=== PATIENT | female | born 1990 | race Caucasian/White ===

== ENCOUNTER 2018-07-04 12:20 | Emergency (ER) | payer OTHER ==
[2018-07-04] MEDS ORDERED: methylPREDNISolone SOD SUCCI 125 MG/2 ML VIAL IV STA (13:07)
--- NOTE | 2018-07-04 13:13 | ED ---
General Adult HPI - General Chief complaint: Abdominal Pain Stated complaint: Chrons flare up Time Seen by Provider: 07/04/18 12:36 Source: patient, RN notes reviewed Mode of arrival: ambulatory Limitations: no limitations - History of Present Illness Initial comments: 27-year-old female with a past medical history of Crohn's, ulcerative colitis, endometriosis presents to the emergency department for a chief complaints of abdominal pain. Patient states this has been ongoing for a month and worsened in the past week. Patient states she has been very stressed for the past week and thinks this worsened her Crohn's. Patient states that today the pain was the worst it's been and she felt that she could not walk due to the pain. Patient does have a GI physician but does not live in the area and has been unable to see them. Patient is not on any medications for Crohn's or ulcerative colitis. She was seen here about one month ago and sent home with steroids but has not yet followed up. Patient also complains of bright red bleeding per rectum. Patient states this has been worse than normal. She denies any hematemesis or melena. Patient is concerned about hemoglobin. Denies lightheadedness, chest pain, shortness of breath. Patient has no other complaints at this time including shortness of breath, chest pain, nausea or vomiting, headache, or visual changes. - Related Data Home Medications Medication Instructions Recorded Confirmed Ibuprofen [Motrin Ib] 400 mg PO Q6HR PRN 07/04/18 07/04/18 Previous Rx's Medication Instructions Recorded predniSONE 50 mg PO DAILY #5 tablet 07/04/18 Allergies Allergy/AdvReac Type Severity Reaction Status Date / Time codeine Allergy Mild Rash/Hives Verified 07/04/18 13:26 ketorolac [From Toradol] Allergy Rash/Hives Verified 07/04/18 13:26 morphine Allergy Rash/Hives Verified 07/04/18 13:26 Penicillins Allergy Unknown Verified 07/04/18 13:26 haloperidol [From Haldol] AdvReac Rapid Verified 07/04/18 13:26 Heart Rate Review of Systems ROS Statement: Those systems with pertinent positive or pertinent negative responses have been documented in the HPI. ROS Other: All systems not noted in ROS Statement are negative. Past Medical History Additional Past Medical History / Comment(s): chorns, ulcerative cholitis, ednometriosis History of Any Multi-Drug Resistant Organisms: MRSA Date of last positivie culture/infection: 2016 MDRO Source:: right ear Past Surgical History: Adenoidectomy, Cholecystectomy, Tonsillectomy Additional Past Surgical History / Comment(s): right overy Past Psychological History: Depression Smoking Status: Current every day smoker Past Alcohol Use History: None Reported Past Drug Use History: None Reported General Exam Limitations: no limitations General appearance: alert, in no apparent distress Head exam: Present: atraumatic, normocephalic, normal inspection Eye exam: Present: normal appearance, PERRL, EOMI. Absent: scleral icterus, conjunctival injection, periorbital swelling ENT exam: Present: normal exam, mucous membranes moist Neck exam: Present: normal inspection, full ROM. Absent: tenderness, meningismus, lymphadenopathy Respiratory exam: Present: normal lung sounds bilaterally. Absent: respiratory distress, wheezes, rales, rhonchi, stridor Cardiovascular Exam: Present: regular rate, normal rhythm, normal heart sounds. Absent: systolic murmur, diastolic murmur, rubs, gallop, clicks GI/Abdominal exam: Present: soft, distended (minimal distension noted), tenderness (tenderness without guarding noted in the RLQ and LLQ), normal bowel sounds. Absent: guarding, rebound, rigid, hyperactive bowel sounds (no tympanic BS noted), hypoactive bowel sounds Neurological exam: Present: alert, oriented X3, CN II-XII intact Psychiatric exam: Present: normal affect, normal mood Course Vital Signs 07/04/18 12:26 Temperature 97.8 F Pulse Rate 93 Respiratory 18 Rate Blood Pressure 123/83 O2 Sat by Pulse 100 Oximetry Medical Decision Making - Medical Decision Making 29-year-old female with a past medical history of Crohn's, ulcerative colitis presents for abdominal pain times one month. Patient states this is worsening. Patient is in recovery from opioids, not given pain medications, ALLERGIC to Toradol. Given Tylenol. On exam patient does have some lower abdominal tenderness. Patient admits to bright red blood per rectum, hemoglobin 14.9. CMP unremarkable. Urine does not show any evidence of infection, hCG negative. Computed tomography scan was ordered to rule out fistula/abscess or any other complicating factors which showed a short segment circumferential wall thickening and mucosal hyperemia mid to distal rectum, likely inflammatory colitis. Mildly enlarged right lower quadrant lymph nodes, history of appendectomy. Patient was seen here for similar symptoms about 2 months ago and given referral to GI. She states she has not followed up with them yet. Patient given steroids here and discussed the importance of following up with GI in the next 1-2 days if she is not on any lactic medications for this. Patient agrees to do this. She will return here if she has any worsening symptoms. - Lab Data Result diagrams: 07/04/18 13:28 07/04/18 13:28 Lab Results 07/04/18 07/04/18 07/04/18 Range/Units 13:28 13:28 13:28 WBC 8.6 (3.8-10.6) k/uL RBC 4.71 (3.80-5.40) m/uL Hgb 14.9 (11.4-16.0) gm/dL Hct 43.6 (34.0-46.0) % MCV 92.6 (80.0-100.0) fL MCH 31.6 (25.0-35.0) pg MCHC 34.1 (31.0-37.0) g/dL RDW 13.2 (11.5-15.5) % Plt Count 373 (150-450) k/uL Neutrophils % 64 % Lymphocytes % 23 % Monocytes % 4 % Eosinophils % 6 % Basophils % 1 % Neutrophils # 5.5 (1.3-7.7) k/uL Lymphocytes # 2.0 (1.0-4.8) k/uL Monocytes # 0.4 (0-1.0) k/uL Eosinophils # 0.5 (0-0.7) k/uL Basophils # 0.1 (0-0.2) k/uL Sodium 141 (137-145) mmol/L Potassium 4.3 (3.5-5.1) mmol/L Chloride 109 H (98-107) mmol/L Carbon Dioxide 24 (22-30) mmol/L Anion Gap 8 mmol/L BUN 13 (7-17) mg/dL Creatinine 0.81 (0.52-1.04) mg/dL Est GFR (CKD-EPI)AfAm >90 (>60 ml/min/1.73 sqM) Est GFR (CKD-EPI)NonAf >90 (>60 ml/min/1.73 sqM) Glucose 121 H (74-99) mg/dL Calcium 9.9 (8.4-10.2) mg/dL Total Bilirubin 0.5 (0.2-1.3) mg/dL AST 20 (14-36) U/L ALT 23 (9-52) U/L Alkaline Phosphatase 63 (38-126) U/L Total Protein 7.1 (6.3-8.2) g/dL Albumin 4.4 (3.5-5.0) g/dL Amylase 47 (30-110) U/L Lipase 136 (23-300) U/L Urine Color Yellow Urine Appearance Clear (Clear) Urine pH 5.5 (5.0-8.0) Ur Specific Hallie 1.018 (1.001-1.035) Urine Protein Negative (Negative) Urine Glucose (UA) Negative (Negative) Urine Ketones Negative (Negative) Urine Blood Negative (Negative) Urine Nitrite Negative (Negative) Urine Bilirubin Negative (Negative) Urine Urobilinogen <2.0 (<2.0) mg/dL Ur Leukocyte Esterase Negative (Negative) Urine HCG, Qual (Not Detectd) 07/04/18 Range/Units 13:28 WBC (3.8-10.6) k/uL RBC (3.80-5.40) m/uL Hgb (11.4-16.0) gm/dL Hct (34.0-46.0) % MCV (80.0-100.0) fL MCH (25.0-35.0) pg MCHC (31.0-37.0) g/dL RDW (11.5-15.5) % Plt Count (150-450) k/uL Neutrophils % % Lymphocytes % % Monocytes % % Eosinophils % % Basophils % % Neutrophils # (1.3-7.7) k/uL Lymphocytes # (1.0-4.8) k/uL Monocytes # (0-1.0) k/uL Eosinophils # (0-0.7) k/uL Basophils # (0-0.2) k/uL Sodium (137-145) mmol/L Potassium (3.5-5.1) mmol/L Chloride (98-107) mmol/L Carbon Dioxide (22-30) mmol/L Anion Gap mmol/L BUN (7-17) mg/dL Creatinine (0.52-1.04) mg/dL Est GFR (CKD-EPI)AfAm (>60 ml/min/1.73 sqM) Est GFR (CKD-EPI)NonAf (>60 ml/min/1.73 sqM) Glucose (74-99) mg/dL Calcium (8.4-10.2) mg/dL Total Bilirubin (0.2-1.3) mg/dL AST (14-36) U/L ALT (9-52) U/L Alkaline Phosphatase (38-126) U/L Total Protein (6.3-8.2) g/dL Albumin (3.5-5.0) g/dL Amylase (30-110) U/L Lipase (23-300) U/L Urine Color Urine Appearance (Clear) Urine pH (5.0-8.0) Ur Specific Hallie (1.001-1.035) Urine Protein (Negative) Urine Glucose (UA) (Negative) Urine Ketones (Negative) Urine Blood (Negative) Urine Nitrite (Negative) Urine Bilirubin (Negative) Urine Urobilinogen (<2.0) mg/dL Ur Leukocyte Esterase (Negative) Urine HCG, Qual Not Detected (Not Detectd) Disposition Clinical Impression: Colitis, Abdominal pain Disposition: HOME SELF-CARE Condition: Good Instructions: Ulcerative Colitis (ED), Abdominal Pain (ED) Additional Instructions: Please take steroids as directed. Please follow-up with Dr. Cathy rubio or GI follow-up. Return to the emergency department if you have any worsening symptoms. Prescriptions: predniSONE 50 mg PO DAILY #5 tablet Is patient prescribed a controlled substance at d/c from ED?: No Referrals: Navi Sofia MD [STAFF PHYSICIAN] - 1-2 days Neli Ayers MD [STAFF PHYSICIAN] - 1-2 days Time of Disposition: 15:24
[2018-07-04 13:44] LABS: Appearance,Urine Clear (Clear); Bilirubin,Urine Negative (Negative); Blood,Urine Negative (Negative); Color,Urine Yellow; Glucose,Urine (UA) Negative (Negative); Ketones,Urine Negative (Negative); Leukocyte Esterase,Urine Negative (Negative); Nitrite,Urine Negative (Negative); PH, Urine 5.5 (5.0-8.0); Protein,Urine Negative (Negative); Specific Gravity,Urine 1.018 (1.001-1.035); Urobilinogen,Urine <2.0 mg/dL (<2.0)
[2018-07-04 13:45] LABS: Basophils # (A) 0.1 k/uL (0-0.2); Basophils % (A) 1 %; Eosinophils # (A) 0.5 k/uL (0-0.7); Eosinophils % (A) 6 %; HCT 43.6 % (34.0-46.0); HGB 14.9 gm/dL (11.4-16.0); Lymphocytes % (A) 23 %; MCH 31.6 pg (25.0-35.0); MCHC 34.1 g/dL (31.0-37.0); MCV 92.6 fL (80.0-100.0); Mean Platelet Volume 7.1; Monocytes # (A) 0.4 k/uL (0-1.0); Monocytes % (A) 4 %; Neutrophils # (A) 5.5 k/uL (1.3-7.7); Neutrophils % (A) 64 %; Platelet Count 373 k/uL (150-450); RBC 4.71 m/uL (3.80-5.40); RDW 13.2 % (11.5-15.5); WBC 8.6 k/uL (3.8-10.6)
[2018-07-04 13:57] LABS: ALT 23 U/L (9-52); AST 20 U/L (14-36); Albumin 4.4 g/dL (3.5-5.0); Alkaline Phosphatase 63 U/L (38-126); Amylase 47 U/L (30-110); Anion Gap 8 mmol/L; Blood Urea Nitrogen 13 mg/dL (7-17); Calcium 9.9 mg/dL (8.4-10.2); Carbon Dioxide 24 mmol/L (22-30); Chloride 109 mmol/L (98-107); Glucose 121 mg/dL (74-99); Lipase 136 U/L (23-300); Potassium 4.3 mmol/L (3.5-5.1); Sodium 141 mmol/L (137-145); Total Bilirubin 0.5 mg/dL (0.2-1.3); Total Protein 7.1 g/dL (6.3-8.2)
[2018-07-04] MEDS ORDERED: ACETAMINOPHEN TAB 325 MG TAB PO STA (14:10)
--- NOTE | 2018-07-04 14:42 | CT ---
EXAMINATION TYPE: CT abdomen pelvis w con DATE OF EXAM: 07/04/2018 COMPARISON: Radiograph Same-day HISTORY: 27-year-old female with abdominal pain TECHNIQUE: Contiguous axial scanning of the abdomen and pelvis following administration of 100 ml Iso brandi 300 IV contrast. Delayed images through the kidneys and coronal/sagittal reconstructions perform ed. CT DLP: 652.6 mGycm Automated exposure control for dose reduction was used. FINDINGS: Heart normal size without pericardial effusion. Lung bases clear without pleural effusion. Small amount of focal fat along the anterior falciform ligament. Otherwise, no focal liver lesion. P ortal venous system is patent. No biliary ductal dilatation. Cholecystectomy clips. Adrenal glands, kidneys, spleen with tiny hilar splenule, and pancreas show no gross abnormality. Normal appendix. No abnormal thickening of the terminal ileum. Scattered mesenteric lymph nodes especially in the righ t lower quadrant measure up to 8 mm. Scattered mild stool burden. There seems to be mild circumferential wall thickening and mucosal hyperemia involving the mid to dis dom rectum, reference axial image 78, coronal image 59, and sagittal image 61. Unclear if this relate s to focal peristalsis. There is a prominent left perirectal lymph node measuring 5 mm here No dilated small bowel, free fluid, or free air. Bladder nondistended. Uterus and left ovaries visualized. Right ovary is not clearly delineated from adjacent clustered bowel loops. The left ovary measures 3.5 x 2.7 x 3.5 cm for a volume of 16.5 mL wh ich is within normal limits. No abnormal fluid collection seen in the pelvis are evident pelvic lymph adenopathy. Bones: There is left L5 hemisacralization. No osseous destructive process. IMPRESSION: 1. SHORT SEGMENT CIRCUMFERENTIAL WALL THICKENING AND APPARENT MUCOSAL HYPEREMIA MID TO DISTAL RECTUM COULD REPRESENT FOCAL PERISTALSIS OR INFLAMMATORY COLITIS. CORRELATE WITH PATIENT'S SYMPTOMS. 2. MILDLY ENLARGED RIGHT LOWER QUADRANT MESENTERIC LYMPH NODES MEASURING UP TO 8 MM. 3. OTHERWISE, NO OTHER SITES OF ACTIVE IBD IDENTIFIED BY CT.
[2018-07-04 15:38] VITALS: BP 109/64; PULSE 69; RESP 16; TEMP 97.9
== END 2018-07-04 15:37 | disposition home or self-care (01) ==
LOC: EC 12:20
DX: K52.9 Noninfective gastroenteritis and colitis, unspecified (principal); K62.89 Other specified diseases of anus and rectum; R59.0 Localized enlarged lymph nodes; F17.200 Nicotine dependence, unspecified, uncomplicated; Z32.02 Encounter for pregnancy test, result negative; Z86.14 Personal history of Methicillin resistant Staphylococcus aureus infection; Z88.0 Allergy status to penicillin; Z88.5 Allergy status to narcotic agent; Z88.6 Allergy status to analgesic agent; Z88.8 Allergy status to other drugs, medicaments and biological substances; Z90.49 Acquired absence of other specified parts of digestive tract
CPT/HCPCS: 36415; 80053; 82150; 83690; 85025; 81003; 81025; 74177; 99284; 96374; J2930; Q9967

== ENCOUNTER 2018-10-03 17:29 | Inpatient (IN) | payer OTHER ==
[2018-10-03] MEDS ORDERED: SODIUM CHLORIDE 0.9% 500 ML 500 ML IV STA (18:04)
[2018-10-03] MEDS ORDERED: SODIUM CHLORIDE 0.9% 1,000 ML IV STA (18:04)
--- NOTE | 2018-10-03 18:21 | ED ---
GI Bleed HPI - General Chief complaint: GI Bleed Stated complaint: And pain, rectal bleed Time Seen by Provider: 10/03/18 18:03 Source: patient, RN notes reviewed Mode of arrival: ambulatory Limitations: no limitations - History of Present Illness Initial comments: 27-year-old female presents emergency Department chief complaint of rectal bleeding. Patient states that she has a history of ulcerative colitis. Patient states she's been having some ongoing bleeding which she's developed some diffuse abdominal discomfort. She states this is typical for her ulcerative colitis flares. Patient states she's not on any current medications. She also states that she is probably [address] Mast. Patient states that she is A0. Patient denies any vaginal bleeding or vaginal discharge no dysuria no hematuria. Patient states her bowel movements are primary bloody minimal stool. - Related Data Home Medications Medication Instructions Recorded Confirmed Fzu-Iymu-Twzus Acid 1 cap PO DAILY 10/03/18 10/03/18 [-U Capsule (formulary)] Allergies Allergy/AdvReac Type Severity Reaction Status Date / Time codeine Allergy Mild Rash/Hives Verified 10/03/18 18:05 ketorolac [From Toradol] Allergy Rash/Hives Verified 10/03/18 18:05 morphine Allergy Rash/Hives Verified 10/03/18 18:05 Penicillins Allergy Unknown Verified 10/03/18 18:05 haloperidol [From Haldol] AdvReac Rapid Verified 10/03/18 18:05 Heart Rate Review of Systems ROS Statement: Those systems with pertinent positive or pertinent negative responses have been documented in the HPI. ROS Other: All systems not noted in ROS Statement are negative. Past Medical History Additional Past Medical History / Comment(s): chorns, ulcerative cholitis, edno metriosis History of Any Multi-Drug Resistant Organisms: MRSA Date of last positivie culture/infection: 2016 MDRO Source:: right ear Past Surgical History: Adenoidectomy, Cholecystectomy, Tonsillectomy Additional Past Surgical History / Comment(s): right overy Past Psychological History: Depression Smoking Status: Current every day smoker Past Alcohol Use History: None Reported Past Drug Use History: None Reported General Exam Limitations: no limitations General appearance: alert, in no apparent distress Head exam: Present: atraumatic, normocephalic, normal inspection Eye exam: Present: normal appearance, PERRL, EOMI. Absent: scleral icterus, conjunctival injection, periorbital swelling ENT exam: Present: normal exam, mucous membranes moist Neck exam: Present: normal inspection, full ROM. Absent: tenderness, meningismus, lymphadenopathy Respiratory exam: Present: normal lung sounds bilaterally. Absent: respiratory distress, wheezes, rales, rhonchi, stridor Cardiovascular Exam: Present: normal rhythm, tachycardia, normal heart sounds. Absent: systolic murmur, diastolic murmur, rubs, gallop, clicks GI/Abdominal exam: Present: soft, tenderness (Mild diffuse), normal bowel sounds. Absent: distended, guarding, rebound, rigid Back exam: Absent: CVA tenderness (R), CVA tenderness (L) Neurological exam: Present: alert Skin exam: Present: warm, dry, intact, normal color. Absent: rash Course Vital Signs 10/03/18 17:42 Temperature 99.0 F Pulse Rate 113 H Respiratory 18 Rate Blood Pressure 110/78 O2 Sat by Pulse 97 Oximetry Medical Decision Making - Medical Decision Making 27-year-old female presented from for abdominal pain, rectal bleeding. Patient has known ulcerative colitis. Patient had persistent worsening symptoms., Getting infected status she is 14 weeks heart tones within normal limits. Patient will be admitted for GI evaluation, IV hydration as she is slightly acidotic with a bicarb of 19. - Lab Data Result diagrams: 10/03/18 18:36 10/03/18 18:36 Lab Results 10/03/18 10/03/18 10/03/18 Range/Units 18:28 18:36 18:36 WBC 11.0 H (3.8-10.6) k/uL RBC 4.54 (3.80-5.40) m/uL Hgb 14.2 (11.4-16.0) gm/dL Hct 41.2 (34.0-46.0) % MCV 90.8 (80.0-100.0) fL MCH 31.2 (25.0-35.0) pg MCHC 34.3 (31.0-37.0) g/dL RDW 13.7 (11.5-15.5) % Plt Count 329 (150-450) k/uL Neutrophils % 69 % Lymphocytes % 24 % Monocytes % 3 % Eosinophils % 2 % Basophils % 1 % Neutrophils # 7.6 (1.3-7.7) k/uL Lymphocytes # 2.6 (1.0-4.8) k/uL Monocytes # 0.4 (0-1.0) k/uL Eosinophils # 0.3 (0-0.7) k/uL Basophils # 0.1 (0-0.2) k/uL Sodium 137 (137-145) mmol/L Potassium 3.8 (3.5-5.1) mmol/L Chloride 109 H (98-107) mmol/L Carbon Dioxide 19 L (22-30) mmol/L Anion Gap 9 mmol/L BUN 6 L (7-17) mg/dL Creatinine 0.43 L (0.52-1.04) mg/dL Est GFR (CKD-EPI)AfAm >90 (>60 ml/min/1.73 sqM) Est GFR (CKD-EPI)NonAf >90 (>60 ml/min/1.73 sqM) Glucose 72 L (74-99) mg/dL Calcium 9.5 (8.4-10.2) mg/dL Magnesium 1.9 (1.6-2.3) mg/dL Total Bilirubin 0.5 (0.2-1.3) mg/dL AST 22 (14-36) U/L ALT 23 (9-52) U/L Alkaline Phosphatase 66 (38-126) U/L Total Protein 7.5 (6.3-8.2) g/dL Albumin 4.4 (3.5-5.0) g/dL Urine Color Yellow Urine Appearance Clear (Clear) Urine pH 6.0 (5.0-8.0) Ur Specific Wellman 1.022 (1.001-1.035) Urine Protein Negative (Negative) Urine Glucose (UA) Negative (Negative) Urine Ketones Negative (Negative) Urine Blood Negative (Negative) Urine Nitrite Negative (Negative) Urine Bilirubin Negative (Negative) Urine Urobilinogen <2.0 (<2.0) mg/dL Ur Leukocyte Esterase Negative (Negative) Disposition Clinical Impression: Exacerbation of ulcerative colitis, Metabolic acidosis, , Dehydration Disposition: ADMITTED IP TO THIS [facility] Condition: Fair Referrals: None,Stated [Primary Care Provider] - 1-2 days
[2018-10-03 18:50] LABS: Basophils # (A) 0.1 k/uL (0-0.2); Basophils % (A) 1 %; Eosinophils # (A) 0.3 k/uL (0-0.7); Eosinophils % (A) 2 %; HCT 41.2 % (34.0-46.0); HGB 14.2 gm/dL (11.4-16.0); Lymphocytes # (A) 2.6 k/uL (1.0-4.8); Lymphocytes % (A) 24 %; MCH 31.2 pg (25.0-35.0); MCHC 34.3 g/dL (31.0-37.0); MCV 90.8 fL (80.0-100.0); Mean Platelet Volume 7.2; Monocytes # (A) 0.4 k/uL (0-1.0); Monocytes % (A) 3 %; Neutrophils # (A) 7.6 k/uL (1.3-7.7); Neutrophils % (A) 69 %; Platelet Count 329 k/uL (150-450); RBC 4.54 m/uL (3.80-5.40); RDW 13.7 % (11.5-15.5)
[2018-10-03 18:58] LABS: Appearance,Urine Clear (Clear); Bilirubin,Urine Negative (Negative); Blood,Urine Negative (Negative); Color,Urine Yellow; Glucose,Urine (UA) Negative (Negative); Ketones,Urine Negative (Negative); Leukocyte Esterase,Urine Negative (Negative); Nitrite,Urine Negative (Negative); Protein,Urine Negative (Negative); Specific Gravity,Urine 1.022 (1.001-1.035); Urobilinogen,Urine <2.0 mg/dL (<2.0)
[2018-10-03 19:04] LABS: ALT 23 U/L (9-52); AST 22 U/L (14-36); Albumin 4.4 g/dL (3.5-5.0); Alkaline Phosphatase 66 U/L (38-126); Anion Gap 9 mmol/L; Blood Urea Nitrogen 6 mg/dL (7-17); Calcium 9.5 mg/dL (8.4-10.2); Carbon Dioxide 19 mmol/L (22-30); Chloride 109 mmol/L (98-107); Glucose 72 mg/dL (74-99); Magnesium 1.9 mg/dL (1.6-2.3); Potassium 3.8 mmol/L (3.5-5.1); Sodium 137 mmol/L (137-145); Total Bilirubin 0.5 mg/dL (0.2-1.3); Total Protein 7.5 g/dL (6.3-8.2)
--- NOTE | 2018-10-03 22:42 | P.HPIM ---
History of Present Illness H&P Date: 10/03/18 The patient is a 27 yo F with a PMH of ulcerative colitis and currently at 1 weeks gestation of a who presented to the ED due to rectal bleeding and abdominal pain. Patent reports that she was previously on Mesalamine and was following with a GI doctor when she moved and subsequently lost follow up 1 year ago. Since then, she hadn't been taking any medications and noted that at first she was asymptomatic though her symptoms gradually worsened where she developed abdominal bloating with pain and rectal bleeding, described as moderate amounts of mucous along w/ bright red blood in the toiler bowel. She notes that her abdominal pain worsened over the past 1 week and she decieded to seek medical attention. She denied nausea, vomiting, diarrhea, fever, chills, chest pain or SOB. At time of the interview, she reports her pain is a 1/10. She denied weight loss, recent travel, or sick contacts. In the ED, the patient underwent a comprehensive evaluation w/ a WBC count of 11, Hgb 14.2, with Cr 0.43, and a UA unremarkable. The patient was admitted under osbervation for evaluation by GI. Review of Systems Pertinent positives and negatives as discussed in HPI, a complete review of systems was performed and all other systems are negative. Past Medical History Additional Past Medical History / Comment(s): crohns, ulcerative cholitis, endometriosis History of Any Multi-Drug Resistant Organisms: MRSA Date of last positivie culture/infection: 2016 MDRO Source:: right ear Past Surgical History: Adenoidectomy, Cholecystectomy, Tonsillectomy Additional Past Surgical History / Comment(s): right ovary removed. surgery to remove scar tissue Past Anesthesia/Blood Transfusion Reactions: No Reported Reaction Past Psychological History: Depression Smoking Status: Former smoker Past Alcohol Use History: None Reported Additional Past Alcohol Use History / Comment(s): Pt states that she is not a current smoker. She states that she was a previous 1/2 pack per day. Past Drug Use History: None Reported Medications and Allergies Home Medications Medication Instructions Recorded Confirmed Type Gnx-Ylxu-Gijbk Acid 1 cap PO DAILY 10/03/18 10/03/18 History [-U Capsule (formulary)] Allergies Allergy/AdvReac Type Severity Reaction Status Date / Time codeine Allergy Mild Rash/Hives Verified 10/03/18 18:05 ketorolac [From Toradol] Allergy Rash/Hives Verified 10/03/18 18:05 morphine Allergy Rash/Hives Verified 10/03/18 18:05 Penicillins Allergy Unknown Verified 10/03/18 18:05 haloperidol [From Haldol] AdvReac Rapid Verified 10/03/18 18:05 Heart Rate Physical Exam Vitals: Vital Signs Temp Pulse Pulse Resp BP BP Pulse Ox 10/03/18 20:45 98.3 F 87 16 110/75 100 10/03/18 20:18 98.3 F 85 15 89/44 98 10/03/18 19:42 98.1 F 85 16 100/36 100 10/03/18 17:42 99.0 F 113 H 18 110/78 97 Intake and Output 10/03/18 10/03/18 10/03/18 06:59 14:59 22:59 Other: # Voids 1 Weight 63.503 kg General: non toxic, no distress, appears at stated age, normal weight Derm: no unusual rashes/lesions no unusual ecchymoses, warm, dry Head: atraumatic, normocephalic, symmetric Eyes: EOMI, no lid lag, anicteric sclera, pupils equal round reactive to light ENT: Nose and ears atraumatic, no thrush, no pharyngeal erythema Neck: No thyromegaly, no cervical lymphadenopathy, trachea midline, supple Mouth: no lip lesion, mucus membranes moist Cardiovascular: S1S2 reg, no murmur, positive posterior tibial pulse bilateral, no edema, capillary refill less than 2 seconds Lungs: CTA bilateral, no rhonchi, no rales , no accessory muscle use Abdominal: soft, nontender to palpation, no guarding, normal bowel sounds Ext: no gross muscle atrophy, muscle strength 5 out of 5 in all 4 extremities grossly, no contractures, Neuro: CN II-XI grossly intact, light touch intact all 4 extremities, finger to nose within normal limits, Psych: Alert, oriented, appropriate affect Results CBC & Chem 7: 10/03/18 18:36 10/03/18 18:36 Labs: Abnormal Lab Results - Last 24 Hours (Table) 10/03/18 10/03/18 Range/Units 18:36 18:36 WBC 11.0 H (3.8-10.6) k/uL Chloride 109 H (98-107) mmol/L Carbon Dioxide 19 L (22-30) mmol/L BUN 6 L (7-17) mg/dL Creatinine 0.43 L (0.52-1.04) mg/dL Glucose 72 L (74-99) mg/dL Thrombosis Risk Factor Assmnt - Choose All That Apply Any of the Below Risk Factors Present?: Yes Each Factor Represents 1 point: Obesity (BMI >25) Other Risk Factors: No Thrombosis Risk Factor Assessment Total Risk Factor Score: 1 Thrombosis Risk Factor Assessment Level: Low Risk Assessment and Plan Plan: Ulcerative colitis w/ rectal bleeding, not on medications, currently -Will c/w clear liquid diet for now -GI consult in am -Patient not suitable for mesalamine due to DVT prophylaxis -IPCDs The patient is admitted with an anticipated less than 2 midnight stay for evaluation of ulcerative colitis. CODE STATUS:Full Code Discussed with: Patient Anticipated discharge date: 10/04/[address]: Home A total of 35 minutes was spent on the care of this complex patient more than 50% of the time was spent in counseling and care coordination.
[2018-10-04] MEDS: SODIUM CHLORIDE 0.9% 1,000 ML IV SCH ×3 (01:08→16:42)
[2018-10-04] MEDS: ACETAMINOPHEN TAB 325 MG TAB PO PRN ×2 (09:57→15:32)
--- NOTE | 2018-10-04 12:12 | P.CONS ---
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 Betancourt which she no longer follows and presently not on maintenance medi cations. Reported intrauterine approximately 14 weeks admitted with rectal bleeding lower abdominal discomfort 10-15 times a day bloody bowel movements 2 months. Pain has worsened over the past week. Denies fever chills hematemesis or melena. No recent endoscopic exams. In the past she was maintained on steroids and mesalamine and was advised Remicade but never followed through. No recent steroids or antibiotics. Not sure the extent of her inflammatory bowel disease if its small bowel/colon or rectal involvement. White count 11. Hemoglobin 14.2. Platelet 329. BUN 6. Creatinine 0.4. Review of Systems Constitutional: Denies fever, chills, sweats, weight gain, or loss. HEENT: Negative for migraines, blurred vision or loss, earaches, drainage, tinnitus, oral mucosal lesions, dysphagia, or odynophagia. CARDIAC: Negative for chest pain, arrhythmias, or palpitation. RESPIRATORY: Negative for shortness of breath, hemoptysis, cough, or sputum production. GI: See HPI for pertinent findings. : Negative for hematuria, urgency, frequency, polyuria, or dysuria. GYNc: Reports approximate 14 weeks gestation. Negative vaginal discharge. MUSCULOSKELETAL: Negative for muscle aches, swelling, arthritis, and arthralgias. NEUROLOGIC: Negative for stroke or TIA. ENDOCRINE: Negative for thyroid problems. SKIN: Negative for rash or itching. PSYCHIATRIC: Negative history for depression and anxiety Past Medical History Additional Past Medical History / Comment(s): crohns, ulcerative cholitis, endometriosis History of Any Multi-Drug Resistant Organisms: MRSA Year Discovered:: 2017 MDRO Source:: right ear Past Surgical History: Adenoidectomy, Cholecystectomy, Tonsillectomy Additional Past Surgical History / Comment(s): right ovary removed. surgery to remove scar tissue Past Anesthesia/Blood Transfusion Reactions: No Reported Reaction Past Psychological History: Depression Smoking Status: Former smoker Past Alcohol Use History: None Reported Additional Past Alcohol Use History / Comment(s): Pt states that she is not a current smoker. She states that she was a previous 1/2 pack per day. Past Drug Use History: None Reported Medications and Allergies Home Medications Medication Instructions Recorded Confirmed Type [id number] Acid 1 cap PO DAILY 10/03/18 10/03/18 History [-U Capsule (formulary)] Allergies Allergy/AdvReac Type Severity Reaction Status Date / Time codeine Allergy Mild Rash/Hives Verified 10/03/18 18:05 ketorolac [From Toradol] Allergy Rash/Hives Verified 10/03/18 18:05 morphine Allergy Rash/Hives Verified 10/03/18 18:05 Penicillins Allergy Unknown Verified 10/03/18 18:05 haloperidol [From Haldol] AdvReac Rapid Verified 10/03/18 18:05 Heart Rate Physical Exam Vitals: Vital Signs Temp Pulse Pulse Resp BP BP Pulse Ox 10/04/18 08:00 98.4 F 78 18 93/57 97 10/04/18 04:00 16 10/04/18 00:00 98.3 F 89 16 88/56 97 10/03/18 22:34 16 10/03/18 20:45 98.3 F 87 16 110/75 100 10/03/18 20:18 98.3 F 85 15 89/44 98 10/03/18 19:42 98.1 F 85 16 100/36 100 10/03/18 17:42 99.0 F 113 H 18 110/78 97 Intake and Output 10/03/18 10/04/18 10/04/18 22:59 06:59 14:59 Other: Voiding Method Toilet Toilet Toilet # Voids 1 2 Weight 63.503 kg General appearance: The patient is alert, oriented, in no acute distress. HET: Head is normocephalic and atraumatic. Pupils are equal and reactive. Oropharynx is clear without lesions. Neck: Supple without lymphadenopathy. Trachea midline. Heart: S1 S2. Regular rate and rhythm. Lungs: No crackles or wheezes are heard. Abdomen: Soft, mildly tender bilateral lower abdomen mildly bloated with bowel sounds. No peritoneal signs. No palpable organomegaly or masses. Extremities: Normal skin color and turgor. No cyanosis, rash, ulceration, clubbing, or edema. Radial and pedal pulses are 2/4 bilaterally. Neurological: No focal deficits. Strength and sensation are grossly intact. 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 Suspect exacerbation of inflammatory bowel disease but an underlying superimposed infectious colitis cannot be excluded. Admission hemoglobin 14.2 no abdominal imaging to review secondary to reported . Current Visit: Yes Status: Acute Code(s): K62.5 - HEMORRHAGE OF ANUS AND RECTUM SNOMED Code(s): 52533984 (2) Current Visit: Yes Status: Acute Code(s): Z34.90 - ENCNTR FOR SUPRVSN OF NORMAL , UNSP, UNSP TRIMESTER SNOMED Code(s): 91286820 Plan: 1. Dr. Sofia recommends stool testing for clostridium difficile. Steroid therapy and or mesalamine is appropriate for 2nd trimeseter . She has reported history of IBD but is unclear on the details when questioned. 2. Will obtain sed rate and CRP. No evidence of fever or anemia. Will reevaluate this afternoon. Further recommendations forthcoming. Would be helpful to obtain GI medical records to support IBD diagnosis from her [place] wind turbine electrical engineer before starting steroids and or mesalamine/balsalazide medications. We'll request records and place on chart for review. Low residue diet as tolerated. Thank you for this kind referral and the opportunity to participate in the care of your patient. This consultation was discussed with Dr. Sofia. The impression and plan of care have been directed as dictated.
--- NOTE | 2018-10-04 15:54 | P.PN ---
Subjective Progress Note Date: 10/04/18 Patient resting comfortably, reports that she had a bloody liquidy stool. Reports some vague abdominal pain, reports gestational age of 14 weeks. Reports history of Cro[facility]'s disease and [facility] 23 [facility] No acute events overnight Objective - Vital Signs Vital signs: Vital Signs Temp 98.4 F 10/04/18 08:00 Pulse 78 10/04/18 08:00 Resp 18 10/04/18 08:00 BP 93/57 10/04/18 08:00 Pulse Ox 97 10/04/18 08:00 Intake & Output 10/03/18 10/04/18 10/04/18 18:59 06:59 18:59 Weight 63.503 kg Other: Voiding Method Toilet Toilet # Voids 2 1 # Bowel Movements 1 - Exam Constitutional: No acute distress, conversant, pleasant Eyes: Anicteric sclerae, moist conjunctiva, no lid-lag, PERRLA ENMT: NC/AT,Oropharynx clear, no erythema, exudates Neck:Supple, FROM, no masses, or JVD, No carotid bruits; No thyromegaly Lungs: Clear to auscultation, Clear to percussion, Normal respiratory effort, no accessory muscle use Cardiovascular: Heart regular in rate and rhythm, No murmurs, gallops, or rubs no peripheral edema Abdominal: Soft Nontender, nom distended, no guarding, no rebound or rigidity, Normoactive bowel sounds No hepatomegaly, No splenomegaly, No palpable mass No abdominal wall hernia noted Skin: Normal temperature, tone, texture, turgor, No induration No subcutaneous nodules, No rash, lesions, No ulcers Extremities:No digital cyanosis No clubbing, Pedal pulses intact and symmetrical Radial pulses intact and symmetrical Normal gait and station, No calf tenderness Psychiatric: Alert and oriented to person, place and time, Appropriate affect Intact judgement Neuro: Muscles Strength 5/5 in all 4 extremities, Sensation to light touch grossly present throughout, Cranial nerves II-XII grossly intact. No focal s ensory deficits - Labs CBC & Chem 7: 10/03/18 18:36 10/03/18 18:36 Labs: Abnormal Lab Results - Last 24 Hours (Table) 10/03/18 10/03/18 Range/Units 18:36 18:36 WBC 11.0 H (3.8-10.6) k/uL Chloride 109 H (98-107) mmol/L Carbon Dioxide 19 L (22-30) mmol/L BUN 6 L (7-17) mg/dL Creatinine 0.43 L (0.52-1.04) mg/dL Glucose 72 L (74-99) mg/dL Assessment and Plan (1) Exacerbation of ulcerative colitis Narrative/Plan: * Possible exacerbation GI consulted * Previously on mesalamine * Inflammatory markers pending Current Visit: Yes Status: Acute Code(s): K51.90 - ULCERATIVE COLITIS, UNSPECIFIED, WITHOUT COMPLICATIONS SNOMED Code(s): 866607540 (2) Dehydration Narrative/Plan: * Continue IV fluids Current Visit: Yes Status: Acute Code(s): E86.0 - DEHYDRATION SNOMED Code(s): 18547161 (3) Rectal bleeding Current Visit: Yes Status: Acute Code(s): K62.5 - HEMORRHAGE OF ANUS AND RECTUM SNOMED Code(s): 02220566 (4) Current Visit: Yes Status: Acute Code(s): Z34.90 - ENCNTR FOR SUPRVSN OF NORMAL , UNSP, UNSP TRIMESTER SNOMED Code(s): 33834561 Plan: * Disposition * Follow-up with GI recommendations
[2018-10-05 12:46] LABS: Basophils # (A) 0.1 k/uL (0-0.2); Basophils % (A) 1 %; Eosinophils # (A) 0.2 k/uL (0-0.7); Eosinophils % (A) 2 %; HCT 42.1 % (34.0-46.0); Lymphocytes % (A) 21 %; MCH 30.8 pg (25.0-35.0); MCHC 33.3 g/dL (31.0-37.0); MCV 92.4 fL (80.0-100.0); Mean Platelet Volume 6.9; Monocytes # (A) 0.3 k/uL (0-1.0); Monocytes % (A) 4 %; Neutrophils # (A) 6.9 k/uL (1.3-7.7); Neutrophils % (A) 72 %; Platelet Count 246 k/uL (150-450); RBC 4.56 m/uL (3.80-5.40); RDW 13.1 % (11.5-15.5); WBC 9.6 k/uL (3.8-10.6)
[2018-10-05 12:54] LABS: ALT 26 U/L (9-52); AST 16 U/L (14-36); Albumin 4.2 g/dL (3.5-5.0); Alkaline Phosphatase 62 U/L (38-126); Anion Gap 10 mmol/L; Blood Urea Nitrogen 6 mg/dL (7-17); Calcium 9.8 mg/dL (8.4-10.2); Carbon Dioxide 20 mmol/L (22-30); Chloride 107 mmol/L (98-107); Glucose 81 mg/dL (74-99); Potassium 4.1 mmol/L (3.5-5.1); Sodium 137 mmol/L (137-145); Total Bilirubin 0.4 mg/dL (0.2-1.3)
--- NOTE | 2018-10-05 16:19 | P.PN ---
Subjective Progress Note Date: 10/05/18 Patient feeling a little bit better today, still having some generalized abdominal pain, rectal bleeding seems to have diminished. No acute events overnight Objective - Vital Signs Vital signs: Vital Signs Temp 98.2 F 10/05/18 15:14 Pulse 88 10/05/18 15:14 Resp 18 10/05/18 15:14 BP 114/75 10/05/18 15:14 Pulse Ox 98 10/05/18 15:14 Intake & Output 10/04/18 10/05/18 10/05/18 18:59 06:59 18:59 Output Total 2 Balance -2 Output: Urine 2 Other: Voiding Method Toilet Toilet # Voids 1 # Bowel Movements 1 - Exam Constitutional: No acute distress, conversant, pleasant Eyes: Anicteric sclerae, moist conjunctiva, no lid-lag, PERRLA ENMT: NC/AT,Oropharynx clear, no erythema, exudates Neck:Supple, FROM, no masses, or JVD, No carotid bruits; No thyromegaly Lungs: Clear to auscultation, Clear to percussion, Normal respiratory effort, no accessory muscle use Cardiovascular: Heart regular in rate and rhythm, No murmurs, gallops, or rubs no peripheral edema Abdominal: Soft Nontender, nom distended, no guarding, no rebound or rigidity, Normoactive bowel sounds No hepatomegaly, No splenomegaly, No palpable mass No abdominal wall hernia noted Skin: Normal temperature, tone, texture, turgor, No induration No subcutaneous nodules, No rash, lesions, No ulcers Extremities:No digital cyanosis No clubbing, Pedal pulses intact and symmetrical Radial pulses intact and symmetrical Normal gait and station, No calf tenderness Psychiatric: Alert and oriented to person, place and time, Appropriate affect Intact judgement Neuro: Muscles Strength 5/5 in all 4 extremities, Sensation to light touch grossly present throughout, Cranial nerves II-XII grossly intact. No focal sensory deficits - Labs CBC & Chem 7: 10/05/18 12:07 10/05/18 12:07 Labs: Abnormal Lab Results - Last 24 Hours (Table) 10/05/18 Range/Units 12:07 Carbon Dioxide 20 L (22-30) mmol/L BUN 6 L (7-17) mg/dL Creatinine 0.43 L (0.52-1.04) mg/dL Assessment and Plan (1) Exacerbation of ulcerative colitis Narrative/Plan: * Possible exacerbation GI consulted * Previously on mesalamine * Inflammatory markers pending Current Visit: Yes Status: Acute Code(s): K51.90 - ULCERATIVE COLITIS, UNSPECIFIED, WITHOUT COMPLICATIONS SNOMED Code(s): 328373006 (2) Dehydration Narrative/Plan: * Continue IV fluids Current Visit: Yes Status: Acute Code(s): E86.0 - DEHYDRATION SNOMED Code(s): 27146671 (3) Rectal bleeding Current Visit: Yes Status: Acute Code(s): K62.5 - HEMORRHAGE OF ANUS AND RECTUM SNOMED Code(s): 51735440 (4) Current Visit: Yes Status: Acute Code(s): Z34.90 - ENCNTR FOR SUPRVSN OF NORMAL , UNSP, UNSP TRIMESTER SNOMED Code(s): 19787159 Plan: * Disposition * Awaiting GI recommendations
[2018-10-05] MEDS: ACETAMINOPHEN TAB 325 MG TAB PO PRN (17:59)
--- NOTE | 2018-10-05 17:59 | P.PN ---
Subjective Progress Note Date: 10/05/18 Patient continues to have multiple movements with mucus and mushy stools without significant bleeding. Objective - Vital Signs Vital signs: Vital Signs Temp 98.2 F 10/05/18 15:14 Pulse 88 10/05/18 15:14 Resp 18 10/05/18 15:14 BP 114/75 10/05/18 15:14 Pulse Ox 98 10/05/18 15:14 Intake & Output 10/04/18 10/05/18 10/05/18 18:59 06:59 18:59 Output Total 2 Balance -2 Output: Urine 2 Other: Voiding Method Toilet Toilet # Voids 1 1 # Bowel Movements 1 1 - Exam Abdomen: Soft, no tenderness or guarding bowel sounds present. C. difficile was negative. - Labs CBC & Chem 7: 10/05/18 12:07 10/05/18 12:07 Labs: Abnormal Lab Results - Last 24 Hours (Table) 10/05/18 Range/Units 12:07 Carbon Dioxide 20 L (22-30) mmol/L BUN 6 L (7-17) mg/dL Creatinine 0.43 L (0.52-1.04) mg/dL Assessment and Plan Assessment: Clinical picture consistent with exacerbation of her colitis. C. difficile negative. Plan: Discussed with patient at length treatment options. She is concerned because of her . She has tolerated mesalamine and steroids in the past but prefers that we start with mesalamine at this point. I will discuss with you and will consider a short IV course of steroids depending on her response.
[2018-10-05] MEDS: predniSONE 20 MG TAB PO SCH (19:51)
[2018-10-05 21:01] LABS: Glucose,Whole Blood 142 mg/dL (75-99)
[2018-10-05] MEDS: INSULIN ASPART (NovoLOG) 100 UNIT/ML VIAL SQ SCH (21:07)
[2018-10-05 21:17] VITALS: RESP 16
[2018-10-05] MEDS ORDERED: METOCLOPRAMIDE 5 MG/ML 2 ML VIAL IVP PRN (22:27)
[2018-10-06] MEDS ORDERED: METOCLOPRAMIDE 5 MG/ML 2 ML VIAL IVP SCH
[2018-10-06 08:28] LABS: Glucose,Whole Blood 107 mg/dL (75-99)
[2018-10-06] MEDS: INSULIN ASPART (NovoLOG) 100 UNIT/ML VIAL SQ SCH (08:47)
[2018-10-06 08:49] VITALS: BP 104/63; PULSE 74; TEMP 97.7
[2018-10-06] MEDS: predniSONE 20 MG TAB PO SCH (09:30)
--- NOTE | 2018-10-06 12:48 | P.DS ---
Providers Date of admission: 10/05/18 08:27 Expected date of discharge: 10/06/18 Attending physician: Dino Silvestre MD Consults: 10/03/18 19:25 Consult Physician Stat Consulting Provider: Kelly Beckwith Consult Reason/Comments: Ulcerative colitis exacerbation Do you want consulting provider notified?: Yes Primary care physician: Stated None - Discharge Diagnosis(es) (1) Exacerbation of ulcerative colitis Status: Acute (2) Dehydration Status: Acute (3) Rectal bleeding Status: Acute (4) Status: Acute Hospital Course: The patient is a 27 y/o female with a reported history of ulcerative colitis that was admitted with concern for UC flare after presenting with rectal bleeding and abdominal pain. The patient was at EGA of approximately 14 weeks hence GI was consulted. C diff was negative and inflammatory marker CRP was negative, there was no evidence of anemia and Hg remained stable despite the patient having loose watery and occasionally bloody stools. She was eventually started on prednisone but then proceeded to leave A prior to being evaluated. This discharge process took approximately 30 minutes. Patient Condition at Discharge: Undetermined Plan - Discharge Summary Discharge Rx Participant: No New Discharge Prescriptions: No Action Loq-Khjj-Rncee Acid [-U Capsule (formulary)] 1 cap PO DAILY Discharge Medication List Bhr-Fdtt-Yioxx Acid [-U Capsule (formulary)] 1 cap PO DAILY 10/03/18 [History] Follow up Appointment(s)/Referral(s): None,Stated [Primary Care Provider] - 1-2 days Discharge Disposition: Left Against Medical Advice
== END 2018-10-06 10:00 | disposition left against medical advice (07) | DRG 832 ==
LOC: EC 17:29 → 1SOBS 19:17 → OBSVTOIN 10-05 08:27 → 6PED 10-05 15:13
PROVIDERS: ADMIT Internal Medicine; ATTEND Internal Medicine
DX: O99.612 Diseases of the digestive system complicating pregnancy, second trimester (principal); K51.911 Ulcerative colitis, unspecified with rectal bleeding; E87.2 Acidosis; O99.282 Endocrine, nutritional and metabolic diseases complicating pregnancy, second trimester; O99.332 Smoking (tobacco) complicating pregnancy, second trimester; E86.0 Dehydration; F17.200 Nicotine dependence, unspecified, uncomplicated; O99.342 Other mental disorders complicating pregnancy, second trimester; F32.9 Major depressive disorder, single episode, unspecified; Z3A.14 14 weeks gestation of pregnancy; Z90.721 Acquired absence of ovaries, unilateral; Z90.49 Acquired absence of other specified parts of digestive tract; Z88.5 Allergy status to narcotic agent; Z88.0 Allergy status to penicillin; Z88.8 Allergy status to other drugs, medicaments and biological substances; Z86.14 Personal history of Methicillin resistant Staphylococcus aureus infection
CPT/HCPCS: 36415; 80053; 81003; 83735; 85025; 85652; 86140; 87324; 96360; 99285

== ENCOUNTER 2019-05-19 20:32 | Emergency (ER) | payer OTHER ==
[2019-05-19 20:54] VITALS: RESP 16
[2019-05-19] MEDS ORDERED: DEXAMETHASONE SOD PHOSPHATE 10 MG/ML 1 ML VIAL IM STA (21:20)
[2019-05-19] MEDS ORDERED: HYDROmorphone 1 MG/ML 1 ML SYRINGE IM STA (21:20)
--- NOTE | 2019-05-19 21:22 | ED ---
ENT HPI - General Chief complaint: ENT Stated complaint: Sore throat, unable to move neck Time Seen by Provider: 05/19/19 20:58 Source: patient, RN notes reviewed, old records reviewed Mode of arrival: ambulatory Limitations: no limitations - History of Present Illness Initial comments: This is a 28 female in to ER for symptoms of sore throat difficulty swallowing and hoarse voice. Patient is alcohol abuse. No fevers. No sick contacts. Patient does have access for 6 weeks vaginal delivery uncomplicated not currently breast-feeding. Patient is able to eat and drink. Says it is painful to swallow painful to move her head painful or neck area. Cervical sore throat. No headache. No altered mental status. No sick contacts or travel history. No fevers again. No modifying factors for pain at home, patient has not attempted Tylenol or Motrin. MD complaint: sore throat, difficulty swallowing (Painful) -: days(s) Location: throat Severity: moderate Severity scale (1-10): 4 Quality: aching, sharp Consistency: constant Improves with: none Worsens with: swallowing Context- Ear: recent illness Associated Symptoms: pain with swallowing, sore throat - Related Data Home Medications Medication Instructions Recorded Confirmed Vmq-Uwvw-Ffzly Acid 1 cap PO DAILY 10/03/18 10/03/18 [-U Capsule (formulary)] Allergies Allergy/AdvReac Type Severity Reaction Status Date / Time codeine Allergy Mild Rash/Hives Verified 05/19/19 20:54 ketorolac [From Toradol] Allergy Rash/Hives Verified 05/19/19 20:54 morphine Allergy Rash/Hives Verified 05/19/19 20:54 Penicillins Allergy Unknown Verified 05/19/19 20:54 haloperidol [From Haldol] AdvReac Rapid Verified 05/19/19 20:54 Heart Rate Review of Systems ROS Statement: Those systems with pertinent positive or pertinent negative responses have been documented in the HPI. ROS Other: All systems not noted in ROS Statement are negative. Past Medical History Additional Past Medical History / Comment(s): crohns, ulcerative cholitis, endometriosis History of Any Multi-Drug Resistant Organisms: MRSA Date of last positivie culture/infection: 2016 MDRO Source:: right ear Past Surgical History: Adenoidectomy, Cholecystectomy, Tonsillectomy Additional Past Surgical History / Comment(s): right ovary removed. surgery to remove scar tissue Past Anesthesia/Blood Transfusion Reactions: No Reported Reaction Past Psychological History: Depression Smoking Status: Former smoker Past Alcohol Use History: None Reported Past Drug Use History: None Reported General Exam Limitations: no limitations General appearance: alert, in no apparent distress Head exam: Present: atraumatic, normocephalic, normal inspection Eye exam: Present: normal appearance, PERRL, EOMI. Absent: scleral icterus, conjunctival injection, periorbital swelling ENT exam: Present: normal exam, mucous membranes dry (Increased appetite), mucous membranes moist. Absent: normal oropharynx (Minimal erythema to bilateral oropharynx no exudate) Neck exam: Present: normal inspection, other (Able to move the neck both actively and passively in extension and flexion). Absent: tenderness, meningismus, lymphadenopathy Respiratory exam: Present: normal lung sounds bilaterally. Absent: respiratory distress, wheezes, rales, rhonchi, stridor Cardiovascular Exam: Present: regular rate, normal rhythm, normal heart sounds. Absent: systolic murmur, diastolic murmur, rubs, gallop, clicks GI/Abdominal exam: Present: soft, normal bowel sounds. Absent: distended, tenderness, guarding, rebound, rigid Extremities exam: Present: normal inspection, full ROM, normal capillary refill. Absent: tenderness, pedal edema, joint swelling, calf tenderness Back exam: Present: normal inspection Neurological exam: Present: alert, oriented X3, CN II-XII intact Psychiatric exam: Present: normal affect, normal mood Skin exam: Present: warm, dry, intact, normal color. Absent: rash Course Vital Signs 05/19/19 20:51 Temperature 97.4 F L Pulse Rate 82 Respiratory 16 Rate Blood Pressure 140/85 O2 Sat by Pulse 97 Oximetry - Reevaluation(s) Reevaluation #1: 05/19/19 22:02 Medical records reviewed Reevaluation #2: 05/19/19 22:02 Patient's symptoms are improved Medical Decision Making - Medical Decision Making 28 female in to ER for symptoms of sore throat difficulty swallowing and hoarse voice. Patient has improvement of sore throat able to move neck no fever again. Patient will be treated for pharyngitis x-rays negative - Radiology Data Radiology results: report reviewed (X-ray of Soft tissue neck negative for acute disease), image reviewed Disposition Clinical Impression: Acute pharyngitis, Sore throat Disposition: HOME SELF-CARE Condition: Good Instructions (If sedation given, give patient instructions): Pharyngitis (ED) Is patient prescribed a controlled substance at d/c from ED?: No Referrals: None,Stated [Primary Care Provider] - 1-2 days
--- NOTE | 2019-05-19 21:57 | XR ---
EXAMINATION TYPE: XR soft tissue neck DATE OF EXAM: 05/19/2019 COMPARISON: NONE HISTORY: Sore throat/neck pain TECHNIQUE: 2 views of the soft tissues of the neck were obtained FINDINGS: No airway narrowing is seen. Nasopharyngeal and oropharyngeal airway are unremarkable. No e piglottic thickening. No prevertebral soft tissue swelling. Vertebral body heights and alignment of t he cervical spine are maintained. Lung apices are well aerated. IMPRESSION: Unremarkable radiographs of the soft tissues of the neck.
[2019-05-19] MEDS ORDERED: AZITHROMYCIN 500 MG TAB PO STA (22:03)
[2019-05-19 22:20] VITALS: BP 112/82; PULSE 69; TEMP 97.8
== END 2019-05-19 22:23 | disposition home or self-care (01) ==
LOC: EC 20:32
DX: J02.9 Acute pharyngitis, unspecified (principal); Z86.14 Personal history of Methicillin resistant Staphylococcus aureus infection; Z90.89 Acquired absence of other organs; Z87.891 Personal history of nicotine dependence; Z88.5 Allergy status to narcotic agent; Z88.6 Allergy status to analgesic agent; Z88.0 Allergy status to penicillin; Z88.8 Allergy status to other drugs, medicaments and biological substances
CPT/HCPCS: 87081; 87430; 70360; 99284; 96372 ×2; J1100; J1170

== ENCOUNTER 2019-05-24 00:10 | Emergency (ER) | payer OTHER ==
--- NOTE | 2019-05-24 00:27 | ED ---
GI Bleed HPI - General Chief complaint: GI Bleed Stated complaint: crohns flare up Time Seen by Provider: 05/24/19 00:26 Source: patient Mode of arrival: ambulatory Limitations: no limitations - History of Present Illness Initial comments: Lilian is a 28-year-old female who presents to the emergency department today for evaluation of crampy abdominal pain and lower GI bleeding consistent with previous Crohn's flares. Patient reports that she is currently 2 months , throughout her entire she was on steroids due to Crohn's and not being able take Remicade. Since then she has weaned off the steroids and was doing well. She's been having worsening crampy abdominal pain this week. She followed with her primary care physician who is worried that her lower abdominal pain was due to her incision for her section and gave her topical creams. Patient reports that today she's had worsening crampy abdominal pain, a near constant urge to have a bowel movement and is passing bright red blood per rectum. Patient reports this is similar to previous Crohn's flares. Patient is scheduled for colonoscopy on the of this month and follow-up with her career development consultant in office on the to discuss resuming biologic treatment for her Crohn's disease. - Related Data Home Medications Medication Instructions Recorded Confirmed Unk-[id number]-Xxzzl Acid 1 cap PO DAILY 10/03/18 10/03/18 [-U Capsule (formulary)] Previous Rx's Medication Instructions Recorded Azithromycin [Zithromax Z-pack] 0 mg PO DIRECTED #1 pack 05/19/19 HYDROcodone/APAP 5-325MG [[place] 1 tab PO Q6HR PRN 3 Days #8 tab 05/24/19 5-325] predniSONE [Deltasone] 40 mg PO DAILY 5 Days #10 tablet 05/24/19 Allergies Allergy/AdvReac Type Severity Reaction Status Date / Time codeine Allergy Mild Rash/Hives Verified 05/24/19 00:24 ketorolac [From Toradol] Allergy Rash/Hives Verified 05/24/19 00:24 morphine Allergy Rash/Hives Verified 05/24/19 00:24 Penicillins Allergy Unknown Verified 05/24/19 00:24 haloperidol [From Haldol] AdvReac Rapid Verified 05/24/19 00:24 Heart Rate Review of Systems ROS Statement: Those systems with pertinent positive or pertinent negative responses have been documented in the HPI. ROS Other: All systems not noted in ROS Statement are negative. Past Medical History Additional Past Medical History / Comment(s): crohns, ulcerative cholitis, endometriosis History of Any Multi-Drug Resistant Organisms: MRSA Date of last positivie culture/infection: 2016 MDRO Source:: right ear Past Surgical History: Adenoidectomy, Section, Cholecystectomy, Tonsillectomy Additional Past Surgical History / Comment(s): right ovary removed. surgery to remove scar tissue Past Anesthesia/Blood Transfusion Reactions: No Reported Reaction Past Psychological History: Depression Smoking Status: Former smoker Past Alcohol Use History: None Reported Past Drug Use History: None Reported General Exam - General Exam Comments Initial Comments: Physical Exam GENERAL: Patient is well-developed and well-nourished. Patient is nontoxic and well- hydrated and is in no distress. HENT: Normocephalic, Atraumatic. EYES: PERRL, EOMI PULMONARY: Unlabored respirations. No audible rales rhonchi or wheezing was noted. CARDIOVASCULAR: There is a regular rate and rhythm without any murmurs gallops or rubs. ABDOMEN: Soft with normal bowel sounds. Mild tenderness diffusely, no peritoneal signs Well-healing surgical incision SKIN: Skin is clear with no lesions or rashes and otherwise unremarkable. : Deferred NEUROLOGIC: Patient is alert and oriented x3. Moving all extremities spontaneously MUSCULOSKELETAL: Normal extremities with adequate strength and full range of motion. No lower extremity swelling or edema. No calf tenderness. PSYCHIATRIC: Normal psychiatric evaluation. Limitations: no limitations Course Vital Signs 05/24/19 05/24/19 05/24/19 00:22 00:49 02:59 Temperature 97.9 F 97.7 F Pulse Rate 90 86 75 Respiratory 20 16 18 Rate Blood Pressure 134/96 119/83 115/80 O2 Sat by Pulse 96 98 98 Oximetry Medical Decision Making - Medical Decision Making The patient was seen and evaluated, history is obtained from patient History and physical exam are relatively unremarkable patient does have a history of Crohn she does have mild diffuse crampy abdominal pain but no peritoneal signs, she's been eating and drinking well she's having bowel movements no history of small bowel obstructions Vision is had multiple CT scans in the past like to minimize exposure to ra diation which I agree with. I have no concern for bowel obstruction or perforation therefore don't feel a KUB x-ray would be beneficial Labs resulted with mild leukocytosis with a white count of 11, otherwise within normal limits. Urinalysis with no signs of urinary tract infection results were discussed with the patient is more comfortable after single dose of pain medication and Bentyl. Patient be discharged home on a short course of steroids and a few pain meds and advised to follow-up with her career development consultant. Patient agreeable as planned. Patient agreeable to plan did not have CT imaging at this time. All questions pertaining to care were answered return parameters were discussed patient discharged home in stable condition - Lab Data Result diagrams: 05/24/19 00:38 05/24/19 00:38 Lab Results 05/24/19 05/24/19 05/24/19 Range/Units 00:26 00:26 00:35 WBC (3.8-10.6) k/uL RBC (3.80-5.40) m/uL Hgb (11.4-16.0) gm/dL Hct (34.0-46.0) % MCV (80.0-100.0) fL MCH (25.0-35.0) pg MCHC (31.0-37.0) g/dL RDW (11.5-15.5) % Plt Count (150-450) k/uL Neutrophils % % Lymphocytes % % Monocytes % % Eosinophils % % Basophils % % Neutrophils # (1.3-7.7) k/uL Lymphocytes # (1.0-4.8) k/uL Monocytes # (0-1.0) k/uL Eosinophils # (0-0.7) k/uL Basophils # (0-0.2) k/uL PT (9.0-12.0) sec INR (<1.2) APTT (22.0-30.0) sec Sodium (137-145) mmol/L Potassium (3.5-5.1) mmol/L Chloride (98-107) mmol/L Carbon Dioxide (22-30) mmol/L Anion Gap mmol/L BUN (7-17) mg/dL Creatinine (0.52-1.04) mg/dL Est GFR (CKD-EPI)AfAm (>60 ml/min/1.73 sqM) Est GFR (CKD-EPI)NonAf (>60 ml/min/1.73 sqM) Glucose (74-99) mg/dL Plasma Lactic Acid Derrick (0.7-2.0) mmol/L Calcium (8.4-10.2) mg/dL Magnesium (1.6-2.3) mg/dL Total Bilirubin (0.2-1.3) mg/dL AST (14-36) U/L ALT (9-52) U/L Alkaline Phosphatase (38-126) U/L Total Protein (6.3-8.2) g/dL Albumin (3.5-5.0) g/dL Urine Color Light Yellow Urine Appearance Clear (Clear) Urine pH 7.0 (5.0-8.0) Ur Specific [place] 1.013 (1.001-1.035) Urine Protein Negative (Negative) Urine Glucose (UA) Negative (Negative) Urine Ketones Negative (Negative) Urine Blood Negative (Negative) Urine Nitrite Negative (Negative) Urine Bilirubin Negative (Negative) Urine Urobilinogen <2.0 (<2.0) mg/dL Ur Leukocyte Esterase Negative (Negative) Urine HCG, Qual Not Detected (Not Detectd) Blood Type Blood Type Confirm A Positive Blood Type Recheck Bld Type Recheck Status Antibody Screen Spec Expiration Date 05/24/19 05/24/19 05/24/19 Range/Units 00:38 00:38 00:38 WBC 11.1 H (3.8-10.6) k/uL RBC 4.83 (3.80-5.40) m/uL Hgb 15.0 (11.4-16.0) gm/dL Hct 43.4 (34.0-46.0) % MCV 89.8 (80.0-100.0) fL MCH 31.1 (25.0-35.0) pg MCHC 34.6 (31.0-37.0) g/dL RDW 15.4 (11.5-15.5) % Plt Count 412 (150-450) k/uL Neutrophils % 56 % Lymphocytes % 32 % Monocytes % 4 % Eosinophils % 7 % Basophils % 0 % Neutrophils # 6.2 (1.3-7.7) k/uL Lymphocytes # 3.6 (1.0-4.8) k/uL Monocytes # 0.5 (0-1.0) k/uL Eosinophils # 0.8 H (0-0.7) k/uL Basophils # 0.1 (0-0.2) k/uL PT (9.0-12.0) sec INR (<1.2) APTT (22.0-30.0) sec Sodium 139 (137-145) mmol/L Potassium 4.0 (3.5-5.1) mmol/L Chloride 105 (98-107) mmol/L Carbon Dioxide 26 (22-30) mmol/L Anion Gap 8 mmol/L BUN 13 (7-17) mg/dL Creatinine 0.68 (0.52-1.04) mg/dL Est GFR (CKD-EPI)AfAm >90 (>60 ml/min/1.73 sqM) Est GFR (CKD-EPI)NonAf >90 (>60 ml/min/1.73 sqM) Glucose 151 H (74-99) mg/dL Plasma Lactic Acid Derrick 1.3 (0.7-2.0) mmol/L Calcium 9.8 (8.4-10.2) mg/dL Magnesium 1.8 (1.6-2.3) mg/dL Total Bilirubin 0.4 (0.2-1.3) mg/dL AST 45 H (14-36) U/L ALT 100 H (9-52) U/L Alkaline Phosphatase 98 (38-126) U/L Total Protein 7.4 (6.3-8.2) g/dL Albumin 4.5 (3.5-5.0) g/dL Urine Color Urine Appearance (Clear) Urine pH (5.0-8.0) Ur Specific [place] (1.001-1.035) Urine Protein (Negative) Urine Glucose (UA) (Negative) Urine Ketones (Negative) Urine Blood (Negative) Urine Nitrite (Negative) Urine Bilirubin (Negative) Urine Urobilinogen (<2.0) mg/dL Ur Leukocyte Esterase (Negative) Urine HCG, Qual (Not Detectd) Blood Type Blood Type Confirm Blood Type Recheck Bld Type Recheck Status Antibody Screen Spec Expiration Date 05/24/19 05/24/19 Range/Units 00:38 00:38 WBC (3.8-10.6) k/uL RBC (3.80-5.40) m/uL Hgb (11.4-16.0) gm/dL Hct (34.0-46.0) % MCV (80.0-100.0) fL MCH (25.0-35.0) pg MCHC (31.0-37.0) g/dL RDW (11.5-15.5) % Plt Count (150-450) k/uL Neutrophils % % Lymphocytes % % Monocytes % % Eosinophils % % Basophils % % Neutrophils # (1.3-7.7) k/uL Lymphocytes # (1.0-4.8) k/uL Monocytes # (0-1.0) k/uL Eosinophils # (0-0.7) k/uL Basophils # (0-0.2) k/uL PT 9.7 (9.0-12.0) sec INR 0.9 (<1.2) APTT 23.7 (22.0-30.0) sec Sodium (137-145) mmol/L Potassium (3.5-5.1) mmol/L Chloride (98-107) mmol/L Carbon Dioxide (22-30) mmol/L Anion Gap mmol/L BUN (7-17) mg/dL Creatinine (0.52-1.04) mg/dL Est GFR (CKD-EPI)AfAm (>60 ml/min/1.73 sqM) Est GFR (CKD-EPI)NonAf (>60 ml/min/1.73 sqM) Glucose (74-99) mg/dL Plasma Lactic Acid Derrick (0.7-2.0) mmol/L Calcium (8.4-10.2) mg/dL Magnesium (1.6-2.3) mg/dL Total Bilirubin (0.2-1.3) mg/dL AST (14-36) U/L ALT (9-52) U/L Alkaline Phosphatase (38-126) U/L Total Protein (6.3-8.2) g/dL Albumin (3.5-5.0) g/dL Urine Color Urine Appearance (Clear) Urine pH (5.0-8.0) Ur Specific [place] (1.001-1.035) Urine Protein (Negative) Urine Glucose (UA) (Negative) Urine Ketones (Negative) Urine Blood (Negative) Urine Nitrite (Negative) Urine Bilirubin (Negative) Urine Urobilinogen (<2.0) mg/dL Ur Leukocyte Esterase (Negative) Urine HCG, Qual (Not Detectd) Blood Type A Positive Blood Type Confirm Blood Type Recheck No Previous Record Bld Type Recheck Status CABO Indicated Antibody Screen NEGATIVE Spec Expiration Date 05/27/20192337 Disposition Clinical Impression: Rectal bleeding Disposition: HOME SELF-CARE Condition: Stable Instructions (If sedation given, give patient instructions): Gastrointestinal Bleeding (ED) Additional Instructions: Contact her primary care provider on Sunday for follow-up Make sure you are drinking plenty of fluids and staying well-hydrated Return ER if the bleeding is worsening, he become lightheaded have chest pain or have any new or concerning symptoms Local primary care physician even if you're feeling better Prescriptions: predniSONE [Deltasone] 40 mg PO DAILY 5 Days #10 tablet HYDROcodone/APAP 5-325MG [[place] 5-325] 1 tab PO Q6HR PRN 3 Days #8 tab PRN Reason: Pain Is patient prescribed a controlled substance at d/c from ED?: No Referrals: Gisela Santamaria MD [Primary Care Provider] - 1-2 days
[2019-05-24] MEDS ORDERED: SODIUM CHLORIDE 0.9% 1,000 ML IV STA (00:28)
[2019-05-24 00:51] LABS: Basophils # (A) 0.1 k/uL (0-0.2); Basophils % (A) 0 %; Eosinophils # (A) 0.8 k/uL (0-0.7); Eosinophils % (A) 7 %; HCT 43.4 % (34.0-46.0); Lymphocytes # (A) 3.6 k/uL (1.0-4.8); Lymphocytes % (A) 32 %; MCH 31.1 pg (25.0-35.0); MCHC 34.6 g/dL (31.0-37.0); MCV 89.8 fL (80.0-100.0); Mean Platelet Volume 7.7; Monocytes # (A) 0.5 k/uL (0-1.0); Monocytes % (A) 4 %; Neutrophils # (A) 6.2 k/uL (1.3-7.7); Neutrophils % (A) 56 %; Platelet Count 412 k/uL (150-450); RBC 4.83 m/uL (3.80-5.40); RDW 15.4 % (11.5-15.5); WBC 11.1 k/uL (3.8-10.6)
[2019-05-24 00:51] LABS: Appearance,Urine Clear (Clear); Bilirubin,Urine Negative (Negative); Blood,Urine Negative (Negative); Color,Urine Light Yellow; Glucose,Urine (UA) Negative (Negative); Ketones,Urine Negative (Negative); Leukocyte Esterase,Urine Negative (Negative); Nitrite,Urine Negative (Negative); Protein,Urine Negative (Negative); Specific Gravity,Urine 1.013 (1.001-1.035); Urobilinogen,Urine <2.0 mg/dL (<2.0)
[2019-05-24 00:59] LABS: ALT 100 U/L (9-52); AST 45 U/L (14-36); African American GFR (CKD) >90 (>60 ml/min/1.73 sqM); Albumin 4.5 g/dL (3.5-5.0); Alkaline Phosphatase 98 U/L (38-126); Anion Gap 8 mmol/L; Blood Urea Nitrogen 13 mg/dL (7-17); Calcium 9.8 mg/dL (8.4-10.2); Carbon Dioxide 26 mmol/L (22-30); Chloride 105 mmol/L (98-107); Glucose 151 mg/dL (74-99); Magnesium 1.8 mg/dL (1.6-2.3); Non-African American GFR(CKD) >90 (>60 ml/min/1.73 sqM); Sodium 139 mmol/L (137-145); Total Bilirubin 0.4 mg/dL (0.2-1.3); Total Protein 7.4 g/dL (6.3-8.2)
[2019-05-24 01:11] LABS: INR 0.9 (<1.2); Partial Thromboplastin Time 23.7 sec (22.0-30.0); Prothrombin Time 9.7 sec (9.0-12.0)
[2019-05-24] MEDS ORDERED: ONDANSETRON 4 MG/2 ML VIAL IVP STA (01:39)
[2019-05-24] MEDS ORDERED: methylPREDNISolone SOD SUCCI 125 MG/2 ML VIAL IV STA (01:45)
[2019-05-24] MEDS ORDERED: HYDROmorphone 1 MG/ML 1 ML SYRINGE IVP STA (01:46)
[2019-05-24] MEDS ORDERED: DICYCLOMINE 10 MG/ML 2 ML AMP IM STA (01:46)
[2019-05-24 03:00] VITALS: BP 115/80; PULSE 75; RESP 18; TEMP 97.7
== END 2019-05-24 03:08 | disposition home or self-care (01) ==
LOC: EC 00:10
DX: K62.5 Hemorrhage of anus and rectum (principal); D72.829 Elevated white blood cell count, unspecified; Z88.0 Allergy status to penicillin; Z88.5 Allergy status to narcotic agent; Z88.6 Allergy status to analgesic agent; Z88.8 Allergy status to other drugs, medicaments and biological substances; Z87.891 Personal history of nicotine dependence; Z90.49 Acquired absence of other specified parts of digestive tract; Z90.721 Acquired absence of ovaries, unilateral
CPT/HCPCS: 36415; 86900; 86901; 80053; 83605; 83735; 85025; 85610; 85730; 86850; 81003; 81025; 99284; 96374; 96375 ×2; 96361; 96372; J0500; J2930; J2405; J1170

== ENCOUNTER 2019-06-05 08:45 | Day surgery (SDC) | payer OTHER ==
[2019-06-04 10:19] VITALS: BMI 26.0
[~2019-06-05 08:45] MED LIST: LACTATED RINGERS 1,000 ML IV SCH; LIDOCAINE 1% 20 ML VIAL (10MG/ML) FOR IV START INTRADERMA PRN
[2019-06-05 09:04] VITALS: RESP 16; TEMP 97.8
[2019-06-05] MEDS ORDERED: PROPOFOL 10 MG/ML 20 ML VIAL IV ONE (09:44)
--- NOTE | 2019-06-05 10:30 | P.PCN ---
Date of Procedure: 06/05/19 Description of Procedure: BRIEF HISTORY: Patient is a 28-year-old female with a medical history significant for ulcerative colitis diagnosed in 2013 for which she has been on treatment with 5ASA agents in the past. The patient has had uncontrolled symptoms with frequent blood per rectum and frequency of bowel movements. No prior biologic therapy. She is unclear of the extent of her disease. PROCEDURE PERFORMED: Colonoscopy with biopsies. PREOPERATIVE DIAGNOSIS: Colitis. ESTIMATED BLOOD LOSS: Minimal. IV sedation per Anesthesia. PROCEDURE: After informed consent was obtained, the patient, was brought into the endoscopy unit. IV sedation was administered by Anesthesia under continuous monitoring. Digital rectal examination was normal. Initially the Olympus CF-190 flexible video colonoscope was then inserted in the rectum, gradually advanced into the cecum without any difficulty. Careful examination was performed as the scope was gradually being withdrawn. Ileocecal valve and the appendiceal orifice were visualized and appeared normal. The terminal ileum was intubated and appeared normal with biopsies taken. Prep was good. mild to moderate colitis of the rectum and sigmoid with erythema, and minimal friability of the tissue noted. Mucosa of the rest of the colon appeared to be normal except for numerous pseudopolyps noted from the splenic flexure to the ascending colon and cecum. Biopsies were taken of the terminal ileum, cecum, ascending colon, transverse colon, pseudopolyps of the splenic flexure, descending colon, sigmoid colon and rectum. Retroflexion was performed in the rectum and no lesions were seen. The patient tolerated the procedure well. IMPRESSION: Mild to moderately active colitis of the rectum and sigmoid. Random biopsies taken of the terminal ileum which appeared normal, cecum, ascending colon, transverse colon, descending colon, sigmoid colon and rectum, as well as pseudopolyps of the splenic flexure. Numerous pseudopolyps from the cecum to the splenic flexure. RECOMMENDATIONS: Findings of this examination were discussed with the patient and her boyfriend. Okay to resume diet. Okay to resume medications. Follow-up in gastroenterology clinic as scheduled for discussion about escalation of therapy.
[2019-06-05 10:47] VITALS: BP 113/73; PULSE 62
== END 2019-06-05 11:23 | disposition home or self-care (01) ==
LOC: ORWHC2ENDO 08:45
PROVIDERS: ATTEND Internal Medicine
DX: K52.9 Noninfective gastroenteritis and colitis, unspecified (principal); K62.89 Other specified diseases of anus and rectum; K51.40 Inflammatory polyps of colon without complications; F32.9 Major depressive disorder, single episode, unspecified; Z88.5 Allergy status to narcotic agent; Z88.6 Allergy status to analgesic agent; Z88.0 Allergy status to penicillin; Z88.8 Allergy status to other drugs, medicaments and biological substances; Z87.891 Personal history of nicotine dependence; Z86.32 Personal history of gestational diabetes; Z90.49 Acquired absence of other specified parts of digestive tract; Z90.89 Acquired absence of other organs
CPT/HCPCS: 81025; 88305; 45380; J2704

== ENCOUNTER 2019-06-05 19:51 | Emergency (ER) | payer OTHER ==
[2019-06-05 20:10] VITALS: TEMP 98.2
[2019-06-05] MEDS ORDERED: HYDROmorphone 1 MG/ML 1 ML SYRINGE IVP STA (20:25)
[2019-06-05] MEDS ORDERED: SODIUM CHLORIDE 0.9% 1,000 ML IV STA (20:26)
--- NOTE | 2019-06-05 20:32 | ED ---
General Adult HPI - General Chief complaint: Abdominal Pain Stated complaint: pain after having colonoscopy today Time Seen by Provider: 06/05/19 20:16 Source: patient Mode of arrival: ambulatory Limitations: no limitations - History of Present Illness Initial comments: Dictation was produced using [employer] dictation software. please excuse any gramm atical, word or spelling errors. Chief Complaint: 28-year-old female with past medical history of inflammatory bowel disease presents with abdominal pain and bleeding after colonoscopy. History of Present Illness: 28-year-old female presents today with bleeding and abdominal pain after colonoscopy today. Patient states she is instructed to come to the emergency department if she has any bleeding or abdominal pain. Patient has history of inflammatory bowel disease. She reports that she had colonoscopy at approximately 10 AM today. She was told that they didn't more biopsies usual. Patient has had inflammatory bowel disease since the age of 14. Patient denies any nausea vomiting. Denies any bright red blood per rectum at this time. She localizes most of the pain to the left upper and lower quadrant. The ROS documented in this emergency department record has been reviewed and confirmed by me. Those systems with pertinent positive or negative responses have been documented in the HPI. All other systems are other negative and/or noncontributory. PHYSICAL EXAM: General Impression: Alert and oriented x3, not in acute distress HEENT: Normocephalic atraumatic, extra-ocular movements intact, pupils equal and reactive to light bilaterally, mucous membranes moist. Cardiovascular: Heart regular rate and rhythm, S1&S2 audible, no murmurs, rubs or gallops Chest: Lungs clear to auscultation bilaterally, no rhonchi, no wheeze, no rales Abdomen: Bowel sounds present, abdomen soft, diffuse abdominal tenderness to palpation Musculoskeletal: Pulses present and equal in all extremities, no peripheral edema Motor: no focal deficits noted Neurological: CN II-XII grossly intact, no focal motor or sensory deficits noted Skin: Intact with no visualized rashes Psych: Normal affect and mood ED course: 28-year-old female presents with abdominal pain. Signs upon arrival are within acceptable limits. Lavatory evaluation obtained shows leukocytosis of 19.0. Likely secondary to stress. Coag panel unremarkable. Metabolic panel is negative. Urinalysis is negative. X-ray is nonacute. Discussed patient case with Dr. Sofia who performed a colonoscopy today. Recommend patient be prescribed a course of steroids. Patient given prescription for analgesics to take at home. She is instructed to follow-up with gastroenterology upon discharge. - Related Data Previous Rx's Medication Instructions Recorded HYDROcodone/APAP 5-325MG [[place] 1 tab PO Q6HR PRN 3 Days #12 tab 06/05/19 5-325] predniSONE [Deltasone] 40 mg PO DAILY 4 Days #8 tablet 06/05/19 Allergies Allergy/AdvReac Type Severity Reaction Status Date / Time codeine Allergy Mild Rash/Hives Verified 06/05/19 20:11 ketorolac [From Toradol] Allergy Rash/Hives Verified 06/05/19 20:11 morphine Allergy Rash/Hives Verified 06/05/19 20:11 Penicillins Allergy Unknown Verified 06/05/19 20:11 Childhood haloperidol [From Haldol] AdvReac Rapid Verified 06/05/19 20:11 Heart Rate Review of Systems ROS Statement: Those systems with pertinent positive or pertinent negative responses have been documented in the HPI. ROS Other: All systems not noted in ROS Statement are negative. Past Medical History Additional Past Medical History / Comment(s): crohns, ulcerative cholitis, e ndometriosis History of Any Multi-Drug Resistant Organisms: MRSA Date of last positivie culture/infection: 2016 MDRO Source:: right ear Past Surgical History: Adenoidectomy, Section, Cholecystectomy, Tonsillectomy Additional Past Surgical History / Comment(s): right ovary removed. surgery to remove scar tissue Past Anesthesia/Blood Transfusion Reactions: No Reported Reaction Past Psychological History: Depression Smoking Status: Former smoker Past Alcohol Use History: None Reported Past Drug Use History: None Reported General Exam Limitations: no limitations Course Vital Signs 06/05/19 20:07 Temperature 98.2 F Pulse Rate 98 Respiratory 20 Rate Blood Pressure 109/76 O2 Sat by Pulse 99 Oximetry Medical Decision Making - Lab Data Result diagrams: 06/05/19 20:46 06/05/19 20:46 Lab Results 06/05/19 06/05/19 06/05/19 Range/Units 20:43 20:43 20:46 WBC 19.0 H (3.8-10.6) k/uL RBC 4.75 (3.80-5.40) m/uL Hgb 14.9 (11.4-16.0) gm/dL Hct 43.3 (34.0-46.0) % MCV 91.0 (80.0-100.0) fL MCH 31.4 (25.0-35.0) pg MCHC 34.5 (31.0-37.0) g/dL RDW 14.7 (11.5-15.5) % Plt Count 419 (150-450) k/uL Neutrophils % 68 % Lymphocytes % 26 % Monocytes % 4 % Eosinophils % 1 % Basophils % 0 % Neutrophils # 12.9 H (1.3-7.7) k/uL Lymphocytes # 4.9 H (1.0-4.8) k/uL Monocytes # 0.7 (0-1.0) k/uL Eosinophils # 0.2 (0-0.7) k/uL Basophils # 0.1 (0-0.2) k/uL PT (9.0-12.0) sec INR (<1.2) APTT (22.0-30.0) sec Sodium (137-145) mmol/L Potassium (3.5-5.1) mmol/L Chloride (98-107) mmol/L Carbon Dioxide (22-30) mmol/L Anion Gap mmol/L BUN (7-17) mg/dL Creatinine (0.52-1.04) mg/dL Est GFR (CKD-EPI)AfAm (>60 ml/min/1.73 sqM) Est GFR (CKD-EPI)NonAf (>60 ml/min/1.73 sqM) Glucose (74-99) mg/dL Calcium (8.4-10.2) mg/dL Total Bilirubin (0.2-1.3) mg/dL AST (14-36) U/L ALT (4-34) U/L Alkaline Phosphatase (38-126) U/L Total Protein (6.3-8.2) g/dL Albumin (3.5-5.0) g/dL Lipase (23-300) U/L Urine Color Yellow Urine Appearance Clear (Clear) Urine pH 5.5 (5.0-8.0) Ur Specific [place] 1.023 (1.001-1.035) Urine Protein Negative (Negative) Urine Glucose (UA) Negative (Negative) Urine Ketones Negative (Negative) Urine Blood Negative (Negative) Urine Nitrite Negative (Negative) Urine Bilirubin Negative (Negative) Urine Urobilinogen <2.0 (<2.0) mg/dL Ur Leukocyte Esterase Negative (Negative) Urine HCG, Qual Not Detected (Not Detectd) 06/05/19 06/05/19 Range/Units 20:46 20:46 WBC (3.8-10.6) k/uL RBC (3.80-5.40) m/uL Hgb (11.4-16.0) gm/dL Hct (34.0-46.0) % MCV (80.0-100.0) fL MCH (25.0-35.0) pg MCHC (31.0-37.0) g/dL RDW (11.5-15.5) % Plt Count (150-450) k/uL Neutrophils % % Lymphocytes % % Monocytes % % Eosinophils % % Basophils % % Neutrophils # (1.3-7.7) k/uL Lymphocytes # (1.0-4.8) k/uL Monocytes # (0-1.0) k/uL Eosinophils # (0-0.7) k/uL Basophils # (0-0.2) k/uL PT 10.2 (9.0-12.0) sec INR 0.9 (<1.2) APTT 22.7 (22.0-30.0) sec Sodium 140 (137-145) mmol/L Potassium 4.2 (3.5-5.1) mmol/L Chloride 105 (98-107) mmol/L Carbon Dioxide 24 (22-30) mmol/L Anion Gap 11 mmol/L BUN 15 (7-17) mg/dL Creatinine 0.73 (0.52-1.04) mg/dL Est GFR (CKD-EPI)AfAm >90 (>60 ml/min/1.73 sqM) Est GFR (CKD-EPI)NonAf >90 (>60 ml/min/1.73 sqM) Glucose 133 H (74-99) mg/dL Calcium 9.3 (8.4-10.2) mg/dL Total Bilirubin 0.9 (0.2-1.3) mg/dL AST 36 (14-36) U/L ALT 23 (4-34) U/L Alkaline Phosphatase 72 (38-126) U/L Total Protein 7.6 (6.3-8.2) g/dL Albumin 4.5 (3.5-5.0) g/dL Lipase 193 (23-300) U/L Urine Color Urine Appearance (Clear) Urine pH (5.0-8.0) Ur Specific [place] (1.001-1.035) Urine Protein (Negative) Urine Glucose (UA) (Negative) Urine Ketones (Negative) Urine Blood (Negative) Urine Nitrite (Negative) Urine Bilirubin (Negative) Urine Urobilinogen (<2.0) mg/dL Ur Leukocyte Esterase (Negative) Urine HCG, Qual (Not Detectd) Disposition Clinical Impression: Abdominal pain Disposition: HOME SELF-CARE Condition: Good Instructions (If sedation given, give patient instructions): Abdominal Pain (ED) Prescriptions: predniSONE [Deltasone] 40 mg PO DAILY 4 Days #8 tablet HYDROcodone/APAP 5-325MG [[place] 5-325] 1 tab PO Q6HR PRN 3 Days #12 tab PRN Reason: Severe Pain Is patient prescribed a controlled substance at d/c from ED?: Yes If prescribed controlled substance>3 days was MAPS reviewed?: Prescribed <3 Days Referrals: Gisela Santamaria MD [Primary Care Provider] - 1-2 days Time of Disposition: 21:50
[2019-06-05 21:17] LABS: Basophils # (A) 0.1 k/uL (0-0.2); Basophils % (A) 0 %; Eosinophils # (A) 0.2 k/uL (0-0.7); Eosinophils % (A) 1 %; HCT 43.3 % (34.0-46.0); HGB 14.9 gm/dL (11.4-16.0); Lymphocytes # (A) 4.9 k/uL (1.0-4.8); Lymphocytes % (A) 26 %; MCH 31.4 pg (25.0-35.0); MCHC 34.5 g/dL (31.0-37.0); Mean Platelet Volume 7.1; Monocytes # (A) 0.7 k/uL (0-1.0); Monocytes % (A) 4 %; Neutrophils # (A) 12.9 k/uL (1.3-7.7); Neutrophils % (A) 68 %; Platelet Count 419 k/uL (150-450); RBC 4.75 m/uL (3.80-5.40); RDW 14.7 % (11.5-15.5)
[2019-06-05 21:20] LABS: Appearance,Urine Clear (Clear); Bilirubin,Urine Negative (Negative); Blood,Urine Negative (Negative); Color,Urine Yellow; Glucose,Urine (UA) Negative (Negative); Ketones,Urine Negative (Negative); Leukocyte Esterase,Urine Negative (Negative); Nitrite,Urine Negative (Negative); PH, Urine 5.5 (5.0-8.0); Protein,Urine Negative (Negative); Specific Gravity,Urine 1.023 (1.001-1.035); Urobilinogen,Urine <2.0 mg/dL (<2.0)
[2019-06-05 21:25] LABS: ALT 23 U/L (4-34); AST 36 U/L (14-36); African American GFR (CKD) >90 (>60 ml/min/1.73 sqM); Albumin 4.5 g/dL (3.5-5.0); Alkaline Phosphatase 72 U/L (38-126); Anion Gap 11 mmol/L; Blood Urea Nitrogen 15 mg/dL (7-17); Calcium 9.3 mg/dL (8.4-10.2); Carbon Dioxide 24 mmol/L (22-30); Chloride 105 mmol/L (98-107); Glucose 133 mg/dL (74-99); Non-African American GFR(CKD) >90 (>60 ml/min/1.73 sqM); Potassium 4.2 mmol/L (3.5-5.1); Sodium 140 mmol/L (137-145); Total Bilirubin 0.9 mg/dL (0.2-1.3); Total Protein 7.6 g/dL (6.3-8.2)
[2019-06-05 21:26] LABS: INR 0.9 (<1.2); Partial Thromboplastin Time 22.7 sec (22.0-30.0); Prothrombin Time 10.2 sec (9.0-12.0)
--- NOTE | 2019-06-05 21:39 | XR ---
EXAMINATION TYPE: XR KUB DATE OF EXAM: 06/05/2019 COMPARISON: NONE HISTORY: Abdominal pain TECHNIQUE: 2 views upright FINDINGS: There is no sign of intestinal obstruction or pneumoperitoneum. Fecal pattern is normal. Th ere is no evidence of a mass. Lung bases are clear. There are no pathologic calcifications over the k idneys. IMPRESSION: Nonacute abdomen. No change.
[2019-06-05] MEDS ORDERED: HYDROmorphone 0.5 MG/0.5 ML SYRINGE IVP STA (21:50)
[2019-06-05 22:10] VITALS: BP 108/84; PULSE 97; RESP 16
== END 2019-06-05 22:24 | disposition home or self-care (01) ==
LOC: EC 19:51
DX: G89.18 Other acute postprocedural pain (principal); R10.12 Left upper quadrant pain; R10.32 Left lower quadrant pain; D72.829 Elevated white blood cell count, unspecified; K91.840 Postprocedural hemorrhage of a digestive system organ or structure following a digestive system procedure; K50.90 Crohn's disease, unspecified, without complications; Z87.891 Personal history of nicotine dependence; Z88.0 Allergy status to penicillin; Z88.5 Allergy status to narcotic agent; Z88.6 Allergy status to analgesic agent; Z88.8 Allergy status to other drugs, medicaments and biological substances; Z86.14 Personal history of Methicillin resistant Staphylococcus aureus infection; Z90.49 Acquired absence of other specified parts of digestive tract
CPT/HCPCS: 36415; 80053; 83690; 85025; 85610; 85730; 81003; 81025; 74018; 99283; 96374; 96376; 96361; J1170 ×2

== ENCOUNTER 2019-06-24 14:30 | Emergency (ER) | payer OTHER ==
[2019-06-24 14:40] VITALS: RESP 16
--- NOTE | 2019-06-24 14:42 | ED ---
Abdominal Pain HPI - General Source: patient, RN notes reviewed Mode of arrival: ambulatory Limitations: no limitations <Keyshawn Brown - Last Filed: 06/24/19 14:38> <Ave Wilkes - Last Filed: 06/24/19 18:54> - General Stated Complaint: Chrons Flare up - History of Present Illness Initial Comments: This is a 28 year old female that presents to the emergency Department with chief complaint of Crohn's flare. Patient's been having increasing abdominal pain, rectal bleeding. Patient states his doctor closely and Dr. Tamez. Patient had colonoscopy at the end of last year. Patient has been on oral steroids on and off for last 7 months. Patient increasing pain and bleeding. unable to get into GI or PCPs today. Patient denies any dysuria hematuria. Patient states that she is on multiple medications for her Crohn's and is not helping at this time. Patient has been transfused in the past for anemia. (Keyshawn Brown) - Related Data Home Medications Medication Instructions Recorded Confirmed Etonogestrel/Ethinyl Estradiol 1 ring VAGINAL DIRECTED 06/24/19 06/24/19 [Nuvaring Vaginal Ring] Mesalamine(Unknown Dose) 2 tab PO BID 06/24/19 06/24/19 predniSONE [Deltasone] 10 - 20 mg PO DAILY 06/24/19 06/24/19 Previous Rx's Medication Instructions Recorded Ciprofloxacin HCl [Cipro] 500 mg PO BID #14 tab 06/24/19 HYDROcodone/APAP 5-325MG [[place] 1 tab PO Q6HR PRN 3 Days #12 tab 06/24/19 5-325] metroNIDAZOLE [Flagyl] 500 mg PO TID #21 tab 06/24/19 Allergies Allergy/AdvReac Type Severity Reaction Status Date / Time codeine Allergy Mild Rash/Hives Verified 06/24/19 14:40 ketorolac [From Toradol] Allergy Rash/Hives Verified 06/24/19 14:40 morphine Allergy Rash/Hives Verified 06/24/19 14:40 Penicillins Allergy Unknown Verified 06/24/19 14:40 Childhood haloperidol [From Haldol] AdvReac Rapid Verified 06/24/19 14:40 Heart Rate Review of Systems ROS Other: All systems not noted in ROS Statement are negative. <Keyshawn Brown - Last Filed: 06/24/19 14:38> ROS Other: All systems not noted in ROS Statement are negative. <Ave Wilkes - Last Filed: 06/24/19 18:54> ROS Statement: Those systems with pertinent positive or pertinent negative responses have been documented in the HPI. Past Medical History Additional Past Medical History / Comment(s): crohns, ulcerative cholitis, endometriosis History of Any Multi-Drug Resistant Organisms: MRSA Date of last positivie culture/infection: 2017 MDRO Source:: right ear Past Surgical History: Adenoidectomy, Section, Cholecystectomy, Tonsillectomy Additional Past Surgical History / Comment(s): right ovary removed. surgery to remove scar tissue Past Anesthesia/Blood Transfusion Reactions: No Reported Reaction Past Psychological History: Depression Smoking Status: Former smoker Past Alcohol Use History: None Reported Past Drug Use History: None Reported <Keyshawn Brown - Last Filed: 06/24/19 14:38> General Exam General appearance: alert, in no apparent distress <Keyshawn Brown - Last Filed: 06/24/19 14:38> Head exam: Present: atraumatic, normocephalic, normal inspection Eye exam: Present: normal appearance, PERRL, EOMI. Absent: scleral icterus, conjunctival injection, periorbital swelling ENT exam: Present: normal exam, mucous membranes moist Neck exam: Present: normal inspection. Absent: tenderness, meningismus, lymphadenopathy Respiratory exam: Present: normal lung sounds bilaterally. Absent: respiratory distress, wheezes, rales, rhonchi, stridor Cardiovascular Exam: Present: regular rate, normal rhythm, normal heart sounds. Absent: systolic murmur, diastolic murmur, rubs, gallop, clicks GI/Abdominal exam: Present: soft, tenderness (Diffuse tenderness), normal bowel sounds. Absent: distended, guarding, rebound, rigid Extremities exam: Present: normal inspection Back exam: Present: normal inspection Neurological exam: Present: alert, oriented X3, CN II-XII intact Psychiatric exam: Present: normal affect, normal mood Skin exam: Present: warm, dry, intact, normal color. Absent: rash <Ave Wilkes - Last Filed: 06/24/19 18:54> - General Exam Comments Initial Comments: 28-year-old female. Alert and oriented 3. No distress. (Ave Wilkes) Course Vital Signs 06/24/19 06/24/19 14:37 18:00 Temperature 98.6 F Pulse Rate 87 75 Respiratory 16 16 Rate Blood Pressure 133/88 125/89 O2 Sat by Pulse 97 99 Oximetry Medical Decision Making - Lab Data Result diagrams: 06/24/19 15:18 06/24/19 15:18 - Radiology Data Radiology results: report reviewed <Ave Wilkes - Last Filed: 06/24/19 18:54> - Medical Decision Making Charan Corbin presents today for lower abdominal pain, history of bloody stools. Concern for Crohn's flare. This time she would not tell for a rectal exam due to pain. Unable to obtain occult. Patient has no palpable hemorrhoids. She otherwise appears in no significant distress. At this time patient's labs are reviewed mild leukocytosis. CT pelvis was completed the signs of fistula or infiltrate bowel disease process at this time. She has been maintained on steroids. Discussed the condition course of antibiotic and she can follow-up with her GI specialist. Discussed return parameters. Discussed case with Dr. Quiroz. (Ave Wilkes) - Lab Data Lab Results 06/24/19 06/24/19 06/24/19 Range/Units 15:18 15:18 15:18 WBC (3.8-10.6) k/uL RBC (3.80-5.40) m/uL Hgb (11.4-16.0) gm/dL Hct (34.0-46.0) % MCV (80.0-100.0) fL MCH (25.0-35.0) pg MCHC (31.0-37.0) g/dL RDW (11.5-15.5) % Plt Count (150-450) k/uL Neutrophils % % Lymphocytes % % Monocytes % % Eosinophils % % Basophils % % Neutrophils # (1.3-7.7) k/uL Lymphocytes # (1.0-4.8) k/uL Monocytes # (0-1.0) k/uL Eosinophils # (0-0.7) k/uL Basophils # (0-0.2) k/uL PT (9.0-12.0) sec INR (<1.2) APTT (22.0-30.0) sec Sodium 138 (137-145) mmol/L Potassium 4.0 (3.5-5.1) mmol/L Chloride 107 (98-107) mmol/L Carbon Dioxide 21 L (22-30) mmol/L Anion Gap 10 mmol/L BUN 12 (7-17) mg/dL Creatinine 0.59 (0.52-1.04) mg/dL Est GFR (CKD-EPI)AfAm >90 (>60 ml/min/1.73 sqM) Est GFR (CKD-EPI)NonAf >90 (>60 ml/min/1.73 sqM) Glucose 111 H (74-99) mg/dL Calcium 9.9 (8.4-10.2) mg/dL Total Bilirubin 0.6 (0.2-1.3) mg/dL AST 18 (14-36) U/L ALT 21 (4-34) U/L Alkaline Phosphatase 77 (38-126) U/L C-Reactive Protein <5.0 (<10.0) mg/L Total Protein 7.6 (6.3-8.2) g/dL Albumin 4.8 (3.5-5.0) g/dL Lipase 91 (23-300) U/L Urine Color Yellow Urine Appearance Clear (Clear) Urine pH 5.0 (5.0-8.0) Ur Specific [place] 1.018 (1.001-1.035) Urine Protein Negative (Negative) Urine Glucose (UA) Negative (Negative) Urine Ketones Negative (Negative) Urine Blood Negative (Negative) Urine Nitrite Negative (Negative) Urine Bilirubin Negative (Negative) Urine Urobilinogen <2.0 (<2.0) mg/dL Ur Leukocyte Esterase Negative (Negative) Urine HCG, Qual Not Detected (Not Detectd) 06/24/19 06/24/19 Range/Units 15:18 15:18 WBC 14.4 H (3.8-10.6) k/uL RBC 4.79 (3.80-5.40) m/uL Hgb 14.9 (11.4-16.0) gm/dL Hct 44.4 (34.0-46.0) % MCV 92.7 (80.0-100.0) fL MCH 31.1 (25.0-35.0) pg MCHC 33.6 (31.0-37.0) g/dL RDW 14.1 (11.5-15.5) % Plt Count 379 (150-450) k/uL Neutrophils % 75 % Lymphocytes % 18 % Monocytes % 4 % Eosinophils % 2 % Basophils % 1 % Neutrophils # 10.8 H (1.3-7.7) k/uL Lymphocytes # 2.5 (1.0-4.8) k/uL Monocytes # 0.6 (0-1.0) k/uL Eosinophils # 0.2 (0-0.7) k/uL Basophils # 0.1 (0-0.2) k/uL PT 9.8 (9.0-12.0) sec INR 0.9 (<1.2) APTT 22.1 (22.0-30.0) sec Sodium (137-145) mmol/L Potassium (3.5-5.1) mmol/L Chloride (98-107) mmol/L Carbon Dioxide (22-30) mmol/L Anion Gap mmol/L BUN (7-17) mg/dL Creatinine (0.52-1.04) mg/dL Est GFR (CKD-EPI)AfAm (>60 ml/min/1.73 sqM) Est GFR (CKD-EPI)NonAf (>60 ml/min/1.73 sqM) Glucose (74-99) mg/dL Calcium (8.4-10.2) mg/dL Total Bilirubin (0.2-1.3) mg/dL AST (14-36) U/L ALT (4-34) U/L Alkaline Phosphatase (38-126) U/L C-Reactive Protein (<10.0) mg/L Total Protein (6.3-8.2) g/dL Albumin (3.5-5.0) g/dL Lipase (23-300) U/L Urine Color Urine Appearance (Clear) Urine pH (5.0-8.0) Ur Specific [place] (1.001-1.035) Urine Protein (Negative) Urine Glucose (UA) (Negative) Urine Ketones (Negative) Urine Blood (Negative) Urine Nitrite (Negative) Urine Bilirubin (Negative) Urine Urobilinogen (<2.0) mg/dL Ur Leukocyte Esterase (Negative) Urine HCG, Qual (Not Detectd) - Radiology Data Normal place. Negative computed tomography scan abdomen and pelvis. No definite inflammatory bowel disease. Reduction of pericecal enlarged lymph node. (Ave Wilkes) Disposition <Keyshawn Brown - Last Filed: 06/24/19 14:38> Is patient prescribed a controlled substance at d/c from ED?: No Time of Disposition: 18:50 <UnaA[address] irwin - Last Filed: 06/24/19 18:54> Clinical Impression: Abdominal pain, Hx of ulcerative colitis Disposition: HOME SELF-CARE Condition: Good Instructions (If sedation given, give patient instructions): Abdominal Pain (ED) Additional Instructions: Please use medication as discussed. Please follow up with family doctor if symptoms have not improved over the next two days. Please return to the emergency room if your symptoms increase or worsen or for any other concerns. Prescriptions: Ciprofloxacin HCl [Cipro] 500 mg PO BID #14 tab metroNIDAZOLE [Flagyl] 500 mg PO TID #21 tab HYDROcodone/APAP 5-325MG [[place] 5-325] 1 tab PO Q6HR PRN 3 Days #12 tab PRN Reason: Pain Referrals: Gisela Santamaria MD [Primary Care Provider] - 1-2 days
[2019-06-24] MEDS ORDERED: SODIUM CHLORIDE 0.9% 1,000 ML IV ONE (15:09)
[2019-06-24] MEDS ORDERED: ONDANSETRON 4 MG/2 ML VIAL IVP STA (15:09)
[2019-06-24] MEDS ORDERED: SODIUM CHLORIDE 0.9% 1,000 ML IV SCH (15:15)
[2019-06-24 15:29] LABS: Basophils # (A) 0.1 k/uL (0-0.2); Basophils % (A) 1 %; Eosinophils # (A) 0.2 k/uL (0-0.7); Eosinophils % (A) 2 %; HCT 44.4 % (34.0-46.0); HGB 14.9 gm/dL (11.4-16.0); Lymphocytes # (A) 2.5 k/uL (1.0-4.8); Lymphocytes % (A) 18 %; MCH 31.1 pg (25.0-35.0); MCHC 33.6 g/dL (31.0-37.0); MCV 92.7 fL (80.0-100.0); Mean Platelet Volume 6.9; Monocytes # (A) 0.6 k/uL (0-1.0); Monocytes % (A) 4 %; Neutrophils # (A) 10.8 k/uL (1.3-7.7); Neutrophils % (A) 75 %; Platelet Count 379 k/uL (150-450); RBC 4.79 m/uL (3.80-5.40); RDW 14.1 % (11.5-15.5); WBC 14.4 k/uL (3.8-10.6)
[2019-06-24 15:33] LABS: Appearance,Urine Clear (Clear); Bilirubin,Urine Negative (Negative); Blood,Urine Negative (Negative); Color,Urine Yellow; Glucose,Urine (UA) Negative (Negative); Ketones,Urine Negative (Negative); Leukocyte Esterase,Urine Negative (Negative); Nitrite,Urine Negative (Negative); Protein,Urine Negative (Negative); Specific Gravity,Urine 1.018 (1.001-1.035); Urobilinogen,Urine <2.0 mg/dL (<2.0)
[2019-06-24 15:39] LABS: INR 0.9 (<1.2); Partial Thromboplastin Time 22.1 sec (22.0-30.0); Prothrombin Time 9.8 sec (9.0-12.0)
[2019-06-24 15:44] LABS: ALT 21 U/L (4-34); AST 18 U/L (14-36); African American GFR (CKD) >90 (>60 ml/min/1.73 sqM); Albumin 4.8 g/dL (3.5-5.0); Alkaline Phosphatase 77 U/L (38-126); Anion Gap 10 mmol/L; Blood Urea Nitrogen 12 mg/dL (7-17); C Reactive Protein <5.0 mg/L (<10.0); Calcium 9.9 mg/dL (8.4-10.2); Carbon Dioxide 21 mmol/L (22-30); Chloride 107 mmol/L (98-107); Glucose 111 mg/dL (74-99); Non-African American GFR(CKD) >90 (>60 ml/min/1.73 sqM); Sodium 138 mmol/L (137-145); Total Bilirubin 0.6 mg/dL (0.2-1.3); Total Protein 7.6 g/dL (6.3-8.2)
[2019-06-24] MEDS ORDERED: HYDROmorphone 0.5 MG/0.5 ML SYRINGE IVP STA (16:17)
--- NOTE | 2019-06-24 17:13 | XR ---
EXAMINATION TYPE: XR KUB DATE OF EXAM: 06/24/2019 COMPARISON: 06/05/2019 HISTORY: Abdominal pain TECHNIQUE: 2 views upright FINDINGS: Bowel gas pattern is normal. There is no sign of intestinal obstruction or pneumoperitoneum . Fecal pattern is normal. There are clips from cholecystectomy. Lung bases are clear. There are no p athologic calcifications over the kidneys. IMPRESSION: Nonacute abdomen. No change.
[2019-06-24] MEDS ORDERED: PANTOPRAZOLE 40 MG/10 ML VIAL IVP STA (17:46)
[2019-06-24] MEDS ORDERED: HYDROmorphone 1 MG/ML 1 ML SYRINGE IVP STA (17:49)
--- NOTE | 2019-06-24 18:25 | CT ---
EXAMINATION TYPE: CT abdomen pelvis w con DATE OF EXAM: 06/24/2019 COMPARISON: 07/04/2018 HISTORY: Mid to Pelvic pain. History of chrons CT DLP: 845.5 mGycm Automated exposure control for dose reduction was used. CONTRAST: Performed with IV Contrast, patient injected with 100 mL of Isovue 300. Multiple axial sections were obtained from the diaphragm to the floor the pelvis with intravenous con trast. Lung bases are clear. Heart size is normal. There is no pleural effusion. There is no pericardial eff usion. There are clips from cholecystectomy. The bile ducts are not dilated. The common bile duct measures 1 5 mm but the intrahepatic bile ducts appear normal. Liver spleen pancreas stomach appear normal. There is no adrenal mass. Kidneys show satisfactory contrast opacification. There is no hydronephrosi s. Bladder distends smoothly. There is no inguinal hernia. There is no free fluid in the pelvis. Uter us is anteverted. There is no evidence of a pelvic mass. The appendix is medial and appears normal. D istal ileum is not remarkable. Large bowel appears intact. There is no evidence of a bowel obstructio n. There is no mesenteric edema. There is no ascites or free air. The lumbar vertebra have normal alignm ent. Disc spaces are fairly well-maintained. There is no compression fracture. Bony pelvis appears in tact. IMPRESSION: Normal appendix. Negative CT scan abdomen and pelvis. No definite sign of inflammatory bowel disease. There is reduction of a pericecal enlarged lymph node compared to old exam.
[2019-06-24 19:09] VITALS: BP 112/87; PULSE 87; TEMP 98
== END 2019-06-24 19:09 | disposition home or self-care (01) ==
LOC: EC 14:30
DX: K50.90 Crohn's disease, unspecified, without complications (principal); D72.829 Elevated white blood cell count, unspecified; Z87.891 Personal history of nicotine dependence; Z88.0 Allergy status to penicillin; Z88.5 Allergy status to narcotic agent; Z88.6 Allergy status to analgesic agent; Z88.8 Allergy status to other drugs, medicaments and biological substances; Z79.52 Long term (current) use of systemic steroids; Z97.5 Presence of (intrauterine) contraceptive device; Z87.19 Personal history of other diseases of the digestive system; Z86.14 Personal history of Methicillin resistant Staphylococcus aureus infection; Z86.2 Personal history of diseases of the blood and blood-forming organs and certain disorders involving the immune mechanism; Z90.49 Acquired absence of other specified parts of digestive tract
CPT/HCPCS: 99284; 96374; 96375 ×2; 96376; 96361 ×4; 36415; 80053; 83690; 85025; 85610; 85730; 86140; 81003; 81025; 74018; 74177; J2405; J1170 ×2; C9113; Q9967

== ENCOUNTER 2019-07-03 21:37 | Emergency (ER) | payer OTHER ==
[2019-07-03 22:09] LABS: Basophils # (A) 0.1 k/uL (0-0.2); Basophils % (A) 1 %; Eosinophils # (A) 0.1 k/uL (0-0.7); Eosinophils % (A) 1 %; HCT 46.4 % (34.0-46.0); HGB 15.4 gm/dL (11.4-16.0); Lymphocytes # (A) 1.7 k/uL (1.0-4.8); Lymphocytes % (A) 13 %; MCH 31.1 pg (25.0-35.0); MCHC 33.3 g/dL (31.0-37.0); MCV 93.4 fL (80.0-100.0); Mean Platelet Volume 6.9; Monocytes # (A) 0.4 k/uL (0-1.0); Monocytes % (A) 3 %; Neutrophils # (A) 10.2 k/uL (1.3-7.7); Neutrophils % (A) 82 %; Platelet Count 415 k/uL (150-450); RBC 4.96 m/uL (3.80-5.40); RDW 13.8 % (11.5-15.5); WBC 12.5 k/uL (3.8-10.6)
--- NOTE | 2019-07-03 22:13 | XR ---
EXAMINATION TYPE: XR abdomen 1V DATE OF EXAM: 07/03/2019 COMPARISON: 06/24/2019 HISTORY: Abdominal pain TECHNIQUE: 2 views upright FINDINGS: There is no sign of intestinal obstruction or pneumoperitoneum. Fecal pattern is normal. Th ere are clips from cholecystectomy. There is no evidence of a mass. Lung bases are clear. IMPRESSION: Nonacute abdomen. No change.
[2019-07-03] MEDS ORDERED: HYDROmorphone 1 MG/ML 1 ML SYRINGE IVP STA (22:18)
[2019-07-03] MEDS ORDERED: SODIUM CHLORIDE 0.9% 1,000 ML IV STA (22:18)
[2019-07-03 22:20] LABS: ALT 22 U/L (4-34); AST 21 U/L (14-36); African American GFR (CKD) >90 (>60 ml/min/1.73 sqM); Albumin 4.9 g/dL (3.5-5.0); Alkaline Phosphatase 77 U/L (38-126); Anion Gap 11 mmol/L; Blood Urea Nitrogen 12 mg/dL (7-17); Carbon Dioxide 21 mmol/L (22-30); Chloride 107 mmol/L (98-107); Glucose 152 mg/dL (74-99); Magnesium 2.1 mg/dL (1.6-2.3); Non-African American GFR(CKD) >90 (>60 ml/min/1.73 sqM); Potassium 4.3 mmol/L (3.5-5.1); Sodium 139 mmol/L (137-145); Total Bilirubin 0.7 mg/dL (0.2-1.3); Total Protein 8.1 g/dL (6.3-8.2)
--- NOTE | 2019-07-03 22:22 | ED ---
General Adult HPI - General Chief complaint: Abdominal Pain Stated complaint: Chrons Flare up Time Seen by Provider: 07/03/19 21:45 Source: patient Mode of arrival: ambulatory Limitations: no limitations - History of Present Illness Initial comments: Dictation was produced using [employer] dictation software. please excuse any grammatical, word or spelling errors. Chief Complaint: 28-year-old female past medical history of Crohn's since with bloody mucousy diarrhea and abdominal pain History of Present Illness: 28-year-old female she has past medical history of Crohn's. Patient reports that he has been having worsening abdominal symptoms for the last several months. Patient has been in out of multiple emergency departments. Most recently she was at [facility] for same symptoms earlier this week. She reports that she had a CT abdomen and pelvis that was found to be unremarkable. Patient states that she's been having continuous symptoms for the last several weeks. She's been seen in the emergency department and has be en discharged almost every time. She does have a gastroenterology appointment on Sunday however she states that she cannot wait that long to be seen. Patient is not on any medical therapy for treating her Crohn's. Denies any constitutional symptoms. She reports that her symptoms are exactly seconded to her Crohn's. Denies any ear symptoms. Patient is able to tolerate by mouth. She does report some nausea however no vomiting. The ROS documented in this emergency department record has been reviewed and confirmed by me. Those systems with pertinent positive or negative responses have been documented in the HPI. All other systems are other negative and/or noncontributory. PHYSICAL EXAM: General Impression: Alert and oriented x3, not in acute distress HEENT: Normocephalic atraumatic, extra-ocular movements intact, pupils equal and reactive to light bilaterally, mucous membranes moist. Cardiovascular: Heart regular rate and rhythm, S1&S2 audible, no murmurs, rubs or gallops Chest: Lungs clear to auscultation bilaterally, no rhonchi, no wheeze, no rales Abdomen: Bowel sounds present, diffuse abdominal tenderness, worse in the suprapubic area, no rigidity, no guarding Musculoskeletal: Pulses present and equal in all extremities, no peripheral edema Motor: no focal deficits noted Neurological: CN II-XII grossly intact, no focal motor or sensory deficits noted Skin: Intact with no visualized rashes Psych: Normal affect and mood ED course: 28-year-old female presents today with abdominal pain. Signs upon arrival shows heart rate of 111, rest of vital signs within acceptable limits. Abdomen is soft however there is tenderness in the bilateral lower quadrants. Clinical presentation consistent with Crohn's flare. Reports that her symptoms today are typical for her Crohn's disease. EMR was reviewed. Patient had multiple CT scans of the recent past. States she had a negative CT earlier this week. She also had a negative CT almost 10 days ago. At this point I do not believe patient would benefit from another computed tomography scan given minimal degree of abdominal tenderness. Laboratory evaluation obtained. Leukocytosis 12.5. This appears to be lower than her baseline or at her baseline. Metabolic panel is unremarkable. Urine hCG is negative. Abdominal x-rays unremarkable. Patient given intravenous fluids and analgesics. She was observed in the emergency department for several hours with stable medical condition. Repeat abdominal examination continues to be soft and minimally tender. Patient was offered observation admission with consultation gastroenterology. She states that she would prefer to go home once her intravenous fluids were complete. 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 She reports that her anniversary is tomorrow and should rather be home. I believe patient is stable for discharge given benign abdominal exam and baseline labs. Temperature was discussed. Patient is urged to keep her appointment with gastroenterology. Patient given prescription for analgesia when necessary pain. - Related Data Home Medications Medication Instructions Recorded Confirmed Etonogestrel/Ethinyl Estradiol 1 ring VAGINAL DIRECTED 06/24/19 06/24/19 [Nuvaring Vaginal Ring] Mesalamine(Unknown Dose) 2 tab PO BID 06/24/19 06/24/19 predniSONE [Deltasone] 10 - 20 mg PO DAILY 06/24/19 06/24/19 Previous Rx's Medication Instructions Recorded Ciprofloxacin HCl [Cipro] 500 mg PO BID #14 tab 06/24/19 HYDROcodone/APAP 5-325MG [[place] 1 tab PO Q6HR PRN 3 Days #12 tab 06/24/19 5-325] metroNIDAZOLE [Flagyl] 500 mg PO TID #21 tab 06/24/19 HYDROcodone/APAP 5-325MG [[place] 1 tab PO Q6HR PRN 3 Days #8 tab 07/04/19 5-325] Allergies Allergy/AdvReac Type Severity Reaction Status Date / Time codeine Allergy Mild Rash/Hives Verified 07/03/19 21:40 ketorolac [From Toradol] Allergy Rash/Hives Verified 07/03/19 21:40 morphine Allergy Rash/Hives Verified 07/03/19 21:40 Penicillins Allergy Unknown Verified 07/03/19 21:40 Childhood haloperidol [From Haldol] AdvReac Rapid Verified 07/03/19 21:40 Heart Rate Review of Systems ROS Statement: Those systems with pertinent positive or pertinent negative responses have been documented in the HPI. ROS Other: All systems not noted in ROS Statement are negative. Past Medical History Additional Past Medical History / Comment(s): crohns, ulcerative cholitis, endometriosis History of Any Multi-Drug Resistant Organisms: MRSA Date of last positivie culture/infection: 2016 MDRO Source:: right ear Past Surgical History: Adenoidectomy, Section, Cholecystectomy, Tonsillectomy Additional Past Surgical History / Comment(s): right ovary removed. surgery to remove scar tissue Past Anesthesia/Blood Transfusion Reactions: No Reported Reaction Past Psychological History: Depression Smoking Status: Former smoker Past Alcohol Use History: None Reported Past Drug Use History: None Reported General Exam Limitations: no limitations Course Vital Signs 07/03/19 07/03/19 07/04/19 21:38 22:47 00:01 Temperature 98.0 F 98.1 F 98.1 F Pulse Rate 111 H 76 72 Respiratory 16 18 18 Rate Blood Pressure 132/90 121/85 121/89 O2 Sat by Pulse 98 98 100 Oximetry Medical Decision Making - Lab Data Result diagrams: 07/03/19 21:55 07/03/19 21:55 Lab Results 07/03/19 07/03/19 07/03/19 Range/Units 21:55 21:55 21:55 WBC 12.5 H (3.8-10.6) k/uL RBC 4.96 (3.80-5.40) m/uL Hgb 15.4 (11.4-16.0) gm/dL Hct 46.4 H (34.0-46.0) % MCV 93.4 (80.0-100.0) fL MCH 31.1 (25.0-35.0) pg MCHC 33.3 (31.0-37.0) g/dL RDW 13.8 (11.5-15.5) % Plt Count 415 (150-450) k/uL Neutrophils % 82 % Lymphocytes % 13 % Monocytes % 3 % Eosinophils % 1 % Basophils % 1 % Neutrophils # 10.2 H (1.3-7.7) k/uL Lymphocytes # 1.7 (1.0-4.8) k/uL Monocytes # 0.4 (0-1.0) k/uL Eosinophils # 0.1 (0-0.7) k/uL Basophils # 0.1 (0-0.2) k/uL Sodium 139 (137-145) mmol/L Potassium 4.3 (3.5-5.1) mmol/L Chloride 107 (98-107) mmol/L Carbon Dioxide 21 L (22-30) mmol/L Anion Gap 11 mmol/L BUN 12 (7-17) mg/dL Creatinine 0.67 (0.52-1.04) mg/dL Est GFR (CKD-EPI)AfAm >90 (>60 ml/min/1.73 sqM) Est GFR (CKD-EPI)NonAf >90 (>60 ml/min/1.73 sqM) Glucose 152 H (74-99) mg/dL Calcium 10.0 (8.4-10.2) mg/dL Magnesium 2.1 (1.6-2.3) mg/dL Total Bilirubin 0.7 (0.2-1.3) mg/dL AST 21 (14-36) U/L ALT 22 (4-34) U/L Alkaline Phosphatase 77 (38-126) U/L Total Protein 8.1 (6.3-8.2) g/dL Albumin 4.9 (3.5-5.0) g/dL Lipase 108 (23-300) U/L Urine HCG, Qual Not Detected (Not Detectd) Disposition Clinical Impression: Abdominal pain Disposition: HOME SELF-CARE Condition: Good Instructions (If sedation given, give patient instructions): Abdominal Pain (ED) Additional Instructions: follow up with GI doctor on Sunday for crohn's disease Prescriptions: HYDROcodone/APAP 5-325MG [[place] 5-325] 1 tab PO Q6HR PRN 3 Days #8 tab PRN Reason: Severe Pain Is patient prescribed a controlled substance at d/c from ED?: Yes If prescribed controlled substance>3 days was MAPS reviewed?: Prescribed <3 Days Referrals: Kelly Beckwith MD [STAFF PHYSICIAN] - 1-2 days Time of Disposition: 00:17
[2019-07-03 22:48] VITALS: RESP 18; TEMP 98.1
[2019-07-04 00:02] VITALS: BP 121/89; PULSE 72
[2019-07-04] MEDS ORDERED: ONDANSETRON 4 MG/2 ML VIAL IVP STA (00:15)
[2019-07-04] MEDS ORDERED: HYDROmorphone 1 MG/ML 1 ML SYRINGE IVP STA (00:15)
== END 2019-07-04 00:25 | disposition home or self-care (01) ==
LOC: EC 21:37
DX: R10.9 Unspecified abdominal pain (principal); R11.0 Nausea; D72.829 Elevated white blood cell count, unspecified; K51.90 Ulcerative colitis, unspecified, without complications; Z87.891 Personal history of nicotine dependence; Z79.52 Long term (current) use of systemic steroids; Z79.899 Other long term (current) drug therapy; Z88.0 Allergy status to penicillin; Z88.5 Allergy status to narcotic agent; Z88.6 Allergy status to analgesic agent; Z88.8 Allergy status to other drugs, medicaments and biological substances; Z86.14 Personal history of Methicillin resistant Staphylococcus aureus infection; Z97.5 Presence of (intrauterine) contraceptive device; Z90.49 Acquired absence of other specified parts of digestive tract; Z53.20 Procedure and treatment not carried out because of patient's decision for unspecified reasons
CPT/HCPCS: 99284; 96374; 96375; 96376; 96361 ×2; 36415; 80053; 83690; 83735; 85025; 81025; 74018; J2405; J1170 ×2

== ENCOUNTER 2019-07-09 12:39 | Inpatient (IN) | payer OTHER ==
--- NOTE | 2019-07-09 13:12 | ED ---
Abdominal Pain HPI - General Chief Complaint: Abdominal Pain Stated Complaint: abd pain Time Seen by Provider: 07/09/19 13:09 Source: patient Mode of arrival: ambulatory Limitations: no limitations - History of Present Illness Initial Comments: 28yo female presents today for chief complaint of abdominal pain patient states she is diffuse abdominal pain she has had this increasing for the past month. Patient states [facility] Patient states she has had 2 CTs within the last month. Patient denies ever having history of abscess. Patient denies any fevers. Patient states she was told by her GI physician health care legal assistant that the symptoms were not better this week she is to come to the emergency department for further an IV steroids. Patient states she has been on 50 mg by mouth prednisone orally outpatient daily patient states she is in the process of getting Remicade--however has to have this pre approved. Patient denies , she states she has had some mild rectal bleeding. Assessment emesis or melanotic stools. Patient denies dysuria urgency frequency or hematuria. Patient has no other complaints and upon arrival she appears well and nontoxic no signs of acute distress - Related Data Home Medications Medication Instructions Recorded Confirmed Mesalamine [Pentasa] 750 mg PO TID 07/09/19 07/09/19 predniSONE 50 mg PO DAILY 07/09/19 07/09/19 Allergies Allergy/AdvReac Type Severity Reaction Status Date / Time codeine Allergy Mild Rash/Hives Verified 07/09/19 12:50 ketorolac [From Toradol] Allergy Rash/Hives Verified 07/09/19 12:50 morphine Allergy Rash/Hives Verified 07/09/19 12:50 Penicillins Allergy Unknown Verified 07/09/19 12:50 Childhood haloperidol [From Haldol] AdvReac Rapid Verified 07/09/19 12:50 Heart Rate Review of Systems ROS Statement: Those systems with pertinent positive or pertinent negative responses have been documented in the HPI. ROS Other: All systems not noted in ROS Statement are negative. Past Medical History Additional Past Medical History / Comment(s): crohns, ulcerative cholitis, endometriosis History of Any Multi-Drug Resistant Organisms: MRSA Date of last positivie culture/infection: 2016 MDRO Source:: right ear Past Surgical History: Adenoidectomy, Section, Cholecystectomy, Tonsillectomy Additional Past Surgical History / Comment(s): right ovary removed. surgery to remove scar tissue Past Anesthesia/Blood Transfusion Reactions: No Reported Reaction Past Psychological History: Depression Smoking Status: Former smoker Past Alcohol Use History: None Reported Past Drug Use History: None Reported General Exam - General Exam Comments Initial Comments: General: The patient is awake and alert, in no distress, and does not appear acutely ill. Eye: +3 mm pupils are equal, round and reactive to light, extra-ocular movements are intact. No nystagmus. There is normal conjunctiva bilaterally. No signs of icterus. Ears, nose, mouth and throat: There are moist mucous membranes and no oral lesions. Neck: The neck is supple, there is no tenderness or JVD. Cardiovascular: There is a regular rate and rhythm. No murmur, rub or gallop is appreciated. Respiratory: Lungs are clear to auscultation, respirations are non-labored, breath sounds are equal. No wheezes, stridor, rales, or rhonchi. Gastrointestinal: Soft, non-distended, diffuse mild tenderness of the abdomen without masses or organomegaly noted. There is no rebound or guarding present. Musculoskeletal: Normal ROM, no tenderness. Strength 5/5. Sensation intact. Radial pulses equal bilaterally 2+. Neurological: A&O x 3. CN II-XII intact grossly, There are no obvious motor or sensory deficits. Coordination appears grossly intact. Speech is normal. Skin: Skin is warm and dry and no rashes or lesions are noted. Psychiatric: Cooperative, appropriate mood & affect, normal judgment. Limitations: no limitations Course Vital Signs 07/09/19 07/09/19 07/09/19 12:48 14:56 17:22 Temperature 97.9 F Pulse Rate 93 97 74 Respiratory 20 16 16 Rate Blood Pressure 112/81 120/85 118/78 O2 Sat by Pulse 98 100 99 Oximetry Medical Decision Making - Medical Decision Making Well-appearing 28yor female presenting for abdominal pain Crohn's flare. Patient refused CT as she has had 2 within the last month. Discussed risks ve rsus benefits she states she would still like to continue without CT. Acute abdominal series reveals no free air no signs of megacolon. Patient's laboratory studies stable no significant leukocytosis no history of fevers. At this time I administered IV Solu-Medrol, patient admitted for pain control IV steroids and GI consultation. Patient is agreeable to this care plan and was requesting admission. Discussed case attending provider accepted admission. - Lab Data Result diagrams: 07/09/19 13:28 07/09/19 13:28 Lab Results 07/09/19 07/09/19 07/09/19 Range/Units 13:00 13:00 13:28 WBC (3.8-10.6) k/uL RBC (3.80-5.40) m/uL Hgb (11.4-16.0) gm/dL Hct (34.0-46.0) % MCV (80.0-100.0) fL MCH (25.0-35.0) pg MCHC (31.0-37.0) g/dL RDW (11.5-15.5) % Plt Count (150-450) k/uL Neutrophils % % Lymphocytes % % Monocytes % % Eosinophils % % Basophils % % Neutrophils # (1.3-7.7) k/uL Lymphocytes # (1.0-4.8) k/uL Monocytes # (0-1.0) k/uL Eosinophils # (0-0.7) k/uL Basophils # (0-0.2) k/uL Sodium 142 (137-145) mmol/L Potassium 4.4 (3.5-5.1) mmol/L Chloride 109 H (98-107) mmol/L Carbon Dioxide 26 (22-30) mmol/L Anion Gap 7 mmol/L BUN 14 (7-17) mg/dL Creatinine 0.89 (0.52-1.04) mg/dL Est GFR (CKD-EPI)AfAm >90 (>60 ml/min/1.73 sqM) Est GFR (CKD-EPI)NonAf 90 (>60 ml/min/1.73 sqM) Glucose 118 H (74-99) mg/dL Calcium 9.8 (8.4-10.2) mg/dL Total Bilirubin 0.8 (0.2-1.3) mg/dL AST 32 (14-36) U/L ALT 23 (4-34) U/L Alkaline Phosphatase 55 (38-126) U/L Total Protein 7.5 (6.3-8.2) g/dL Albumin 4.5 (3.5-5.0) g/dL Amylase 51 (30-110) U/L Lipase 185 (23-300) U/L Urine Color Yellow Urine Appearance Cloudy H (Clear) Urine pH 5.5 (5.0-8.0) Ur Specific [place] 1.021 (1.001-1.035) Urine Protein Negative (Negative) Urine Glucose (UA) Negative (Negative) Urine Ketones Negative (Negative) Urine Blood Negative (Negative) Urine Nitrite Negative (Negative) Urine Bilirubin Negative (Negative) Urine Urobilinogen <2.0 (<2.0) mg/dL Ur Leukocyte Esterase Negative (Negative) Urine RBC <1 (0-5) /hpf Ur Squamous Epith Cells 5 H (0-4) /hpf Urine Mucus Rare H (None) /hpf Urine HCG, Qual Not Detected (Not Detectd) 07/09/19 Range/Units 13:28 WBC 7.3 (3.8-10.6) k/uL RBC 4.72 (3.80-5.40) m/uL Hgb 14.8 (11.4-16.0) gm/dL Hct 44.1 (34.0-46.0) % MCV 93.4 (80.0-100.0) fL MCH 31.4 (25.0-35.0) pg MCHC 33.6 (31.0-37.0) g/dL RDW 13.4 (11.5-15.5) % Plt Count 365 (150-450) k/uL Neutrophils % 61 % Lymphocytes % 30 % Monocytes % 4 % Eosinophils % 3 % Basophils % 2 % Neutrophils # 4.4 (1.3-7.7) k/uL Lymphocytes # 2.2 (1.0-4.8) k/uL Monocytes # 0.3 (0-1.0) k/uL Eosinophils # 0.2 (0-0.7) k/uL Basophils # 0.1 (0-0.2) k/uL Sodium (137-145) mmol/L Potassium (3.5-5.1) mmol/L Chloride (98-107) mmol/L Carbon Dioxide (22-30) mmol/L Anion Gap mmol/L BUN (7-17) mg/dL Creatinine (0.52-1.04) mg/dL Est GFR (CKD-EPI)AfAm (>60 ml/min/1.73 sqM) Est GFR (CKD-EPI)NonAf (>60 ml/min/1.73 sqM) Glucose (74-99) mg/dL Calcium (8.4-10.2) mg/dL Total Bilirubin (0.2-1.3) mg/dL AST (14-36) U/L ALT (4-34) U/L Alkaline Phosphatase (38-126) U/L Total Protein (6.3-8.2) g/dL Albumin (3.5-5.0) g/dL Amylase (30-110) U/L Lipase (23-300) U/L Urine Color Urine Appearance (Clear) Urine pH (5.0-8.0) Ur Specific [place] (1.001-1.035) Urine Protein (Negative) Urine Glucose (UA) (Negative) Urine Ketones (Negative) Urine Blood (Negative) Urine Nitrite (Negative) Urine Bilirubin (Negative) Urine Urobilinogen (<2.0) mg/dL Ur Leukocyte Esterase (Negative) Urine RBC (0-5) /hpf Ur Squamous Epith Cells (0-4) /hpf Urine Mucus (None) /hpf Urine HCG, Qual (Not Detectd) Disposition Clinical Impression: Crohn disease, Abdominal pain, Blood in stool Disposition: ADMITTED IP TO THIS [facility] Condition: Stable Is patient prescribed a controlled substance at d/c from ED?: No Time of Disposition: 16:59 Decision to Admit Reason: Admit from EC Decision Date: 07/09/19 Decision Time: 16:59
[2019-07-09] MEDS ORDERED: PANTOPRAZOLE 40 MG/10 ML VIAL IVP STA (13:41)
[2019-07-09] MEDS ORDERED: methylPREDNISolone SOD SUCCI 125 MG/2 ML VIAL IV STA (13:41)
[2019-07-09 13:48] LABS: Basophils # (A) 0.1 k/uL (0-0.2); Basophils % (A) 2 %; Eosinophils # (A) 0.2 k/uL (0-0.7); Eosinophils % (A) 3 %; HCT 44.1 % (34.0-46.0); HGB 14.8 gm/dL (11.4-16.0); Lymphocytes # (A) 2.2 k/uL (1.0-4.8); Lymphocytes % (A) 30 %; MCH 31.4 pg (25.0-35.0); MCHC 33.6 g/dL (31.0-37.0); MCV 93.4 fL (80.0-100.0); Mean Platelet Volume 7.1; Monocytes # (A) 0.3 k/uL (0-1.0); Monocytes % (A) 4 %; Neutrophils # (A) 4.4 k/uL (1.3-7.7); Neutrophils % (A) 61 %; Platelet Count 365 k/uL (150-450); RBC 4.72 m/uL (3.80-5.40); RDW 13.4 % (11.5-15.5); WBC 7.3 k/uL (3.8-10.6)
[2019-07-09 13:53] LABS: Appearance,Urine Cloudy (Clear); Bilirubin,Urine Negative (Negative); Blood,Urine Negative (Negative); Color,Urine Yellow; Glucose,Urine (UA) Negative (Negative); Ketones,Urine Negative (Negative); Leukocyte Esterase,Urine Negative (Negative); Mucus,Urine Rare /hpf; Nitrite,Urine Negative (Negative); PH, Urine 5.5 (5.0-8.0); Protein,Urine Negative (Negative); RBC,Urine <1 /hpf (0-5); Specific Gravity,Urine 1.021 (1.001-1.035); Squamous Epithelial Cell,Urine 5 /hpf (0-4); Urobilinogen,Urine <2.0 mg/dL (<2.0)
--- NOTE | 2019-07-09 14:02 | XR ---
EXAMINATION TYPE: XR KUB DATE OF EXAM: 07/09/2019 COMPARISON: NONE HISTORY: Pain TECHNIQUE: One view abdominal series FINDINGS: The osseous structures are intact. The bowel gas pattern is nonspecific. Lung bases are clear. Post surgical changes are noted. Retained debris throughout the colon. IMPRESSION: 1. Nonspecific abdomen. No diagnostic evidence of obstruction.
[2019-07-09 14:05] LABS: ALT 23 U/L (4-34); AST 32 U/L (14-36); African American GFR (CKD) >90 (>60 ml/min/1.73 sqM); Albumin 4.5 g/dL (3.5-5.0); Alkaline Phosphatase 55 U/L (38-126); Amylase 51 U/L (30-110); Anion Gap 7 mmol/L; Blood Urea Nitrogen 14 mg/dL (7-17); Calcium 9.8 mg/dL (8.4-10.2); Carbon Dioxide 26 mmol/L (22-30); Chloride 109 mmol/L (98-107); Glucose 118 mg/dL (74-99); Non-African American GFR(CKD) 90 (>60 ml/min/1.73 sqM); Potassium 4.4 mmol/L (3.5-5.1); Sodium 142 mmol/L (137-145); Total Bilirubin 0.8 mg/dL (0.2-1.3); Total Protein 7.5 g/dL (6.3-8.2)
[2019-07-09] MEDS ORDERED: HYDROmorphone 0.5 MG/0.5 ML SYRINGE IVP STA (14:43)
[2019-07-09] MEDS ORDERED: NALOXONE 0.4 MG/ML 1 ML VIAL IV PRN (16:56)
[2019-07-09] MEDS ORDERED: SODIUM CHLORIDE 0.9% 1,000 ML IV ONE (16:56)
[2019-07-09] MEDS ORDERED: ONDANSETRON 4 MG/2 ML VIAL IVP PRN (17:27)
[2019-07-09] MEDS: SODIUM CHLORIDE 0.9% 1,000 ML IV SCH ×2 (18:18→22:56)
[2019-07-09] MEDS: HYDROmorphone 0.5 MG/0.5 ML SYRINGE IVP PRN ×2 (18:29→22:36)
[2019-07-09] MEDS: methylPREDNISolone SOD SUCCI 125 MG/2 ML VIAL IV SCH ×2 (18:30→22:54)
[2019-07-09] MEDS ORDERED: diphenhydrAMINE 50 MG/ML 1 ML VIAL IVP STA (20:12)
[2019-07-10] MEDS: HYDROmorphone 0.5 MG/0.5 ML SYRINGE IVP PRN ×3 (02:51→11:02)
[2019-07-10] MEDS: methylPREDNISolone SOD SUCCI 125 MG/2 ML VIAL IV SCH ×4 (05:23→23:28)
[2019-07-10] MEDS: SODIUM CHLORIDE 0.9% 1,000 ML IV SCH (11:07)
--- NOTE | 2019-07-10 11:33 | P.HPIM ---
History of Present Illness H&P Date: 07/09/19 Chief Complaint: Abdominal pain Patient is a 28 old female with a known history of Crohn's disease was was later diagnosed about 6 years ago, endometriosis and depression came to ER with the complaints of abdominal pain on and off for the past few weeks. Abdominal pain is mainly diffuse associated with nausea and denied any episodes of vomiting this time. Patient says that she had colonoscopy on 06/05/2019. Patient is on follow the GI clinic. Patient was told that if she develops more abdominal pain, was recommended to come to ER. Patient is in the process of getting Remicade. Denied any blood in the stool today. Mild rectal bleeding yesterday.. No fever no chills. Patient is currently on oral prednisone tapering course as an outpatient. Next and denied any dysuria or hematuria. No complaints of chest pain or shortness breath. KUB x-ray showed nonspecific abdomen. No leukocytosis noted. Patient was admitted to the hospital due to intractable abdominal pain. Review of Systems Constitutional: Patient denies any fever or chills . No generalized weakness or weight loss. Abdomen: Does have abdominal pain and nausea. No episodes of Vomiting. No diarrhea.. Cardiovascular: Patient denies any chest pain or short of breath no palpitations. Respiratory: patient denied any cough is from production. No shortness of breath Neurologic: Patient denied any numbness or tingling headache. Musculoskeletal: Patient denies any complaints of joint swelling or deformity. Skin: Negative Psychiatric: Negative Endocrine: No heat or cold intolerance. No recent weight gain. Genitourinary: No dysuria or hematuria. All other 14 point ROS negative except the above Past Medical History Additional Past Medical History / Comment(s): crohns, ulcerative cholitis, endometriosis History of Any Multi-Drug Resistant Organisms: MRSA Date of last positivie culture/infection: 2016 MDRO Source:: right ear Past Surgical History: Adenoidectomy, Section, Cholecystectomy, Tonsillectomy Additional Past Surgical History / Comment(s): right ovary removed. surgery to remove scar tissue Past Anesthesia/Blood Transfusion Reactions: No Reported Reaction Past Psychological History: Depression Smoking Status: Former smoker Past Alcohol Use History: None Reported Past Drug Use History: None Reported Medications and Allergies Home Medications Medication Instructions Recorded Confirmed Type Mesalamine [Pentasa] 750 mg PO TID 01/22/20 01/22/20 History predniSONE 50 mg PO DAILY 07/09/19 07/09/19 History Allergies Allergy/AdvReac Type Severity Reaction Status Date / Time codeine Allergy Mild Rash/Hives Verified 07/09/19 12:50 ketorolac [From Toradol] Allergy Rash/Hives Verified 07/09/19 12:50 morphine Allergy Rash/Hives Verified 07/09/19 12:50 Penicillins Allergy Unknown Verified 07/09/19 12:50 Childhood haloperidol [From Haldol] AdvReac Rapid Verified 07/09/19 12:50 Heart Rate Physical Exam Vitals: Vital Signs Temp Pulse Resp BP Pulse Ox 07/09/19 17:22 74 16 118/78 99 07/09/19 14:56 97 16 120/85 100 07/09/19 12:48 97.9 F 93 20 112/81 98 Intake and Output 07/09/19 07/09/19 07/09/19 06:59 14:59 22:59 Other: Weight 64.864 kg PHYSICAL EXAMINATION: Patient is lying in the bed comfortably, no acute distress, awake alert and oriented.. HEENT: Normocephalic. Neck is supple. Pupils reactive. Nostrils clear. Oral cavity is moist. Ears reveal no drainage. Neck reveals no JVD, carotid bruits, or thyromegaly. CHEST EXAMINATION: Trachea is central. Symmetrical expansion. Lung martinez clear to auscultation and percussion. CARDIAC: Normal S1, S2 with no gallops. No murmurs ABDOMEN: Soft. Lower abdominal tenderness. No guarding or rigidity. Bowel sounds normal. No organomegaly. No abdominal bruits. Extremities: reveal no edema. No clubbing or cyanosis Neurologically awake, alert, oriented x3 with well-coordinated movements. No focal deficits noted Skin: No rash or skin lesions. Psychiatric: Coperative. Nonsuicidal Musculoskeletal: No joint swelling or deformity. Normal range of motion. Results CBC & Chem 7: 07/09/19 13:28 07/09/19 13:28 Labs: Abnormal Lab Results - Last 24 Hours (Table) 07/09/19 07/09/19 Range/Units 13:00 13:28 Chloride 109 H (98-107) mmol/L Glucose 118 H (74-99) mg/dL Urine Appearance Cloudy H (Clear) Ur Squamous Epith Cells 5 H (0-4) /hpf Urine Mucus Rare H (None) /hpf Thrombosis Risk Factor Assmnt - DVT/VTE Prophylaxis DVT/VTE Prophylaxis: Mechanical Prophylaxis ordered Assessment and Plan Assessment: Intractable abdominal pain possible acute Crohn's disease exacerbation Rectal bleeding improved now. Hemoglobin is stable. History of endometriosis Depression Previous history of smoking DVT prophylaxis with SCDs plan: Patient be continued on IV hydration, pain management with Dilaudid. Patient is currently nothing by mouth. GI service was consulted. Continue with IV steroids and all of closed. Further recommendations based on the clinical course. Time with Patient: Greater than 30
[2019-07-10] MEDS: HYDROcodone/APAP 10-325MG 1 EACH TAB PO PRN ×3 (12:24→23:37)
--- NOTE | 2019-07-10 14:11 | P.PN ---
Subjective Progress Note Date: 07/10/19 Principal diagnosis: Patient is a 28 old female with a known history of Crohn's disease was was later diagnosed about 6 years ago, endometriosis and depression came to ER with the complaints of abdominal pain on and off for the past few weeks. Abdominal pain is mainly diffuse associated with nausea and denied any episodes of vomiting this time. Patient says that she had colonoscopy on 06/05/2019. Patient is on follow the GI clinic. Patient was told that if she develops more abdominal pain, was recommended to come to ER. Patient is in the process of getting Remicade. Denied any blood in the stool today. Mild rectal bleeding yesterday.. No fever no chills. Patient is currently on oral prednisone tapering course as an outpatient. Next and denied any dysuria or hematuria. No complaints of chest pain or shortness breath. KUB x-ray showed nonspecific abdomen. No leukocytosis noted. Patient was admitted to the hospital due to intractable abdominal pain. 07/10/2019 Patient is sitting up in the bed eating lunch and appears to be in no acute distress. Patient states that she continues to have abdominal pain and had been asking to switch to oral medications as they work better for her. Dilaudid was discontinued and patient will continue on [place] at this time. Awaiting GI consult at this time. Patient states that she is passing gas and had a bowel movement that was semi-formed today with no blood noted. Hemoglobin stable. Patient denies any chest pain, shortness of breath, or palpitations at this time. She is afebrile. Patient denies any nausea or vomiting and is tolerating diet. Objective - Vital Signs Vital signs: Vital Signs Temp 97 F L 07/10/19 11:14 Pulse 77 07/10/19 11:14 Resp 18 07/10/19 11:14 BP 116/80 07/10/19 11:14 Pulse Ox 96 07/10/19 11:14 Intake & Output 07/09/19 07/10/19 07/10/19 18:59 06:59 18:59 Intake Total 1150 Balance 1150 Weight 64.864 kg Intake: Intake, IV Titration 1150 Amount Sodium Chloride 0.9% 1, 1150 000 ml @ 100 mls/hr IV . Q10H [facility] Rx#:[id number] Other: Voiding Method Toilet - Exam Patient is sitting up in the bed comfortably, no acute distress, awake alert and oriented eating a large lunch that consists of multiple cans of Pepsi, chips, and grilled ham and cheese sandwich.. HEENT: Normocephalic. Neck is supple. Pupils reactive. Nostrils clear. Oral cavity is moist. Ears reveal no drainage. Neck reveals no JVD, carotid bruits, or thyromegaly. CHEST EXAMINATION: Trachea is central. Symmetrical expansion. Lung martinez clear to auscultation and percussion. CARDIAC: Normal S1, S2 with no gallops. No murmurs ABDOMEN: Soft. Lower abdominal tenderness. No guarding or rigidity. Bowel sounds normal. No organomegaly. No abdominal bruits. Extremities: reveal no edema. No clubbing or cyanosis Neurologically awake, alert, oriented x3 with well-coordinated movements. No focal deficits noted Skin: No rash or skin lesions. Psychiatric: Cooperative. Non-suicidal Musculoskeletal: No joint swelling or deformity. Normal range of motion. - Labs CBC & Chem 7: 07/09/19 13:28 07/09/19 13:28 Labs: Abnormal Lab Results - Last 24 Hours (Table) 07/09/19 Range/Units 13:28 Chloride 109 H (98-107) mmol/L Glucose 118 H (74-99) mg/dL Assessment and Plan Assessment: Intractable abdominal pain possible acute Crohn's disease exacerbation Rectal bleeding improved now. Hemoglobin is stable. History of endometriosis Depression Previous history of smoking DVT prophylaxis with SCDs plan: Patient be continued on IV hydration, pain management was transitioned oral medications. ESR is 11, CRP was less than 5.0, and stool was negative for any occult blood. Patient is currently tolerating regular diet. Discussed with the patient about making better choices of what she is eating and to avoid certain foods that may exacerbate the Crohn's and diarrhea. GI service was consulted and is pending at this time. Continue with IV steroids at this time. Further recommendations based on the clinical course. Possible discharge in 24 hours.
[2019-07-10] MEDS: BALSALAZIDE DISODIUM 750 MG CAPSULE PO SCH ×2 (15:36→22:09)
--- NOTE | 2019-07-10 20:29 | CONS ---
CONSULTATION DATE OF DICTATION: 07/10/2019 REASON FOR CONSULTATION: Exacerbation of ulcerative colitis. HISTORY OF PRESENT ILLNESS: The patient is a 28-year-old pleasant white female with longstanding history of ulcerative colitis diagnosed about 6 years ago in [place], [place]. She is presently 3 months . She had a flareup of ulcerative colitis during her time of and started on prednisone 40 mg daily. She went off of the prednisone about 2 weeks prior to and immediately 2 weeks after the delivery she had a severe flareup with bowel movements anywhere from 10 to 12 a day with blood and mucus in the stool. She underwent a colonoscopy on June 05, 2019, by Dr. Sofia which showed active proctosigmoiditis and biopsies revealed active ulcerative colitis. The patient was subsequently started on prednisone 40 mg daily and she was down to 30 mg, but last week her symptoms progressively got worse with worsening abdominal pain and bloody diarrhea. She went and saw [place], a physician technology assistant in our office, and was advised to increase the prednisone to 50 mg daily. Biologics were discussed and she is in the process of being approved for Remicade. In the meantime, symptoms progressively got worse and hence she came into the emergency room yesterday and subsequently was admitted to the hospital for further management. She was started on IV Solu-Medrol 60 mg q.8 hours yesterday. She is feeling a little bit better today. She had only two bowel movements this morning. No blood or mucus in the stool. Still has abdominal pain. PAST MEDICAL HISTORY: Ulcerative colitis, endometriosis. HOME MEDICATIONS: 3 tablets 3 times daily and prednisone 50 mg daily. ALLERGIES: CODEINE, TORADOL, MORPHINE, PENICILLIN, HALDOL. PAST SURGICAL HISTORY: Recent , cholecystectomy, tonsillectomy and adenoidectomy. SOCIAL HISTORY: Former smoker. No alcohol use. FAMILY HISTORY: Unremarkable. REVIEW OF SYSTEMS: CARDIOPULMONARY: No chest pain or shortness of breath. GENITOURINARY: No dysuria or hematuria. MUSCULOSKELETAL: Unremarkable. SKIN: Unremarkable. ENDOCRINE: Unremarkable. PSYCHIATRIC: Unremarkable. NEUROLOGY: Unremarkable. ENT/VISION: Unremarkable. CONSTITUTIONAL: No recent weight loss. No fever, chills, night sweats. PHYSICAL EXAMINATION: She appears comfortable. No apparent distress. Vital signs are stable. Blood pressure 113/86, pulse rate 80 per minute and temperature 97. HEENT examination unremarkable. Conjunctivae pink. Sclerae anicteric. Oral cavity no lesions. NECK: No JVD or lymph node enlargement. CHEST: Clear to auscultation. HEART: Regular rate and rhythm. ABDOMEN: Soft. There was mild tenderness in the left lower quadrant area. Rest of the abdomen was benign. It was soft. EXTREMITIES: No pedal edema. SKIN: No rashes. NEUROLOGIC: Alert and oriented x3. No focal deficits. LABS: WBC 7.3, hemoglobin 14.8, platelets normal. Sedimentation rate 11. CRP less than 5. Basic metabolic panel is within normal limits. IMPRESSION: Longstanding history of ulcerative colitis diagnosed 6 years ago. She has been steroid- dependent for the last 3 months. She is 2 months and patient has been having a severe flareup for the last few weeks, maintained on prednisone 50 mg daily on an outpatient basis and continues to have lower abdominal pain with bloody diarrhea. Colonoscopy by Dr. Sofia in May of 2019 did show evidence of active proctosigmoiditis. Presently on IV steroids and doing much better. Sedimentation rate and CRP are within normal limits. No evidence of anemia. RECOMMENDATIONS: 1. Continue with IV Solu-Medrol today, and tomorrow decrease it to 20 mg q.8 hours and hopefully by Sunday morning we can change the prednisone to 60 mg p.o. daily. 2. Obtain baseline labs so that she can be started on Remicade infusions on an outpatient basis. 3. CBC in the morning. 4. Advance diet as tolerated. 5. We will follow with you closely. Thank you for this consultation. MMODL / IJN: [id number] /
[2019-07-11] MEDS: SODIUM CHLORIDE 0.9% 1,000 ML IV SCH ×3 (00:24→21:00)
[2019-07-11] MEDS: methylPREDNISolone SOD SUCCI 125 MG/2 ML VIAL IV SCH (05:48)
[2019-07-11] MEDS: HYDROcodone/APAP 10-325MG 1 EACH TAB PO PRN ×4 (05:48→23:01)
[2019-07-11] MEDS: BALSALAZIDE DISODIUM 750 MG CAPSULE PO SCH ×3 (09:15→23:01)
[2019-07-11 11:43] LABS: Hepatitis C IgG Antibody Non-Reactive (Non-Reactive)
[2019-07-11 11:55] LABS: African American GFR (CKD) >90 (>60 ml/min/1.73 sqM); Anion Gap 12 mmol/L; Blood Urea Nitrogen 12 mg/dL (7-17); Calcium 9.7 mg/dL (8.4-10.2); Carbon Dioxide 20 mmol/L (22-30); Chloride 106 mmol/L (98-107); Glucose 261 mg/dL (74-99); Non-African American GFR(CKD) >90 (>60 ml/min/1.73 sqM); Sodium 138 mmol/L (137-145)
[2019-07-11 12:11] LABS: Potassium 4.4 mmol/L (3.5-5.1)
[2019-07-11 12:24] LABS: Basophils % (A) 0 %; Eosinophils # (A) 0.2 k/uL (0-0.7); Eosinophils % (A) 1 %; HCT 41.8 % (34.0-46.0); HGB 13.8 gm/dL (11.4-16.0); Lymphocytes # (A) 0.7 k/uL (1.0-4.8); Lymphocytes % (A) 3 %; MCH 31.2 pg (25.0-35.0); MCV 94.8 fL (80.0-100.0); Mean Platelet Volume 7.3; Monocytes # (A) 0.2 k/uL (0-1.0); Monocytes % (A) 1 %; Neutrophils # (A) 21.1 k/uL (1.3-7.7); Neutrophils % (A) 95 %; Platelet Count 354 k/uL (150-450); RBC 4.41 m/uL (3.80-5.40); RDW 13.4 % (11.5-15.5); WBC 22.3 k/uL (3.8-10.6)
--- NOTE | 2019-07-11 15:40 | P.PN ---
Subjective Progress Note Date: 07/11/19 Principal diagnosis: Patient is a 28 old female with a known history of Crohn's disease was was later diagnosed about 6 years ago, endometriosis and depression came to ER with the complaints of abdominal pain on and off for the past few weeks. Abdominal pain is mainly diffuse associated with nausea and denied any episodes of vomiting this time. Patient says that she had colonoscopy on 06/05/2019. Patient is on follow the GI clinic. Patient was told that if she develops more abdominal pain, was recommended to come to ER. Patient is in the process of getting Remicade. Denied any blood in the stool today. Mild rectal bleeding yesterday.. No fever no chills. Patient is currently on oral prednisone tapering course as an outpatient. Next and denied any dysuria or hematuria. No complaints of chest pain or shortness breath. KUB x-ray showed nonspecific abdomen. No leukocytosis noted. Patient was admitted to the hospital due to intractable abdominal pain. 07/10/2019 Patient is sitting up in the bed eating lunch and appears to be in no acute distress. Patient states that she continues to have abdominal pain and had been asking to switch to oral medications as they work better for her. Dilaudid was discontinued and patient will continue on Bieber at this time. Awaiting GI consult at this time. Patient states that she is passing gas and had a bowel movement that was semi-formed today with no blood noted. Hemoglobin stable. Patient denies any chest pain, shortness of breath, or palpitations at this time. She is afebrile. Patient denies any nausea or vomiting and is tolerating diet. 07/11/2019 Patient is lying in bed and appears to be in no acute distress. No acute overnight issues. Patient states that she continues to have loose bowels with mild blood noted but has not been showing nursing staff the bowel movements. Patient states that her pain has slightly improved and her left mid and upper abdomen continue to be tender. Patient currently remains on IV steroids and will continue at this time per GI recommendations. Patient will likely be discharged in 24 hours with 60 mg of prednisone daily. Currently patient denies any chest pain, shortness of breath, or palpitations. Patient is afebrile. Patient denies any nausea or vomiting and is tolerating diet. Hemoglobin remained stable and is currently 13.8. White blood count is slightly elevated and is expected to given she is on IV steroids. Will continue to monitor clos amelia. Objective - Vital Signs Vital signs: Vital Signs Temp 97.8 F 07/11/19 12:33 Pulse 59 L 07/11/19 12:33 Resp 18 07/11/19 12:33 BP 110/71 07/11/19 12:33 Pulse Ox 95 07/11/19 12:33 Intake & Output 07/10/19 07/11/19 07/11/19 18:59 06:59 18:59 Intake Total 800 Balance 800 Intake: Intake, IV Titration 800 Amount Sodium Chloride 0.9% 1, 800 000 ml @ 100 mls/hr IV . Q10H SHELDON Rx#:[id number] Other: Voiding Method Toilet # Voids 1 - Exam Patient is lying in the bed comfortably, no acute distress, awake alert and oriented.. HEENT: Normocephalic. Neck is supple. Pupils reactive. Nostrils clear. Oral cavity is moist. Ears reveal no drainage. Neck reveals no JVD, carotid bruits, or thyromegaly. CHEST EXAMINATION: Trachea is central. Symmetrical expansion. Lung martinez clear to auscultation and percussion. CARDIAC: Normal S1, S2 with no gallops. No murmurs ABDOMEN: Soft. Lower left abdominal tenderness upon palpation. No guarding or rigidity. Slight improvement from yesterday. Bowel sounds normal. No organomegaly. No abdominal bruits. Extremities: reveal no edema. No clubbing or cyanosis Neurologically awake, alert, oriented x3 with well-coordinated movements. No focal deficits noted Skin: No rash or skin lesions. Psychiatric: Cooperative. Non-suicidal Musculoskeletal: No joint swelling or deformity. Normal range of motion. - Labs CBC & Chem 7: 07/11/19 12:06 07/11/19 11:10 Labs: Abnormal Lab Results - Last 24 Hours (Table) 07/11/19 07/11/19 Range/Units 11:10 12:06 WBC 22.3 H (3.8-10.6) k/uL Neutrophils # 21.1 H (1.3-7.7) k/uL Lymphocytes # 0.7 L (1.0-4.8) k/uL Carbon Dioxide 20 L (22-30) mmol/L Glucose 261 H (74-99) mg/dL Assessment and Plan Assessment: Intractable abdominal pain possible acute Crohn's disease exacerbation Rectal bleeding improved now. Hemoglobin is stable. History of endometriosis Depression Previous history of smoking DVT prophylaxis with SCDs plan: Patient be continued on IV hydration, pain management was transitioned oral medications. Patient states that she continues to have loose bowel movements with blood noted with slight improvement in the amount of blood although she has not shown nursing staff any of the bowel movements to document blood. Hemoglobin is stable and is currently working 0.8. Patient is currently tolerating regular diet. GI is following. Continue with IV steroids at this time. Further recommendations based on the clinical course. Possible discharge in 24 hours.
[2019-07-11] MEDS: methylPREDNISolone SOD SUCCI 40 MG/ML 1 ML VIAL IV SCH ×2 (17:15→23:01)
[2019-07-11] MEDS ORDERED: diphenhydrAMINE 50 MG/ML 1 ML VIAL IVP PRN (17:43)
[2019-07-11 21:51] VITALS: RESP 16
--- NOTE | 2019-07-11 23:17 | P.PN ---
Subjective Progress Note Date: 07/11/19 Principal diagnosis: Rectal bleeding, ulcerative colitis Patient seen lying in bed reporting 2 bowel movements today. She continues to see blood per rectum but reports overall it has decreased. She is tolerating a diet. Objective - Vital Signs Vital signs: Vital Signs Temp 97.8 F 07/11/19 12:33 Pulse 59 L 07/11/19 12:33 Resp 18 07/11/19 12:33 BP 110/71 07/11/19 12:33 Pulse Ox 95 07/11/19 12:33 Intake & Output 07/10/19 07/11/19 07/11/19 18:59 06:59 18:59 Intake Total 800 Balance 800 Intake: Intake, IV Titration 800 Amount Sodium Chloride 0.9% 1, 800 000 ml @ 100 mls/hr IV . Q10H SHELDON Rx#:[id number] Other: Voiding Method Toilet # Voids 1 - Exam On physical examination, patient appears comfortable in no apparent distress. HEAD: Normocephalic, atraumatic. EYES: No scleral icterus. No conjunctival injection. MOUTH: No lesions, tongue midline. NECK: Trachea midline, no gross abnormalities. ABDOMEN: Soft, mildly tender to palpation. Bowel sounds are positive. No organo megaly. No guarding or rigidity. EXTREMITIES: No pedal edema. SKIN: No rashes, no jaundice. NEUROLOGIC: Alert and oriented x3. No focal deficits. - Labs CBC & Chem 7: 07/11/19 12:06 07/11/19 11:10 Labs: Abnormal Lab Results - Last 24 Hours (Table) 07/11/19 07/11/19 Range/Units 11:10 12:06 WBC 22.3 H (3.8-10.6) k/uL Neutrophils # 21.1 H (1.3-7.7) k/uL Lymphocytes # 0.7 L (1.0-4.8) k/uL Carbon Dioxide 20 L (22-30) mmol/L Glucose 261 H (74-99) mg/dL Assessment and Plan (1) Blood in stool Narrative/Plan: 28-year-old female with a six-year history of ulcerative colitis with recent findings on colonoscopy of active disease in the rectum and sigmoid. The patient has required steroid therapy past 2 months however has continued to have symptoms of abdominal pain, blood per rectum in frequency of bowel movements. The patient was on a steroid taper in the outpatient setting however continued to have symptoms and is scheduled to initiate biological therapy which is currently undergoing improvement by the insurance company. She presented with worsening of her symptoms. Overall currently the patient is reporting some impr ovement in frequency of bowel movements and blood per rectum. Current Visit: Yes Status: Acute Code(s): K92.1 - MELENA SNOMED Code(s): 683539013 (2) Abdominal pain Current Visit: Yes Status: Acute Code(s): R10.9 - UNSPECIFIED ABDOMINAL PAIN SNOMED Code(s): 49665691 (3) Exacerbation of ulcerative colitis Current Visit: No Status: Acute Code(s): K51.90 - ULCERATIVE COLITIS, UNSPECIFIED, WITHOUT COMPLICATIONS SNOMED Code(s): 276032433 (4) Hx of ulcerative colitis Current Visit: No Status: Acute Code(s): Z87.19 - PERSONAL HISTORY OF OTHER DISEASES OF THE DIGESTIVE SYSTEM SNOMED Code(s): 718500010 Plan: Supportive care Low residual diet as tolerated Continue to monitor CBC and transfuse as needed Continue IV Solu-Medrol Patient came steroid outpatient setting as previously prescribed after discharge Continue to monitor stool output Plan is for for initiation of biologic therapy in the outpatient setting For allowing us to participate in the care of the patient we will continue to rima graves
[2019-07-12] MEDS: SODIUM CHLORIDE 0.9% 1,000 ML IV SCH (05:12)
[2019-07-12] MEDS: HYDROcodone/APAP 10-325MG 1 EACH TAB PO PRN ×2 (05:12→11:20)
[2019-07-12] MEDS: methylPREDNISolone SOD SUCCI 40 MG/ML 1 ML VIAL IV SCH (09:00)
[2019-07-12] MEDS: BALSALAZIDE DISODIUM 750 MG CAPSULE PO SCH (09:00)
[2019-07-12 12:16] VITALS: BP 119/70; PULSE 59; TEMP 98.9
== END 2019-07-12 16:20 | disposition home or self-care (01) | DRG 387 ==
LOC: EC 12:39 → 5NMEDONC 17:10
PROVIDERS: ADMIT Internal Medicine; ATTEND Internal Medicine
DX: K50.911 Crohn's disease, unspecified, with rectal bleeding (principal); F32.9 Major depressive disorder, single episode, unspecified; Z53.29 Procedure and treatment not carried out because of patient's decision for other reasons; Z79.52 Long term (current) use of systemic steroids; Z79.899 Other long term (current) drug therapy; Z87.891 Personal history of nicotine dependence; Z86.14 Personal history of Methicillin resistant Staphylococcus aureus infection; Z90.49 Acquired absence of other specified parts of digestive tract; Z90.721 Acquired absence of ovaries, unilateral; Z87.42 Personal history of other diseases of the female genital tract; Z98.890 Other specified postprocedural states; Z88.5 Allergy status to narcotic agent; Z88.0 Allergy status to penicillin; Z88.8 Allergy status to other drugs, medicaments and biological substances
CPT/HCPCS: 36415; 74018; 80048; 80053; 81001; 81025; 82150; 82272; 83690; 85025; 85652; 86140; 86704; 86803; 96374; 96375; 99285

== ENCOUNTER 2019-08-03 14:03 | Emergency (ER) | payer OTHER ==
[2019-08-03 14:08] VITALS: RESP 18
[2019-08-03] MEDS ORDERED: SODIUM CHLORIDE 0.9% 1,000 ML IV STA (14:23)
[2019-08-03 15:41] LABS: Basophils % (A) 1 %; Eosinophils # (A) 0.1 k/uL (0-0.7); Eosinophils % (A) 2 %; HCT 42.5 % (34.0-46.0); HGB 14.7 gm/dL (11.4-16.0); Lymphocytes # (A) 1.6 k/uL (1.0-4.8); Lymphocytes % (A) 41 %; MCH 31.5 pg (25.0-35.0); MCHC 34.7 g/dL (31.0-37.0); MCV 90.9 fL (80.0-100.0); Mean Platelet Volume 17.4; Monocytes # (A) 0.1 k/uL (0-1.0); Monocytes % (A) 3 %; Neutrophils % (A) 51 %; RBC 4.68 m/uL (3.80-5.40); RDW 12.3 % (11.5-15.5)
[2019-08-03 15:46] LABS: Platelet Count 9 k/uL (150-450)
[2019-08-03 15:48] LABS: ALT 43 U/L (4-34); AST 57 U/L (14-36); African American GFR (CKD) >90 (>60 ml/min/1.73 sqM); Albumin 4.5 g/dL (3.5-5.0); Alkaline Phosphatase 75 U/L (38-126); Amylase 55 U/L (30-110); Anion Gap 8 mmol/L; Blood Urea Nitrogen 12 mg/dL (7-17); Calcium 9.2 mg/dL (8.4-10.2); Carbon Dioxide 21 mmol/L (22-30); Chloride 108 mmol/L (98-107); Glucose 93 mg/dL (74-99); Non-African American GFR(CKD) >90 (>60 ml/min/1.73 sqM); Sodium 137 mmol/L (137-145); Total Protein 7.7 g/dL (6.3-8.2)
--- NOTE | 2019-08-03 16:03 | ED ---
General Adult HPI - General Chief complaint: Abdominal Pain Stated complaint: Crohn's Source: patient, RN notes reviewed Mode of arrival: ambulatory Limitations: no limitations - History of Present Illness Initial comments: 28-year-old female with a past medical history of Crohn's, ulcerative colitis presents to the emergency department for a Crohn's flareup. Patient states that she was released from the hospital about a month ago after receiving IV steroids. States she has felt much better for the past month. She is taking 50 mg of prednisone per day. She is waiting for approval to begin Remicade. She has seen GI since her discharge from the hospital. However yesterday patient started to have pain again. States it is a cramping pain. States she is having some bleeding from her rectum intermittently. States she has a sensation that she has to have a bowel movement which is consistent with previous flares. Denies any mucus in the stool. Patient has no other complaints at this time including shortness of breath, chest pain, abdominal pain, nausea or vomiting, headache, or visual changes. - Related Data Home Medications Medication Instructions Recorded Confirmed Mesalamine [Pentasa] 750 mg PO TID 07/09/19 07/09/19 predniSONE 50 mg PO DAILY 07/09/19 07/09/19 Previous Rx's Medication Instructions Recorded HYDROcodone/APAP 10-325MG [[employer] 1 each PO Q6H PRN 3 Days #12 tab 07/12/19 10-325] HYDROcodone/APAP 5-325MG [[employer] 1 tab PO Q6HR PRN #10 tab 08/03/19 5-325] Allergies Allergy/AdvReac Type Severity Reaction Status Date / Time codeine Allergy Mild Rash/Hives Verified 08/03/19 14:06 ketorolac [From Toradol] Allergy Rash/Hives Verified 08/03/19 14:06 morphine Allergy Rash/Hives Verified 08/03/19 14:06 Penicillins Allergy Unknown Verified 08/03/19 14:06 Childhood haloperidol [From Haldol] AdvReac Rapid Verified 08/03/19 14:06 Heart Rate Review of Systems ROS Statement: Those systems with pertinent positive or pertinent negative responses have been documented in the HPI. ROS Other: All systems not noted in ROS Statement are negative. Past Medical History Additional Past Medical History / Comment(s): crohns, ulcerative cholitis, endometriosis History of Any Multi-Drug Resistant Organisms: MRSA Date of last positivie culture/infection: 2016 MDRO Source:: right ear Past Surgical History: Adenoidectomy, Section, Cholecystectomy, Tonsillectomy Additional Past Surgical History / Comment(s): right ovary removed. surgery to remove scar tissue Past Anesthesia/Blood Transfusion Reactions: No Reported Reaction Additional Past Anesthesia/Blood Transfusion Reaction / Comment(s): MRSA Smoking Status: Former smoker Past Alcohol Use History: None Reported Past Drug Use History: None Reported General Exam Limitations: no limitations General appearance: alert, in no apparent distress Head exam: Present: atraumatic, normocephalic, normal inspection Eye exam: Present: normal appearance, PERRL, EOMI. Absent: scleral icterus, conjunctival injection ENT exam: Present: normal exam, mucous membranes moist Neck exam: Present: normal inspection, full ROM. Absent: tenderness, meningismus, lymphadenopathy Respiratory exam: Present: normal lung sounds bilaterally. Absent: respiratory distress, wheezes, rales, rhonchi, stridor Cardiovascular Exam: Present: regular rate, normal rhythm, normal heart sounds. Absent: systolic murmur, diastolic murmur, rubs, gallop, clicks GI/Abdominal exam: Present: soft, tenderness (Minimal lower abdominal tenderness without guarding or rebound), normal bowel sounds. Absent: distended, guarding, rebound, rigid Neurological exam: Present: alert Course Vital Signs 08/03/19 08/03/19 14:06 16:50 Temperature 97.8 F Pulse Rate 82 80 Respiratory 18 18 Rate Blood Pressure 125/86 124/81 O2 Sat by Pulse 99 99 Oximetry Medical Decision Making - Medical Decision Making Vitals are stable. Abdominal exam is generally benign. She has minimal lower abdominal tenderness that is generalized in nature. Symptoms appear chronic in nature patient states this is exactly like her previous Crohn's. She denies fevers. She denies any symptoms that are disproportionate. Patient has been following with GI outpatient after her recent hospitalization. Patient was given 125 mg of Solu-Medrol here in the emergency department as well as Dilaudid which did help with her pain. Initial CBC showed a platelet count of 9. Howev er this was performed again and was 349 which is patient's baseline. The lab data from this twice and it was consistently 349. CMP unremarkable. Minimal transaminitis. Patient reevaluated. He did have some minimal recurrence of pain and was given another dose of Dilaudid. Patient is agreeable to continue her outpatient steroid at home. She will be given a prescription for [employer]. She will return here with any worsening symptoms. Otherwise she will follow up with GI. I discussed this case with attending Dr. Maldonado who agrees with this assessment and treatment plan. - Lab Data Result diagrams: 08/03/19 17:14 08/03/19 15:22 Lab Results 08/03/19 08/03/19 08/03/19 Range/Units 15:22 15:22 15:40 WBC 4.0 (3.8-10.6) k/uL RBC 4.68 (3.80-5.40) m/uL Hgb 14.7 (11.4-16.0) gm/dL Hct 42.5 (34.0-46.0) % MCV 90.9 (80.0-100.0) fL MCH 31.5 (25.0-35.0) pg MCHC 34.7 (31.0-37.0) g/dL RDW 12.3 (11.5-15.5) % Plt Count 9 L* D (150-450) k/uL Neutrophils % 51 % Lymphocytes % 41 % Monocytes % 3 % Eosinophils % 2 % Basophils % 1 % Neutrophils # 2.0 (1.3-7.7) k/uL Lymphocytes # 1.6 (1.0-4.8) k/uL Monocytes # 0.1 (0-1.0) k/uL Eosinophils # 0.1 (0-0.7) k/uL Basophils # 0.0 (0-0.2) k/uL Manual Slide Review Performed Fibrinogen (200-500) mg/dL Sodium 137 (137-145) mmol/L Potassium 4.9 (3.5-5.1) mmol/L Chloride 108 H (98-107) mmol/L Carbon Dioxide 21 L (22-30) mmol/L Anion Gap 8 mmol/L BUN 12 (7-17) mg/dL Creatinine 0.65 (0.52-1.04) mg/dL Est GFR (CKD-EPI)AfAm >90 (>60 ml/min/1.73 sqM) Est GFR (CKD-EPI)NonAf >90 (>60 ml/min/1.73 sqM) Glucose 93 (74-99) mg/dL Calcium 9.2 (8.4-10.2) mg/dL Total Bilirubin 1.0 (0.2-1.3) mg/dL AST 57 H (14-36) U/L ALT 43 H (4-34) U/L Alkaline Phosphatase 75 (38-126) U/L Lactate Dehydrogenase (313-618) U/L Total Protein 7.7 (6.3-8.2) g/dL Albumin 4.5 (3.5-5.0) g/dL Amylase 55 (30-110) U/L Lipase 138 (23-300) U/L Urine Color Urine Appearance (Clear) Urine pH (5.0-8.0) Ur Specific Sharon (1.001-1.035) Urine Protein (Negative) Urine Glucose (UA) (Negative) Urine Ketones (Negative) Urine Blood (Negative) Urine Nitrite (Negative) Urine Bilirubin (Negative) Urine Urobilinogen (<2.0) mg/dL Ur Leukocyte Esterase (Negative) Urine RBC (0-5) /hpf Urine WBC (0-5) /hpf Ur Squamous Epith Cells (0-4) /hpf Urine Bacteria (None) /hpf Urine Mucus (None) /hpf Urine HCG, Qual Not Detected (Not Detectd) 08/03/19 08/03/19 08/03/19 Range/Units 15:40 17:14 17:14 WBC 6.7 (3.8-10.6) k/uL RBC 4.47 (3.80-5.40) m/uL Hgb 14.0 (11.4-16.0) gm/dL Hct 40.7 (34.0-46.0) % MCV 91.1 (80.0-100.0) fL MCH 31.4 (25.0-35.0) pg MCHC 34.5 (31.0-37.0) g/dL RDW 12.2 (11.5-15.5) % Plt Count 349 D (150-450) k/uL Neutrophils % 53 % Lymphocytes % 36 % Monocytes % 3 % Eosinophils % 4 % Basophils % 1 % Neutrophils # 3.6 (1.3-7.7) k/uL Lymphocytes # 2.4 (1.0-4.8) k/uL Monocytes # 0.2 (0-1.0) k/uL Eosinophils # 0.3 (0-0.7) k/uL Basophils # 0.0 (0-0.2) k/uL Manual Slide Review Fibrinogen 345 (200-500) mg/dL Sodium (137-145) mmol/L Potassium (3.5-5.1) mmol/L Chloride (98-107) mmol/L Carbon Dioxide (22-30) mmol/L Anion Gap mmol/L BUN (7-17) mg/dL Creatinine (0.52-1.04) mg/dL Est GFR (CKD-EPI)AfAm (>60 ml/min/1.73 sqM) Est GFR (CKD-EPI)NonAf (>60 ml/min/1.73 sqM) Glucose (74-99) mg/dL Calcium (8.4-10.2) mg/dL Total Bilirubin (0.2-1.3) mg/dL AST (14-36) U/L ALT (4-34) U/L Alkaline Phosphatase (38-126) U/L Lactate Dehydrogenase (313-618) U/L Total Protein (6.3-8.2) g/dL Albumin (3.5-5.0) g/dL Amylase (30-110) U/L Lipase (23-300) U/L Urine Color Yellow Urine Appearance Slightly Cloudy H (Clear) Urine pH 6.0 (5.0-8.0) Ur Specific Sharon 1.020 (1.001-1.035) Urine Protein Negative (Negative) Urine Glucose (UA) Negative (Negative) Urine Ketones Negative (Negative) Urine Blood Small (Negative) Urine Nitrite Negative (Negative) Urine Bilirubin Negative (Negative) Urine Urobilinogen <2.0 (<2.0) mg/dL Ur Leukocyte Esterase Negative (Negative) Urine RBC 1 (0-5) /hpf Urine WBC 3 (0-5) /hpf Ur Squamous Epith Cells 5 H (0-4) /hpf Urine Bacteria Rare H (None) /hpf Urine Mucus Occasional H (None) /hpf Urine HCG, Qual (Not Detectd) 08/03/19 Range/Units 17:14 WBC (3.8-10.6) k/uL RBC (3.80-5.40) m/uL Hgb (11.4-16.0) gm/dL Hct (34.0-46.0) % MCV (80.0-100.0) fL MCH (25.0-35.0) pg MCHC (31.0-37.0) g/dL RDW (11.5-15.5) % Plt Count (150-450) k/uL Neutrophils % % Lymphocytes % % Monocytes % % Eosinophils % % Basophils % % Neutrophils # (1.3-7.7) k/uL Lymphocytes # (1.0-4.8) k/uL Monocytes # (0-1.0) k/uL Eosinophils # (0-0.7) k/uL Basophils # (0-0.2) k/uL Manual Slide Review Fibrinogen (200-500) mg/dL Sodium (137-145) mmol/L Potassium (3.5-5.1) mmol/L Chloride (98-107) mmol/L Carbon Dioxide (22-30) mmol/L Anion Gap mmol/L BUN (7-17) mg/dL Creatinine (0.52-1.04) mg/dL Est GFR (CKD-EPI)AfAm (>60 ml/min/1.73 sqM) Est GFR (CKD-EPI)NonAf (>60 ml/min/1.73 sqM) Glucose (74-99) mg/dL Calcium (8.4-10.2) mg/dL Total Bilirubin (0.2-1.3) mg/dL AST (14-36) U/L ALT (4-34) U/L Alkaline Phosphatase (38-126) U/L Lactate Dehydrogenase 416 (313-618) U/L Total Protein (6.3-8.2) g/dL Albumin (3.5-5.0) g/dL Amylase (30-110) U/L Lipase (23-300) U/L Urine Color Urine Appearance (Clear) Urine pH (5.0-8.0) Ur Specific Sharon (1.001-1.035) Urine Protein (Negative) Urine Glucose (UA) (Negative) Urine Ketones (Negative) Urine Blood (Negative) Urine Nitrite (Negative) Urine Bilirubin (Negative) Urine Urobilinogen (<2.0) mg/dL Ur Leukocyte Esterase (Negative) Urine RBC (0-5) /hpf Urine WBC (0-5) /hpf Ur Squamous Epith Cells (0-4) /hpf Urine Bacteria (None) /hpf Urine Mucus (None) /hpf Urine HCG, Qual (Not Detectd) Disposition Clinical Impression: Abdominal pain, History of Crohn's disease Disposition: HOME SELF-CARE Condition: Fair Instructions (If sedation given, give patient instructions): Abdominal Pain (ED) Additional Instructions: Please continue to take her outpatient medications. Take [employer] as needed but do not drive or operate machinery while taking [employer]. Follow-up with your GI provider in one to 2 days. Return here to the emergency Department with any worsening symptoms. Prescriptions: HYDROcodone/APAP 5-325MG [[employer] 5-325] 1 tab PO Q6HR PRN #10 tab PRN Reason: Pain Is patient prescribed a controlled substance at d/c from ED?: Yes When asked, does pt state using other controlled substances?: No If prescribed controlled substance>3 days was MAPS reviewed?: Prescribed <3 Days If opioid is for acute pain is fill amount 7 days or less?: No If Rx opioid, was Start Talking consent form obtained?: No Referrals: Gisela Santamaria MD [Primary Care Provider] - 1-2 days Time of Disposition: 18:19
[2019-08-03 16:08] LABS: Potassium 4.9 mmol/L (3.5-5.1)
[2019-08-03 16:08] LABS: Color,Urine Yellow
[2019-08-03 16:09] LABS: Appearance,Urine Slightly Cloudy (Clear); Bilirubin,Urine Negative (Negative); Blood,Urine Small (Negative); Glucose,Urine (UA) Negative (Negative); Ketones,Urine Negative (Negative); Leukocyte Esterase,Urine Negative (Negative); Nitrite,Urine Negative (Negative); Protein,Urine Negative (Negative); Urobilinogen,Urine <2.0 mg/dL (<2.0)
[2019-08-03 16:10] LABS: Bacteria,Urine Rare /hpf; Mucus,Urine Occasional /hpf; RBC,Urine 1 /hpf (0-5); Squamous Epithelial Cell,Urine 5 /hpf (0-4); WBC,Urine 3 /hpf (0-5)
[2019-08-03] MEDS ORDERED: HYDROmorphone 1 MG/ML 1 ML SYRINGE IVP STA (16:13)
[2019-08-03] MEDS ORDERED: methylPREDNISolone SOD SUCCI 125 MG/2 ML VIAL IV STA (16:14)
[2019-08-03 17:22] LABS: Basophils % (A) 1 %; Eosinophils # (A) 0.3 k/uL (0-0.7); Eosinophils % (A) 4 %; HCT 40.7 % (34.0-46.0); Lymphocytes # (A) 2.4 k/uL (1.0-4.8); Lymphocytes % (A) 36 %; MCH 31.4 pg (25.0-35.0); MCHC 34.5 g/dL (31.0-37.0); MCV 91.1 fL (80.0-100.0); Mean Platelet Volume 7.2; Monocytes # (A) 0.2 k/uL (0-1.0); Monocytes % (A) 3 %; Neutrophils # (A) 3.6 k/uL (1.3-7.7); Neutrophils % (A) 53 %; RBC 4.47 m/uL (3.80-5.40); RDW 12.2 % (11.5-15.5); WBC 6.7 k/uL (3.8-10.6)
[2019-08-03 17:27] LABS: Platelet Count 349 k/uL (150-450)
[2019-08-03] MEDS ORDERED: HYDROmorphone 0.5 MG/0.5 ML SYRINGE IVP STA (18:12)
[2019-08-03 19:03] VITALS: BP 142/80; PULSE 88; TEMP 98.1
== END 2019-08-03 18:50 | disposition home or self-care (01) ==
LOC: EC 14:03
DX: R10.9 Unspecified abdominal pain (principal); R74.0 Nonspecific elevation of levels of transaminase and lactic acid dehydrogenase [LDH]; R10.819 Abdominal tenderness, unspecified site; Z79.52 Long term (current) use of systemic steroids; Z79.899 Other long term (current) drug therapy; Z88.5 Allergy status to narcotic agent; Z88.6 Allergy status to analgesic agent; Z88.0 Allergy status to penicillin; Z88.8 Allergy status to other drugs, medicaments and biological substances; Z87.19 Personal history of other diseases of the digestive system; Z87.891 Personal history of nicotine dependence; Z90.49 Acquired absence of other specified parts of digestive tract; Z98.890 Other specified postprocedural states; Z86.14 Personal history of Methicillin resistant Staphylococcus aureus infection
CPT/HCPCS: 36415; 80053; 82150; 83615; 83690; 85025; 85384; 81001; 81025; 99284; 96374; 96375; 96376; 96361 ×3; J2930; J1170 ×2

== ENCOUNTER 2019-08-15 10:59 | Emergency (ER) | payer OTHER ==
[2019-08-15 11:17] VITALS: TEMP 97.7
[2019-08-15] MEDS ORDERED: methylPREDNISolone SOD SUCCI 125 MG/2 ML VIAL IV STA (11:23)
[2019-08-15 11:45] LABS: Basophils # (A) 0.1 k/uL (0-0.2); Basophils % (A) 1 %; Eosinophils # (A) 0.3 k/uL (0-0.7); Eosinophils % (A) 2 %; HCT 45.9 % (34.0-46.0); HGB 15.4 gm/dL (11.4-16.0); Lymphocytes # (A) 2.7 k/uL (1.0-4.8); Lymphocytes % (A) 22 %; MCH 30.8 pg (25.0-35.0); MCHC 33.6 g/dL (31.0-37.0); MCV 91.6 fL (80.0-100.0); Monocytes # (A) 0.3 k/uL (0-1.0); Monocytes % (A) 3 %; Neutrophils # (A) 8.4 k/uL (1.3-7.7); Neutrophils % (A) 70 %; Platelet Count 330 k/uL (150-450); RBC 5.01 m/uL (3.80-5.40)
[2019-08-15] MEDS ORDERED: HYDROmorphone 0.5 MG/0.5 ML SYRINGE IVP STA ×2 (11:54→13:00)
[2019-08-15 11:55] LABS: INR 0.9 (<1.2); Partial Thromboplastin Time 22.5 sec (22.0-30.0); Prothrombin Time 9.8 sec (9.0-12.0)
[2019-08-15 12:00] LABS: ALT 19 U/L (4-34); AST 22 U/L (14-36); African American GFR (CKD) >90 (>60 ml/min/1.73 sqM); Albumin 4.6 g/dL (3.5-5.0); Alkaline Phosphatase 76 U/L (38-126); Anion Gap 8 mmol/L; Blood Urea Nitrogen 13 mg/dL (7-17); Calcium 9.5 mg/dL (8.4-10.2); Carbon Dioxide 22 mmol/L (22-30); Chloride 107 mmol/L (98-107); Glucose 125 mg/dL (74-99); Non-African American GFR(CKD) >90 (>60 ml/min/1.73 sqM); Potassium 4.1 mmol/L (3.5-5.1); Sodium 137 mmol/L (137-145); Total Bilirubin 0.5 mg/dL (0.2-1.3); Total Protein 7.3 g/dL (6.3-8.2)
--- NOTE | 2019-08-15 12:28 | XR ---
EXAMINATION TYPE: XR [facility]UB DATE OF EXAM: 08/15/2019 12:14 PM CLINICAL HISTORY: Diffuse abdominal pain. History of Crohn's disease. TECHNIQUE: Single upright image of the abdomen is obtained. COMPARISON: 07/09/2019. FINDINGS: Cholecystectomy clips are seen in the right upper quadrant. No pneumoperitoneum. Lung bases are well aerated. No dilated large or small bowel. Mild degree colonic fecal stasis. Osseous structu res appear intact. Hemisacralization of the L5 vertebral body on the left. No suspicious calcificatio n in the abdomen nor pelvis. IMPRESSION: Mild degree colonic fecal stasis in an overall nonobstructive bowel gas pattern.
[2019-08-15 13:17] VITALS: RESP 18
[2019-08-15 14:11] VITALS: BP 114/85; PULSE 65
--- NOTE | 2019-08-15 14:16 | ED ---
Abdominal Pain HPI - General Chief Complaint: Abdominal Pain Stated Complaint: Crohn's flare Time Seen by Provider: 08/15/19 11:23 Source: patient Mode of arrival: ambulatory Limitations: no limitations - History of Present Illness Initial Comments: 28-year-old female with history of Crohn's disease currently on mesalamine as well as 50 mg of prednisone daily presenting to the emergency department today for chief complaint of diffuse abdominal pain she states this is been ongoing basically for the last 6 months. Patient states that it has been increasing for the past 2 weeks. Patient denies any fevers. She admits to bloody stools on occasion. Patient denies any diffuse bloody diarrhea are all blood stool she states is mixed in with her either formed or loose stools that she typically has as associated with her Crohn's disease. Patient denies any vomiting admits to occasional nausea. Patient denies any chest pain shortness of breath dysuria urgency frequency hematuria or . Remaining review of systems negative upon arrival patient appears well there's no signs of acute distress. Patient did have a recent colonoscopy performed by Dr. Sofia. Patient denies any other complaints. On arrival she appears well, nontoxic, VS [place]bale. - Related Data Home Medications Medication Instructions Recorded Confirmed Mesalamine [Pentasa] 750 mg PO TID 07/09/19 07/09/19 predniSONE 50 mg PO DAILY 07/09/19 07/09/19 Previous Rx's Medication Instructions Recorded HYDROcodone/APAP 10-325MG [[place] 1 each PO Q6H PRN 3 Days #12 tab 07/12/19 10-325] HYDROcodone/APAP 5-325MG [[place] 1 tab PO Q6HR PRN #10 tab 08/03/19 5-325] HYDROcodone/APAP 5-325MG [[place] 1 tab PO Q6HR PRN 3 Days #12 tab 08/15/19 5-325] Allergies Allergy/AdvReac Type Severity Reaction Status Date / Time codeine Allergy Mild Rash/Hives Verified 08/15/19 11:17 ketorolac [From Toradol] Allergy Rash/Hives Verified 08/15/19 11:17 morphine Allergy Rash/Hives Verified 08/15/19 11:17 Penicillins Allergy Unknown Verified 08/15/19 11:17 Childhood haloperidol [From Haldol] AdvReac Rapid Verified 02/28/20 11:17 Heart Rate Review of Systems ROS Statement: Those systems with pertinent positive or pertinent negative responses have been documented in the HPI. ROS Other: All systems not noted in ROS Statement are negative. Past Medical History Additional Past Medical History / Comment(s): crohns, ulcerative cholitis, endo metriosis History of Any Multi-Drug Resistant Organisms: MRSA Date of last positivie culture/infection: 2016 MDRO Source:: right ear Past Surgical History: Adenoidectomy, Section, Cholecystectomy, Tonsillectomy Additional Past Surgical History / Comment(s): right ovary removed. surgery to remove scar tissue Past Anesthesia/Blood Transfusion Reactions: No Reported Reaction Additional Past Anesthesia/Blood Transfusion Reaction / Comment(s): MRSA Past Psychological History: Depression Smoking Status: Former smoker Past Alcohol Use History: None Reported Past Drug Use History: None Reported General Exam - General Exam Comments Initial Comments: General: The patient is awake and alert, in no distress, and does not appear acutely ill. Eye: +3 mm pupils are equal, round and reactive to light, extra-ocular movements are intact. No nystagmus. There is normal conjunctiva bilaterally. No signs of icterus. Ears, nose, mouth and throat: There are moist mucous membranes and no oral lesions. Neck: The neck is supple, there is no tenderness or JVD. Cardiovascular: There is a regular rate and rhythm. No murmur, rub or gallop is appreciated. Respiratory: Lungs are clear to auscultation, respirations are non-labored, breath sounds are equal. No wheezes, stridor, rales, or rhonchi. Gastrointestinal: Soft, non-distended, very mild appearing diffuse tenderness abdomen without masses or organomegaly noted. There is no rebound or guarding present. Musculoskeletal: Normal ROM, no tenderness. Strength 5/5. Sensation intact. Pulses equal bilaterally 2+. Neurological: A&O x 3. CN II-XII intact grossly, There are no obvious motor or sensory deficits. Coordination appears grossly intact. Speech is normal. Skin: Skin is warm and dry and no rashes or lesions are noted. Psychiatric: Cooperative, appropriate mood & affect, normal judgment. Limitations: no limitations Course Vital Signs 08/15/19 08/15/19 08/15/19 11:15 13:16 14:00 Temperature 97.7 F Pulse Rate 98 86 65 Respiratory 20 18 18 Rate Blood Pressure 119/83 109/70 114/85 O2 Sat by Pulse 99 96 Oximetry 08/15/19 14:22 Temperature 97.7 F Pulse Rate 65 Respiratory 18 Rate Blood Pressure 114/85 O2 Sat by Pulse 96 Oximetry Medical Decision Making - Medical Decision Making Twice if you female presenting for diffuse abdominal pain history of Crohn she is chronic rectal bleeding. Patient refuses rectal examination. Hemoglobin stable blood pressure within acceptable limits hemodynamically stable patient does not appear toxic her abdominal exam does not appear acute. Patient is given the medications in the emergency department with control of pain she was offered admission for IV steroids however declined. Patient does not have si gnificant leukocytosis she has elevation however this is most likely due to patient's chronic steroid use at current 50 mg per day. Patient was provided a short outpatient prescription of Lowgap as she has previously tolerated. I discussed return parameters for increasing pain any fevers patient verbalized understanding and will be discharged with outpatient GI follow-up discussed case with Dr. Alfonso guajardo who is agreeable to this care plan as well as recommended discharge - Lab Data Result diagrams: 08/15/19 11:32 08/15/19 11:32 Lab Results 08/15/19 08/15/19 08/15/19 Range/Units 11:32 11:32 11:32 WBC 12.0 H (3.8-10.6) k/uL RBC 5.01 (3.80-5.40) m/uL Hgb 15.4 (11.4-16.0) gm/dL Hct 45.9 (34.0-46.0) % MCV 91.6 (80.0-100.0) fL MCH 30.8 (25.0-35.0) pg MCHC 33.6 (31.0-37.0) g/dL RDW 12.0 (11.5-15.5) % Plt Count 330 (150-450) k/uL Neutrophils % 70 % Lymphocytes % 22 % Monocytes % 3 % Eosinophils % 2 % Basophils % 1 % Neutrophils # 8.4 H (1.3-7.7) k/uL Lymphocytes # 2.7 (1.0-4.8) k/uL Monocytes # 0.3 (0-1.0) k/uL Eosinophils # 0.3 (0-0.7) k/uL Basophils # 0.1 (0-0.2) k/uL PT 9.8 (9.0-12.0) sec INR 0.9 (<1.2) APTT 22.5 (22.0-30.0) sec Sodium 137 (137-145) mmol/L Potassium 4.1 (3.5-5.1) mmol/L Chloride 107 (98-107) mmol/L Carbon Dioxide 22 (22-30) mmol/L Anion Gap 8 mmol/L BUN 13 (7-17) mg/dL Creatinine 0.62 (0.52-1.04) mg/dL Est GFR (CKD-EPI)AfAm >90 (>60 ml/min/1.73 sqM) Est GFR (CKD-EPI)NonAf >90 (>60 ml/min/1.73 sqM) Glucose 125 H (74-99) mg/dL Calcium 9.5 (8.4-10.2) mg/dL Total Bilirubin 0.5 (0.2-1.3) mg/dL AST 22 (14-36) U/L ALT 19 (4-34) U/L Alkaline Phosphatase 76 (38-126) U/L Total Protein 7.3 (6.3-8.2) g/dL Albumin 4.6 (3.5-5.0) g/dL Disposition Clinical Impression: Abdominal pain, Leukocytosis Disposition: HOME SELF-CARE Condition: Good Instructions (If sedation given, give patient instructions): Abdominal Pain (ED) Additional Instructions: Please use medication as discussed. Please follow-up with family doctor and GI as discussed, in the next 2-3 days. Please return to emergency room if the symptoms increase or worsen or for any other concerns. Prescriptions: HYDROcodone/APAP 5-325MG [Lowgap 5-325] 1 tab PO Q6HR PRN 3 Days #12 tab PRN Reason: Pain Is patient prescribed a controlled substance at d/c from ED?: Yes When asked, does pt state using other controlled substances?: No If prescribed controlled substance>3 days was MAPS reviewed?: Prescribed <3 Days If opioid is for acute pain is fill amount 7 days or less?: Yes If Rx opioid, was Start Talking consent form obtained?: Yes Referrals: Gisela Santamaria MD [Primary Care Provider] - 1-2 days Time of Disposition: 14:15
== END 2019-08-15 14:23 | disposition home or self-care (01) ==
LOC: EC 10:59
DX: D72.829 Elevated white blood cell count, unspecified (principal); R10.84 Generalized abdominal pain; Z79.51 Long term (current) use of inhaled steroids; Z79.899 Other long term (current) drug therapy; Z88.5 Allergy status to narcotic agent; Z88.0 Allergy status to penicillin; Z88.8 Allergy status to other drugs, medicaments and biological substances; Z87.891 Personal history of nicotine dependence; Z90.49 Acquired absence of other specified parts of digestive tract
CPT/HCPCS: 36415; 80053; 85025; 85610; 85730; 74018; 99284; 96374; 96375; 96376; J2930; J1170

== ENCOUNTER 2019-08-27 | Emergency (ER) | payer OTHER | END 2019-08-27 19:19 | disposition home or self-care (01) | CPT/HCPCS: 36415; 80053; 82150; 83690; 85025; 81025; 99284; 96374; 96375; 96361; J2930; J1170 ==

== ENCOUNTER 2019-08-31 13:53 | Emergency (ER) | payer OTHER ==
[2019-08-31 13:57] VITALS: BP 128/87; PULSE 111; RESP 18; TEMP 97.8
[2019-08-31] MEDS ORDERED: methylPREDNISolone SOD SUCCI 125 MG/2 ML VIAL IV STA (14:18)
[2019-08-31] MEDS ORDERED: SODIUM CHLORIDE 0.9% 1,000 ML IV STA (14:18)
[2019-08-31] MEDS ORDERED: HYDROmorphone 1 MG/ML 1 ML SYRINGE IVP STA (14:18)
--- NOTE | 2019-08-31 14:26 | ED ---
Abdominal Pain HPI - General Chief Complaint: Abdominal Pain Stated Complaint: Crohn's flareup Time Seen by Provider: 08/31/19 14:01 Source: patient Mode of arrival: ambulatory Limitations: no limitations - History of Present Illness Initial Comments: Patient is a 28-year-old female presenting to the emergency Department with complaints of a Crohn's flareup. Patient states she has been working with a GI doctor, Dr. Beckwith, and she is waiting for Remicade to be approved through her insurance company. Patient states she's been in and out of the ER in the past couple months for acute flareups. Patient states his last flareup started approximately 3 days ago. She's been unable to control the pain at home. She is concerned she is getting dehydrated and she has been having diarrhea. She's been having small amount of blood in her stool as well. She denies being at this time stating she is currently on her menstrual cycle. She believes her cycles make her symptoms worse. She denies fever, chest pain, shortness of breath, vomiting. She admits to mild nausea. She admits to history of C-sections, no other abdominal surgeries. She has no other complaints at this time. Upon arrival to the ER, patient slightly tachycardia at 111, rest of vitals are normal. - Related Data Home Medications Medication Instructions Recorded Confirmed Mesalamine [Pentasa] 750 mg PO TID 07/09/19 07/09/19 predniSONE 50 mg PO DAILY 07/09/19 07/09/19 Previous Rx's Medication Instructions Recorded HYDROcodone/APAP 10-325MG [[place] 1 each PO Q6H PRN 3 Days #12 tab 07/12/19 10-325] HYDROcodone/APAP 5-325MG [[place] 1 tab PO Q6HR PRN #10 tab 08/03/19 5-325] HYDROcodone/APAP 5-325MG [[place] 1 tab PO Q6HR PRN 3 Days #12 tab 08/15/19 5-325] Ondansetron Odt [Zofran Odt] 4 mg PO Q8HR PRN #30 tab 08/27/19 oxyCODONE-APAP 5-325MG [Percocet 1 tab PO Q6HR PRN 3 Days #12 tab 08/27/19 5-325 mg] Allergies Allergy/AdvReac Type Severity Reaction Status Date / Time codeine Allergy Mild Rash/Hives Verified 08/31/19 13:57 ketorolac [From Toradol] Allergy Rash/Hives Verified 08/31/19 13:57 morphine Allergy Rash/Hives Verified 08/31/19 13:57 Penicillins Allergy Unknown Verified 08/31/19 13:57 Childhood haloperidol [From Haldol] AdvReac Rapid Verified 08/31/19 13:57 Heart Rate Review of Systems ROS Statement: Those systems with pertinent positive or pertinent negative responses have been documented in the HPI. ROS Other: All systems not noted in ROS Statement are negative. Past Medical History Additional Past Medical History / Comment(s): crohns, ulcerative cholitis, endometriosis History of Any Multi-Drug Resistant Organisms: MRSA Date of last positivie culture/infection: 2016 MDRO Source:: right ear Past Surgical History: Adenoidectomy, Section, Cholecystectomy, Tonsillectomy Additional Past Surgical History / Comment(s): right ovary removed. surgery to remove scar tissue Past Anesthesia/Blood Transfusion Reactions: No Reported Reaction Additional Past Anesthesia/Blood Transfusion Reaction / Comment(s): MRSA Past Psychological History: Depression Smoking Status: Former smoker Past Alcohol Use History: None Reported Past Drug Use History: None Reported General Exam - General Exam Comments Initial Comments: GENERAL: Well-appearing, well-nourished and in no acute distress. HEAD: Atraumatic, normocephalic. EYES: Pupils equal round and reactive to light, extraocular movements intact, sclera anicteric, conjunctiva are normal. ENT: TMs normal, nares patent, oropharynx clear without exudates. Moist mucous membranes. NECK: Normal range of motion, supple without lymphadenopathy or JVD. LUNGS: Breath sounds clear to auscultation bilaterally and equal. No wheezes rales or rhonchi. HEART: Regular rate and rhythm without murmurs, rubs or gallops. ABDOMEN: Generalized abdominal tenderness, no sharp shooting pains. Soft, normoactive bowel sounds. No guarding, no rebound. No masses appreciated. : Deferred EXTREMITIES: Normal range of motion, no pitting or edema. No clubbing or cyanosis. NEUROLOGICAL: Normal speech, normal gait. PSYCH: Normal mood, normal affect. SKIN: Warm, Dry, normal turgor, no rashes or lesions noted. Limitations: no limitations Course Vital Signs 08/31/19 13:55 Temperature 97.8 F Pulse Rate 111 H Respiratory 18 Rate Blood Pressure 128/87 O2 Sat by Pulse 98 Oximetry Medical Decision Making - Medical Decision Making Patient is a 28-year-old female presenting with a Crohn's flareup 3 days. Patient slightly tachycardia and arrival, afebrile. Generalized abdominal tenderness on exam, no sharp shooting pains in any quadrant. Rest of exam is normal. Patient's lab work shows no acute findings. Urine is normal, hCG is not detected. He was given fluids, pain control, steroids. Patient reports mild improvement in her symptoms. I discussed with patient this is most likely a flareup of her Crohn's and that she needs to follow-up with Dr. Beckwith's office. She is requesting pain medicines to go home with. Upon review of patient's MAPS, patient has received multiple prescriptions for narcotics for the last 3-4 months from the ER as well as Dr. Santamaria's office. I discussed with patient that I am not giving her prescription for narcotics. I did offer starter pack of Tylenol 3's or Ultram however she declined both of these. Patient will follow-up with Dr. Beckwith's or Dr. Santamaria's office. She is in agreement with this plan of care. Return parameters were discussed with the patient she verbalized understanding. - Lab Data Result diagrams: 08/31/19 14:32 08/31/19 14:32 Lab Results 08/31/19 08/31/19 08/31/19 Range/Units 14:32 14:32 14:32 WBC 11.6 H (3.8-10.6) k/uL RBC 5.44 H (3.80-5.40) m/uL Hgb 16.8 H (11.4-16.0) gm/dL Hct 49.4 H (34.0-46.0) % MCV 90.8 (80.0-100.0) fL MCH 30.9 (25.0-35.0) pg MCHC 34.0 (31.0-37.0) g/dL RDW 11.9 (11.5-15.5) % Plt Count 387 (150-450) k/uL Neutrophils % 67 % Lymphocytes % 25 % Monocytes % 4 % Eosinophils % 3 % Basophils % 1 % Neutrophils # 7.7 (1.3-7.7) k/uL Lymphocytes # 2.9 (1.0-4.8) k/uL Monocytes # 0.4 (0-1.0) k/uL Eosinophils # 0.4 (0-0.7) k/uL Basophils # 0.1 (0-0.2) k/uL Sodium (137-145) mmol/L Potassium (3.5-5.1) mmol/L Chloride (98-107) mmol/L Carbon Dioxide (22-30) mmol/L Anion Gap mmol/L BUN (7-17) mg/dL Creatinine (0.52-1.04) mg/dL Est GFR (CKD-EPI)AfAm (>60 ml/min/1.73 sqM) Est GFR (CKD-EPI)NonAf (>60 ml/min/1.73 sqM) Glucose (74-99) mg/dL Calcium (8.4-10.2) mg/dL Total Bilirubin (0.2-1.3) mg/dL AST (14-36) U/L ALT (4-34) U/L Alkaline Phosphatase (38-126) U/L Total Protein (6.3-8.2) g/dL Albumin (3.5-5.0) g/dL Urine Color Yellow Urine Appearance Clear (Clear) Urine pH 6.0 (5.0-8.0) Ur Specific [place] 1.019 (1.001-1.035) Urine Protein Negative (Negative) Urine Glucose (UA) Negative (Negative) Urine Ketones Negative (Negative) Urine Blood Moderate H (Negative) Urine Nitrite Negative (Negative) Urine Bilirubin Negative (Negative) Urine Urobilinogen <2.0 (<2.0) mg/dL Ur Leukocyte Esterase Trace H (Negative) Urine RBC 4 (0-5) /hpf Urine WBC 1 (0-5) /hpf Ur Squamous Epith Cells 2 (0-4) /hpf Urine Mucus Rare H (None) /hpf Urine HCG, Qual Not Detected (Not Detectd) 08/31/19 Range/Units 14:32 WBC (3.8-10.6) k/uL RBC (3.80-5.40) m/uL Hgb (11.4-16.0) gm/dL Hct (34.0-46.0) % MCV (80.0-100.0) fL MCH (25.0-35.0) pg MCHC (31.0-37.0) g/dL RDW (11.5-15.5) % Plt Count (150-450) k/uL Neutrophils % % Lymphocytes % % Monocytes % % Eosinophils % % Basophils % % Neutrophils # (1.3-7.7) k/uL Lymphocytes # (1.0-4.8) k/uL Monocytes # (0-1.0) k/uL Eosinophils # (0-0.7) k/uL Basophils # (0-0.2) k/uL Sodium 137 (137-145) mmol/L Potassium 4.5 (3.5-5.1) mmol/L Chloride 105 (98-107) mmol/L Carbon Dioxide 22 (22-30) mmol/L Anion Gap 10 mmol/L BUN 11 (7-17) mg/dL Creatinine 0.61 (0.52-1.04) mg/dL Est GFR (CKD-EPI)AfAm >90 (>60 ml/min/1.73 sqM) Est GFR (CKD-EPI)NonAf >90 (>60 ml/min/1.73 sqM) Glucose 116 H (74-99) mg/dL Calcium 9.8 (8.4-10.2) mg/dL Total Bilirubin 1.0 (0.2-1.3) mg/dL AST 30 (14-36) U/L ALT 23 (4-34) U/L Alkaline Phosphatase 74 (38-126) U/L Total Protein 7.8 (6.3-8.2) g/dL Albumin 5.0 (3.5-5.0) g/dL Urine Color Urine Appearance (Clear) Urine pH (5.0-8.0) Ur Specific [place] (1.001-1.035) Urine Protein (Negative) Urine Glucose (UA) (Negative) Urine Ketones (Negative) Urine Blood (Negative) Urine Nitrite (Negative) Urine Bilirubin (Negative) Urine Urobilinogen (<2.0) mg/dL Ur Leukocyte Esterase (Negative) Urine RBC (0-5) /hpf Urine WBC (0-5) /hpf Ur Squamous Epith Cells (0-4) /hpf Urine Mucus (None) /hpf Urine HCG, Qual (Not Detectd) Disposition Clinical Impression: History of Crohn's disease, Crohn disease, Abdominal pain Disposition: HOME SELF-CARE Condition: Stable Instructions (If sedation given, give patient instructions): Abdominal Pain (ED) Additional Instructions: Please return to the Emergency Department if symptoms worsen or any other concerns. Follow-up with Dr. Beckwith's office. Is patient prescribed a controlled substance at d/c from ED?: No Referrals: Gisela Santamaria MD [Primary Care Provider] - 1-2 days
[2019-08-31 14:58] LABS: Basophils # (A) 0.1 k/uL (0-0.2); Basophils % (A) 1 %; Eosinophils # (A) 0.4 k/uL (0-0.7); Eosinophils % (A) 3 %; HCT 49.4 % (34.0-46.0); HGB 16.8 gm/dL (11.4-16.0); Lymphocytes # (A) 2.9 k/uL (1.0-4.8); Lymphocytes % (A) 25 %; MCH 30.9 pg (25.0-35.0); MCV 90.8 fL (80.0-100.0); Mean Platelet Volume 7.1; Monocytes # (A) 0.4 k/uL (0-1.0); Monocytes % (A) 4 %; Neutrophils # (A) 7.7 k/uL (1.3-7.7); Neutrophils % (A) 67 %; Platelet Count 387 k/uL (150-450); RBC 5.44 m/uL (3.80-5.40); RDW 11.9 % (11.5-15.5); WBC 11.6 k/uL (3.8-10.6)
[2019-08-31 15:00] LABS: Appearance,Urine Clear (Clear); Bilirubin,Urine Negative (Negative); Blood,Urine Moderate (Negative); Color,Urine Yellow; Glucose,Urine (UA) Negative (Negative); Ketones,Urine Negative (Negative); Leukocyte Esterase,Urine Trace (Negative); Mucus,Urine Rare /hpf; Nitrite,Urine Negative (Negative); Protein,Urine Negative (Negative); RBC,Urine 4 /hpf (0-5); Specific Gravity,Urine 1.019 (1.001-1.035); Squamous Epithelial Cell,Urine 2 /hpf (0-4); Urobilinogen,Urine <2.0 mg/dL (<2.0); WBC,Urine 1 /hpf (0-5)
[2019-08-31 15:07] LABS: ALT 23 U/L (4-34); AST 30 U/L (14-36); African American GFR (CKD) >90 (>60 ml/min/1.73 sqM); Alkaline Phosphatase 74 U/L (38-126); Anion Gap 10 mmol/L; Blood Urea Nitrogen 11 mg/dL (7-17); Calcium 9.8 mg/dL (8.4-10.2); Carbon Dioxide 22 mmol/L (22-30); Chloride 105 mmol/L (98-107); Glucose 116 mg/dL (74-99); Non-African American GFR(CKD) >90 (>60 ml/min/1.73 sqM); Sodium 137 mmol/L (137-145); Total Protein 7.8 g/dL (6.3-8.2)
[2019-08-31 15:08] LABS: Potassium 4.5 mmol/L (3.5-5.1)
[2019-08-31] MEDS ORDERED: HYDROmorphone 0.5 MG/0.5 ML SYRINGE IVP STA (15:46)
== END 2019-08-31 16:20 | disposition home or self-care (01) ==
LOC: EC 13:53
DX: K50.90 Crohn's disease, unspecified, without complications (principal); R00.0 Tachycardia, unspecified; Z87.891 Personal history of nicotine dependence; Z88.0 Allergy status to penicillin; Z88.5 Allergy status to narcotic agent; Z88.6 Allergy status to analgesic agent; Z88.8 Allergy status to other drugs, medicaments and biological substances; Z79.52 Long term (current) use of systemic steroids; Z79.899 Other long term (current) drug therapy; Z86.14 Personal history of Methicillin resistant Staphylococcus aureus infection; Z90.49 Acquired absence of other specified parts of digestive tract; Z53.20 Procedure and treatment not carried out because of patient's decision for unspecified reasons
CPT/HCPCS: 99284; 96374; 96375; 96376; 96361; 36415; 80053; 85025; 81001; 81025; J2930; J1170 ×2

== ENCOUNTER 2019-09-04 20:03 | Emergency (ER) | payer OTHER ==
[2019-09-04] MEDS ORDERED: PANTOPRAZOLE 40 MG/10 ML VIAL IVP STA (20:41)
[2019-09-04] MEDS ORDERED: SODIUM CHLORIDE 0.9% 1,000 ML IV STA (20:41)
[2019-09-04] MEDS ORDERED: ONDANSETRON 4 MG/2 ML VIAL IVP STA (20:41)
[2019-09-04] MEDS ORDERED: HYDROmorphone 1 MG/ML 1 ML SYRINGE IVP STA ×2 (20:41→22:12)
--- NOTE | 2019-09-04 20:49 | ED ---
Abdominal Pain HPI - General Chief Complaint: Abdominal Pain Stated Complaint: Revisit Time Seen by Provider: 09/04/19 20:11 Source: patient, RN notes reviewed, old records reviewed Mode of arrival: ambulatory Limitations: no limitations - History of Present Illness Initial Comments: This is a 28 show female known history of Crohn's disease coming in with Crohn's exacerbation history of same with multiple recent ER visits for same. No significant symptoms 52. Worrisome for diabetes. Appetite is appropriate. Is a 5-month-old at home not breast-feeding. Patient is having difficulty obtaining insurance in medications currently she takes no significant pain medication homicidal Motrin and Tylenol. Otherwise patient has minimal blood in her stool she has had a bowel movement is able to eat without difficulty. Abdominal pain is diffuse without significant changes. Again no recent travel history sick contacts or recent surgical treatment MD Complaint: abdominal pain -: week(s) Location: diffuse, LUQ Radiation: LUQ Migration to: no migration Severity: moderate Severity scale (1-10): 4 Quality: aching Consistency: constant Improves With: nothing Worsens With: nothing Associated Symptoms: nausea - Related Data Home Medications Medication Instructions Recorded Confirmed Mesalamine [Pentasa] 750 mg PO TID 07/09/19 07/09/19 predniSONE 50 mg PO DAILY 07/09/19 07/09/19 Previous Rx's Medication Instructions Recorded HYDROcodone/APAP 10-325MG [[place] 1 each PO Q6H PRN 3 Days #12 tab 07/12/19 10-325] HYDROcodone/APAP 5-325MG [[place] 1 tab PO Q6HR PRN #10 tab 08/03/19 5-325] HYDROcodone/APAP 5-325MG [[place] 1 tab PO Q6HR PRN 3 Days #12 tab 08/15/19 5-325] Ondansetron Odt [Zofran Odt] 4 mg PO Q8HR PRN #30 tab 08/27/19 oxyCODONE-APAP 5-325MG [Perc[place] 1 tab PO Q6HR PRN 3 Days #12 tab 08/27/19 5-325 mg] Allergies Allergy/AdvReac Type Severity Reaction Status Date / Time codeine Allergy Mild Rash/Hives Verified 08/31/19 13:57 ketorolac [From Toradol] Allergy Rash/Hives Verified 08/31/19 13:57 morphine Allergy Rash/Hives Verified 08/31/19 13:57 Penicillins Allergy Unknown Verified 08/31/19 13:57 Childhood haloperidol [From Haldol] AdvReac Rapid Verified 08/31/19 13:57 Heart Rate Review of Systems ROS Statement: Those systems with pertinent positive or pertinent negative responses have been documented in the HPI. ROS Other: All systems not noted in ROS Statement are negative. Past Medical History Additional Past Medical History / Comment(s): crohns, ulcerative cholitis, endometriosis History of Any Multi-Drug Resistant Organisms: MRSA Date of last positivie culture/infection: 2016 MDRO Source:: right ear Past Surgical History: Adenoidectomy, Section, Cholecystectomy, Tonsillectomy Additional Past Surgical History / Comment(s): right ovary removed. surgery to remove scar tissue Past Anesthesia/Blood Transfusion Reactions: No Reported Reaction Additional Past Anesthesia/Blood Transfusion Reaction / Comment(s): MRSA Past Psychological History: Depression Smoking Status: Former smoker Past Alcohol Use History: None Reported Past Drug Use History: None Reported General Exam Limitations: no limitations General appearance: alert, in no apparent distress Head exam: Present: atraumatic, normocephalic, normal inspection Eye exam: Present: normal appearance, PERRL, EOMI. Absent: scleral icterus, conjunctival injection, periorbital swelling ENT exam: Present: normal exam, mucous membranes moist Neck exam: Present: normal inspection. Absent: tenderness, meningismus, lymphadenopathy Respiratory exam: Present: normal lung sounds bilaterally. Absent: respiratory distress, wheezes, rales, rhonchi, stridor Cardiovascular Exam: Present: regular rate, normal rhythm, normal heart sounds. Absent: systolic murmur, diastolic murmur, rubs, gallop, clicks GI/Abdominal exam: Present: soft, tenderness (Epigastric left upper quadrant), normal bowel sounds. Absent: distended, guarding, rebound, rigid Extremities exam: Present: normal inspection, full ROM, normal capillary refill. Absent: tenderness, pedal edema, joint swelling, calf tenderness Back exam: Present: normal inspection Neurological exam: Present: alert, oriented X3, CN II-XII intact Psychiatric exam: Present: normal affect, normal mood Skin exam: Present: warm, dry, intact, normal color. Absent: rash Course Vital Signs 09/04/19 09/04/19 20:03 21:12 Temperature 98.2 F Pulse Rate 109 H 77 Respiratory 18 16 Rate Blood Pressure 123/88 120/64 O2 Sat by Pulse 98 98 Oximetry - Reevaluation(s) Reevaluation #1: 09/04/19 22:17 Medical records reviewed Reevaluation #2: 09/04/19 22:17 Symptoms are improved, pain is controlled Reevaluation #3: 09/04/19 22:17 Patient informed results questions answered okay for discharge Medical Decision Making - Medical Decision Making 28 female to the ER nonspecific abdominal findings chronic acute on chronic abdominal pain. She has adequate pain control here can be discharged home with normal labs and x-ray - Lab Data Result diagrams: 09/04/19 21:02 09/04/19 21:02 Lab Results 09/04/19 09/04/19 09/04/19 Range/Units 20:50 21:02 21:02 WBC 10.2 (3.8-10.6) k/uL RBC 4.84 (3.80-5.40) m/uL Hgb 14.8 (11.4-16.0) gm/dL Hct 43.7 (34.0-46.0) % MCV 90.1 (80.0-100.0) fL MCH 30.6 (25.0-35.0) pg MCHC 34.0 (31.0-37.0) g/dL RDW 11.9 (11.5-15.5) % Plt Count 372 (150-450) k/uL Neutrophils % 52 % Lymphocytes % 37 % Monocytes % 4 % Eosinophils % 6 % Basophils % 1 % Neutrophils # 5.3 (1.3-7.7) k/uL Lymphocytes # 3.7 (1.0-4.8) k/uL Monocytes # 0.4 (0-1.0) k/uL Eosinophils # 0.6 (0-0.7) k/uL Basophils # 0.1 (0-0.2) k/uL Sodium 139 (137-145) mmol/L Potassium 3.9 (3.5-5.1) mmol/L Chloride 108 H (98-107) mmol/L Carbon Dioxide 24 (22-30) mmol/L Anion Gap 7 mmol/L BUN 19 H (7-17) mg/dL Creatinine 0.76 (0.52-1.04) mg/dL Est GFR (CKD-EPI)AfAm >90 (>60 ml/min/1.73 sqM) Est GFR (CKD-EPI)NonAf >90 (>60 ml/min/1.73 sqM) Glucose 142 H (74-99) mg/dL Calcium 9.9 (8.4-10.2) mg/dL Total Bilirubin 0.3 (0.2-1.3) mg/dL AST 21 (14-36) U/L ALT 17 (4-34) U/L Alkaline Phosphatase 65 (38-126) U/L Total Protein 7.0 (6.3-8.2) g/dL Albumin 4.5 (3.5-5.0) g/dL Amylase 55 (30-110) U/L Lipase 241 (23-300) U/L Urine Color Light Yellow Urine Appearance Clear (Clear) Urine pH 6.0 (5.0-8.0) Ur Specific [place] 1.021 (1.001-1.035) Urine Protein Negative (Negative) Urine Glucose (UA) Negative (Negative) Urine Ketones Negative (Negative) Urine Blood Negative (Negative) Urine Nitrite Negative (Negative) Urine Bilirubin Negative (Negative) Urine Urobilinogen <2.0 (<2.0) mg/dL Ur Leukocyte Esterase Negative (Negative) - Radiology Data Radiology results: report reviewed (X-ray abdominal series and chest is negative for significant acute disease), image reviewed Disposition Clinical Impression: Abdominal pain, Crohn disease, Exacerbation of ulcerative colitis Disposition: HOME SELF-CARE Condition: Good Instructions (If sedation given, give patient instructions): Abdominal Pain (ED) Is patient prescribed a controlled substance at d/c from ED?: No Referrals: Gisela Santamaria MD [Primary Care Provider] - 1-2 days
[2019-09-04 21:10] LABS: Basophils # (A) 0.1 k/uL (0-0.2); Basophils % (A) 1 %; Eosinophils # (A) 0.6 k/uL (0-0.7); Eosinophils % (A) 6 %; HCT 43.7 % (34.0-46.0); HGB 14.8 gm/dL (11.4-16.0); Lymphocytes # (A) 3.7 k/uL (1.0-4.8); Lymphocytes % (A) 37 %; MCH 30.6 pg (25.0-35.0); MCV 90.1 fL (80.0-100.0); Mean Platelet Volume 7.2; Monocytes # (A) 0.4 k/uL (0-1.0); Monocytes % (A) 4 %; Neutrophils # (A) 5.3 k/uL (1.3-7.7); Neutrophils % (A) 52 %; Platelet Count 372 k/uL (150-450); RBC 4.84 m/uL (3.80-5.40); RDW 11.9 % (11.5-15.5); WBC 10.2 k/uL (3.8-10.6)
[2019-09-04 21:13] VITALS: RESP 16
[2019-09-04 21:19] LABS: ALT 17 U/L (4-34); AST 21 U/L (14-36); African American GFR (CKD) >90 (>60 ml/min/1.73 sqM); Albumin 4.5 g/dL (3.5-5.0); Alkaline Phosphatase 65 U/L (38-126); Amylase 55 U/L (30-110); Anion Gap 7 mmol/L; Blood Urea Nitrogen 19 mg/dL (7-17); Calcium 9.9 mg/dL (8.4-10.2); Carbon Dioxide 24 mmol/L (22-30); Chloride 108 mmol/L (98-107); Glucose 142 mg/dL (74-99); Non-African American GFR(CKD) >90 (>60 ml/min/1.73 sqM); Potassium 3.9 mmol/L (3.5-5.1); Sodium 139 mmol/L (137-145); Total Bilirubin 0.3 mg/dL (0.2-1.3)
--- NOTE | 2019-09-04 21:30 | XR ---
EXAMINATION TYPE: XR abdomen acute w cxr DATE OF EXAM: 09/04/2019 COMPARISON: Abdomen x-ray 08/15/2019 HISTORY: Abdominal pain. Crohn's disease. TECHNIQUE: 4 views FINDINGS: Heart and mediastinum are normal. Lungs are clear. Diaphragm is normal. There are clips from cholecystectomy. Bowel gas pattern is normal. There is no sign of intestinal obs truction or pneumoperitoneum. Fecal pattern is normal. There is no evidence of a mass. There are no p athologic calcifications over the kidneys. IMPRESSION: Normal chest. Nonacute abdomen. Abdomen unchanged compared to old exam.
[2019-09-04 21:48] LABS: Appearance,Urine Clear (Clear); Bilirubin,Urine Negative (Negative); Blood,Urine Negative (Negative); Color,Urine Light Yellow; Glucose,Urine (UA) Negative (Negative); Ketones,Urine Negative (Negative); Leukocyte Esterase,Urine Negative (Negative); Nitrite,Urine Negative (Negative); Protein,Urine Negative (Negative); Specific Gravity,Urine 1.021 (1.001-1.035); Urobilinogen,Urine <2.0 mg/dL (<2.0)
[2019-09-04] MEDS ORDERED: diphenhydrAMINE 50 MG/ML 1 ML VIAL IVP STA (22:12)
[2019-09-04 22:20] VITALS: BP 116/97; PULSE 82; TEMP 97.6
== END 2019-09-04 22:35 | disposition home or self-care (01) ==
LOC: EC 20:03
DX: K51.90 Ulcerative colitis, unspecified, without complications (principal); Z79.899 Other long term (current) drug therapy; Z88.0 Allergy status to penicillin; Z88.5 Allergy status to narcotic agent; Z88.8 Allergy status to other drugs, medicaments and biological substances; Z87.891 Personal history of nicotine dependence; Z90.49 Acquired absence of other specified parts of digestive tract
CPT/HCPCS: 36415; 80053; 82150; 83690; 85025; 81003; 74022; 99284; 96374; 96375 ×2; 96376; 96361; J2405; J1170; C9113

== ENCOUNTER 2019-09-12 13:54 | Emergency (ER) | payer OTHER ==
[2019-09-12] MEDS ORDERED: ONDANSETRON 4 MG/2 ML VIAL IVP STA (14:03)
[2019-09-12] MEDS ORDERED: SODIUM CHLORIDE 0.9% 500 ML 500 ML IV STA (14:03)
[2019-09-12] MEDS ORDERED: PANTOPRAZOLE 40 MG/10 ML VIAL IVP STA (14:18)
[2019-09-12] MEDS ORDERED: HYDROmorphone 1 MG/ML 1 ML SYRINGE IVP STA (14:18)
[2019-09-12] MEDS ORDERED: methylPREDNISolone SOD SUCCI 125 MG/2 ML VIAL IV STA (14:23)
--- NOTE | 2019-09-12 14:23 | ED ---
Abdominal Pain HPI - General Chief Complaint: Abdominal Pain Stated Complaint: Abd Pain Time Seen by Provider: 09/12/19 14:03 Source: patient Mode of arrival: ambulatory Limitations: no limitations - History of Present Illness Initial Comments: Patient is a 28-year-old female, with history of Crohn's, presenting for a flareup. Patient has been to the ER multiple occasions for same complaint. She's been having insurance issues and waiting to start a new medication for her Crohn's. She currently does not take any pain medicines at home. Patient st ates she waited as long she can but the pain is getting severe. She does admit to mild blood in her stool which is normal with her flareups. She does admit to mild abdominal pain and nausea. She denies any fever, chills, chest pain, shortness of breath. She denies any vomiting. She has no other complaints at this time. Upon arrival to the ER, her vital signs are stable. - Related Data Home Medications Medication Instructions Recorded Confirmed Mesalamine [Pentasa] 750 mg PO TID 07/09/19 07/09/19 predniSONE 50 mg PO DAILY 07/09/19 07/09/19 Previous Rx's Medication Instructions Recorded HYDROcodone/APAP 10-325MG [[place] 1 each PO Q6H PRN 3 Days #12 tab 07/12/19 10-325] HYDROcodone/APAP 5-325MG [[place] 1 tab PO Q6HR PRN #10 tab 08/03/19 5-325] HYDROcodone/APAP 5-325MG [[place] 1 tab PO Q6HR PRN 3 Days #12 tab 08/15/19 5-325] Ondansetron Odt [Zofran Odt] 4 mg PO Q8HR PRN #30 tab 08/27/19 oxyCODONE-APAP 5-325MG [Percocet 1 tab PO Q6HR PRN 3 Days #12 tab 08/27/19 5-325 mg] Allergies Allergy/AdvReac Type Severity Reaction Status Date / Time codeine Allergy Mild Rash/Hives Verified 09/12/19 13:58 ketorolac [From Toradol] Allergy Rash/Hives Verified 09/12/19 13:58 morphine Allergy Rash/Hives Verified 09/12/19 13:58 Penicillins Allergy Unknown Verified 09/12/19 13:58 Childhood haloperidol [From Haldol] AdvReac Rapid Verified 09/12/19 13:58 Heart Rate Review of Systems ROS Statement: Those systems with pertinent positive or pertinent negative responses have been documented in the HPI. ROS Other: All systems not noted in ROS Statement are negative. Past Medical History Additional Past Medical History / Comment(s): crohns, ulcerative colitis, endometriosis History of Any Multi-Drug Resistant Organisms: MRSA Date of last positivie culture/infection: 2016 MDRO Source:: right ear Past Surgical History: Adenoidectomy, Section, Cholecystectomy, Tonsillectomy Additional Past Surgical History / Comment(s): right ovary removed. surgery to remove scar tissue Past Anesthesia/Blood Transfusion Reactions: No Reported Reaction Additional Past Anesthesia/Blood Transfusion Reaction / Comment(s): MRSA Past Psychological History: Depression Smoking Status: Former smoker Past Alcohol Use History: None Reported Past Drug Use History: None Reported General Exam - General Exam Comments Initial Comments: GENERAL: Well-appearing, well-nourished and in no acute distress. Patient is sitting comfortably on the gurney. HEAD: Atraumatic, normocephalic. EYES: Pupils equal round and reactive to light, extraocular movements intact, sclera anicteric, conjunctiva are normal. ENT: TMs normal, nares patent, oropharynx clear without exudates. Moist mucous membranes. NECK: Normal range of motion, supple without lymphadenopathy or JVD. LUNGS: Breath sounds clear to auscultation bilaterally and equal. No wheezes rales or rhonchi. HEART: Regular rate and rhythm without murmurs, rubs or gallops. ABDOMEN: Generalized abdominal tenderness. Soft, normoactive bowel sounds. No guarding, no rebound. No masses appreciated. : Deferred EXTREMITIES: Normal range of motion, no pitting or edema. No clubbing or cyanosis. NEUROLOGICAL: Normal speech, normal gait. PSYCH: Normal mood, normal affect. SKIN: Warm, Dry, normal turgor, no rashes or lesions noted. Limitations: no limitations Course Vital Signs 09/12/19 09/12/19 13:55 15:52 Temperature 97.8 F 98.8 F Pulse Rate 94 85 Respiratory 20 18 Rate Blood Pressure 127/89 110/73 O2 Sat by Pulse 99 98 Oximetry Medical Decision Making - Medical Decision Making Patient is a 28-year-old female with history of Crohn's presenting for a flareup. Patient has been here multiple times for same complaint. She is working with Dr. Beckwith's office. Her vitals are stable. Her labs show no acute abnormalities. Urine is normal. Patient was given fluids, Protonix, pain control. She states I'm mild improvement in her symptoms. We had a long discussion about using narcotics for her pain as she is most likely becoming addicted to them. I reviewed her past biopsy results as well as imaging results. Her CT in June showed no signs of inflammatory changes and a biopsy from colonoscopy showed mild inflammatory changes consistent with mild UC/possible crohns. Patient is again requesting pain medicine to be discharged home with. After reviewing her MAPS patient has received multiple prescriptions for narcotics from the ER as well as Dr. Santamaria's office. We discussed during her last ER visit that I will not give her any outpatient pain medicines. She needs to follow up with Dr. Beckwith's office. We also discussed that she cannot keep coming back into the ER requesting pain medicine. Patient states she is in agreement with this plan of care. She will continue with her already prescribed steroids at home. She is stable for discharge. Return parameters were d iscussed with the patient she verbalized understanding. Case discussed with Dr. richards. - Lab Data Result diagrams: 09/12/19 14:19 09/12/19 14:19 Lab Results 09/12/19 09/12/19 09/12/19 Range/Units 14:19 14:19 14:19 WBC 5.7 (3.8-10.6) k/uL RBC 4.88 (3.80-5.40) m/uL Hgb 15.2 (11.4-16.0) gm/dL Hct 43.7 (34.0-46.0) % MCV 89.6 (80.0-100.0) fL MCH 31.1 (25.0-35.0) pg MCHC 34.7 (31.0-37.0) g/dL RDW 12.0 (11.5-15.5) % Plt Count 250 (150-450) k/uL Neutrophils % 52 % Lymphocytes % 37 % Monocytes % 5 % Eosinophils % 4 % Basophils % 0 % Neutrophils # 2.9 (1.3-7.7) k/uL Lymphocytes # 2.1 (1.0-4.8) k/uL Monocytes # 0.3 (0-1.0) k/uL Eosinophils # 0.2 (0-0.7) k/uL Basophils # 0.0 (0-0.2) k/uL Sodium (137-145) mmol/L Potassium (3.5-5.1) mmol/L Chloride (98-107) mmol/L Carbon Dioxide (22-30) mmol/L Anion Gap mmol/L BUN (7-17) mg/dL Creatinine (0.52-1.04) mg/dL Est GFR (CKD-EPI)AfAm (>60 ml/min/1.73 sqM) Est GFR (CKD-EPI)NonAf (>60 ml/min/1.73 sqM) Glucose (74-99) mg/dL Calcium (8.4-10.2) mg/dL Total Bilirubin (0.2-1.3) mg/dL AST (14-36) U/L ALT (4-34) U/L Alkaline Phosphatase (38-126) U/L Total Protein (6.3-8.2) g/dL Albumin (3.5-5.0) g/dL Lipase (23-300) U/L Urine Color Yellow Urine Appearance Cloudy H (Clear) Urine pH 5.0 (5.0-8.0) Ur Specific [place] 1.014 (1.001-1.035) Urine Protein Negative (Negative) Urine Glucose (UA) Negative (Negative) Urine Ketones Negative (Negative) Urine Blood Negative (Negative) Urine Nitrite Negative (Negative) Urine Bilirubin Negative (Negative) Urine Urobilinogen <2.0 (<2.0) mg/dL Ur Leukocyte Esterase Negative (Negative) Urine RBC 1 (0-5) /hpf Urine WBC 2 (0-5) /hpf Ur Squamous Epith Cells 6 H (0-4) /hpf Urine Bacteria Rare H (None) /hpf Hyaline Casts 4 H (0-2) /lpf Urine Mucus Occasional H (None) /hpf Urine HCG, Qual Not Detected (Not Detectd) 09/12/19 Range/Units 14:19 WBC (3.8-10.6) k/uL RBC (3.80-5.40) m/uL Hgb (11.4-16.0) gm/dL Hct (34.0-46.0) % MCV (80.0-100.0) fL MCH (25.0-35.0) pg MCHC (31.0-37.0) g/dL RDW (11.5-15.5) % Plt Count (150-450) k/uL Neutrophils % % Lymphocytes % % Monocytes % % Eosinophils % % Basophils % % Neutrophils # (1.3-7.7) k/uL Lymphocytes # (1.0-4.8) k/uL Monocytes # (0-1.0) k/uL Eosinophils # (0-0.7) k/uL Basophils # (0-0.2) k/uL Sodium 137 (137-145) mmol/L Potassium 3.8 (3.5-5.1) mmol/L Chloride 106 (98-107) mmol/L Carbon Dioxide 25 (22-30) mmol/L Anion Gap 6 mmol/L BUN 8 (7-17) mg/dL Creatinine 0.66 (0.52-1.04) mg/dL Est GFR (CKD-EPI)AfAm >90 (>60 ml/min/1.73 sqM) Est GFR (CKD-EPI)NonAf >90 (>60 ml/min/1.73 sqM) Glucose 120 H (74-99) mg/dL Calcium 9.1 (8.4-10.2) mg/dL Total Bilirubin 0.5 (0.2-1.3) mg/dL AST 35 (14-36) U/L ALT 31 (4-34) U/L Alkaline Phosphatase 75 (38-126) U/L Total Protein 7.1 (6.3-8.2) g/dL Albumin 4.5 (3.5-5.0) g/dL Lipase 145 (23-300) U/L Urine Color Urine Appearance (Clear) Urine pH (5.0-8.0) Ur Specific [place] (1.001-1.035) Urine Protein (Negative) Urine Glucose (UA) (Negative) Urine Ketones (Negative) Urine Blood (Negative) Urine Nitrite (Negative) Urine Bilirubin (Negative) Urine Urobilinogen (<2.0) mg/dL Ur Leukocyte Esterase (Negative) Urine RBC (0-5) /hpf Urine WBC (0-5) /hpf Ur Squamous Epith Cells (0-4) /hpf Urine Bacteria (None) /hpf Hyaline Casts (0-2) /lpf Urine Mucus (None) /hpf Urine HCG, Qual (Not Detectd) Disposition Clinical Impression: Abdominal pain, Exacerbation of ulcerative colitis Disposition: HOME SELF-CARE Condition: Stable Instructions (If sedation given, give patient instructions): Abdominal Pain (ED) Additional Instructions: Please return to the Emergency Department if symptoms worsen or any other concerns. Please follow up with Dr. Beckwith's office as discussed. Is patient prescribed a controlled substance at d/c from ED?: No Referrals: None,Stated [Primary Care Provider] - 1-2 days Kelly Beckwith MD [STAFF PHYSICIAN] - 1-2 days
[2019-09-12 14:50] LABS: ALT 31 U/L (4-34); AST 35 U/L (14-36); African American GFR (CKD) >90 (>60 ml/min/1.73 sqM); Albumin 4.5 g/dL (3.5-5.0); Alkaline Phosphatase 75 U/L (38-126); Anion Gap 6 mmol/L; Blood Urea Nitrogen 8 mg/dL (7-17); Calcium 9.1 mg/dL (8.4-10.2); Carbon Dioxide 25 mmol/L (22-30); Chloride 106 mmol/L (98-107); Glucose 120 mg/dL (74-99); Non-African American GFR(CKD) >90 (>60 ml/min/1.73 sqM); Potassium 3.8 mmol/L (3.5-5.1); Sodium 137 mmol/L (137-145); Total Bilirubin 0.5 mg/dL (0.2-1.3); Total Protein 7.1 g/dL (6.3-8.2)
[2019-09-12 14:52] LABS: Appearance,Urine Cloudy (Clear); Bacteria,Urine Rare /hpf; Bilirubin,Urine Negative (Negative); Blood,Urine Negative (Negative); Color,Urine Yellow; Glucose,Urine (UA) Negative (Negative); Hyaline Casts,Urine 4 /lpf (0-2); Ketones,Urine Negative (Negative); Leukocyte Esterase,Urine Negative (Negative); Mucus,Urine Occasional /hpf; Nitrite,Urine Negative (Negative); Protein,Urine Negative (Negative); RBC,Urine 1 /hpf (0-5); Specific Gravity,Urine 1.014 (1.001-1.035); Squamous Epithelial Cell,Urine 6 /hpf (0-4); Urobilinogen,Urine <2.0 mg/dL (<2.0); WBC,Urine 2 /hpf (0-5)
[2019-09-12 15:01] LABS: Basophils % (A) 0 %; Eosinophils # (A) 0.2 k/uL (0-0.7); Eosinophils % (A) 4 %; HCT 43.7 % (34.0-46.0); HGB 15.2 gm/dL (11.4-16.0); Lymphocytes # (A) 2.1 k/uL (1.0-4.8); Lymphocytes % (A) 37 %; MCH 31.1 pg (25.0-35.0); MCHC 34.7 g/dL (31.0-37.0); MCV 89.6 fL (80.0-100.0); Mean Platelet Volume 7.5; Monocytes # (A) 0.3 k/uL (0-1.0); Monocytes % (A) 5 %; Neutrophils # (A) 2.9 k/uL (1.3-7.7); Neutrophils % (A) 52 %; Platelet Count 250 k/uL (150-450); RBC 4.88 m/uL (3.80-5.40); WBC 5.7 k/uL (3.8-10.6)
--- NOTE | 2019-09-12 15:07 | XR ---
EXAMINATION TYPE: XR KUB DATE OF EXAM: 09/12/2019 Comparison: 08/15/2019 Clinical History: 28-year-old female abdominal pain Findings: Lung bases are clear. No evidence for free intraperitoneal air. No dilated small bowel or air-fluid levels. Mild to moderate scattered stool. Air and stool extends distally to the rectum. Cholecystectomy clips. Left L5 hemisacralization noted. Impression: No evidence for free air or bowel obstruction. [id number] stool burden.
[2019-09-12] MEDS ORDERED: HYDROmorphone 0.5 MG/0.5 ML SYRINGE IVP STA (15:46)
[2019-09-12 15:53] VITALS: BP 110/73; PULSE 85; RESP 18; TEMP 98.8
== END 2019-09-12 15:52 | disposition home or self-care (01) ==
LOC: EC 13:54
DX: K51.911 Ulcerative colitis, unspecified with rectal bleeding (principal); Z79.52 Long term (current) use of systemic steroids; Z79.899 Other long term (current) drug therapy; Z88.5 Allergy status to narcotic agent; Z88.6 Allergy status to analgesic agent; Z88.0 Allergy status to penicillin; Z88.8 Allergy status to other drugs, medicaments and biological substances; Z90.49 Acquired absence of other specified parts of digestive tract; Z86.14 Personal history of Methicillin resistant Staphylococcus aureus infection; Z87.19 Personal history of other diseases of the digestive system; Z87.891 Personal history of nicotine dependence
CPT/HCPCS: 36415; 80053; 83690; 85025; 81001; 81025; 74018; 99284; 96374; 96375 ×3; 96376; 96361; J2930; J2405; J1170 ×2; C9113

== ENCOUNTER 2019-09-14 19:23 | Emergency (ER) | payer OTHER ==
[2019-09-14 19:29] VITALS: RESP 18
[2019-09-14] MEDS ORDERED: HYDROmorphone 0.5 MG/0.5 ML SYRINGE IVP STA ×3 (19:40→21:39)
[2019-09-14 20:01] LABS: Basophils % (A) 0 %; Eosinophils # (A) 0.2 k/uL (0-0.7); Eosinophils % (A) 2 %; HCT 43.4 % (34.0-46.0); HGB 15.1 gm/dL (11.4-16.0); Lymphocytes # (A) 3.8 k/uL (1.0-4.8); Lymphocytes % (A) 33 %; MCHC 34.7 g/dL (31.0-37.0); MCV 89.4 fL (80.0-100.0); Mean Platelet Volume 7.5; Monocytes # (A) 0.4 k/uL (0-1.0); Monocytes % (A) 3 %; Neutrophils # (A) 6.8 k/uL (1.3-7.7); Neutrophils % (A) 60 %; Platelet Count 263 k/uL (150-450); RBC 4.86 m/uL (3.80-5.40); WBC 11.4 k/uL (3.8-10.6)
[2019-09-14 20:12] LABS: ALT 38 U/L (4-34); AST 36 U/L (14-36); African American GFR (CKD) >90 (>60 ml/min/1.73 sqM); Albumin 4.5 g/dL (3.5-5.0); Alkaline Phosphatase 74 U/L (38-126); Anion Gap 7 mmol/L; Blood Urea Nitrogen 15 mg/dL (7-17); Calcium 9.2 mg/dL (8.4-10.2); Carbon Dioxide 25 mmol/L (22-30); Chloride 106 mmol/L (98-107); Glucose 106 mg/dL (74-99); Non-African American GFR(CKD) >90 (>60 ml/min/1.73 sqM); Potassium 3.6 mmol/L (3.5-5.1); Sodium 138 mmol/L (137-145); Total Bilirubin 0.3 mg/dL (0.2-1.3); Total Protein 7.2 g/dL (6.3-8.2)
--- NOTE | 2019-09-14 20:41 | ED ---
Abdominal Pain HPI - General Chief Complaint: Abdominal Pain Stated Complaint: Crohns Time Seen by Provider: 09/14/19 19:30 Source: patient Mode of arrival: ambulatory Limitations: no limitations - History of Present Illness Initial Comments: 28yo female with history of crohns disease currently on mesalamine, and 50mg prednisone daily awaiting prior authorization for Remicaide presenting to the ER for 5 days of increase abdominal pain. Patient states she feels like she is having a crohns flare for the past but the pain has gotten worse since she was in the ER 2 days ago. Patient denies vomiting. States she is having her typical blood in stools which has been chronic no increase. Denies fevers, chills, nightsweats. Patient denies . She states that the pain is in the mid to upper midline abdomen which is typical of her crohsn pain. Denies RUQ pain, back pain. Denies melena. Patient denies chest pain, dyspnea. Patient has no other complaints. She states she can no longer take the pain. Upon arrival patient appears well no distress. Afebrile. - Related Data Home Medications Medication Instructions Recorded Confirmed Mesalamine [Pentasa] 750 mg PO TID 07/09/19 07/09/19 predniSONE 50 mg PO DAILY 07/09/19 07/09/19 Previous Rx's Medication Instructions Recorded HYDROcodone/APAP 10-325MG [[place] 1 each PO Q6H PRN 3 Days #12 tab 07/12/19 10-325] HYDROcodone/APAP 5-325MG [[place] 1 tab PO Q6HR PRN #10 tab 08/03/19 5-325] HYDROcodone/APAP 5-325MG [[place] 1 tab PO Q6HR PRN 3 Days #12 tab 08/15/19 5-325] Ondansetron Odt [Zofran Odt] 4 mg PO Q8HR PRN #30 tab 08/27/19 oxyCODONE-APAP 5-325MG [Percocet 1 tab PO Q6HR PRN 3 Days #12 tab 08/27/19 5-325 mg] Allergies Allergy/AdvReac Type Severity Reaction Status Date / Time codeine Allergy Mild Rash/Hives Verified 09/14/19 19:29 ketorolac [From Toradol] Allergy Rash/Hives Verified 03/29/20 19:29 morphine Allergy Rash/Hives Verified 09/14/19 19:29 Penicillins Allergy Unknown Verified 09/14/19 19:29 Childhood haloperidol [From Haldol] AdvReac Rapid Verified 09/14/19 19:29 Heart Rate Review of Systems ROS Statement: Those systems with pertinent positive or pertinent negative responses have been documented in the HPI. ROS Other: All systems not noted in ROS Statement are negative. Past Medical History Additional Past Medical History / Comment(s): crohns, ulcerative colitis, endometriosis History of Any Multi-Drug Resistant Organisms: MRSA Date of last positivie culture/infection: 2016 MDRO Source:: right ear Past Surgical History: Adenoidectomy, Section, Cholecystectomy, Tonsillectomy Additional Past Surgical History / Comment(s): right ovary removed. surgery to remove scar tissue Past Anesthesia/Blood Transfusion Reactions: No Reported Reaction Additional Past Anesthesia/Blood Transfusion Reaction / Comment(s): MRSA Past Psychological History: Depression Smoking Status: Former smoker Past Alcohol Use History: None Reported Past Drug Use History: None Reported General Exam - General Exam Comments Initial Comments: General: The patient is awake and alert, in no distress, and does not appear acutely ill. Eye: +3 mm pupils are equal, round and reactive to light, extra-ocular movements are intact. No nystagmus. There is normal conjunctiva bilaterally. No signs of icterus. No photophobia Ears, nose, mouth and throat: There are moist mucous membranes and no oral lesions. Oropharynx was not erythematous there is no tonsillar enlargement exudates or lesions. Uvula midline. Tympanic membranes are not erythematous or is no effusions bulging or retraction. No tenderness to palpation of the mastoi d. No anterior cervical lymphadenopathy. Rhinorrhea, clear and bilateral nares. No tripoding, no drooling. Neck: The neck is supple, there is no tenderness or JVD. No nuchal rigidity negative Brudzinski and Kernig Cardiovascular: There is a regular rate and rhythm. No murmur, rub or gallop is appreciated. Respiratory: Lungs are clear to auscultation, respirations are non-labored, breath sounds are equal. No wheezes, stridor, rales, or rhonchi. No retractions or abdominal breathing. Gastrointestinal: Soft, non-distended, non-tender abdomen without masses or organomegaly noted. There is no rebound or guarding present. Bowel sounds are unremarkable. Musculoskeletal: Normal ROM, no tenderness. Strength 5/5. Sensation intact. Radial pulses equal bilaterally 2+. Neurological: A&O x 3. CN II-XII intact grossly, There are no obvious motor or sensory deficits. Coordination appears grossly intact. Speech appears normal, no muffling. Skin: Skin is warm and dry and no rashes or lesions are noted. No extremity edema Psychiatric: Cooperative Limitations: no limitations Course Vital Signs 09/14/19 09/14/19 19:26 21:47 Temperature 97.7 F 98.2 F Pulse Rate 100 62 Respiratory 18 18 Rate Blood Pressure 136/92 128/91 O2 Sat by Pulse 99 99 Oximetry Medical Decision Making - Medical Decision Making 28yo female presenting today for chief complaint of abdominal pain history of Crohn's. Patient states he has been increasing. Patient's white count increase from 2 days prior. I discussed CT studies including patient about CT she's had increased risk of cancer. Patient states rubs noticed going on over to before with the CAT scan despite the risks. CT revealed no acute process. There is no evidence of abscess. There is no evidence of obvious inflammation of the gastrointestinal system at this time. Patient appears nontoxic. There is somewhat concerned for drug-seeking behavior. Patient requesting home prescription. I recommended GI f/u and return for increasing symptoms. Pt is currently on steroids. I discussed case wt Dr. Maldonado who is agreeable to discharge. Patient was discharged appearing well aware of return parameters. - Lab Data Result diagrams: 09/14/19 19:48 09/14/19 19:48 Lab Results 09/14/19 09/14/19 Range/Units 19:48 19:48 WBC 11.4 H (3.8-10.6) k/uL RBC 4.86 (3.80-5.40) m/uL Hgb 15.1 (11.4-16.0) gm/dL Hct 43.4 (34.0-46.0) % MCV 89.4 (80.0-100.0) fL MCH 31.0 (25.0-35.0) pg MCHC 34.7 (31.0-37.0) g/dL RDW 12.0 (11.5-15.5) % Plt Count 263 (150-450) k/uL Neutrophils % 60 % Lymphocytes % 33 % Monocytes % 3 % Eosinophils % 2 % Basophils % 0 % Neutrophils # 6.8 (1.3-7.7) k/uL Lymphocytes # 3.8 (1.0-4.8) k/uL Monocytes # 0.4 (0-1.0) k/uL Eosinophils # 0.2 (0-0.7) k/uL Basophils # 0.0 (0-0.2) k/uL Sodium 138 (137-145) mmol/L Potassium 3.6 (3.5-5.1) mmol/L Chloride 106 (98-107) mmol/L Carbon Dioxide 25 (22-30) mmol/L Anion Gap 7 mmol/L BUN 15 (7-17) mg/dL Creatinine 0.66 (0.52-1.04) mg/dL Est GFR (CKD-EPI)AfAm >90 (>60 ml/min/1.73 sqM) Est GFR (CKD-EPI)NonAf >90 (>60 ml/min/1.73 sqM) Glucose 106 H (74-99) mg/dL Calcium 9.2 (8.4-10.2) mg/dL Total Bilirubin 0.3 (0.2-1.3) mg/dL AST 36 (14-36) U/L ALT 38 H (4-34) U/L Alkaline Phosphatase 74 (38-126) U/L Total Protein 7.2 (6.3-8.2) g/dL Albumin 4.5 (3.5-5.0) g/dL Disposition Clinical Impression: Hx of Crohn's disease, Abdominal pain Disposition: HOME SELF-CARE Condition: Good Instructions (If sedation given, give patient instructions): Abdominal Pain (ED) Additional Instructions: Please use medication as discussed. Please follow-up with family doctor in the next 2 days. Call GI physician to discuss ER visit, CT results and appropriate follow-up. Continue steroids as directed. Please return to emergency room if the symptoms increase or worsen or for any other concerns. Is patient prescribed a controlled substance at d/c from ED?: No Referrals: None,Stated [Primary Care Provider] - 1-2 days Time of Disposition: 21:36
--- NOTE | 2019-09-14 21:34 | CT ---
EXAMINATION TYPE: CT abdomen pelvis w con DATE OF EXAM: 09/14/2019 HISTORY: Abdominal pain, history of Crohn's colitis CT DLP: 919.5mGycm Automated Exposure Control for Dose Reduction was Utilized. CONTRAST: CT scan of the abdomen and pelvis is performed with IV Contrast, patient injected with 100 mL of Isov ue 300. COMPARISON: 06/24/2019 FINDINGS: LUNG BASES: No significant abnormality is appreciated. LIVER/GB: Gallbladder surgically absent with minimal intrahepatic and mild extra hepatic biliary duct al dilatation. Slightly low density in the liver approaches criteria but does not yet meet criteria f or hepatic steatosis. PANCREAS: No significant abnormality is seen. SPLEEN: No significant abnormality is seen. ADRENALS: No nodularity or thickening. KIDNEYS: Kidneys enhance and excrete symmetrically without hydronephrosis. BOWEL: Appendix appears air-filled and within normal limits of size. The terminal ileum is decompress ed but without inflammatory change or apparent bowel wall thickening. No focal perienteric or pericol onic fat stranding changes are seen. No grossly evident fistulous or sinus tracks elbow limited witho ut the administration of oral contrast. UTERUS/ADNEXA: Left dominant cyst or follicle is seen of the ovary measuring 2.8 cm. Uterus is hetero genous, likely related to the phase of menses. LYMPH NODES: No greater than 1cm abdominal or pelvic lymph nodes are appreciated. OSSEOUS STRUCTURES: Very mild sacroiliac joint sclerosis is seen on the left, that can be seen in inf lammatory bowel diseases. IMPRESSION: 1. No evidence of acute appendicitis nor acute terminal ileitis. No focal inflammatory change of the bowel. No evidence of bowel obstruction. 2. Follicular and/or cystic change of the left ovary.
[2019-09-14 21:48] VITALS: BP 128/91; PULSE 62; TEMP 98.2
== END 2019-09-14 22:04 | disposition home or self-care (01) ==
LOC: EC 19:23
DX: K50.90 Crohn's disease, unspecified, without complications (principal); Z87.891 Personal history of nicotine dependence; Z88.0 Allergy status to penicillin; Z88.5 Allergy status to narcotic agent; Z88.6 Allergy status to analgesic agent; Z88.8 Allergy status to other drugs, medicaments and biological substances; Z79.52 Long term (current) use of systemic steroids; Z79.899 Other long term (current) drug therapy; Z86.14 Personal history of Methicillin resistant Staphylococcus aureus infection; Z90.49 Acquired absence of other specified parts of digestive tract
CPT/HCPCS: 36415; 80053; 85025; 74177; 99284; 96374; 96376 ×2; J1170; Q9967

== ENCOUNTER 2019-09-20 12:18 | Inpatient (IN) | payer OTHER ==
[2019-09-20] MEDS ORDERED: SODIUM CHLORIDE 0.9% 1,000 ML IV STA (12:36)
[2019-09-20] MEDS ORDERED: diphenhydrAMINE 50 MG/ML 1 ML VIAL IVP STA ×2 (12:36→19:49)
[2019-09-20] MEDS ORDERED: SODIUM CHLORIDE 0.9% 500 ML 500 ML IV STA (12:36)
[2019-09-20] MEDS ORDERED: ONDANSETRON 4 MG/2 ML VIAL IVP STA (12:36)
[2019-09-20] MEDS ORDERED: HYDROmorphone 1 MG/ML 1 ML SYRINGE IVP STA (12:36)
--- NOTE | 2019-09-20 12:43 | ED ---
Abdominal Pain HPI - General Chief Complaint: Abdominal Pain Stated Complaint: Crohns Time Seen by Provider: 09/20/19 12:23 Source: patient, RN notes reviewed, old records reviewed Mode of arrival: ambulatory Limitations: no limitations - History of Present Illness Initial Comments: 28-year-old female presents emergency Department chief complaint abdominal pain, Crohn's flareup. Patient states that she has been worsening over the last several weeks to months. Patient states her GI doctor for to come emergency department at this point and advised that she may need admission. Patient states she's had bloody bowel movements with this is been ongoing. She has required transfusion in the past. Patient states that she was on 50 mg of prednisone daily states that she increased to herself at least one to 2 tabs daily. Patient denies any prior abdominal surgeries. Patient does not have a current PCP. Patient states that she is currently trying to receive insurance approval for Remicade. Patient states that she had a bout of remission but s tates it was flareup by her . Patient denies any chance at this time. - Related Data Home Medications Medication Instructions Recorded Confirmed Mesalamine [Pentasa] 750 mg PO TID 07/09/19 07/09/19 predniSONE 50 mg PO DAILY 07/09/19 07/09/19 Previous Rx's Medication Instructions Recorded HYDROcodone/APAP 10-325MG [[place] 1 each PO Q6H PRN 3 Days #12 tab 07/12/19 10-325] HYDROcodone/APAP 5-325MG [[place] 1 tab PO Q6HR PRN #10 tab 08/03/19 5-325] HYDROcodone/APAP 5-325MG [[place] 1 tab PO Q6HR PRN 3 Days #12 tab 08/15/19 5-325] Ondansetron Odt [Zofran Odt] 4 mg PO Q8HR PRN #30 tab 08/27/19 oxyCODONE-APAP 5-325MG [Percocet 1 tab PO Q6HR PRN 3 Days #12 tab 08/27/19 5-325 mg] Allergies Allergy/AdvReac Type Severity Reaction Status Date / Time codeine Allergy Mild Rash/Hives Verified 09/20/19 12:22 ketorolac [From Toradol] Allergy Rash/Hives Verified 09/20/19 12:22 morphine Allergy Rash/Hives Verified 09/20/19 12:22 Penicillins Allergy Unknown Verified 09/20/19 12:22 Childhood haloperidol [From Haldol] AdvReac Rapid Verified 09/20/19 12:22 Heart Rate Review of Systems ROS Statement: Those systems with pertinent positive or pertinent negative responses have been documented in the HPI. ROS Other: All systems not noted in ROS Statement are negative. Past Medical History Additional Past Medical History / Comment(s): crohns, ulcerative colitis, endometriosis History of Any Multi-Drug Resistant Organisms: MRSA Date of last positivie culture/infection: 2016 MDRO Source:: right ear Past Surgical History: Adenoidectomy, Section, Cholecystectomy, Tonsillectomy Additional Past Surgical History / Comment(s): right ovary removed. surgery to remove scar tissue Past Anesthesia/Blood Transfusion Reactions: No Reported Reaction Additional Past Anesthesia/Blood Transfusion Reaction / Comment(s): MRSA Past Psychological History: Depression Smoking Status: Former smoker Past Alcohol Use History: None Reported Past Drug Use History: None Reported General Exam Limitations: no limitations General appearance: alert, in no apparent distress Head exam: Present: atraumatic, normocephalic, normal inspection Respiratory exam: Present: normal lung sounds bilaterally. Absent: respiratory distress, wheezes, rales, rhonchi, stridor Cardiovascular Exam: Present: regular rate, normal rhythm, normal heart sounds. Absent: systolic murmur, diastolic murmur, rubs, gallop, clicks GI/Abdominal exam: Present: soft, tenderness (Moderate diffuse), normal bowel sounds. Absent: distended, guarding, rebound, rigid Back exam: Absent: CVA tenderness (R), CVA tenderness (L) Neurological exam: Present: alert, oriented X3, CN II-XII intact, reflexes normal. Absent: motor sensory deficit Skin exam: Present: warm, dry, intact, normal color. Absent: rash Course Vital Signs 09/20/19 12:20 Temperature 97.9 F Pulse Rate 90 Respiratory 18 Rate Blood Pressure 127/63 O2 Sat by Pulse 98 Oximetry Medical Decision Making - Medical Decision Making Patient's had persistent symptoms rectal bleeding, Crohn's flareup. Case discussed with Dr. Gabriel who accepts the patient will GI consult, nothing by mouth, IV hydration, pain control and IV steroids - Lab Data Result diagrams: 09/20/19 13:24 09/20/19 13:24 Lab Results 09/20/19 09/20/19 09/20/19 Range/Units 13:24 13:24 13:24 WBC 9.2 (3.8-10.6) k/uL RBC 5.03 (3.80-5.40) m/uL Hgb 15.4 (11.4-16.0) gm/dL Hct 45.3 (34.0-46.0) % MCV 90.0 (80.0-100.0) fL MCH 30.7 (25.0-35.0) pg MCHC 34.1 (31.0-37.0) g/dL RDW 11.9 (11.5-15.5) % Plt Count 300 (150-450) k/uL Neutrophils % 60 % Lymphocytes % 27 % Monocytes % 4 % Eosinophils % 7 % Basophils % 1 % Neutrophils # 5.5 (1.3-7.7) k/uL Lymphocytes # 2.5 (1.0-4.8) k/uL Monocytes # 0.4 (0-1.0) k/uL Eosinophils # 0.6 (0-0.7) k/uL Basophils # 0.1 (0-0.2) k/uL Sodium 138 (137-145) mmol/L Potassium 4.4 (3.5-5.1) mmol/L Chloride 107 (98-107) mmol/L Carbon Dioxide 23 (22-30) mmol/L Anion Gap 8 mmol/L BUN 10 (7-17) mg/dL Creatinine 0.61 (0.52-1.04) mg/dL Est GFR (CKD-EPI)AfAm >90 (>60 ml/min/1.73 sqM) Est GFR (CKD-EPI)NonAf >90 (>60 ml/min/1.73 sqM) Glucose 130 H (74-99) mg/dL Plasma Lactic Acid Derrick 1.2 (0.7-2.0) mmol/L Calcium 9.6 (8.4-10.2) mg/dL Total Bilirubin 0.7 (0.2-1.3) mg/dL AST 30 (14-36) U/L ALT 26 (4-34) U/L Alkaline Phosphatase 67 (38-126) U/L Total Protein 7.4 (6.3-8.2) g/dL Albumin 4.6 (3.5-5.0) g/dL Amylase 44 (30-110) U/L Lipase 137 (23-300) U/L Disposition Clinical Impression: Exacerbation of Crohn's disease, Abdominal pain, Rectal bleeding, Failure of outpatient treatment Disposition: ADMITTED IP TO THIS HOSP Condition: Fair Referrals: None,Stated [Primary Care Provider] - 1-2 days
[2019-09-20 13:34] LABS: Basophils # (A) 0.1 k/uL (0-0.2); Basophils % (A) 1 %; Eosinophils # (A) 0.6 k/uL (0-0.7); Eosinophils % (A) 7 %; HCT 45.3 % (34.0-46.0); HGB 15.4 gm/dL (11.4-16.0); Lymphocytes # (A) 2.5 k/uL (1.0-4.8); Lymphocytes % (A) 27 %; MCH 30.7 pg (25.0-35.0); MCHC 34.1 g/dL (31.0-37.0); Mean Platelet Volume 7.6; Monocytes # (A) 0.4 k/uL (0-1.0); Monocytes % (A) 4 %; Neutrophils # (A) 5.5 k/uL (1.3-7.7); Neutrophils % (A) 60 %; Platelet Count 300 k/uL (150-450); RBC 5.03 m/uL (3.80-5.40); RDW 11.9 % (11.5-15.5); WBC 9.2 k/uL (3.8-10.6)
[2019-09-20 13:43] LABS: ALT 26 U/L (4-34); AST 30 U/L (14-36); African American GFR (CKD) >90 (>60 ml/min/1.73 sqM); Albumin 4.6 g/dL (3.5-5.0); Alkaline Phosphatase 67 U/L (38-126); Amylase 44 U/L (30-110); Anion Gap 8 mmol/L; Blood Urea Nitrogen 10 mg/dL (7-17); Calcium 9.6 mg/dL (8.4-10.2); Carbon Dioxide 23 mmol/L (22-30); Chloride 107 mmol/L (98-107); Glucose 130 mg/dL (74-99); Non-African American GFR(CKD) >90 (>60 ml/min/1.73 sqM); Potassium 4.4 mmol/L (3.5-5.1); Sodium 138 mmol/L (137-145); Total Bilirubin 0.7 mg/dL (0.2-1.3); Total Protein 7.4 g/dL (6.3-8.2)
[2019-09-20] MEDS ORDERED: methylPREDNISolone SOD SUCCI 125 MG/2 ML VIAL IV STA (14:09)
[2019-09-20] MEDS ORDERED: HYDROmorphone 0.5 MG/0.5 ML SYRINGE IVP PRN (14:10)
[2019-09-20] MEDS ORDERED: ONDANSETRON 4 MG/2 ML VIAL IVP PRN (14:10)
[2019-09-20] MEDS ORDERED: NALOXONE 0.4 MG/ML 1 ML VIAL IV PRN (14:10)
[2019-09-20 14:28] LABS: Appearance,Urine Clear (Clear); Bilirubin,Urine Negative (Negative); Blood,Urine Negative (Negative); Color,Urine Yellow; Glucose,Urine (UA) Negative (Negative); Ketones,Urine Negative (Negative); Leukocyte Esterase,Urine Negative (Negative); Nitrite,Urine Negative (Negative); Protein,Urine Negative (Negative); Specific Gravity,Urine 1.014 (1.001-1.035); Urobilinogen,Urine <2.0 mg/dL (<2.0)
[2019-09-20] MEDS: SODIUM CHLORIDE 0.9% 1,000 ML IV SCH (15:17)
[2019-09-20] MEDS: HYDROmorphone 1 MG/ML 1 ML SYRINGE IVP PRN ×2 (17:50→21:01)
[2019-09-20] MEDS: methylPREDNISolone SOD SUCCI 40 MG/ML 1 ML VIAL IV SCH ×2 (17:52→23:59)
[2019-09-20] MEDS: HYDROcodone/APAP 5-325MG 1 EACH TAB PO PRN ×3 (19:04→23:20)
[2019-09-20] MEDS ORDERED: diphenhydrAMINE 50 MG CAP PO STA (19:26)
--- NOTE | 2019-09-20 19:47 | P.HPIM ---
History of Present Illness H&P Date: 09/20/19 Chief Complaint: abdominal pain 28 yo female presents to the ED complaining of diffuse abdominal pain for the last few days. She has a known history of Crohn's, she is on 50 mg Prednisone daily for the last several months and has been taking additional doses over the last few days. She is on Mesalamine as well. She is in the process of getting insurance approval for Remicaide through her feeder catcher who recommended that she be admitted for IV steroids. She also complains of frequent bloody stools, last bowel movement was this morning. She denies any fevers or chill, no nausea or vomiting, no dyspnea, chest pain or cough. She recently had a CT scan of the abdomen on 09/13 which was insignificant, and it was therefore recommended that she not receive another one today. In the ED she received several liters of IVF, IV Dilaudid but is still complaining of severe pain. Review of Systems Constitutional: Reports fatigue, Denies chills, Denies fever Cardiovascular: Denies chest pain, Denies edema Respiratory: Denies cough, Denies dyspnea Gastrointestinal: Reports abdominal pain, Reports bloating, Reports diarrhea, Reports melena, Denies nausea, Denies vomiting Past Medical History Additional Past Medical History / Comment(s): crohns, ulcerative colitis, endometriosis History of Any Multi-Drug Resistant Organisms: MRSA Date of last positivie culture/infection: 2016 MDRO Source:: right ear Past Surgical History: Adenoidectomy, Section, Cholecystectomy, Tonsillectomy Additional Past Surgical History / Comment(s): right ovary removed. surgery to remove scar tissue Past Anesthesia/Blood Transfusion Reactions: No Reported Reaction Additional Past Anesthesia/Blood Transfusion Reaction / Comment(s): MRSA Past Psychological History: Depression Smoking Status: Former smoker Past Alcohol Use History: None Reported Additional Past Alcohol Use History / Comment(s): Pt states that she is not a current smoker. She states that she was a previous 1/2 pack per day. Past Drug Use History: None Reported Medications and Allergies Home Medications Medication Instructions Recorded Confirmed Type Mesalamine [Pentasa] 750 mg PO TID 07/09/19 09/20/19 History predniSONE 50 mg PO DAILY 07/09/19 09/20/19 History Ibuprofen 800 mg PO Q8H PRN 09/20/19 09/20/19 History Allergies Allergy/AdvReac Type Severity Reaction Status Date / Time codeine Allergy Mild Rash/Hives Verified 09/20/19 14:48 ketorolac [From Toradol] Allergy Rash/Hives Verified 09/20/19 14:48 morphine Allergy Rash/Hives Verified 09/20/19 14:48 Penicillins Allergy Unknown Verified 09/20/19 14:48 Childhood haloperidol [From Haldol] AdvReac Rapid Verified 09/20/19 14:48 Heart Rate Physical Exam Osteopathic Statement: *. No significant issues noted on an osteopathic structural exam other than those noted in the History and Physical/Consult. Vitals: Vital Signs Temp Pulse Pulse Resp BP BP Pulse Ox 09/20/19 16:00 97.9 F 83 18 103/64 98 09/20/19 15:26 65 16 112/66 98 09/20/19 12:20 97.9 F 90 18 127/63 98 Intake and Output 09/20/19 09/20/19 09/20/19 06:59 14:59 22:59 Other: Weight 66.678 kg 66.678 kg - Constitutional General appearance: cooperative, mild distress, obese - EENT Eyes: EOMI, PERRLA - Neck Neck: normal ROM, no rigidity - Respiratory Respiratory: bilateral: CTA - Cardiovascular Rhythm: regular Heart sounds: normal: S1, S2 Abnormal Heart Sounds: no systolic murmur, no diastolic murmur - Gastrointestinal General gastrointestinal: decreased bowel sounds, tenderness Localized gastrointestinal: tender: diffuse, rebound: diffuse - Neurologic Neurologic: CNII-XII intact - Musculoskeletal Musculoskeletal: no generalized weakness, strength equal bilaterally - Psychiatric Psychiatric: A&O x's 3, appropriate affect Results CBC & Chem 7: 09/20/19 13:24 09/20/19 13:24 Labs: Abnormal Lab Results - Last 24 Hours (Table) 09/20/19 Range/Units 13:24 Glucose 130 H (74-99) mg/dL Assessment and Plan Plan: # Crohn's Disease Flare -NPO, IVF -pain control -received 125 mg IV steroids in the ED and scheduled on maintenance dose -continue mesalamine -GI consult -monitor for signs of adrenal insufficiency since patient has been on daily high doses of prednisone # Lower GIB -most likley due to above -Hgb stable -continue to monitor # NPO # DVT PPX
[2019-09-20] MEDS: BALSALAZIDE DISODIUM 750 MG CAPSULE PO SCH (23:21)
[2019-09-21] MEDS: HYDROmorphone 1 MG/ML 1 ML SYRINGE IVP PRN ×8 (00:19→23:08)
[2019-09-21] MEDS: HYDROcodone/APAP 5-325MG 1 EACH TAB PO PRN ×5 (03:00→21:00)
[2019-09-21] MEDS: SODIUM CHLORIDE 0.9% 1,000 ML IV SCH ×3 (03:02→22:21)
[2019-09-21] MEDS: methylPREDNISolone SOD SUCCI 40 MG/ML 1 ML VIAL IV SCH ×4 (06:25→23:09)
[2019-09-21] MEDS: BALSALAZIDE DISODIUM 750 MG CAPSULE PO SCH ×3 (07:32→21:29)
[2019-09-21 08:27] LABS: ALT 24 U/L (4-34); AST 29 U/L (14-36); African American GFR (CKD) >90 (>60 ml/min/1.73 sqM); Albumin 3.8 g/dL (3.5-5.0); Alkaline Phosphatase 65 U/L (38-126); Anion Gap 9 mmol/L; Blood Urea Nitrogen 8 mg/dL (7-17); Calcium 8.2 mg/dL (8.4-10.2); Carbon Dioxide 17 mmol/L (22-30); Chloride 107 mmol/L (98-107); Glucose 168 mg/dL (74-99); Magnesium 1.8 mg/dL (1.6-2.3); Non-African American GFR(CKD) >90 (>60 ml/min/1.73 sqM); Potassium 4.2 mmol/L (3.5-5.1); Sodium 133 mmol/L (137-145); Total Bilirubin 0.6 mg/dL (0.2-1.3); Total Protein 6.4 g/dL (6.3-8.2)
--- NOTE | 2019-09-21 10:35 | CONS ---
CONSULTATION DATE OF SERVICE: 09/21/2019 The patient is a 28-year-old pleasant white female admitted to hospital when she presented to the emergency room yesterday complaining of lower abdominal pain with bloody diarrhea with bowel movements anywhere from 10-12 a day which are loose to watery in inconsistency with blood and mucous in the stool. The patient has history of ulcerative colitis diagnosed approximately 6 years ago while she was living in [place], [place]. She was admitted to the hospital in June of this year with exacerbation of ulcerative colitis. She had a colonoscopy done by Dr. Sofia on June 04, 2019 which showed active proctosigmoiditis and biopsies were consistent with active ulcerative colitis. She has been steroid dependent for the last 6 months all through her period. She delivered a baby in February of 2019 and 2 weeks after that she had a flare up. Since then she has been maintained on prednisone between 40- 60 mg daily. She states that about 3 or 4 weeks ago, she was able to cut down to 35 mg daily and then she had a flare up and since then has been on prednisone 50 mg daily. Since being in the hospital, she was started on IV Solu-Medrol 20 mg q.8 hours. She is feeling better. Still has lower abdominal pain and 5 to 6 loose bloody bowel movements this morning. She is presently being approved for biologics infusion with Remicade and so far still pending. She denies any fever, chills, night sweats. No recent antibiotic use. PAST MEDICAL HISTORY: Ulcerative colitis. PAST SURGICAL HISTORY: , cholecystectomy, tonsillectomy, adenoidectomy. ALLERGIES: TO CODEINE, TORADOL, MORPHINE AND HALDOL. MEDICATIONS: The medications at home include prednisone 50 mg daily Ibuprofen. SOCIAL HISTORY: No smoking. No alcohol use. FAMILY HISTORY: Unremarkable. REVIEW OF SYSTEMS: CARDIOPULMONARY no chest pain, shortness of breath. no dysuria hematuria. MUSCULOSKELETAL unremarkable. SKIN unremarkable. ENDOCRINE unremarkable. PSYCHIATRIC unremarkable. NEUROLOGY unremarkable. ENT/vision unremarkable. CONSTITUTIONAL: No recent weight loss. No fever, chills, night sweats. PHYSICAL EXAMINATION: Blood pressure 133/80. Pulse 73. Temperature 98. HEENT examination unremarkable. Conjunctivae pink. Sclerae anicteric. Oral cavity no lesions. NECK: No JVD or lymph node enlargement. CHEST: Clear to auscultation. HEART: Regular rate and rhythm. ABDOMEN: Soft. Bowel sounds are positive. No organomegaly. EXTREMITIES: No pedal edema. SKIN no rashes. NEUROLOGIC: Alert and oriented x3. No focal deficits. LABS: At the time of admission to the hospital yesterday: WBC 9.2, hemoglobin 15.4, platelets normal. Basic metabolic panel is within normal limits. Plasma lactic acid is 1.2. IMPRESSION: This is a lady with longstanding history of ulcerative colitis, admitted to the hospital with exacerbation of ulcerative colitis, presents to the hospital with multiple episodes of bloody diarrhea with lower abdominal pain. She has been steroid dependence for the last 6 months duration and presently in the process of being approved for Remicade fusion. While in the hospital, was on Solu Medrol 20 mg q.6 hours and she is feeling somewhat better. Last colonoscopy with Dr. Sofia in May of 2019 did show active proctosigmoiditis. RECOMMENDATIONS: 1. Stool studies for C difficile toxin and stool for . 2. Obtain CRP and sedimentation rate. 3. Continue with IV Solu-Medrol 20 mg q.6 hours. 4. Advance to a low-fiber diet. 5. Repeat labs in the morning. 6. We will follow with you closely. Thank you for this consultation. MMODL / IJN: [id number] /
[2019-09-21 11:52] LABS: Basophils % (A) 0 %; Eosinophils % (A) 0 %; HCT 39.3 % (34.0-46.0); HGB 13.4 gm/dL (11.4-16.0); Lymphocytes # (A) 1.1 k/uL (1.0-4.8); Lymphocytes % (A) 9 %; MCH 31.2 pg (25.0-35.0); MCHC 34.1 g/dL (31.0-37.0); MCV 91.5 fL (80.0-100.0); Mean Platelet Volume 8.5; Monocytes # (A) 0.1 k/uL (0-1.0); Monocytes % (A) 1 %; Neutrophils # (A) 10.8 k/uL (1.3-7.7); Neutrophils % (A) 90 %; Platelet Count 292 k/uL (150-450); RDW 12.1 % (11.5-15.5); WBC 12.1 k/uL (3.8-10.6)
[2019-09-21] MEDS ORDERED: LORazepam 0.5 MG TAB PO ONE (22:15)
[2019-09-22] MEDS: HYDROcodone/APAP 5-325MG 1 EACH TAB PO PRN ×6 (01:08→22:59)
[2019-09-22] MEDS: HYDROmorphone 1 MG/ML 1 ML SYRINGE IVP PRN ×8 (02:07→23:47)
[2019-09-22] MEDS: methylPREDNISolone SOD SUCCI 40 MG/ML 1 ML VIAL IV SCH ×4 (05:05→23:47)
[2019-09-22] MEDS: SODIUM CHLORIDE 0.9% 1,000 ML IV SCH ×2 (06:15→15:28)
[2019-09-22 08:00] LABS: HCT 36.7 % (34.0-46.0); HGB 11.9 gm/dL (11.4-16.0); MCH 30.5 pg (25.0-35.0); MCHC 32.5 g/dL (31.0-37.0); MCV 93.8 fL (80.0-100.0); Mean Platelet Volume 8.3; Platelet Count 302 k/uL (150-450); RBC 3.92 m/uL (3.80-5.40); RDW 12.1 % (11.5-15.5); WBC 15.5 k/uL (3.8-10.6)
[2019-09-22] MEDS: BALSALAZIDE DISODIUM 750 MG CAPSULE PO SCH ×3 (08:14→20:29)
[2019-09-22] MEDS ORDERED: diphenhydrAMINE 50 MG/ML 1 ML VIAL IVP PRN (16:00)
--- NOTE | 2019-09-22 16:05 | P.PN ---
Subjective Progress Note Date: 09/22/19 Principal diagnosis: Inflammatory bowel disease Patient reported only having 3 bowel movements today as opposed to 7 yesterday. No nausea or vomiting. Abdominal pain is controlled. Patient asking for IV Benadryl for sleep for tonight. Objective - Vital Signs Vital signs: Vital Signs Temp 97.7 F 09/22/19 13:33 Pulse 73 09/22/19 13:33 Resp 16 09/22/19 13:33 BP 131/87 09/22/19 13:33 Pulse Ox 97 09/22/19 13:33 Intake & Output 09/21/19 09/22/19 09/22/19 18:59 06:59 18:59 Intake Total 800 300 800 Output Total 1 Balance 800 299 800 Intake: IV 800 800 Sodium Chloride 0.9% 1, 800 800 000 ml @ 100 mls/hr IV . Q10H [facility] Rx#:[id number] Oral 300 Output: Stool 1 Other: Voiding Method Toilet # Voids 1 - Exam Constitutional: No acute distress, conversant, pleasant Eyes:Anicteric sclerae, moist conjunctiva, no lid-lag, PERRLA, ENMT: Oropharynx clear, no erythema, exudates Neck: Supple, FROM, no masses, or JVD, No carotid bruits, No thyromegaly Lungs: Clear to auscultation, Clear to percussion, Normal respiratory effort, no accessory muscle use Cardiovascular: Heart regular in rate and rhythm, No murmurs, gallops, or rubs, No peripheral edema Abdominal: Diffusely tender, no guarding, rebound or rigidity, Normoactive bowel sounds, No hepatomegaly, No splenomegaly, No palpable mass Skin: Normal temperature, tone, texture, turgor, no induration, No subcutaneous nodules, No rash, lesions, No ulcers Extremities: No digital cyanosis, No clubbing, Pedal pulses intact and symmetrical, Radial pulses intact and symmetrical, No calf tenderness Psychiatric: Alert and oriented to person, place and time, appropriate affect, intact judgement Neuro: Muscles Strength 5/5 in all 4 extremities, Sensation to light touch grossly present throughout, Cranial nerves II-XII grossly intact, no focal sensory deficits - Labs CBC & Chem 7: 09/22/19 07:14 09/21/19 06:42 Labs: Abnormal Lab Results - Last 24 Hours (Table) 09/22/19 Range/Units 07:14 WBC 15.5 H (3.8-10.6) k/uL Assessment and Plan Plan: # Crohn's Disease Flare -Resume regular diet, IVF -pain control -Continue IV steroids -continue mesalamine -GI following -Monitor lites daily # Lower GIB -most likley due to above -Hgb stable -continue to monitor # Insomnia IV Benadryl
[2019-09-22] MEDS ORDERED: MESALAMINE 4 GM/60 ML ENEMA RECTAL SCH (21:00)
--- NOTE | 2019-09-22 21:42 | P.PN ---
Subjective Progress Note Date: 09/22/19 Principal diagnosis: Ulcerative colitis Patient seen lying in bed. Supplements of abdominal cramping. Still seeing some loose bloody bowel movements. Objective - Vital Signs Vital signs: Vital Signs Temp 97.9 F 09/22/19 04:50 Pulse 93 09/22/19 04:50 Resp 18 09/22/19 04:50 BP 105/67 09/22/19 04:50 Pulse Ox 96 09/22/19 04:50 Intake & Output 09/21/19 09/22/19 09/22/19 18:59 06:59 18:59 Intake Total 800 300 800 Output Total 1 Balance 800 299 800 Intake: IV 800 800 Sodium Chloride 0.9% 1, 800 800 000 ml @ 100 mls/hr IV . Q10H [facility] Rx#:[id number] Oral 300 Output: Stool 1 Other: Voiding Method Toilet # Voids 1 - Exam On physical examination, patient appears comfortable in no apparent distress. HEAD: Normocephalic, atraumatic. EYES: No scleral icterus. No conjunctival injection. MOUTH: No lesions, tongue midline. NECK: Trachea midline, no gross abnormalities. ABDOMEN: Soft, obese. Bowel sounds are positive. No organomegaly. No guarding or rigidity. EXTREMITIES: No pedal edema. SKIN: No rashes, no jaundice. NEUROLOGIC: Alert and oriented x3. No focal deficits. - Labs CBC & Chem 7: 09/22/19 07:14 09/21/19 06:42 Labs: Abnormal Lab Results - Last 24 Hours (Table) 09/21/19 09/22/19 Range/Units 06:42 07:14 WBC 12.1 H 15.5 H (3.8-10.6) k/uL Neutrophils # 10.8 H (1.3-7.7) k/uL Assessment and Plan (1) Exacerbation of ulcerative colitis Narrative/Plan: 28-year-old female with a history of left-sided ulcerative colitis presented to the hospital with abdominal pain, increased frequency of bowel movements and blood per rectum. Somewhat improved however still symptomatic at this time. Current Visit: No Status: Acute Code(s): K51.90 - ULCERATIVE COLITIS, UNSPECIFIED, WITHOUT COMPLICATIONS SNOMED Code(s): 456485022 (2) Abdominal pain Current Visit: Yes Status: Acute Code(s): R10.9 - UNSPECIFIED ABDOMINAL PAIN SNOMED Code(s): 09790389 Plan: Supportive care Okay for diet as tolerated Continue monitor CBC, CMP Continue to monitor stool output Continue Solu-Medrol 3 times a day Nightly enema added Follow-up outpatient for initiation of biologic therapy Thank you for allowing us to participate in the care of the patient we will continue to follow
[2019-09-23 00:23] VITALS: TEMP 98
[2019-09-23] MEDS: SODIUM CHLORIDE 0.9% 1,000 ML IV SCH ×2 (04:19→05:13)
[2019-09-23] MEDS: methylPREDNISolone SOD SUCCI 40 MG/ML 1 ML VIAL IV SCH ×2 (05:13→13:18)
[2019-09-23] MEDS: HYDROmorphone 1 MG/ML 1 ML SYRINGE IVP PRN ×3 (05:13→13:19)
[2019-09-23] MEDS: HYDROcodone/APAP 5-325MG 1 EACH TAB PO PRN ×2 (06:15→16:02)
[2019-09-23 08:27] LABS: ALT 18 U/L (4-34); AST 14 U/L (14-36); African American GFR (CKD) >90 (>60 ml/min/1.73 sqM); Albumin 4.1 g/dL (3.5-5.0); Alkaline Phosphatase 64 U/L (38-126); Anion Gap 11 mmol/L; Blood Urea Nitrogen 11 mg/dL (7-17); Calcium 9.2 mg/dL (8.4-10.2); Carbon Dioxide 20 mmol/L (22-30); Chloride 105 mmol/L (98-107); Glucose 275 mg/dL (74-99); Magnesium 2.2 mg/dL (1.6-2.3); Non-African American GFR(CKD) >90 (>60 ml/min/1.73 sqM); Phosphorus 2.5 mg/dL (2.5-4.5); Potassium 4.1 mmol/L (3.5-5.1); Sodium 136 mmol/L (137-145); Total Bilirubin 0.2 mg/dL (0.2-1.3); Total Protein 6.7 g/dL (6.3-8.2)
[2019-09-23 08:45] LABS: Basophils % (A) 0 %; Eosinophils % (A) 0 %; HCT 38.8 % (34.0-46.0); Lymphocytes # (A) 0.9 k/uL (1.0-4.8); Lymphocytes % (A) 6 %; MCH 30.6 pg (25.0-35.0); MCHC 33.5 g/dL (31.0-37.0); MCV 91.3 fL (80.0-100.0); Mean Platelet Volume 8.6; Monocytes # (A) 0.4 k/uL (0-1.0); Monocytes % (A) 3 %; Neutrophils # (A) 13.4 k/uL (1.3-7.7); Neutrophils % (A) 91 %; Platelet Count 318 k/uL (150-450); RBC 4.25 m/uL (3.80-5.40); RDW 12.2 % (11.5-15.5); WBC 14.7 k/uL (3.8-10.6)
[2019-09-23] MEDS: BALSALAZIDE DISODIUM 750 MG CAPSULE PO SCH (08:45)
--- NOTE | 2019-09-23 14:11 | CDI ---
Documentation Clarification Form Date: 09/23/2019 01:39:02 PM From: Luh Herring RN CCDS Admit Date: 09/20/2019 02:35:00 PM Patient Name: Lilian Tamayo Visit Number: [id number] Discharge Date: ATTENTION: The Clinical Documentation Specialists (CDI) and [facility] Coding Staff appreciate your assistance in clarifying documentation. Please respond to the clarification below the line at the bottom and electronically sign. The CDI & [facility] Coding staff will review the response and follow-up if needed. Please note: Queries are made part of the Legal Health Record. If you have any questions, please contact the author of this message via ITS. Dr. Zeeshan Paz Conflicting documentation has been found in the medical record: Crohns Disease Flare is documented in the H&P 09/19 and in Internal medicine progress note 09/21 Exacerbation of ulcerative colitis is documented in GI progress note 09/21 History/Risk Factors: 28-year-old female presents to the ED with abdominal pain over the last several weeks to months with blood sent in by SIMONE Lindsey. Medical history per H&P Crohns, Ulcerative colitis and endometriosis. Clinical Indicators: VSS 127/63 90 97.9 18 98% ra Lab C. Difficile Negative GI Consult - Longstanding history of ulcerative colitis. She has been steroid dependence for the last 6 months duration and presently in the process of being approved for Remicade fusion. Treatment: 4/ Colazal Po Tid , /6 Rowasa Rectal HS, / Solumedrol IV Q 6 hrs, / NPO, 4/5 Regular diet. In your opinion, what is the most clinically appropriate diagnosis for this patient? Ulcerative Colitis POA Crohns Disease Flare POA Other explanation of clinical findings Unable to determine (no explanation for clinical findings) (Last Revision: September 2017) Ulcerative Colitis POA MTDD
[2019-09-23 14:44] VITALS: BP 121/75; PULSE 80; RESP 16
--- NOTE | 2019-09-23 15:39 | P.DS ---
Providers Date of admission: 09/20/19 14:35 Expected date of discharge: 09/23/19 Attending physician: Bernie Medina DO Consults: 09/20/19 14:11 Consult Physician Urgent Consulting Provider: Kelly Beckwith Consult Reason/Comments: Rectal bleeding, Crohn's exacerbation Do you want consulting provider notified?: Yes Primary care physician: Stated None Hospital Course: 28 yo female presents to the ED complaining of diffuse abdominal pain for the last few days. She has a known history of Crohn's, she is on 50 mg Prednisone daily for the last several months and has been taking additional doses over the last few days. She also had frequent bloody stools. She denies any fevers or chill, no nausea or vomiting, no dyspnea, chest pain or cough. She is on Mesalamine as well. She is in the process of getting insurance approval for Remicaide through her lace burn out tender but that has not happened yet. Her lace burn out tender advised her to go to the hospital to be admitted for IV steroids. She recently had a CT scan of the abdomen on 09/13 which was insignificant, and it was therefore recommended that she not receive another one while in the hospital. In the ED she received several liters of IVF, IV Dilaudid but is still complaining of severe pain. Subsequently patient was admitted for further evaluation and management. Laboratory evaluation showed slight leukocytosis and hyperglycemia likely due to steroids. Upon admission she was started on IV steroids. Was seen by GI who initiated rectal mesalamine. Pain was controlled with IV dilaudid. Today her symptoms are much better. Diarrhea and pain both improved. Patient will be discharged home in stable condition. Patient was cleared for discharge by GI. Time for discharge 35 min Patient Condition at Discharge: Fair Plan - Discharge Summary New Discharge Prescriptions: New Mesalamine [Rowasa] 4 gm RECTAL HS #14 ml HYDROcodone/APAP 5-325MG [[place] 5-325] 1 each PO Q4HR PRN tab PRN Reason: Moderate Pain Continue predniSONE 50 mg PO DAILY Mesalamine [Pentasa] 750 mg PO TID Ibuprofen 800 mg PO Q8H PRN PRN Reason: pain/fever Discharge Medication List Mesalamine [Pentasa] 750 mg PO TID 07/09/19 [History] predniSONE 50 mg PO DAILY 07/09/19 [History] Ibuprofen 800 mg PO Q8H PRN 09/20/19 [History] HYDROcodone/APAP 5-325MG [[place] 5-325] 1 each PO Q4HR PRN tab 09/23/19 [Rx] Mesalamine [Rowasa] 4 gm RECTAL HS #14 ml 09/23/19 [Rx] Follow up Appointment(s)/Referral(s): None,Stated [Primary Care Provider] - 1-2 days
--- NOTE | 2019-09-23 17:37 | P.PN ---
Subjective Progress Note Date: 09/23/19 Principal diagnosis: Ulcerative colitis Patient seen lying in bed. Only one loose bowel movement today with patient reporting less pain. Objective - Vital Signs Vital signs: Vital Signs Temp 98.0 F 09/23/19 04:40 Pulse 61 09/23/19 04:40 Resp 20 09/23/19 04:40 BP 125/82 09/23/19 04:40 Pulse Ox 98 09/23/19 04:40 Intake & Output 09/22/19 09/23/19 09/23/19 18:59 06:59 18:59 Intake Total 800 Balance 800 Intake: IV 800 Sodium Chloride 0.9% 1, 800 000 ml @ 100 mls/hr IV . Q10H SHELDON Rx#:[id number] Other: Voiding Method Toilet # Voids 3 - Exam On physical examination, patient appears comfortable in no apparent distress. HEAD: Normocephalic, atraumatic. EYES: No scleral icterus. No conjunctival injection. MOUTH: No lesions, tongue midline. NECK: Trachea midline, no gross abnormalities. ABDOMEN: Soft, obese. Bowel sounds are positive. No organomegaly. No guarding or rigidity. EXTREMITIES: No pedal edema. SKIN: No rashes, no jaundice. NEUROLOGIC: Alert and oriented x3. No focal deficits. - Labs CBC & Chem 7: 09/23/19 06:38 09/23/19 06:38 Labs: Abnormal Lab Results - Last 24 Hours (Table) 09/23/19 09/23/19 Range/Units 06:38 06:38 WBC 14.7 H (3.8-10.6) k/uL Neutrophils # 13.4 H (1.3-7.7) k/uL Lymphocytes # 0.9 L (1.0-4.8) k/uL Sodium 136 L (137-145) mmol/L Carbon Dioxide 20 L (22-30) mmol/L Glucose 275 H (74-99) mg/dL Microbiology - Last 24 Hours (Table) 09/22/19 04:40 Stool Culture - Preliminary Stool Assessment and Plan (1) Exacerbation of ulcerative colitis Narrative/Plan: 28-year-old female with a history of left-sided ulcerative colitis presented to the hospital with abdominal pain, increased frequency of bowel movements and blood per rectum. Somewhat improved since presentation. Current Visit: No Status: Acute Code(s): K51.90 - ULCERATIVE COLITIS, UNSPECIFIED, WITHOUT COMPLICATIONS SNOMED Code(s): 098532317 (2) Abdominal pain Current Visit: Yes Status: Acute Code(s): R10.9 - UNSPECIFIED ABDOMINAL PAIN SNOMED Code(s): 24805748 Plan: Supportive care Okay for diet as tolerated Continue monitor CBC, CMP Continue to monitor stool output Continue steroid taper after discharge Nightly 5-ASA suppository Follow-up outpatient for initiation of biologic therapy Thank you for allowing us to participate in the care of the patient we will continue to follow
== END 2019-09-23 18:51 | disposition home or self-care (01) | DRG 387 ==
LOC: EC 12:18 → 6NMEDSUR 14:35
PROVIDERS: ADMIT Internal Medicine; ATTEND Internal Medicine
DX: K51.911 Ulcerative colitis, unspecified with rectal bleeding (principal); F32.9 Major depressive disorder, single episode, unspecified; Z79.52 Long term (current) use of systemic steroids; Z87.891 Personal history of nicotine dependence; Z90.721 Acquired absence of ovaries, unilateral; Z90.49 Acquired absence of other specified parts of digestive tract; Z98.891 History of uterine scar from previous surgery; Z98.890 Other specified postprocedural states; Z86.14 Personal history of Methicillin resistant Staphylococcus aureus infection; Z90.89 Acquired absence of other organs; Z88.5 Allergy status to narcotic agent; Z88.0 Allergy status to penicillin; Z88.8 Allergy status to other drugs, medicaments and biological substances
CPT/HCPCS: 36415; 80053; 81003; 81025; 82150; 83605; 83690; 83735; 83993; 84100; 85025; 85027; 86140; 87045; 87046; 87324; 96361; 96374; 96375; 99285

== ENCOUNTER 2019-10-02 18:14 | Emergency (ER) | payer OTHER ==
--- NOTE | 2019-10-02 18:45 | ED ---
General Adult HPI - General Chief complaint: Dental/Oral Stated complaint: Dental pain Time Seen by Provider: 10/02/19 18:25 Source: patient, RN notes reviewed Mode of arrival: ambulatory Limitations: no limitations - History of Present Illness Initial comments: 28-year-old female with a past medical history of Crohn's, ulcerative colitis presents to the emergency department for a chief complaint of dental pain. Patient states she had both upper wisdom teeth extracted yesterday. States that she was prescribed for [place] and already took these. States it did help with the pain but now she is out. Patient states she called her dentist and he essentially said he could not see her so to go to the emergency room if she needed more pain medication. She is already on azithromycin. She denies fevers or chills. Patient is able to open her mouth however states it is painful. Denies any sublingual edema. Denies any neck pain or stiffness.Patient has no other complaints at this time including shortness of breath, chest pain, abdominal pain, nausea or vomiting, headache, or visual changes. - Related Data Home Medications Medication Instructions Recorded Confirmed Mesalamine [Pentasa] 750 mg PO TID 07/09/19 09/20/19 predniSONE 50 mg PO DAILY 07/09/19 09/20/19 Ibuprofen 800 mg PO Q8H PRN 09/20/19 09/20/19 Previous Rx's Medication Instructions Recorded HYDROcodone/APAP 5-325MG [[place] 1 each PO Q4HR PRN tab 09/23/19 5-325] Mesalamine [Rowasa] 4 gm RECTAL HS #14 ml 09/23/19 HYDROcodone/APAP 5-325MG [[place] 1 tab PO Q6HR PRN #10 tab 10/02/19 5-325] Allergies Allergy/AdvReac Type Severity Reaction Status Date / Time codeine Allergy Mild Rash/Hives Verified 10/02/19 18:21 ketorolac [From Toradol] Allergy Rash/Hives Verified 10/02/19 18:21 morphine Allergy Rash/Hives Verified 10/02/19 18:21 Penicillins Allergy Unknown Verified 10/02/19 18:21 Childhood haloperidol [From Haldol] AdvReac Rapid Verified 10/02/19 18:21 Heart Rate Review of Systems ROS Statement: Those systems with pertinent positive or pertinent negative responses have been documented in the HPI. ROS Other: All systems not noted in ROS Statement are negative. Past Medical History Additional Past Medical History / Comment(s): crohns, ulcerative colitis, endometriosis History of Any Multi-Drug Resistant Organisms: MRSA Date of last positivie culture/infection: 2016 MDRO Source:: right ear Past Surgical History: Adenoidectomy, Section, Cholecystectomy, Tonsillectomy Additional Past Surgical History / Comment(s): right ovary removed. surgery to remove scar tissue Past Anesthesia/Blood Transfusion Reactions: No Reported Reaction Additional Past Anesthesia/Blood Transfusion Reaction / Comment(s): MRSA Past Psychological History: Depression Smoking Status: Former smoker Past Alcohol Use History: None Reported Past Drug Use History: None Reported General Exam Limitations: no limitations General appearance: alert, in no apparent distress Head exam: Present: atraumatic, normocephalic, normal inspection Eye exam: Present: normal appearance, PERRL, EOMI. Absent: scleral icterus, conjunctival injection, periorbital swelling ENT exam: Present: normal exam, mucous membranes moist, TM's normal bilaterally, normal external ear exam. Absent: normal oropharynx (Patient has dental extrac tion noted to upper wisdom teeth however is able to open mouth. No significant edema. No signs of infection.) Neck exam: Present: normal inspection, full ROM. Absent: tenderness, meningismus, lymphadenopathy Respiratory exam: Present: normal lung sounds bilaterally. Absent: respiratory distress, wheezes, rales, rhonchi, stridor Cardiovascular Exam: Present: regular rate, normal rhythm, normal heart sounds. Absent: systolic murmur, diastolic murmur, rubs, gallop, clicks Course Vital Signs 10/02/19 18:18 Temperature 97.9 F Pulse Rate 112 H Respiratory 18 Rate Blood Pressure 127/91 O2 Sat by Pulse 99 Oximetry Medical Decision Making - Medical Decision Making HPI physical exam is documented. I recommend patient tries putting teabags in the area and seeing if that helps. I did agree to write her a few more pain pills as she cannot take Motrin due to her Crohn's disease. I recommended she return for any worsening symptoms and to follow-up with her dentist for further evaluation. Disposition Clinical Impression: Pain, dental Disposition: HOME SELF-CARE Condition: Good Instructions (If sedation given, give patient instructions): Toothache (ED) Additional Instructions: Please take [place] as directed. Do not drive or operative machinery while taking this. Try tea bags in the area. Follow-up with your dentist as soon as possible. Return to the emergency department for any worsening symptoms. Prescriptions: HYDROcodone/APAP 5-325MG [[place] 5-325] 1 tab PO Q6HR PRN #10 tab PRN Reason: Pain Is patient prescribed a controlled substance at d/c from ED?: Yes When asked, does pt state using other controlled substances?: No If prescribed controlled substance>3 days was MAPS reviewed?: Prescribed <3 Days If opioid is for acute pain is fill amount 7 days or less?: Yes If Rx opioid, was Start Talking consent form obtained?: Yes Referrals: Gisela Santamaria MD [REFERRING] - 1-2 days Time of Disposition: 18:48
[2019-10-02 19:17] VITALS: BP 128/81; PULSE 102; RESP 16; TEMP 98
== END 2019-10-02 19:16 | disposition home or self-care (01) ==
LOC: EC 18:14
DX: K08.89 Other specified disorders of teeth and supporting structures (principal); K50.90 Crohn's disease, unspecified, without complications; Z79.51 Long term (current) use of inhaled steroids; Z79.899 Other long term (current) drug therapy; Z88.0 Allergy status to penicillin; Z88.5 Allergy status to narcotic agent; Z88.8 Allergy status to other drugs, medicaments and biological substances; Z87.891 Personal history of nicotine dependence
CPT/HCPCS: 99282

== ENCOUNTER 2019-10-05 16:19 | Emergency (ER) | payer OTHER ==
[2019-10-05] MEDS ORDERED: SODIUM CHLORIDE 0.9% 1,000 ML IV STA (16:55)
[2019-10-05] MEDS ORDERED: ONDANSETRON 4 MG/2 ML VIAL IVP STA (16:55)
[2019-10-05] MEDS ORDERED: methylPREDNISolone SOD SUCCI 125 MG/2 ML VIAL IV STA (16:57)
[2019-10-05] MEDS ORDERED: HYDROmorphone 1 MG/ML 1 ML SYRINGE IVP STA ×2 (16:57→18:18)
[2019-10-05 17:08] LABS: Basophils % (A) 0 %; Eosinophils # (A) 0.2 k/uL (0-0.7); Eosinophils % (A) 3 %; HCT 45.3 % (34.0-46.0); HGB 15.2 gm/dL (11.4-16.0); Lymphocytes # (A) 2.7 k/uL (1.0-4.8); Lymphocytes % (A) 28 %; MCH 30.4 pg (25.0-35.0); MCHC 33.6 g/dL (31.0-37.0); MCV 90.6 fL (80.0-100.0); Mean Platelet Volume 7.3; Monocytes # (A) 0.5 k/uL (0-1.0); Monocytes % (A) 5 %; Neutrophils # (A) 5.9 k/uL (1.3-7.7); Neutrophils % (A) 62 %; Platelet Count 352 k/uL (150-450); RDW 12.2 % (11.5-15.5); WBC 9.4 k/uL (3.8-10.6)
[2019-10-05 17:17] LABS: Appearance,Urine Cloudy (Clear); Bacteria,Urine Rare /hpf; Bilirubin,Urine Negative (Negative); Blood,Urine Trace (Negative); Color,Urine Yellow; Glucose,Urine (UA) Negative (Negative); Hyaline Casts,Urine 6 /lpf (0-2); Ketones,Urine Negative (Negative); Leukocyte Esterase,Urine Negative (Negative); Mucus,Urine Occasional /hpf; Nitrite,Urine Negative (Negative); PH, Urine 5.5 (5.0-8.0); Protein,Urine Trace (Negative); RBC,Urine 1 /hpf (0-5); Specific Gravity,Urine 1.018 (1.001-1.035); Squamous Epithelial Cell,Urine 19 /hpf (0-4); Urobilinogen,Urine <2.0 mg/dL (<2.0); WBC,Urine 8 /hpf (0-5)
[2019-10-05 17:19] LABS: ALT 27 U/L (4-34); AST 31 U/L (14-36); African American GFR (CKD) >90 (>60 ml/min/1.73 sqM); Albumin 4.8 g/dL (3.5-5.0); Alkaline Phosphatase 83 U/L (38-126); Anion Gap 10 mmol/L; Blood Urea Nitrogen 14 mg/dL (7-17); Calcium 10.2 mg/dL (8.4-10.2); Carbon Dioxide 24 mmol/L (22-30); Chloride 105 mmol/L (98-107); Glucose 114 mg/dL (74-99); Non-African American GFR(CKD) >90 (>60 ml/min/1.73 sqM); Potassium 4.4 mmol/L (3.5-5.1); Sodium 139 mmol/L (137-145); Total Bilirubin 0.6 mg/dL (0.2-1.3)
--- NOTE | 2019-10-05 17:45 | XR ---
EXAMINATION TYPE: XR KUB DATE OF EXAM: 10/05/2019 COMPARISON: NONE HISTORY: Abdominal pain TECHNIQUE: 2 views upright FINDINGS: Bowel gas pattern is normal. There is no sign of intestinal obstruction or pneumoperitoneum . Fecal pattern is normal. There are no pathologic calcifications. Lung bases are clear. IMPRESSION: Nonacute abdomen.
--- NOTE | 2019-10-05 18:06 | ED ---
Abdominal Pain HPI - General Chief Complaint: Abdominal Pain Stated Complaint: Crohns flare up Time Seen by Provider: 10/05/19 16:25 Source: patient Mode of arrival: ambulatory Limitations: no limitations - History of Present Illness Initial Comments: The patient is a 28 her old female past mental history of Crohn's disease and presents to the emergency room with reported abdominal pain and bloody stools. The patient reports that she has a chronic history of this. She follows with Dr. Tamez in office. She was recently hospitalized for the symptoms. She is currently on prednisone 50 mg, pentaza and [place] daily for her abdominal pain. States that in 2 weeks she will be started on methotrexate. Patient called her GI doctor today to inform them of her increasing abdominal pain. Instructed the emergency room for evaluation. The patient admits to generalized discomfort. Denies diarrhea or constipation. No changes in her urination. Currently reports that she is on her menstrual cycle. Denies any fevers or chills. There are no alleviating, precipitating or modifying factors - Related Data Home Medications Medication Instructions Recorded Confirmed Mesalamine [Pentasa] 750 mg PO TID 07/09/19 09/20/19 predniSONE 50 mg PO DAILY 07/09/19 09/20/19 Ibuprofen 800 mg PO Q8H PRN 09/20/19 09/20/19 Previous Rx's Medication Instructions Recorded HYDROcodone/APAP 5-325MG [[place] 1 each PO Q4HR PRN tab 09/23/19 5-325] Mesalamine [Rowasa] 4 gm RECTAL HS #14 ml 09/23/19 HYDROcodone/APAP 5-325MG [[place] 1 tab PO Q6HR PRN #10 tab 10/02/19 5-325] Allergies Allergy/AdvReac Type Severity Reaction Status Date / Time codeine Allergy Mild Rash/Hives Verified 10/05/19 16:25 ketorolac [From Toradol] Allergy Rash/Hives Verified 10/05/19 16:25 morphine Allergy Rash/Hives Verified 10/05/19 16:25 Penicillins Allergy Unknown Verified 10/05/19 16:25 Childhood haloperidol [From Haldol] AdvReac Rapid Verified 10/05/19 16:25 Heart Rate Review of Systems ROS Statement: Those systems with pertinent positive or pertinent negative responses have been documented in the HPI. ROS Other: All systems not noted in ROS Statement are negative. Past Medical History Additional Past Medical History / Comment(s): crohns, ulcerative colitis, endometriosis History of Any Multi-Drug Resistant Organisms: MRSA Date of last positivie culture/infection: 2016 MDRO Source:: right ear Past Surgical History: Adenoidectomy, Section, Cholecystectomy, Tonsillectomy Additional Past Surgical History / Comment(s): right ovary removed. surgery to remove scar tissue Past Anesthesia/Blood Transfusion Reactions: No Reported Reaction Additional Past Anesthesia/Blood Transfusion Reaction / Comment(s): MRSA Past Psychological History: Depression Smoking Status: Former smoker Past Alcohol Use History: None Reported Past Drug Use History: None Reported General Exam Limitations: no limitations General appearance: alert, in no apparent distress Head exam: Present: atraumatic, normocephalic, normal inspection Eye exam: Present: normal appearance, PERRL, EOMI. Absent: scleral icterus, conjunctival injection, periorbital swelling ENT exam: Present: normal exam, mucous membranes moist Neck exam: Present: normal inspection. Absent: tenderness, meningismus, lymphadenopathy Respiratory exam: Present: normal lung sounds bilaterally. Absent: respiratory distress, wheezes, rales, rhonchi, stridor Cardiovascular Exam: Present: regular rate, normal rhythm, normal heart sounds. Absent: systolic murmur, diastolic murmur, rubs, gallop, clicks GI/Abdominal exam: Present: soft, normal bowel sounds. Absent: distended, tenderness, guarding, rebound, rigid Extremities exam: Present: normal inspection, full ROM, normal capillary refill. Absent: tenderness, pedal edema, joint swelling, calf tenderness Back exam: Present: normal inspection Neurological exam: Present: alert, oriented X3, CN II-XII intact Psychiatric exam: Present: normal affect, normal mood Skin exam: Present: warm, dry, intact, normal color. Absent: rash Course Vital Signs 10/05/19 10/05/19 16:23 18:55 Temperature 97.8 F 98.2 F Pulse Rate 100 80 Respiratory 20 18 Rate Blood Pressure 132/87 116/80 O2 Sat by Pulse 99 97 Oximetry Medical Decision Making - Medical Decision Making Upon arrival the patient is placed in room 9. Her history and physical exam was performed. Peripheral IV is established. The patient was given 1 mg of Dilaudid for her pain, 1 L of fluid and 4 mg of Zofran. I also gave her 125 mg Solu-Medrol. There are traces were conducted. White blood cell count is normal at 9.4. Remainder of labs are normal. Urinalysis shows show rare bacteria however she does have 19 epithelial cells. The patient's reevaluated and reports improvement in her symptoms. I discussed diagnosis, differential treatment options. Patient is okay with discharge at this time. She is to follow-up with her GI doctor. Return to the emergency room for any new or worsening symptoms. Patient was discharged in stable condition - Lab Data Result diagrams: 10/05/19 16:50 10/05/19 16:50 Lab Results 10/05/19 10/05/19 10/05/19 Range/Units 16:50 16:50 16:50 WBC 9.4 (3.8-10.6) k/uL RBC 5.00 (3.80-5.40) m/uL Hgb 15.2 (11.4-16.0) gm/dL Hct 45.3 (34.0-46.0) % MCV 90.6 (80.0-100.0) fL MCH 30.4 (25.0-35.0) pg MCHC 33.6 (31.0-37.0) g/dL RDW 12.2 (11.5-15.5) % Plt Count 352 (150-450) k/uL Neutrophils % 62 % Lymphocytes % 28 % Monocytes % 5 % Eosinophils % 3 % Basophils % 0 % Neutrophils # 5.9 (1.3-7.7) k/uL Lymphocytes # 2.7 (1.0-4.8) k/uL Monocytes # 0.5 (0-1.0) k/uL Eosinophils # 0.2 (0-0.7) k/uL Basophils # 0.0 (0-0.2) k/uL Sodium 139 (137-145) mmol/L Potassium 4.4 (3.5-5.1) mmol/L Chloride 105 (98-107) mmol/L Carbon Dioxide 24 (22-30) mmol/L Anion Gap 10 mmol/L BUN 14 (7-17) mg/dL Creatinine 0.84 (0.52-1.04) mg/dL Est GFR (CKD-EPI)AfAm >90 (>60 ml/min/1.73 sqM) Est GFR (CKD-EPI)NonAf >90 (>60 ml/min/1.73 sqM) Glucose 114 H (74-99) mg/dL Plasma Lactic Acid Derrick 0.9 (0.7-2.0) mmol/L Calcium 10.2 (8.4-10.2) mg/dL Total Bilirubin 0.6 (0.2-1.3) mg/dL AST 31 (14-36) U/L ALT 27 (4-34) U/L Alkaline Phosphatase 83 (38-126) U/L Total Protein 8.0 (6.3-8.2) g/dL Albumin 4.8 (3.5-5.0) g/dL Lipase 109 (23-300) U/L Urine Color Urine Appearance (Clear) Urine pH (5.0-8.0) Ur Specific [place] (1.001-1.035) Urine Protein (Negative) Urine Glucose (UA) (Negative) Urine Ketones (Negative) Urine Blood (Negative) Urine Nitrite (Negative) Urine Bilirubin (Negative) Urine Urobilinogen (<2.0) mg/dL Ur Leukocyte Esterase (Negative) Urine RBC (0-5) /hpf Urine WBC (0-5) /hpf Ur Squamous Epith Cells (0-4) /hpf Urine Bacteria (None) /hpf Hyaline Casts (0-2) /lpf Urine Mucus (None) /hpf Urine HCG, Qual (Not Detectd) 10/05/19 10/05/19 Range/Units 17:00 17:00 WBC (3.8-10.6) k/uL RBC (3.80-5.40) m/uL Hgb (11.4-16.0) gm/dL Hct (34.0-46.0) % MCV (80.0-100.0) fL MCH (25.0-35.0) pg MCHC (31.0-37.0) g/dL RDW (11.5-15.5) % Plt Count (150-450) k/uL Neutrophils % % Lymphocytes % % Monocytes % % Eosinophils % % Basophils % % Neutrophils # (1.3-7.7) k/uL Lymphocytes # (1.0-4.8) k/uL Monocytes # (0-1.0) k/uL Eosinophils # (0-0.7) k/uL Basophils # (0-0.2) k/uL Sodium (137-145) mmol/L Potassium (3.5-5.1) mmol/L Chloride (98-107) mmol/L Carbon Dioxide (22-30) mmol/L Anion Gap mmol/L BUN (7-17) mg/dL Creatinine (0.52-1.04) mg/dL Est GFR (CKD-EPI)AfAm (>60 ml/min/1.73 sqM) Est GFR (CKD-EPI)NonAf (>60 ml/min/1.73 sqM) Glucose (74-99) mg/dL Plasma Lactic Acid Derrick (0.7-2.0) mmol/L Calcium (8.4-10.2) mg/dL Total Bilirubin (0.2-1.3) mg/dL AST (14-36) U/L ALT (4-34) U/L Alkaline Phosphatase (38-126) U/L Total Protein (6.3-8.2) g/dL Albumin (3.5-5.0) g/dL Lipase (23-300) U/L Urine Color Yellow Urine Appearance Cloudy H (Clear) Urine pH 5.5 (5.0-8.0) Ur Specific [place] 1.018 (1.001-1.035) Urine Protein Trace H (Negative) Urine Glucose (UA) Negative (Negative) Urine Ketones Negative (Negative) Urine Blood Trace H (Negative) Urine Nitrite Negative (Negative) Urine Bilirubin Negative (Negative) Urine Urobilinogen <2.0 (<2.0) mg/dL Ur Leukocyte Esterase Negative (Negative) Urine RBC 1 (0-5) /hpf Urine WBC 8 H (0-5) /hpf Ur Squamous Epith Cells 19 H (0-4) /hpf Urine Bacteria Rare H (None) /hpf Hyaline Casts 6 H (0-2) /lpf Urine Mucus Occasional H (None) /hpf Urine HCG, Qual Not Detected (Not Detectd) Disposition Clinical Impression: Abdominal pain, Exacerbation of Crohn's disease Disposition: HOME SELF-CARE Condition: Stable Instructions (If sedation given, give patient instructions): Abdominal Pain (ED) Additional Instructions: Please follow-up with your primary care doctor and GI doctor. Return to the emergency room for any worsening symptoms Is patient prescribed a controlled substance at d/c from ED?: No Referrals: None,Stated [Primary Care Provider] - 1-2 days Time of Disposition: 18:03
[2019-10-05 18:56] VITALS: BP 116/80; PULSE 80; RESP 18; TEMP 98.2
== END 2019-10-05 19:37 | disposition home or self-care (01) ==
LOC: EC 16:19
DX: K50.911 Crohn's disease, unspecified, with rectal bleeding (principal); R82.71 Bacteriuria; Z87.19 Personal history of other diseases of the digestive system; Z86.14 Personal history of Methicillin resistant Staphylococcus aureus infection; Z90.49 Acquired absence of other specified parts of digestive tract; Z90.721 Acquired absence of ovaries, unilateral; Z87.891 Personal history of nicotine dependence; Z79.52 Long term (current) use of systemic steroids; Z79.899 Other long term (current) drug therapy; Z88.5 Allergy status to narcotic agent; Z88.6 Allergy status to analgesic agent; Z88.0 Allergy status to penicillin; Z88.8 Allergy status to other drugs, medicaments and biological substances
CPT/HCPCS: 99284; 96374; 96375 ×3; 96361 ×2; 36415; 80053; 83605; 83690; 85025; 81001; 81025; 74018; J2930; J2405; J1170

== ENCOUNTER 2019-10-07 16:47 | Inpatient (IN) | payer OTHER ==
[2019-10-07] MEDS ORDERED: ONDANSETRON 4 MG/2 ML VIAL IVP STA (18:06)
[2019-10-07] MEDS ORDERED: methylPREDNISolone SOD SUCCI 125 MG/2 ML VIAL IV STA (18:06)
[2019-10-07] MEDS ORDERED: HYDROmorphone 0.5 MG/0.5 ML SYRINGE IVP STA ×2 (18:06→19:35)
--- NOTE | 2019-10-07 18:23 | XR ---
EXAMINATION TYPE: XR KUB DATE OF EXAM: 10/07/2019 6:15 PM CLINICAL HISTORY: History of Crohn's disease with abdominal pain. TECHNIQUE: Two Upright KUB images of the abdomen are obtained. COMPARISON: Abdominal x-ray from [address] abdomen and pelvis from September 14, 2019.. FINDINGS: Gas is seen in nondistended stomach. Scattered gas is seen in non-distended small bowel loo ps. Gas and fecal material is seen in non-distended colon and rectum. Cholecystectomy clips are redem onstrated. No pneumoperitoneum. Lung bases remain clear. Osseous structures remain intact. IMPRESSION: Overall nonobstructive bowel gas pattern. No significant change from prior studies.
[2019-10-07 18:44] LABS: Basophils # (A) 0.1 k/uL (0-0.2); Basophils % (A) 0 %; Eosinophils # (A) 0.2 k/uL (0-0.7); Eosinophils % (A) 1 %; HCT 42.6 % (34.0-46.0); HGB 14.4 gm/dL (11.4-16.0); Lymphocytes # (A) 3.8 k/uL (1.0-4.8); Lymphocytes % (A) 30 %; MCH 30.6 pg (25.0-35.0); MCHC 33.7 g/dL (31.0-37.0); MCV 90.9 fL (80.0-100.0); Mean Platelet Volume 8.6; Monocytes # (A) 0.6 k/uL (0-1.0); Monocytes % (A) 4 %; Neutrophils # (A) 7.9 k/uL (1.3-7.7); Neutrophils % (A) 63 %; Platelet Count 299 k/uL (150-450); RBC 4.68 m/uL (3.80-5.40); RDW 12.4 % (11.5-15.5); WBC 12.5 k/uL (3.8-10.6)
[2019-10-07 18:46] LABS: Appearance,Urine Cloudy (Clear); Bacteria,Urine Occasional /hpf; Bilirubin,Urine Negative (Negative); Blood,Urine Negative (Negative); Color,Urine Yellow; Glucose,Urine (UA) Negative (Negative); Hyaline Casts,Urine 1 /lpf (0-2); Ketones,Urine Negative (Negative); Leukocyte Esterase,Urine Negative (Negative); Mucus,Urine Few /hpf; Nitrite,Urine Negative (Negative); PH, Urine 5.5 (5.0-8.0); Protein,Urine Negative (Negative); RBC,Urine 1 /hpf (0-5); Specific Gravity,Urine 1.025 (1.001-1.035); Squamous Epithelial Cell,Urine 8 /hpf (0-4); Urobilinogen,Urine <2.0 mg/dL (<2.0); WBC,Urine 3 /hpf (0-5)
[2019-10-07 18:58] LABS: ALT 19 U/L (4-34); AST 20 U/L (14-36); African American GFR (CKD) >90 (>60 ml/min/1.73 sqM); Albumin 4.6 g/dL (3.5-5.0); Alkaline Phosphatase 75 U/L (38-126); Amylase 47 U/L (30-110); Anion Gap 10 mmol/L; Blood Urea Nitrogen 17 mg/dL (7-17); Calcium 9.4 mg/dL (8.4-10.2); Carbon Dioxide 22 mmol/L (22-30); Chloride 107 mmol/L (98-107); Glucose 95 mg/dL (74-99); Non-African American GFR(CKD) >90 (>60 ml/min/1.73 sqM); Potassium 4.2 mmol/L (3.5-5.1); Sodium 139 mmol/L (137-145); Total Bilirubin 0.6 mg/dL (0.2-1.3); Total Protein 7.6 g/dL (6.3-8.2)
--- NOTE | 2019-10-07 19:31 | ED ---
Abdominal Pain HPI - General Chief Complaint: Abdominal Pain Stated Complaint: ulcerative colitis flare Time Seen by Provider: 10/07/19 17:04 Source: patient, family Mode of arrival: ambulatory Limitations: no limitations - History of Present Illness Initial Comments: 28yo female presenting today for chief complaint of abdominal pain stitches upper abdominal pain history of previous cholecystectomy. Patient states that the pain somewhat radiates towards her ribs. Patient states it does not like chest pain is stiffly abdominal pain she was told that she most likely is having ulcerative colitis flare and she has increased rectal bleeding and possibly a Crohn's flare and she has this diagnosis is broad by her GI specialist who sent patient to the emergency department. Patient is currently at 60 mg of prednisone. Patient denies any chest pressure jaw pain and arm pain patient denies any history of diabetes or hypertension. Patient denies any family history of premature CAD loss in the age of 30. Patient denies SOB, leg swelling. Patient has no additional complaints. Upon arrival patient appears well. - Related Data Home Medications Medication Instructions Recorded Confirmed Mesalamine [Pentasa] 750 mg PO TID 07/09/19 09/20/19 predniSONE 50 mg PO DAILY 07/09/19 09/20/19 Ibuprofen 800 mg PO Q8H PRN 09/20/19 09/20/19 Previous Rx's Medication Instructions Recorded HYDROcodone/APAP 5-325MG [[place] 1 each PO Q4HR PRN tab 09/23/19 5-325] Mesalamine [Rowasa] 4 gm RECTAL HS #14 ml 09/23/19 HYDROcodone/APAP 5-325MG [[place] 1 tab PO Q6HR PRN #10 tab 10/02/19 5-325] Allergies Allergy/AdvReac Type Severity Reaction Status Date / Time codeine Allergy Mild Rash/Hives Verified 10/07/19 17:01 ketorolac [From Toradol] Allergy Rash/Hives Verified 10/07/19 17:01 morphine Allergy Rash/Hives Verified 10/07/19 17:01 Penicillins Allergy Unknown Verified 10/07/19 17:01 Childhood haloperidol [From Haldol] AdvReac Rapid Verified 10/07/19 17:01 Heart Rate Review of Systems ROS Statement: Those systems with pertinent positive or pertinent negative responses have been documented in the HPI. ROS Other: All systems not noted in ROS Statement are negative. Past Medical History Additional Past Medical History / Comment(s): crohns, ulcerative colitis, endometriosis History of Any Multi-Drug Resistant Organisms: MRSA Date of last positivie culture/infection: 2016 MDRO Source:: right ear Past Surgical History: Adenoidectomy, Section, Cholecystectomy, Tonsillectomy Additional Past Surgical History / Comment(s): right ovary removed. surgery to remove scar tissue. wisdom teeth removal Past Anesthesia/Blood Transfusion Reactions: No Reported Reaction Additional Past Anesthesia/Blood Transfusion Reaction / Comment(s): MRSA Past Psychological History: Depression Smoking Status: Former smoker Past Alcohol Use History: None Reported Past Drug Use History: None Reported General Exam - General Exam Comments Initial Comments: General: The patient is awake and alert, in no distress Eye: +3 mm pupils are equal, round and reactive to light, extra-ocular movements are intact. No nystagmus. There is normal conjunctiva bilaterally. No signs of icterus. No photophobia Ears, nose, mouth and throat: There are moist mucous membranes and no oral lesions. Cardiovascular: There is a regular rate and rhythm. No murmur, rub or gallop is appreciated. Respiratory: Lungs are clear to auscultation, respirations are non-labored, breath sounds are equal. No wheezes, stridor, rales, or rhonchi. No retractions or abdominal breathing. Gastrointestinal: Soft, non-distended, mild diffusely tender abdomen without masses or organomegaly noted. There is no rebound or guarding present. Bowel sounds are unremarkable. Musculoskeletal: Normal ROM, no tenderness. Strength 5/5. Sensation intact. Radial pulses equal bilaterally 2+. Neurological: A&O x 3. CN II-XII intact, There are no obvious motor or sensory deficits. Coordination appears grossly intact. Speech appears normal, no muffling. Skin: Skin is warm and dry and no rashes or lesions are noted. No extremity edema, no calf pain or swelling. Psychiatric: Cooperative Limitations: no limitations Course Vital Signs 10/07/19 16:57 Temperature 98.1 F Pulse Rate 93 Respiratory 18 Rate Blood Pressure 114/80 O2 Sat by Pulse 98 Oximetry Medical Decision Making - Medical Decision Making 28-year-old female presenting today for chief complaint of abdominal pain. She states is upper. Patient states that chest pain is towards the abdomen started somewhat does increase with a deep breath but is in the upper abdomen. She is a history of previous cholecystectomy. Patient does not have transaminitis her alkaline phosphatase as well as bilirubin are within normal limits. Patient has mild leukocytosis however she is on chronic steroids at 60 mg daily. Patient has had frequent visits for abdominal pain she is now experiencing rectal bleeding and had contacted her [place] [facility] office who recommended patient come to the emergency department for evaluation. Patient's pain is intractable emergency department. The patient's history we will admit for GI consultation and IV steroids for what is most that we felt this time IBD flare. Patient case was discussed with Dr. Quiroz who felt admission was reasonable at this time.He spoke with admitting providers. - Lab Data Result diagrams: 10/07/19 18:00 10/07/19 18:00 Lab Results 10/07/19 10/07/19 10/07/19 Range/Units 18:00 18:00 18:00 WBC 12.5 H (3.8-10.6) k/uL RBC 4.68 (3.80-5.40) m/uL Hgb 14.4 (11.4-16.0) gm/dL Hct 42.6 (34.0-46.0) % MCV 90.9 (80.0-100.0) fL MCH 30.6 (25.0-35.0) pg MCHC 33.7 (31.0-37.0) g/dL RDW 12.4 (11.5-15.5) % Plt Count 299 (150-450) k/uL Neutrophils % 63 % Lymphocytes % 30 % Monocytes % 4 % Eosinophils % 1 % Basophils % 0 % Neutrophils # 7.9 H (1.3-7.7) k/uL Lymphocytes # 3.8 (1.0-4.8) k/uL Monocytes # 0.6 (0-1.0) k/uL Eosinophils # 0.2 (0-0.7) k/uL Basophils # 0.1 (0-0.2) k/uL Sodium 139 (137-145) mmol/L Potassium 4.2 (3.5-5.1) mmol/L Chloride 107 (98-107) mmol/L Carbon Dioxide 22 (22-30) mmol/L Anion Gap 10 mmol/L BUN 17 (7-17) mg/dL Creatinine 0.68 (0.52-1.04) mg/dL Est GFR (CKD-EPI)AfAm >90 (>60 ml/min/1.73 sqM) Est GFR (CKD-EPI)NonAf >90 (>60 ml/min/1.73 sqM) Glucose 95 (74-99) mg/dL Plasma Lactic Acid [place]rick (0.7-2.0) mmol/L Calcium 9.4 (8.4-10.2) mg/dL Total Bilirubin 0.6 (0.2-1.3) mg/dL AST 20 (14-36) U/L ALT 19 (4-34) U/L Alkaline Phosphatase 75 (38-126) U/L Troponin I (0.000-0.034) ng/mL Total Protein 7.6 (6.3-8.2) g/dL Albumin 4.6 (3.5-5.0) g/dL Amylase 47 (30-110) U/L Lipase 96 (23-300) U/L Urine Color Yellow Urine Appearance Cloudy H (Clear) Urine pH 5.5 (5.0-8.0) Ur Specific [place] 1.025 (1.001-1.035) Urine Protein Negative (Negative) Urine Glucose (UA) Negative (Negative) Urine Ketones Negative (Negative) Urine Blood Negative (Negative) Urine Nitrite Negative (Negative) Urine Bilirubin Negative (Negative) Urine Urobilinogen <2.0 (<2.0) mg/dL Ur Leukocyte Esterase Negative (Negative) Urine RBC 1 (0-5) /hpf Urine WBC 3 (0-5) /hpf Ur Squamous Epith Cells 8 H (0-4) /hpf Urine Bacteria Occasional H (None) /hpf Hyaline Casts 1 (0-2) /lpf Urine Mucus Few H (None) /hpf Urine HCG, Qual (Not Detectd) 10/07/19 10/07/19 10/07/19 Range/Units 18:00 18:00 18:00 WBC (3.8-10.6) k/uL RBC (3.80-5.40) m/uL Hgb (11.4-16.0) gm/dL Hct (34.0-46.0) % MCV (80.0-100.0) fL MCH (25.0-35.0) pg MCHC (31.0-37.0) g/dL RDW (11.5-15.5) % Plt Count (150-450) k/uL Neutrophils % % Lymphocytes % % Monocytes % % Eosinophils % % Basophils % % Neutrophils # (1.3-7.7) k/uL Lymphocytes # (1.0-4.8) k/uL Monocytes # (0-1.0) k/uL Eosinophils # (0-0.7) k/uL Basophils # (0-0.2) k/uL Sodium (137-145) mmol/L Potassium (3.5-5.1) mmol/L Chloride (98-107) mmol/L Carbon Dioxide (22-30) mmol/L Anion Gap mmol/L BUN (7-17) mg/dL Creatinine (0.52-1.04) mg/dL Est GFR (CKD-EPI)AfAm (>60 ml/min/1.73 sqM) Est GFR (CKD-EPI)NonAf (>60 ml/min/1.73 sqM) Glucose (74-99) mg/dL Plasma Lactic Acid Derrick 1.3 (0.7-2.0) mmol/L Calcium (8.4-10.2) mg/dL Total Bilirubin (0.2-1.3) mg/dL AST (14-36) U/L ALT (4-34) U/L Alkaline Phosphatase (38-126) U/L Troponin I <0.012 (0.000-0.034) ng/mL Total Protein (6.3-8.2) g/dL Albumin (3.5-5.0) g/dL Amylase (30-110) U/L Lipase (23-300) U/L Urine Color Urine Appearance (Clear) Urine pH (5.0-8.0) Ur Specific [place] (1.001-1.035) Urine Protein (Negative) Urine Glucose (UA) (Negative) Urine Ketones (Negative) Urine Blood (Negative) Urine Nitrite (Negative) Urine Bilirubin (Negative) Urine Urobilinogen (<2.0) mg/dL Ur Leukocyte Esterase (Negative) Urine RBC (0-5) /hpf Urine WBC (0-5) /hpf Ur Squamous Epith Cells (0-4) /hpf Urine Bacteria (None) /hpf Hyaline Casts (0-2) /lpf Urine Mucus (None) /hpf Urine HCG, Qual Not Detected (Not Detectd) Disposition Clinical Impression: Intractable abdominal pain, Hx of Crohn's disease, Hx of ulcerative colitis Disposition: ADMITTED IP TO THIS [facility] Condition: Stable Is patient prescribed a controlled substance at d/c from ED?: No Referrals: None,Stated [Primary Care Provider] - 1-2 days Time of Disposition: 19:34 Decision to Admit Reason: Admit from EC Decision Date: 10/07/19 Decision Time: 19:34
[2019-10-07] MEDS ORDERED: SODIUM CHLORIDE 0.9% 1,000 ML IV ONE (19:33)
[2019-10-07] MEDS ORDERED: ONDANSETRON 4 MG/2 ML VIAL IVP PRN (19:34)
[2019-10-07] MEDS ORDERED: HYDROmorphone 0.5 MG/0.5 ML SYRINGE IVP PRN (19:34)
[2019-10-07] MEDS ORDERED: NALOXONE 0.4 MG/ML 1 ML VIAL IV PRN (19:34)
[2019-10-07] MEDS: SODIUM CHLORIDE 0.9% 1,000 ML IV SCH (21:03)
--- NOTE | 2019-10-07 22:00 | P.HPIM ---
History of Present Illness H&P Date: 10/07/19 The patient is a 28 yo F with a PMH of ulcerative colitis, initially diagnosed in 2013, with subsequent rebiopsy by Dr. Sofia on 06/04/19 showing active ulcerative colitis, on maintenance prednisone 60 mg oral daily and mesalamine, following with Dr. Beckwith presents to the ED for abdominal pain and diarrhea. She notes intermittent diffuse abdominal pain, unable to quantify, with no clear alleviating or exacerbating features, occurring numerous times throughout the day. The patient was recently discharged from the hospital 2 weeks ago when she had presented for similar complaints. The patient is currently in the process of getting insurance authorization for Remicade. She notes that her symptoms have persisted despite a recent increase in her prednisone from 50 mg daily to 60 mg. She reports 5-6 soft bowel movements a day. She also notes that she has been under excessive amount of stress at home due to her young baby. The patient explicitly asked if she will be receiving Dilaudid 0.5 mg via IV q3h and 50 mg Benadryl IVP at bedtime to help her sleep. Upon discussing that the IV pain medications are not appropriate for ulcerative colitis and that the IV benadryl should not be used for anxiety or insomnia, the patient became tearful and stated that she always receives the pain medications when she is in the hospital. The patient reported that at time of the interview, she did not have any pain, though then asked if she may receive a dose of IV pain medications before being switched to oral. The patient otherwise denied fever, chills, nausea, vomiting, chest pain, shortness of breath, or dizziness. The patient underwent an extensive evaluation in the emergency room. EKG revealed sinus rhythm at 72 bpm with TWI in leads II, III, aVF, V1, and V2. KUB was unremarkable. Laboratory evaluation revealed a troponin less than 0.012, WBC count 12.5, hemoglobin 14.4, platelets 299, sodium 139, potassium 4.2, chloride 107, CO2 22, BUN 17, creatinine 0.68, glucose of 95. UA was unremarkable. The case was discussed with GI by the ED physician who recommended admission to the medicine service. Review of Systems Pertinent positives and negatives as discussed in HPI, a complete review of systems was performed and all other systems are negative. Past Medical History Additional Past Medical History / Comment(s): crohns, ulcerative colitis, endometriosis History of Any Multi-Drug Resistant Organisms: MRSA Date of last positivie culture/infection: 2016 MDRO Source:: right ear Past Surgical History: Adenoidectomy, Section, Cholecystectomy, Tonsillectomy Additional Past Surgical History / Comment(s): right ovary removed. surgery to remove scar tissue. wisdom teeth removal Past Anesthesia/Blood Transfusion Reactions: No Reported Reaction Additional Past Anesthesia/Blood Transfusion Reaction / Comment(s): MRSA Past Psychological History: Depression Smoking Status: Former smoker Past Alcohol Use History: None Reported Past Drug Use History: None Reported Medications and Allergies Home Medications Medication Instructions Recorded Confirmed Type Mesalamine [Pentasa] 750 mg PO TID 07/09/19 10/07/19 History predniSONE 60 mg PO DAILY 07/09/19 10/07/19 History Ibuprofen 800 mg PO Q8H PRN 09/20/19 10/07/19 History Mesalamine [Rowasa] 4 gm RECTAL HS #14 ml 09/23/19 10/07/19 Rx HYDROcodone/APAP 5-325MG [[place] 1 tab PO Q6HR PRN #10 tab 10/02/19 10/07/19 Rx 5-325] Acetaminophen Tab [Tylenol] 650 mg PO Q4H PRN 10/07/19 10/07/19 History Allergies Allergy/AdvReac Type Severity Reaction Status Date / Time codeine Allergy Mild Rash/Hives/ Verified 10/07/19 20:14 Swelling ketorolac [From Toradol] Allergy Rash/Hives Verified 10/07/19 20:14 morphine Allergy Rash/Hives Verified 10/07/19 20:14 Penicillins Allergy Unknown Verified 10/07/19 20:14 Childhood haloperidol [From Haldol] AdvReac Rapid Verified 10/07/19 20:14 Heart Rate Physical Exam Vitals: Vital Signs Temp Pulse Resp BP Pulse Ox 10/07/19 19:41 72 16 124/91 98 10/07/19 16:57 98.1 F 93 18 114/80 98 Intake and Output 10/07/19 10/07/19 10/07/19 06:59 14:59 22:59 Other: Weight 66.224 kg General: pleasant, comfortable female, non toxic, no distress, appears at stated age, overweight Derm: no unusual rashes/lesions no unusual ecchymoses, warm, dry Head: atraumatic, normocephalic, symmetric Eyes: EOMI, no lid lag, anicteric sclera, pupils equal round reactive to light ENT: Nose and ears atraumatic, no thrush, no pharyngeal erythema Neck: No thyromegaly, no cervical lymphadenopathy, trachea midline, supple Mouth: no lip lesion, mucus membranes moist Cardiovascular: S1S2 reg, no murmur, positive posterior tibial pulse bilateral, no edema, capillary refill less than 2 seconds Lungs: CTA bilateral, no rhonchi, no rales , no accessory muscle use Abdominal: soft, nontender to palpation, no guarding, no appreciable organomegaly, normal bowel sounds Ext: no gross muscle atrophy, muscle strength 5 out of 5 in all 4 extremities grossly, no contractures, Neuro: CN II-XI grossly intact, light touch intact all 4 extremities, finger to nose within normal limits, Psych: Alert, oriented, appropriate affect Results CBC & Chem 7: 10/07/19 18:00 10/07/19 18:00 Labs: Abnormal Lab Results - Last 24 Hours (Table) 10/07/19 10/07/19 Range/Units 18:00 18:00 WBC 12.5 H (3.8-10.6) k/uL Neutrophils # 7.9 H (1.3-7.7) k/uL Urine Appearance Cloudy H (Clear) Ur Squamous Epith Cells 8 H (0-4) /hpf Urine Bacteria Occasional H (None) /hpf Urine Mucus Few H (None) /hpf Assessment and Plan Plan: Ulcerative colitis flareup -Status post Solu-Medrol 125 mg in the emergency room -Continue with prednisone 60 mg twice a day for now -Patient reportedly unable to maintain remission with 60 mg qd -GI consulted -IVFs -Check ESR, CRP -C/w Mesalamine -C/w [place] 5mg q6h prn for now -Avoid IV pain medications due to concerns for drug-seeking behavior Leukocytosis, -Likely due to chronic steroid use Abnormal EKG -No previous EKG to compare -Patient denying any cardiac complaints at this time DVT prophylaxis -Heparin subq The patient is admitted with an anticipated less than 2 midnight stay for evaluation of acute UC flare up CODE STATUS: Full Code Discussed with: Patient Anticipated discharge date: 1-[address]: Home A total of 40 minutes was spent on the care of this complex patient more than 50% of the time was spent in counseling and care coordination.
[2019-10-07] MEDS: HYDROcodone/APAP 5-325MG 1 EACH TAB PO PRN (23:19)
[2019-10-08] MEDS: MESALAMINE PO SCH ×4 (01:09→20:08)
[2019-10-08] MEDS: HEPARIN SODIUM,PORCINE 5,000 UNIT/ML 1 ML VIAL SQ SCH ×4 (01:09→23:54)
[2019-10-08] MEDS: HYDROcodone/APAP 5-325MG 1 EACH TAB PO PRN ×4 (05:48→23:54)
[2019-10-08 07:03] LABS: HCT 38.5 % (34.0-46.0); HGB 13.2 gm/dL (11.4-16.0); MCH 31.4 pg (25.0-35.0); MCHC 34.3 g/dL (31.0-37.0); MCV 91.7 fL (80.0-100.0); Mean Platelet Volume 7.7; Platelet Count 299 k/uL (150-450); RDW 12.3 % (11.5-15.5)
[2019-10-08 07:15] LABS: Magnesium 1.8 mg/dL (1.6-2.3)
[2019-10-08] MEDS ORDERED: predniSONE 20 MG TAB PO SCH (09:00)
[2019-10-08] MEDS: SODIUM CHLORIDE 0.9% 1,000 ML IV SCH ×2 (09:04→21:39)
[2019-10-08 09:52] LABS: C Reactive Protein 5.3 mg/L (<10.0)
[2019-10-08 11:48] LABS: Erythrocyte Sedimentation Rate 14 mm/hr (0-20)
[2019-10-08] MEDS: methylPREDNISolone SOD SUCCI 40 MG/ML 1 ML VIAL IV SCH ×3 (12:03→23:54)
[2019-10-08] MEDS: PANTOPRAZOLE 40 MG/10 ML VIAL IVP SCH (12:04)
[2019-10-08] MEDS ORDERED: HYDROmorphone 0.5 MG/0.5 ML SYRINGE IVP STA (16:06)
--- NOTE | 2019-10-08 16:13 | P.PN ---
Subjective Progress Note Date: 10/08/19 Principal diagnosis: Crohn's flare Patient was seen and examined. No acute events overnight. Patient reports excruciating epigastric discomfort, 10 out of 10 in severity, unrelieved with [place], requesting Dilaudid. She is also requesting IV Benadryl for insomnia. She denies any chest pain, shortness of breath or palpitations. Complains of nausea but no vomiting. No fever or chills. States that her ulcerative colitis was flared up after she was given Motrin after teeth pulling. Objective - Vital Signs Vital signs: Vital Signs Temp 97.8 F 10/08/19 11:40 Pulse 68 10/08/19 11:40 Resp 17 10/08/19 11:40 BP 122/88 10/08/19 11:40 Pulse Ox 98 10/08/19 11:40 Intake & Output 10/07/19 10/08/19 10/08/19 18:59 06:59 18:59 Intake Total 1909 600 Balance 1909 600 Weight 66.224 kg 66.224 kg Intake: Intake, IV Titration 600 600 Amount Sodium Chloride 0.9% 1, 600 600 000 ml @ 75 mls/hr IV . [id number] SHELDON Rx#:[id number] Oral 1310 Other: # Voids 1 - Exam General: [non toxic], [no distress], [appears at stated age] Derm: [warm], [dry] Head: [atraumatic], [normocephalic], [symmetric] Eyes: [EOMI], [no lid lag], [anicteric sclera] Mouth: [no lip lesion], [mucus membranes moist] Cardiovascular: [S1S2 reg], [no murmur], [positive DP pulse bilateral], Lungs: [CTA bilateral], [no rhonchi, no rales] , [no accessory muscle use] Abdominal: [soft], [tenderness to palpation in the epigastric area without rebound], [no guarding], [no appreciable organomegaly] Ext: [no gross muscle atrophy], [no edema], [no contractures] Neuro: [no focal neuro deficits] Psych: [Alert], [oriented], [appropriate affect] - Labs CBC & Chem 7: 10/08/19 05:39 10/07/19 18:00 Labs: Abnormal Lab Results - Last 24 Hours (Table) 10/07/19 10/07/19 10/08/19 Range/Units 18:00 18:00 05:39 WBC 12.5 H 12.0 H (3.8-10.6) k/uL Neutrophils # 7.9 H (1.3-7.7) k/uL Urine Appearance Cloudy H (Clear) Ur Squamous Epith Cells 8 H (0-4) /hpf Urine Bacteria Occasional H (None) /hpf Urine Mucus Few H (None) /hpf Assessment and Plan Assessment: Ulcerative colitis flareup -Status post Solu-Medrol 125 mg in the emergency room -Continue with Solu-Medrol 20 mg IV every 8 hours -Patient reportedly unable to maintain remission with 60 mg qd -GI consulted -IVFs -ESR and CRP within normal limits -C/w Mesalamine -C/w [place] 5mg q6h prn for now -Avoid IV pain medications due to concerns for drug-seeking behavior, one-time dose of Dilaudid for pain management Leukocytosis, -Likely due to chronic steroid use Abnormal EKG -No previous EKG to compare -Patient denying any cardiac complaints at this time DVT prophylaxis -Heparin subq [Patient displaying drug-seeking behavior, requesting IV Benadryl with Dilaudid. On physical exam, she is displaying great tenderness in her abdomen. One-time dose of Dilaudid ordered. I will avoid Benadryl at this time. Given normal ESR and CRP was mildly elevated leukocytosis, possible very mild ulcerative c olitis flareup. Will discuss with GI. Likely DC tomorrow.]
--- NOTE | 2019-10-08 20:02 | P.CONS ---
History of Present Illness - Reason for Consult Consult date: 10/08/19 Abdominal pain, diarrhea Requesting physician: Tala Zhong - Chief Complaint Abdominal pain, diarrhea - History of Present Illness 28-year-old female with medical history significant for left-sided ulcerative colitis with frequent hospitalizations due to complaints of uncontrolled disease and drug-seeking behavior who presented back to the hospital with complaints of abdominal pain and frequency of bowel movements. Currently the patient is reporting bowel movements anywhere from 5-6 times daily with associated urgency and blood and mucus in the stool. The patient was diagnosed with ulcerative colitis proximally 6 years ago in [facility]. She had a colonoscopy with myself on 06/04/2019 which showed active proctosigmoiditis with biopsies c onsistent with active ulcerative colitis. The patient has been on steroid therapy for approximately 6 months and reports worsening of symptoms as she weans her steroid therapy. Currently the patient is on extremely high-dose of oral medication with prednisone 60 mg twice daily. She has been in the process of trying to initiate Remicade therapy and reports that her blood work is up-to-date in that she expects to be started on the medication in the next 1-2 weeks. She believes her current symptoms are secondary to use of NSAID medications after a wisdom tooth extraction. Complete laboratory investigation essentially normal on presentation with normal liver enzymes, inflammatory markers including ESR and CRP, amylase and lipase, and CBC with only mildly elevated WBC count of 12.5 likely in the setting of prolonged steroid use. Review of Systems REVIEW OF SYSTEMS: CONSTITUTIONAL: Denies any fevers, chills, weight change or fatigue. CARDIOVASCULAR: Denies any chest pain, palpitations high or low blood pressures RESPIRATORY: Denies any shortness of breath, hemoptysis or cough. GENITOURINARY: No dysuria or hematuria. MUSCULOSKELETAL: No weakness reported. SKIN: Denies any new rashes or lesions, jaundice or pallor. PSYCHIATRIC: Denies any depression or anxiety. NEUROLOGY: Denies headache, denies any new focal deficits. EARS/NOSE/THROAT: No recent hearing change, congestion, nasal discharge or sore throat. EYES: No pain in eyes, discharge or change in vision. GASTROINTESTINAL: As per HPI. Past Medical History Additional Past Medical History / Comment(s): crohns, ulcerative colitis, endometriosis History of Any Multi-Drug Resistant Organisms: MRSA Year Discovered:: 2017 MDRO Source:: right ear Past Surgical History: Adenoidectomy, Section, Cholecystectomy, Tonsillectomy Additional Past Surgical History / Comment(s): right ovary removed. surgery to remove scar tissue. wisdom teeth removal Past Anesthesia/Blood Transfusion Reactions: No Reported Reaction Additional Past Anesthesia/Blood Transfusion Reaction / Comm: MRSA Past Psychological History: Depression Smoking Status: Former smoker Past Alcohol Use History: None Reported Past Drug Use History: None Reported - Past Family History Mother Family Medical History: No Reported History Medications and Allergies Home Medications Medication Instructions Recorded Confirmed Type Mesalamine [Pentasa] 750 mg PO TID 07/09/19 10/07/19 History predniSONE 60 mg PO DAILY 07/09/19 10/07/19 History Ibuprofen 800 mg PO Q8H PRN 09/20/19 10/07/19 History Mesalamine [Rowasa] 4 gm RECTAL HS #14 ml 09/23/19 10/07/19 Rx HYDROcodone/APAP 5-325MG [[place] 1 tab PO Q6HR PRN #10 tab 10/02/19 10/07/19 Rx 5-325] Acetaminophen Tab [Tylenol] 650 mg PO Q4H PRN 10/07/19 10/07/19 History Allergies Allergy/AdvReac Type Severity Reaction Status Date / Time codeine Allergy Mild Rash/Hives/ Verified 10/07/19 20:14 Swelling ketorolac [From Toradol] Allergy Rash/Hives Verified 10/07/19 20:14 morphine Allergy Rash/Hives Verified 10/07/19 20:14 Penicillins Allergy Unknown Verified 10/07/19 20:14 Childhood haloperidol [From Haldol] AdvReac Rapid Verified 10/07/19 20:14 Heart Rate Physical Exam Vitals: Vital Signs Temp Pulse Pulse Resp BP BP Pulse Ox 10/08/19 05:00 97.4 F L 75 16 103/68 95 10/08/19 00:00 16 10/07/19 19:41 72 16 124/91 98 10/07/19 16:57 98.1 F 93 18 114/80 98 Intake and Output 10/07/19 10/08/19 10/08/19 22:59 06:59 14:59 Intake Total 1070 840 Balance 1070 840 Intake: Intake, IV Titration 600 Amount Sodium Chloride 0.9% 1, 600 000 ml @ 75 mls/hr IV . [id number] SHELDON Rx#:[id number] Oral 1070 240 Other: # Voids 1 Weight 66.224 kg On physical examination, patient appears comfortable in no apparent distress. HEAD: Normocephalic, atraumatic. EYES: No scleral icterus. No conjunctival injection. MOUTH: No lesions, tongue midline. NECK: Trachea midline, no gross abnormalities. CHEST: Clear to auscultation with no wheezing or rhonchi appreciated. HEART: Regular rate and rhythm. ABDOMEN: Soft. Bowel sounds are positive. No organomegaly. No guarding or rigidity. EXTREMITIES: No pedal edema. SKIN: No rashes, no jaundice. NEUROLOGIC: Alert and oriented x3. No focal deficits. Results CBC & Chem 7: 10/08/19 05:39 10/07/19 18:00 Labs: Abnormal Lab Results - Last 24 Hours (Table) 10/07/19 10/07/19 10/08/19 Range/Units 18:00 18:00 05:39 WBC 12.5 H 12.0 H (3.8-10.6) k/uL Neutrophils # 7.9 H (1.3-7.7) k/uL Urine Appearance Cloudy H (Clear) Ur Squamous Epith Cells 8 H (0-4) /hpf Urine Bacteria Occasional H (None) /hpf Urine Mucus Few H (None) /hpf Abdominal x-ray: report reviewed (X-ray abdomen essentially within normal limits.) Assessment and Plan (1) Hx of ulcerative colitis Narrative/Plan: 28-year-old female with a six-year history of uncomplicated ulcerative colitis affecting the left colon currently on therapy with an oral 5-ASA agent as well as a rectal 5-ASA agent and steroids. She has been on prolonged steroid therapy over the past 6 months reporting symptoms of abdominal pain, frequency of bowel movements and blood per rectum. Colonoscopy in 05/2019 significant for active left colonic ulcerative colitis biopsy-proven. Symptoms appear to be out of proportion of disease activity and patient does display drug-seeking behavior. Inflammatory markers normal on current presentation. She believes symptoms are secondary to use of NSAID medications after wisdom tooth extraction. In the process of getting approved and initiating biologic therapy. Current Visit: Yes Status: Acute Code(s): Z87.19 - PERSONAL HISTORY OF OTHER DISEASES OF THE DIGESTIVE SYSTEM SNOMED Code(s): 201224079 (2) Abdominal pain Current Visit: No Status: Acute Code(s): R10.9 - UNSPECIFIED ABDOMINAL PAIN SNOMED Code(s): 01669276 (3) Blood in stool Current Visit: No Status: Acute Code(s): K92.1 - MELENA SNOMED Code(s): 469334519 Plan: Supportive care Okay for diet as tolerated Solu-Medrol 20 mg every 8 hours initiated Continue oral steroid therapy on discharge Patient offered dicyclomine as she likely has a component of functional pain but declined Patient will need follow-up with gastroenterology clinic after discharge with plan to initiate biological therapy ESR and CRP found to be within normal limits Continue to monitor BMP, CBC Judicious use of narcotics given pain seeking behavior, therapy should be targeted at treatment of underlying inflammatory bowel disease Continue 5-ASA enemas Thank you for allowing us to participate in the care of the patient
[2019-10-08] MEDS ORDERED: MESALAMINE 4 GM/60 ML ENEMA RECTAL SCH (21:00)
[2019-10-09] MEDS: HYDROcodone/APAP 5-325MG 1 EACH TAB PO PRN (06:28)
[2019-10-09] MEDS: methylPREDNISolone SOD SUCCI 40 MG/ML 1 ML VIAL IV SCH (07:38)
[2019-10-09] MEDS: HEPARIN SODIUM,PORCINE 5,000 UNIT/ML 1 ML VIAL SQ SCH (07:39)
[2019-10-09] MEDS: PANTOPRAZOLE 40 MG/10 ML VIAL IVP SCH (07:39)
[2019-10-09] MEDS: MESALAMINE PO SCH (07:39)
[2019-10-09] MEDS: SODIUM CHLORIDE 0.9% 1,000 ML IV SCH (10:02)
[2019-10-09 11:43] VITALS: BP 119/78; PULSE 59; RESP 17; TEMP 97.7
--- NOTE | 2019-10-09 13:09 | P.DS ---
Providers Date of admission: 10/07/19 20:07 Expected date of discharge: 10/09/19 Attending physician: Dino Silvestre MD Consults: 10/07/19 19:35 Consult Physician Routine Consulting Provider: Kelly Beckwith Consult Reason/Comments: established patient, uc/crohns flare Do you want consulting provider notified?: Yes Primary care physician: Stated None Hospital Course: The patient is a 28 yo F with a PMH of ulcerative colitis, initially diagnosed in 2013, with subsequent rebiopsy by Dr. Sofia on 06/04/19 showing active ulcerative colitis, on maintenance prednisone 60 mg oral daily and mesalamine, following with Dr. Beckwith presents to the ED for abdominal pain and diarrhea. She notes intermittent diffuse abdominal pain, unable to quantify, with no clear alleviating or exacerbating features, occurring numerous times throughout the day. The patient was recently discharged from the hospital 2 weeks ago when she had presented for similar complaints. The patient is currently in the process of getting insurance authorization for Remicade. She notes that her symptoms have persisted despite a recent increase in her prednisone from 50 mg daily to 60 mg. She reports 5-6 soft bowel movements a day. She also notes that she has been under excessive amount of stress at home due to her young baby. The patient explicitly asked if she will be receiving Dilaudid 0.5 mg via IV q3h and 50 mg Benadryl IVP at bedtime to help her sleep. Upon discussing that the IV pain medications are not appropriate for ulcerative colitis and that the IV benadryl should not be used for anxiety or insomnia, the patient became tearful and stated that she always receives the pain medications when she is in the hospital. The patient reported that at time of the interview, she did not have any pain, though then asked if she may receive a dose of IV pain medications before being switched to oral. The patient otherwise denied fever, chills, nausea, vomiting, chest pain, shortness of breath, or dizziness. The patient underwent an extensive evaluation in the emergency room. EKG revealed sinus rhythm at 72 bpm with TWI in leads II, III, aVF, V1, and V2. KUB was unremarkable. Laboratory evaluation revealed a troponin less than 0.012, WBC count 12.5, hemoglobin 14.4, platelets 299, sodium 139, potassium 4.2, chloride 107, CO2 22, BUN 17, creatinine 0.68, glucose of 95. UA was unremarkable. The case was discussed with GI by the ED physician who recommended admission to the medicine service. Patient was started on Solu-Medrol 20 mg IV every 8 hours. ESR and CRP was negative. She was continued on mesalamine. She was given [place] as needed for pain control. GI was consulted and continue to follow her through her admission. Patient was thought to be displaying drug-seeking behavior requesting IV Benadryl and Dilaudid. Patient was seen and examined. No acute events overnight. Patient reports resolution of her pain. She would like to go home. Cleared by GI. According to RN, patient able to eat pizza last night. Physical exam: Patient is in no acute distress. Ulcerative colitis flareup -Continue with home dose of prednisone. - She has a follow-up with GI on Sunday. -Patient reportedly unable to maintain remission with 60 mg qd -GI consulted -IVFs -ESR and CRP within normal limits -C/w Mesalamine -C/w [place] 5mg q6h prn for now -Avoid IV pain medications due to concerns for drug-seeking behavior Leukocytosis, -Likely due to chronic steroid use Abnormal EKG -No previous EKG to compare -Patient denying any cardiac complaints at this time DVT prophylaxis -Heparin subq Patient to be discharged home today. Pertinent Studies: KUGómez Patient Condition at Discharge: Stable Plan - Discharge Summary New Discharge Prescriptions: Continue predniSONE 60 mg PO DAILY Mesalamine [Pentasa] 750 mg PO TID Mesalamine [Rowasa] 4 gm RECTAL HS #14 ml Acetaminophen Tab [Tylenol] 650 mg PO Q4H PRN PRN Reason: Pain HYDROcodone/APAP 5-325MG [[place] 5-325] 1 tab PO Q6HR PRN #10 tab PRN Reason: Pain Discontinued Ibuprofen 800 mg PO Q8H PRN PRN Reason: pain/fever Discharge Medication List Mesalamine [Pentasa] 750 mg PO TID 07/09/19 [History] predniSONE 60 mg PO DAILY 07/09/19 [History] Mesalamine [Rowasa] 4 gm RECTAL HS #14 ml 09/23/19 [Rx] Acetaminophen Tab [Tylenol] 650 mg PO Q4H PRN 10/07/19 [History] HYDROcodone/APAP 5-325MG [[place] 5-325] 1 tab PO Q6HR PRN #10 tab 10/09/19 [Rx] Follow up Appointment(s)/Referral(s): Mari Mcmanus PAC [REFERRING] - 1 Week None,Stated [Primary Care Provider] - 1-2 days Discharge Disposition: HOME SELF-CARE
--- NOTE | 2019-10-09 19:52 | P.PN ---
Subjective Progress Note Date: 10/09/19 Principal diagnosis: Left-sided ulcerative colitis, abdominal pain Patient seen lying in bed still reporting symptoms but overall feeling better. No nausea or vomiting. Tolerating diet. Objective - Vital Signs Vital signs: Vital Signs Temp 97.6 F 10/09/19 05:00 Pulse 56 L 10/09/19 05:00 Resp 16 10/09/19 05:00 BP 111/65 10/09/19 05:00 Pulse Ox 96 10/09/19 05:00 Intake & Output 10/08/19 10/09/19 10/09/19 18:59 06:59 18:59 Intake Total 600 1800 Balance 600 1800 Intake: Intake, IV Titration 600 600 Amount Sodium Chloride 0.9% 1, 600 600 000 ml @ 75 mls/hr IV . [id number] SHELDON Rx#:[id number] Oral 1200 Other: Voiding Method Toilet # Voids 2 - Exam On physical examination, patient appears comfortable in no apparent distress. HEAD: Normocephalic, atraumatic. EYES: No scleral icterus. No conjunctival injection. MOUTH: No lesions, tongue midline. NECK: Trachea midline, no gross abnormalities. ABDOMEN: Soft, obese. Bowel sounds are positive. No organomegaly. No guarding or rigidity. EXTREMITIES: No pedal edema. SKIN: No rashes, no jaundice. NEUROLOGIC: Alert and oriented x3. No focal deficits. - Labs CBC & Chem 7: 10/08/19 05:39 10/07/19 18:00 Assessment and Plan (1) Hx of ulcerative colitis Narrative/Plan: 28-year-old female with a six-year history of uncomplicated ulcerative colitis affecting the left colon currently on therapy with an oral 5-ASA agent as well a s a rectal 5-ASA agent and steroids. She has been on prolonged steroid therapy over the past 6 months reporting symptoms of abdominal pain, frequency of bowel movements and blood per rectum. Colonoscopy in 05/2019 significant for active left colonic ulcerative colitis biopsy-proven. Symptoms appear to be out of proportion of disease activity and patient does display drug-seeking behavior. Inflammatory markers normal on current presentation. She believes symptoms are secondary to use of NSAID medications after wisdom tooth extraction. In the process of getting approved and initiating biologic therapy. Status: Acute Code(s): Z87.19 - PERSONAL HISTORY OF OTHER DISEASES OF THE DIGESTIVE SYSTEM SNOMED Code(s): 773050994 (2) Abdominal pain Status: Acute Code(s): R10.9 - UNSPECIFIED ABDOMINAL PAIN SNOMED Code(s): 95307831 (3) Blood in stool Status: Acute Code(s): K92.1 - MELENA SNOMED Code(s): 150644117 Plan: Supportive care Okay for diet as tolerated Solu-Medrol 20 mg every 8 hours initiated Continue oral steroid therapy on discharge Patient offered dicyclomine as she likely has a component of functional pain but declined Patient will need follow-up with gastroenterology clinic after discharge with plan to initiate biological therapy ESR and CRP found to be within normal limits Continue to monitor BMP, CBC Judicious use of narcotics given pain seeking behavior, therapy should be targeted at treatment of underlying inflammatory bowel disease Continue 5-ASA enemas Thank you for allowing us to participate in the care of the patient
== END 2019-10-09 12:55 | disposition home or self-care (01) | DRG 387 ==
LOC: EC 16:47 → 5NMEDONC 20:07
PROVIDERS: ADMIT Internal Medicine; ATTEND Internal Medicine
DX: K51.511 Left sided colitis with rectal bleeding (principal); D72.829 Elevated white blood cell count, unspecified; T38.0X5A Adverse effect of glucocorticoids and synthetic analogues, initial encounter; G47.00 Insomnia, unspecified; Z76.5 Malingerer [conscious simulation]; Z79.52 Long term (current) use of systemic steroids; Z79.899 Other long term (current) drug therapy; Z87.891 Personal history of nicotine dependence; Z90.49 Acquired absence of other specified parts of digestive tract; Z98.890 Other specified postprocedural states; Z86.14 Personal history of Methicillin resistant Staphylococcus aureus infection; Z90.721 Acquired absence of ovaries, unilateral; Z98.891 History of uterine scar from previous surgery; Z87.42 Personal history of other diseases of the female genital tract; Z86.59 Personal history of other mental and behavioral disorders; Z88.6 Allergy status to analgesic agent; Z88.5 Allergy status to narcotic agent; Z88.0 Allergy status to penicillin; Z88.8 Allergy status to other drugs, medicaments and biological substances
CPT/HCPCS: 36415; 74018; 80053; 81001; 81025; 82150; 83605; 83690; 83735; 84484; 85025; 85027; 85652; 86140; 93005; 96361; 96374; 96375; 96376; 99285

== ENCOUNTER 2019-10-12 11:53 | Emergency (ER) | payer OTHER ==
[2019-10-12 12:01] VITALS: TEMP 97.6
[2019-10-12] MEDS ORDERED: SODIUM CHLORIDE 0.9% 1,000 ML IV STA (12:47)
[2019-10-12] MEDS ORDERED: ONDANSETRON 4 MG/2 ML VIAL IVP STA (12:47)
[2019-10-12] MEDS ORDERED: HYDROmorphone 1 MG/ML 1 ML SYRINGE IVP STA ×3 (12:47→15:19)
[2019-10-12 13:14] LABS: Appearance,Urine Clear (Clear); Bilirubin,Urine Negative (Negative); Blood,Urine Negative (Negative); Color,Urine Yellow; Glucose,Urine (UA) Negative (Negative); Ketones,Urine Negative (Negative); Leukocyte Esterase,Urine Negative (Negative); Nitrite,Urine Negative (Negative); Protein,Urine Trace (Negative); Specific Gravity,Urine 1.025 (1.001-1.035); Urobilinogen,Urine <2.0 mg/dL (<2.0)
[2019-10-12 13:23] LABS: HGB 15.8 gm/dL (11.4-16.0); MCH 31.3 pg (25.0-35.0); MCHC 35.1 g/dL (31.0-37.0); MCV 89.1 fL (80.0-100.0); Mean Platelet Volume 7.2; Platelet Count 419 k/uL (150-450); RBC 5.05 m/uL (3.80-5.40); RDW 12.8 % (11.5-15.5); WBC 17.5 k/uL (3.8-10.6)
[2019-10-12 13:25] LABS: ALT 19 U/L (4-34); AST 22 U/L (14-36); African American GFR (CKD) >90 (>60 ml/min/1.73 sqM); Albumin 4.8 g/dL (3.5-5.0); Alkaline Phosphatase 66 U/L (38-126); Amylase 50 U/L (30-110); Anion Gap 10 mmol/L; Blood Urea Nitrogen 13 mg/dL (7-17); Carbon Dioxide 24 mmol/L (22-30); Chloride 103 mmol/L (98-107); Glucose 141 mg/dL (74-99); Non-African American GFR(CKD) >90 (>60 ml/min/1.73 sqM); Potassium 3.7 mmol/L (3.5-5.1); Sodium 137 mmol/L (137-145); Total Bilirubin 0.4 mg/dL (0.2-1.3); Total Protein 7.6 g/dL (6.3-8.2)
[2019-10-12 13:40] LABS: Eosinophils # (M) 0.35 k/uL (0-0.7); Lymphocytes # (M) 5.78 k/uL (1.0-4.8); Monocytes # (M) 0.53 k/uL (0-1.0); Neutrophils # (M) 10.85 k/uL (1.3-7.7); Neutrophils % (M) 62 %; Nucleated Red Blood Cells 0 /100 WBC (0-0); Total Cells Counted 100
--- NOTE | 2019-10-12 13:48 | XR ---
EXAMINATION TYPE: XR KUB , 2 VIEWS DATE OF EXAM ORDERED: 10/12/2019 HISTORY: abdominal pain. COMPARISON: Previous study dated 10/07/2019. FINDINGS: The lung bases are clear. Within the abdomen, the abdominal gas pattern is normal. There is no evidence of obstruction or free air. No unusual calcifications are seen. IMPRESSION: NO ACUTE INTRA-ABDOMINAL ABNORMALITY.
--- NOTE | 2019-10-12 14:48 | ED ---
Abdominal Pain HPI - General Chief Complaint: Abdominal Pain Stated Complaint: colitis, abdominal pain Time Seen by Provider: 10/12/19 12:06 Source: patient Mode of arrival: ambulatory Limitations: no limitations - History of Present Illness Initial Comments: 28 year-old female patient with past medical history significant for ulcerative colitis presents to the emergency department today for evaluation of increasing abdominal pain. Patient states that she's been unable to eat, unable to drink. States she is having bowel movements but is very difficult and painful for her. Patient was admitted in the hospital early this week for similar symptoms. States her pain is usually in the lower abdomen but today has been in the right upper quadrant. States it is radiating through to her back. She is nauseated but has not vomited. Denies any passage of hematochezia or melena. Denies fever but states she has been chilled. Patient currently takes high-dose prednisone 60 mg per day. She is waiting on prior authorization for her Remicade infusion. She sees Dr. Mari Mcmanus outpatient. Patient denies any recent rash, cough, shortness of breath, chest pain, numbness, tingling, dizziness, weakness, hematuria, dysuria, urinary urgency, urinary frequency, headache, visual changes, or any other complaints. - Related Data Home Medications Medication Instructions Recorded Confirmed Mesalamine [Pentasa] 750 mg PO TID 07/09/19 10/12/19 predniSONE 60 mg PO DAILY 07/09/19 10/12/19 Previous Rx's Medication Instructions Recorded Mesalamine [Rowasa] 4 gm RECTAL HS #14 ml 09/23/19 Hydrocodone/Acetaminophen [[place] 1 tab PO Q6HR PRN #12 tab 10/12/19 5-325] Allergies Allergy/AdvReac Type Severity Reaction Status Date / Time codeine Allergy Mild Rash/Hives/ Verified 10/12/19 15:09 Swelling ketorolac [From Toradol] Allergy Rash/Hives Verified 10/12/19 15:09 morphine Allergy Rash/Hives Verified 10/12/19 15:09 Penicillins Allergy Unknown Verified 10/12/19 15:09 Childhood haloperidol [From Haldol] AdvReac Rapid Verified 10/12/19 15:09 Heart Rate Review of Systems ROS Statement: Those systems with pertinent positive or pertinent negative responses have been documented in the HPI. ROS Other: All systems not noted in ROS Statement are negative. Past Medical History Additional Past Medical History / Comment(s): crohns, ulcerative colitis, endometriosis History of Any Multi-Drug Resistant Organisms: MRSA Date of last positivie culture/infection: 2016 MDRO Source:: right ear Past Surgical History: Adenoidectomy, Section, Cholecystectomy, Tonsillectomy Additional Past Surgical History / Comment(s): right ovary removed. surgery to remove scar tissue. wisdom teeth removal Past Anesthesia/Blood Transfusion Reactions: No Reported Reaction Additional Past Anesthesia/Blood Transfusion Reaction / Comment(s): MRSA Past Psychological History: Depression Smoking Status: Current every day smoker Past Alcohol Use History: None Reported Past Drug Use History: None Reported - Past Family History Mother Family Medical History: No Reported History General Exam Limitations: no limitations General appearance: alert, in no apparent distress, other (Physical well- developed, well-nourished adult female patient in no acute distress. Vital signs upon presentation are temperature 97.6F, pulse 98, respirations 18, blood pressure 118/95, pulse ox 97% on room air.) Eye exam: Present: normal appearance, PERRL, EOMI. Absent: scleral icterus, conjunctival injection, periorbital swelling ENT exam: Present: normal exam, normal oropharynx, mucous membranes moist Respiratory exam: Present: normal lung sounds bilaterally. Absent: respiratory distress, wheezes, rales, rhonchi, stridor Cardiovascular Exam: Present: regular rate, normal rhythm, normal heart sounds. Absent: systolic murmur, diastolic murmur, rubs, gallop, clicks GI/Abdominal exam: Present: soft, tenderness (Right upper quadrant tenderness, suprapubic tenderness), normal bowel sounds. Absent: distended, guarding, rebound, rigid Neurological exam: Present: alert, oriented X3, CN II-XII intact Psychiatric exam: Present: normal affect, normal mood Skin exam: Present: warm, dry, intact, normal color. Absent: rash Course Vital Signs 10/12/19 10/12/19 10/12/19 11:58 13:09 14:22 Temperature 97.6 F Pulse Rate 98 98 86 Respiratory 18 18 18 Rate Blood Pressure 118/95 123/94 106/81 O2 Sat by Pulse 97 97 98 Oximetry 10/12/19 10/12/19 14:59 15:43 Temperature Pulse Rate 78 81 Respiratory 18 16 Rate Blood Pressure 109/68 132/76 O2 Sat by Pulse 95 99 Oximetry Medical Decision Making - Medical Decision Making 28 year-old female patient presents to the emergency department today for evaluation of abdominal pain. She does have a history of ulcer colitis and currently taking high-dose steroids at 60 mg. Physical examination did reveal right upper quadrant and suprapubic tenderness. Labs reviewed and did reveal elevated white blood cell count felt to be most likely reactive from steroid use. Other labs are unremarkable. X-ray was negative. Patient was given doses of pain medication here in the emergency department this did seem to improve her symptoms. She'll be discharged at this time to follow-up with her primary care physician as well as her GI specialist for further evaluation. Return parameters were discussed in detail. She verbalizes understanding and agrees with this plan. - Lab Data Result diagrams: 10/12/19 13:00 10/12/19 13:00 Lab Results 10/12/19 10/12/19 10/12/19 Range/Units 12:55 12:55 13:00 WBC 17.5 H (3.8-10.6) k/uL RBC 5.05 (3.80-5.40) m/uL Hgb 15.8 (11.4-16.0) gm/dL Hct 45.0 (34.0-46.0) % MCV 89.1 (80.0-100.0) fL MCH 31.3 (25.0-35.0) pg MCHC 35.1 (31.0-37.0) g/dL RDW 12.8 (11.5-15.5) % Plt Count 419 (150-450) k/uL Neutrophils % (Manual) 62 % Lymphocytes % (Manual) 33 % Monocytes % (Manual) 3 % Eosinophils % (Manual) 2 % Neutrophils # (Manual) 10.85 H (1.3-7.7) k/uL Lymphocytes # (Manual) 5.78 H (1.0-4.8) k/uL Monocytes # (Manual) 0.53 (0-1.0) k/uL Eosinophils # (Manual) 0.35 (0-0.7) k/uL Nucleated RBCs 0 (0-0) /100 WBC Manual Slide Review Performed RBC Morphology Normal Sodium (137-145) mmol/L Potassium (3.5-5.1) mmol/L Chloride (98-107) mmol/L Carbon Dioxide (22-30) mmol/L Anion Gap mmol/L BUN (7-17) mg/dL Creatinine (0.52-1.04) mg/dL Est GFR (CKD-EPI)AfAm (>60 ml/min/1.73 sqM) Est GFR (CKD-EPI)NonAf (>60 ml/min/1.73 sqM) Glucose (74-99) mg/dL Calcium (8.4-10.2) mg/dL Total Bilirubin (0.2-1.3) mg/dL AST (14-36) U/L ALT (4-34) U/L Alkaline Phosphatase (38-126) U/L Total Protein (6.3-8.2) g/dL Albumin (3.5-5.0) g/dL Amylase (30-110) U/L Lipase (23-300) U/L Urine Color Yellow Urine Appearance Clear (Clear) Urine pH 6.0 (5.0-8.0) Ur Specific [place] 1.025 (1.001-1.035) Urine Protein Trace H (Negative) Urine Glucose (UA) Negative (Negative) Urine Ketones Negative (Negative) Urine Blood Negative (Negative) Urine Nitrite Negative (Negative) Urine Bilirubin Negative (Negative) Urine Urobilinogen <2.0 (<2.0) mg/dL Ur Leukocyte Esterase Negative (Negative) Urine HCG, Qual Not Detected (Not Detectd) 10/12/19 Range/Units 13:00 WBC (3.8-10.6) k/uL RBC (3.80-5.40) m/uL Hgb (11.4-16.0) gm/dL Hct (34.0-46.0) % MCV (80.0-100.0) fL MCH (25.0-35.0) pg MCHC (31.0-37.0) g/dL RDW (11.5-15.5) % Plt Count (150-450) k/uL Neutrophils % (Manual) % Lymphocytes % (Manual) % Monocytes % (Manual) % Eosinophils % (Manual) % Neutrophils # (Manual) (1.3-7.7) k/uL Lymphocytes # (Manual) (1.0-4.8) k/uL Monocytes # (Manual) (0-1.0) k/uL Eosinophils # (Manual) (0-0.7) k/uL Nucleated RBCs (0-0) /100 WBC Manual Slide Review RBC Morphology Sodium 137 (137-145) mmol/L Potassium 3.7 (3.5-5.1) mmol/L Chloride 103 (98-107) mmol/L Carbon Dioxide 24 (22-30) mmol/L Anion Gap 10 mmol/L BUN 13 (7-17) mg/dL Creatinine 0.60 (0.52-1.04) mg/dL Est GFR (CKD-EPI)AfAm >90 (>60 ml/min/1.73 sqM) Est GFR (CKD-EPI)NonAf >90 (>60 ml/min/1.73 sqM) Glucose 141 H (74-99) mg/dL Calcium 10.0 (8.4-10.2) mg/dL Total Bilirubin 0.4 (0.2-1.3) mg/dL AST 22 (14-36) U/L ALT 19 (4-34) U/L Alkaline Phosphatase 66 (38-126) U/L Total Protein 7.6 (6.3-8.2) g/dL Albumin 4.8 (3.5-5.0) g/dL Amylase 50 (30-110) U/L Lipase 120 (23-300) U/L Urine Color Urine Appearance (Clear) Urine pH (5.0-8.0) Ur Specific [place] (1.001-1.035) Urine Protein (Negative) Urine Glucose (UA) (Negative) Urine Ketones (Negative) Urine Blood (Negative) Urine Nitrite (Negative) Urine Bilirubin (Negative) Urine Urobilinogen (<2.0) mg/dL Ur Leukocyte Esterase (Negative) Urine HCG, Qual (Not Detectd) - Radiology Data Radiology results: report reviewed, image reviewed Two-view x-ray of the chest is obtained. Report was reviewed in its entirety. Impression by Dr. Iraheta shows no acute intra-abdominal abnormality. Disposition Clinical Impression: Abdominal pain, Depression Disposition: HOME SELF-CARE Condition: Good Instructions (If sedation given, give patient instructions): Depression (ED), Abdominal Pain (ED) Additional Instructions: Increase fluids. Take medication as directed. Follow up with your GI specialist for further evaluation in as soon as possible. Follow-up through primary care physician for recheck in 1-2 days. Return to the emergency department i mmediately for any new, worsening, or concerning symptoms. Prescriptions: Hydrocodone/Acetaminophen [[place] 5-325] 1 tab PO Q6HR PRN #12 tab PRN Reason: Pain Is patient prescribed a controlled substance at d/c from ED?: No Referrals: None,Stated [Primary Care Provider] - 1-2 days Time of Disposition: 15:26
[2019-10-12 15:44] VITALS: BP 132/76; PULSE 81; RESP 16
== END 2019-10-12 15:44 | disposition home or self-care (01) ==
LOC: EC 11:53
DX: R10.11 Right upper quadrant pain (principal); F32.9 Major depressive disorder, single episode, unspecified; D72.829 Elevated white blood cell count, unspecified; F17.200 Nicotine dependence, unspecified, uncomplicated; Z79.52 Long term (current) use of systemic steroids; Z88.8 Allergy status to other drugs, medicaments and biological substances; Z88.5 Allergy status to narcotic agent; Z88.6 Allergy status to analgesic agent; Z88.0 Allergy status to penicillin; Z87.19 Personal history of other diseases of the digestive system; Z86.14 Personal history of Methicillin resistant Staphylococcus aureus infection; Z90.49 Acquired absence of other specified parts of digestive tract
CPT/HCPCS: 36415; 80053; 82150; 83690; 85025; 81003; 81025; 74018; 99284; 96374; 96375; 96376 ×2; 96361 ×2; J2405; J1170

== ENCOUNTER 2019-10-15 23:05 | Inpatient (IN) | payer OTHER ==
[2019-10-15] MEDS ORDERED: ONDANSETRON 4 MG/2 ML VIAL IVP STA (23:29)
[2019-10-15] MEDS ORDERED: HYDROmorphone 1 MG/ML 1 ML SYRINGE IVP STA (23:29)
[2019-10-15] MEDS ORDERED: SODIUM CHLORIDE 0.9% 2,000 ML IV STA (23:29)
[2019-10-15 23:37] LABS: Appearance,Urine Clear (Clear); Bilirubin,Urine Negative (Negative); Blood,Urine Negative (Negative); Color,Urine Yellow; Glucose,Urine (UA) Negative (Negative); Ketones,Urine Negative (Negative); Leukocyte Esterase,Urine Negative (Negative); Nitrite,Urine Negative (Negative); PH, Urine 6.5 (5.0-8.0); Protein,Urine Negative (Negative); Specific Gravity,Urine 1.015 (1.001-1.035); Urobilinogen,Urine <2.0 mg/dL (<2.0)
--- NOTE | 2019-10-15 23:45 | ED ---
Abdominal Pain HPI - General Chief Complaint: Abdominal Pain Stated Complaint: Abdominal Pain Time Seen by Provider: 10/15/19 23:14 Source: patient, RN notes reviewed Mode of arrival: ambulatory Limitations: no limitations - History of Present Illness Initial Comments: This a 28 show female presents emergency Department with chief complaint of ongoing abdominal pain. Patient has a history of Crohn's disease. Patient currently is taking 60 mg of prednisone daily. Patient does daily enemas. Patient has been hospitalized several times for exacerbations they to rectal bleeding and pain. Patient states that she did respond fairly well with her cou rse of IV steroids. She states the bleeding has slowed down. She states that she's had increase rectal pain and swelling. She states that it is causing it to be hard to have a bowel movement. She states that she contacted her GI physician today in which they moved up her appointment from October 21 to October 19 and they advised her to come emergency department if she had no stool today. She's had increased abdominal distention and pain. She reports no fevers chills - Related Data Home Medications Medication Instructions Recorded Confirmed Mesalamine [Pentasa] 750 mg PO TID 07/09/19 10/12/19 predniSONE 60 mg PO DAILY 07/09/19 10/12/19 Previous Rx's Medication Instructions Recorded Mesalamine [Rowasa] 4 gm RECTAL HS #14 ml 09/23/19 Hydrocodone/Acetaminophen [[place] 1 tab PO Q6HR PRN #12 tab 10/12/19 5-325] Allergies Allergy/AdvReac Type Severity Reaction Status Date / Time codeine Allergy Mild Rash/Hives/ Verified 10/15/19 23:12 Swelling ketorolac [From Toradol] Allergy Rash/Hives Verified 10/15/19 23:12 morphine Allergy Rash/Hives Verified 10/15/19 23:12 Penicillins Allergy Unknown Verified 10/15/19 23:12 Childhood haloperidol [From Haldol] AdvReac Rapid Verified 10/15/19 23:12 Heart Rate Review of Systems ROS Statement: Those systems with pertinent positive or pertinent negative responses have been documented in the HPI. ROS Other: All systems not noted in ROS Statement are negative. Past Medical History Additional Past Medical History / Comment(s): crohns, ulcerative colitis, endometriosis History of Any Multi-Drug Resistant Organisms: MRSA Date of last positivie culture/infection: 2016 MDRO Source:: right ear Past Surgical History: Adenoidectomy, Section, Cholecystectomy, Tonsillectomy Additional Past Surgical History / Comment(s): right ovary removed. surgery to remove scar tissue. wisdom teeth removal Past Anesthesia/Blood Transfusion Reactions: No Reported Reaction Additional Past Anesthesia/Blood Transfusion Reaction / Comment(s): MRSA Past Psychological History: Depression Smoking Status: Current every day smoker Past Alcohol Use History: None Reported Past Drug Use History: None Reported - Past Family History Mother Family Medical History: No Reported History General Exam Limitations: no limitations General appearance: alert, in no apparent distress Head exam: Present: atraumatic, normocephalic, normal inspection Eye exam: Present: normal appearance, PERRL, EOMI. Absent: scleral icterus, conjunctival injection, periorbital swelling ENT exam: Present: normal exam, normal oropharynx, mucous membranes moist Neck exam: Present: normal inspection, full ROM. Absent: tenderness, meningismus, lymphadenopathy Respiratory exam: Present: normal lung sounds bilaterally. Absent: respiratory distress, wheezes, rales, rhonchi, stridor Cardiovascular Exam: Present: normal rhythm, tachycardia (Heart rate 117), normal heart sounds. Absent: systolic murmur, diastolic murmur, rubs, gallop, clicks GI/Abdominal exam: Present: soft, tenderness (Moderate diffuse), normal bowel sounds. Absent: distended, guarding, rebound, rigid Back exam: Absent: CVA tenderness (R), CVA tenderness (L) Neurological exam: Present: alert, oriented X3, CN II-XII intact Skin exam: Present: warm, dry, intact, normal color. Absent: rash Course Vital Signs 10/15/19 23:08 Temperature 98.4 F Pulse Rate 117 H Respiratory 20 Rate Blood Pressure 133/98 O2 Sat by Pulse 98 Oximetry Medical Decision Making - Medical Decision Making 8-year-old female presented for abdominal pain. She has underlying Crohn's disease. Patient been having worsening symptoms at this time. 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 Patient GI physician advises to presents emergency department for probable admission secondary to worsening Crohn symptoms, abdominal pain. X-ray does show a moderate amount constipation. She states that she was advised by her GI physician to avoid any laxatives. Patient does not having significant bleeding at this time. Patiently admitted for GI consultation. - Lab Data Result diagrams: 10/16/19 00:09 10/16/19 00:09 Lab Results 10/15/19 10/15/19 10/16/19 Range/Units 23:00 23:00 00:09 WBC 13.5 H (3.8-10.6) k/uL RBC 4.92 (3.80-5.40) m/uL Hgb 15.6 (11.4-16.0) gm/dL Hct 45.1 (34.0-46.0) % MCV 91.7 (80.0-100.0) fL MCH 31.8 (25.0-35.0) pg MCHC 34.6 (31.0-37.0) g/dL RDW 12.6 (11.5-15.5) % Plt Count 438 (150-450) k/uL Neutrophils % 55 % Lymphocytes % 35 % Monocytes % 4 % Eosinophils % 4 % Basophils % 1 % Neutrophils # 7.4 (1.3-7.7) k/uL Lymphocytes # 4.8 (1.0-4.8) k/uL Monocytes # 0.6 (0-1.0) k/uL Eosinophils # 0.5 (0-0.7) k/uL Basophils # 0.1 (0-0.2) k/uL Sodium (137-145) mmol/L Potassium (3.5-5.1) mmol/L Chloride (98-107) mmol/L Carbon Dioxide (22-30) mmol/L Anion Gap mmol/L BUN (7-17) mg/dL Creatinine (0.52-1.04) mg/dL Est GFR (CKD-EPI)AfAm (>60 ml/min/1.73 sqM) Est GFR (CKD-EPI)NonAf (>60 ml/min/1.73 sqM) Glucose (74-99) mg/dL Plasma Lactic Acid [place] (0.7-2.0) mmol/L Calcium (8.4-10.2) mg/dL Total Bilirubin (0.2-1.3) mg/dL AST (14-36) U/L ALT (4-34) U/L Alkaline Phosphatase (38-126) U/L C-Reactive Protein (<10.0) mg/L Total Protein (6.3-8.2) g/dL Albumin (3.5-5.0) g/dL Lipase (23-300) U/L Urine Color Yellow Urine Appearance Clear (Clear) Urine pH 6.5 (5.0-8.0) Ur Specific [place] 1.015 (1.001-1.035) Urine Protein Negative (Negative) Urine Glucose (UA) Negative (Negative) Urine Ketones Negative (Negative) Urine Blood Negative (Negative) Urine Nitrite Negative (Negative) Urine Bilirubin Negative (Negative) Urine Urobilinogen <2.0 (<2.0) mg/dL Ur Leukocyte Esterase Negative (Negative) Urine HCG, Qual Not Detected (Not Detectd) 10/16/19 10/16/19 Range/Units 00:09 00:09 WBC (3.8-10.6) k/uL RBC (3.80-5.40) m/uL Hgb (11.4-16.0) gm/dL Hct (34.0-46.0) % MCV (80.0-100.0) fL MCH (25.0-35.0) pg MCHC (31.0-37.0) g/dL RDW (11.5-15.5) % Plt Count (150-450) k/uL Neutrophils % % Lymphocytes % % Monocytes % % Eosinophils % % Basophils % % Neutrophils # (1.3-7.7) k/uL Lymphocytes # (1.0-4.8) k/uL Monocytes # (0-1.0) k/uL Eosinophils # (0-0.7) k/uL Basophils # (0-0.2) k/uL Sodium 132 L (137-145) mmol/L Potassium 3.8 (3.5-5.1) mmol/L Chloride 103 (98-107) mmol/L Carbon Dioxide 21 L (22-30) mmol/L Anion Gap 8 mmol/L BUN 15 (7-17) mg/dL Creatinine 0.58 (0.52-1.04) mg/dL Est GFR (CKD-EPI)AfAm >90 (>60 ml/min/1.73 sqM) Est GFR (CKD-EPI)NonAf >90 (>60 ml/min/1.73 sqM) Glucose 243 H (74-99) mg/dL Plasma Lactic Acid [place]rick 1.9 (0.7-2.0) mmol/L Calcium 10.0 (8.4-10.2) mg/dL Total Bilirubin 0.3 (0.2-1.3) mg/dL AST 19 (14-36) U/L ALT 21 (4-34) U/L Alkaline Phosphatase 68 (38-126) U/L C-Reactive Protein <5.0 (<10.0) mg/L Total Protein 7.3 (6.3-8.2) g/dL Albumin 4.6 (3.5-5.0) g/dL Lipase 175 (23-300) U/L Urine Color Urine Appearance (Clear) Urine pH (5.0-8.0) Ur Specific [place] (1.001-1.035) Urine Protein (Negative) Urine Glucose (UA) (Negative) Urine Ketones (Negative) Urine Blood (Negative) Urine Nitrite (Negative) Urine Bilirubin (Negative) Urine Urobilinogen (<2.0) mg/dL Ur Leukocyte Esterase (Negative) Urine HCG, Qual (Not Detectd) Disposition Clinical Impression: Exacerbation of Crohn's disease, Failure of outpatient treatment, Intractable abdominal pain, Constipation Disposition: ADMITTED IP TO THIS [facility] Condition: Stable Referrals: None,Stated [Primary Care Provider] - 1-2 days
[2019-10-16 00:23] LABS: Basophils # (A) 0.1 k/uL (0-0.2); Basophils % (A) 1 %; Eosinophils # (A) 0.5 k/uL (0-0.7); Eosinophils % (A) 4 %; HCT 45.1 % (34.0-46.0); HGB 15.6 gm/dL (11.4-16.0); Lymphocytes # (A) 4.8 k/uL (1.0-4.8); Lymphocytes % (A) 35 %; MCH 31.8 pg (25.0-35.0); MCHC 34.6 g/dL (31.0-37.0); MCV 91.7 fL (80.0-100.0); Monocytes # (A) 0.6 k/uL (0-1.0); Monocytes % (A) 4 %; Neutrophils # (A) 7.4 k/uL (1.3-7.7); Neutrophils % (A) 55 %; Platelet Count 438 k/uL (150-450); RBC 4.92 m/uL (3.80-5.40); RDW 12.6 % (11.5-15.5); WBC 13.5 k/uL (3.8-10.6)
[2019-10-16 00:36] LABS: ALT 21 U/L (4-34); AST 19 U/L (14-36); African American GFR (CKD) >90 (>60 ml/min/1.73 sqM); Albumin 4.6 g/dL (3.5-5.0); Alkaline Phosphatase 68 U/L (38-126); Anion Gap 8 mmol/L; Blood Urea Nitrogen 15 mg/dL (7-17); C Reactive Protein <5.0 mg/L (<10.0); Carbon Dioxide 21 mmol/L (22-30); Chloride 103 mmol/L (98-107); Glucose 243 mg/dL (74-99); Non-African American GFR(CKD) >90 (>60 ml/min/1.73 sqM); Potassium 3.8 mmol/L (3.5-5.1); Sodium 132 mmol/L (137-145); Total Bilirubin 0.3 mg/dL (0.2-1.3); Total Protein 7.3 g/dL (6.3-8.2)
--- NOTE | 2019-10-16 00:47 | XR ---
EXAMINATION TYPE: XR KUB DATE OF EXAM: 10/16/2019 COMPARISON: 10/12/2019 HISTORY: Abdominal pain TECHNIQUE: 2 views upright FINDINGS: Bowel gas pattern is normal. There is no sign of intestinal obstruction or pneumoperitoneum . Fecal pattern is normal. Lung bases are clear. There are no pathologic calcifications. There are cl ips from cholecystectomy. IMPRESSION: Nonacute abdomen. No change.
[2019-10-16] MEDS ORDERED: methylPREDNISolone SOD SUCCI 125 MG/2 ML VIAL IV STA (00:58)
[2019-10-16] MEDS ORDERED: HYDROmorphone 0.5 MG/0.5 ML SYRINGE IVP STA (00:58)
[2019-10-16] MEDS ORDERED: NALOXONE 0.4 MG/ML 1 ML VIAL IV PRN (01:00)
[2019-10-16] MEDS ORDERED: ONDANSETRON 4 MG/2 ML VIAL IVP PRN (01:00)
[2019-10-16] MEDS: diphenhydrAMINE 50 MG/ML 1 ML VIAL IVP PRN ×2 (01:15→19:53)
[2019-10-16] MEDS: HYDROmorphone 0.5 MG/0.5 ML SYRINGE IVP PRN ×6 (04:30→22:28)
[2019-10-16] MEDS: SODIUM CHLORIDE 0.9% 1,000 ML IV SCH ×2 (04:30→17:15)
[2019-10-16 07:47] LABS: Glucose,Whole Blood 267 mg/dL (75-99)
[2019-10-16] MEDS: INSULIN ASPART (NovoLOG) 100 UNIT/ML VIAL SQ SCH ×4 (08:01→21:19)
[2019-10-16] MEDS ORDERED: ACETAMINOPHEN TAB 500 MG TAB PO PRN (10:44)
[2019-10-16 11:21] LABS: Glucose,Whole Blood 217 mg/dL (75-99)
[2019-10-16] MEDS: PANTOPRAZOLE 40 MG/10 ML VIAL IVP SCH ×2 (12:06→21:18)
[2019-10-16] MEDS: HEPARIN SODIUM,PORCINE 5,000 UNIT/ML 1 ML VIAL SQ SCH ×2 (12:06→21:18)
[2019-10-16] MEDS: methylPREDNISolone SOD SUCCI 125 MG/2 ML VIAL IV SCH ×3 (12:06→23:57)
[2019-10-16 12:19] LABS: Cocaine Screen,Urine Not Detected (NotDetected); Phencyclidine Screen,Urine Not Detected (NotDetected); Urn Cannabinoid Scrn Not Detected (NotDetected)
[2019-10-16 12:20] LABS: Amphetamine Screen,Urine Not Detected (NotDetected); Barbiturate Screen,Urine Not Detected (NotDetected); Benzodiazepines Screen,Urine Not Detected (NotDetected); Methadone Screen, Urine Not Detected (NotDetected); Opiate Screen,Urine Detected (NotDetected); Oxycodone Screen, Urine Not Detected (NotDetected); Tricyclic Antidepressant,Urine Not Detected (NotDetected)
[2019-10-16] MEDS ORDERED: LORazepam 0.5 MG TAB PO PRN (12:48)
--- NOTE | 2019-10-16 14:06 | HP ---
HISTORY AND PHYSICAL DATE OF SERVICE: 10/16/2019 CHIEF COMPLAINT: Abdominal pain. HISTORY OF PRESENT ILLNESS: This is a 28-year-old woman with a past medical history of multiple medical problems including Crohn's disease, endometriosis, history of MRSA, adenoidectomy, section, depression, being followed by no primary physician in the outpatient setting and Mari Orona and Dr. Beckwith in the outpatient setting has taken Remicade before. The patient had multiple admissions with significant issues with Crohn's disease including abdominal pain and rectal bleeding. The patient is currently on high-dose steroids despite that the patient is complaining of abdominal pain, patient came to [facility] because of failure of outpatient treatment. The pain stated currently mostly in the upper abdomen. The patient is unable to take anything p.o. as well and the patient is started on IV steroids for possible Crohn's disease acute exacerbation. There is no history of fever, chills or rigors. No history of headache, loss of consciousness, seizures. PAST MEDICAL HISTORY: Crohn's disease, endometriosis, history of MRSA, history of cholecystectomy, history of depression. MEDICATIONS: Prior to admission include: 1. Tylenol 1000 mg p.o. q.6 p.r.n. 2. Prednisone 60 daily. 3. 4 g rectal q.h.s. 4. Pentasa 750 mg p.o. t.i.d. ALLERGIES: CODEINE, KETOROLAC, MORPHINE, PENICILLIN, ALLOPURINOL. FAMILY HISTORY: No history of heart disease or strokes in the family. SOCIAL HISTORY: History of smoking, continued ongoing. REVIEW OF SYSTEMS: ENT: No diminished vision, diminished hearing. CARDIOVASCULAR: No angina. RESPIRATORY: No cough. GI: As mentioned earlier. : No dysuria. NERVOUS SYSTEM: No numbness or weakness. ALLERGY/IMMUNOLOGY: No asthma or hay fever. MUSCULOSKELETAL: As mentioned earlier. RHEUMATOLOGY: As mentioned earlier. ENDOCRINE: No history of diabetes or hypothyroidism. CONSTITUTIONAL: As mentioned earlier. DERMATOLOGY: Negative. PSYCH: As mentioned earlier. PHYSICAL EXAM: Patient is alert, oriented x3, the pulse is 104, blood pressure 93/64, respiration 18, temperature 98.5, pulse ox 98% on room air skin: HEENT: Conjunctivae normal. NECK: No jugular venous distension. CARDIOVASCULAR SYSTEM: S1, S2, muffled. RESPIRATORY: Breath sounds diminished at the bases, no rhonchi, no crackles. ABDOMEN: Soft, mild diffuse tenderness in the upper abdomen present. No guarding. No rigidity. No mass palpable. Bowel sounds present, no ascites. LEGS: No edema, no swelling. NERVOUS SYSTEM: Higher function as mentioned earlier. Moves all 4 limbs. No focal motor signs. LYMPHATICS: No lymph node enlargement. SKIN: No ulcers, rash, bleeding. JOINTS: No active arthropathy. LABS: Glucose 261, 217, the WBC 13.4, sodium 132 and CO2 is 21. ASSESSMENT: 1. Crohn's disease acute exacerbation, with severe intractable abdominal pain with failure of outpatient treatment. 2. Hyponatremia. 3. Diabetes mellitus type 2. 4. Decreased CO2. 5. Increased WBC. 6. History of endometriosis. 7. History of methicillin-resistant Staphylococcus aureus. 8. History of section. 9. History of cholecystectomy. 10.History of depression. 11.History of continued ongoing nicotine dependence. 12.FULL CODE. RECOMMENDATION: This 28-year-old woman presented with multiple complex medical issues, at this time I recommend to continue current management. Will initiate broad-spectrum IV steroids and symptomatic treatment will be provided. DVT prophylaxis. Proton pump inhibitors. Gastroenterology consultation. IV steroids. Monitor blood sugars closely. Prognosis guarded because of multiple complex medical issues. Further recommendations to follow. Also recommend the patient to follow up with her primary physician closely after discharge. MMODL / IJN: [id number] / MTDD
[2019-10-16] MEDS: BALSALAZIDE DISODIUM 750 MG CAPSULE PO SCH ×2 (15:20→21:19)
--- NOTE | 2019-10-16 20:39 | CONS ---
CONSULTATION DATE OF DICTATION: 10/16/2019 The patient is a 28-year-old pleasant white female who was diagnosed with proctosigmoiditis two years ago. She has been steroid-dependent since her immediate period 7 months ago and has been maintained on prednisone between 30 and 40 mg daily. She has multiple hospitalizations in the last 7 month. She was seen by Dr. Sofia and had a colonoscopy on May of 2019 that showed active proctosigmoiditis. The patient is presently being considered for biological therapy, and Remicade approval is still pending. In the meantime she has been on prednisone 60 mg daily on an outpatient basis. She started having severe rectal urgency, but a very constipated- like feeling for the last few days. She tried to take some stool softeners, with no help. The pain continued to progressively get worse and she started having more abdominal discomfort. In fact, she did not have any bowel movements yesterday and hence came into the emergency room and subsequently was admitted to the hospital for further evaluation. She was started on IV Solu-Medrol 60 mg q.8 hours. She is feeling somewhat better this morning. She reports no nausea, vomiting. No fever, chills, night sweats. No cough. PAST MEDICAL HISTORY: Significant for ulcerative colitis diagnosed 6 years ago; has been steroid-dependent for several months; history of endometriosis. PAST SURGICAL HISTORY: Colonoscopy done in May [address] Sofia. MEDICATIONS AT HOME: Prednisone 60 mg daily, Rowasa enema once at bedtime and Tylenol p.r.n. ALLERGIES: PENICILLIN, MORPHINE, CODEINE, TORADOL AND HALDOL. SOCIAL HISTORY: No smoking. No alcohol use. FAMILY HISTORY: Unremarkable. REVIEW OF SYSTEMS: CARDIOPULMONARY: No chest pain or shortness of breath. GENITOURINARY: No dysuria or hematuria. MUSCULOSKELETAL: Unremarkable. SKIN: Unremarkable. ENDOCRINE: Unremarkable. PSYCHIATRIC: Unremarkable. NEUROLOGY: Unremarkable. ENT/VISION: Unremarkable. CONSTITUTIONAL: No recent weight loss. No fever, chills, night sweats. PHYSICAL EXAMINATION: She appears comfortable. No apparent distress. VITAL SIGNS: Stable. Blood pressure is 93/60, pulse rate 95, temperature 98.5. HEENT examination unremarkable. Conjunctivae pink. Sclerae anicteric. Oral cavity no lesions. NECK: No JVD or lymph node enlargement. CHEST: Clear to auscultation. HEART: Regular rate and rhythm. ABDOMEN: Soft. Bowel sounds are positive. No organomegaly. EXTREMITIES: No pedal edema. SKIN: No rashes. NEUROLOGIC: Alert and oriented x3. No focal deficits. LABS: Labs from today show WBC 12, hemoglobin 13.2, platelets normal. Basic metabolic panel is within normal limits. CRP less than 5. Amylase and lipase are normal. IMPRESSION: 1. Exacerbation of ulcerative colitis, steroid-dependent for the last 6 months' duration, presently being in the process of approval for biologic/Remicade. She had multiple hospitalizations over the last 6 months and presently on IV Solu-Medrol and doing much better. Last colonoscopy by Dr. Sofia in May of 2019 showed active proctosigmoiditis. 2. Chronic abdominal pain. RECOMMENDATIONS: 1. Continue with IV Solu-Medrol. 2. Start her on clear liquid diet. 3. If her symptoms improve, will change it to oral prednisone 60 mg daily and she can follow up with Dr. Sofia in a week. Plan was discussed with the patient. Thank you for this consultation. MMODL / IJN: [id number] /
[2019-10-16] MEDS ORDERED: MESALAMINE 4 GM/60 ML ENEMA RECTAL SCH (21:00)
[2019-10-16 22:36] VITALS: RESP 16
[2019-10-16] MEDS: HYDROcodone/APAP 5-325MG 1 EACH TAB PO PRN (23:22)
[2019-10-17] MEDS: HYDROmorphone 0.5 MG/0.5 ML SYRINGE IVP PRN ×4 (01:47→10:50)
[2019-10-17 04:35] VITALS: BP 106/73; PULSE 81; TEMP 98
[2019-10-17] MEDS: SODIUM CHLORIDE 0.9% 1,000 ML IV SCH (04:35)
[2019-10-17] MEDS: methylPREDNISolone SOD SUCCI 125 MG/2 ML VIAL IV SCH ×2 (05:57→11:40)
[2019-10-17] MEDS: HYDROcodone/APAP 5-325MG 1 EACH TAB PO PRN ×2 (05:58→11:45)
[2019-10-17 07:25] LABS: Basophils % (A) 0 %; Eosinophils % (A) 0 %; HCT 41.7 % (34.0-46.0); HGB 13.7 gm/dL (11.4-16.0); Lymphocytes # (A) 1.3 k/uL (1.0-4.8); Lymphocytes % (A) 5 %; MCH 31.3 pg (25.0-35.0); MCHC 32.9 g/dL (31.0-37.0); MCV 95.1 fL (80.0-100.0); Mean Platelet Volume 8.5; Monocytes # (A) 0.3 k/uL (0-1.0); Monocytes % (A) 1 %; Neutrophils # (A) 22.2 k/uL (1.3-7.7); Neutrophils % (A) 93 %; Platelet Count 363 k/uL (150-450); RBC 4.39 m/uL (3.80-5.40); WBC 23.9 k/uL (3.8-10.6)
[2019-10-17 07:34] LABS: African American GFR (CKD) >90 (>60 ml/min/1.73 sqM); Anion Gap 13 mmol/L; Blood Urea Nitrogen 7 mg/dL (7-17); Calcium 9.6 mg/dL (8.4-10.2); Carbon Dioxide 21 mmol/L (22-30); Chloride 104 mmol/L (98-107); Glucose 180 mg/dL (74-99); Non-African American GFR(CKD) >90 (>60 ml/min/1.73 sqM); Potassium 3.9 mmol/L (3.5-5.1); Sodium 138 mmol/L (137-145)
[2019-10-17] MEDS: BALSALAZIDE DISODIUM 750 MG CAPSULE PO SCH (07:43)
[2019-10-17] MEDS: HEPARIN SODIUM,PORCINE 5,000 UNIT/ML 1 ML VIAL SQ SCH (07:43)
[2019-10-17] MEDS: INSULIN ASPART (NovoLOG) 100 UNIT/ML VIAL SQ SCH ×2 (07:43→11:41)
[2019-10-17] MEDS: PANTOPRAZOLE 40 MG/10 ML VIAL IVP SCH (07:43)
[2019-10-17 07:47] LABS: Glucose,Whole Blood 221 mg/dL (75-99)
[2019-10-17 07:53] LABS: Glucose,Whole Blood 211 mg/dL (75-99)
[2019-10-17 08:02] LABS: Glucose,Whole Blood 182 mg/dL (75-99)
[2019-10-17 10:19] VITALS: BMI 27.6
[2019-10-17 11:23] LABS: Glucose,Whole Blood 214 mg/dL (75-99)
--- NOTE | 2019-10-17 13:23 | P.DS ---
Providers Date of admission: 10/16/19 01:01 Expected date of discharge: 10/17/19 Attending physician: Naheed Damon Consults: 10/16/19 01:01 Consult Physician Urgent Consulting Provider: Kelly Beckwith Consult Reason/Comments: Crohn's exacerbation Do you want consulting provider notified?: Yes Primary care physician: Stated None Hospital Course: Final diagnosis Crohn's disease acute exacerbation, with severe intractable abdominal pain with failure of outpatient treatment Hyponatremia Diabetes mellitus type 2 Decreased CO2 [place] increased WBC History of endometriosis History of methicillin-resistant Staphylococcus aureus History of section History of cholecystectomy History of depression History of continued ongoing nicotine dependence Full code Discharge disposition Patient is being discharged in a stable condition with guarded prognosis to home. Patient will follow-up with Dr. Luis in the outpatient setting upon discharge. Patient also instructed to follow-up with GI Dr. Sofia in the outpatient setting in 1 week. Patient to continue with her prednisone dose 60 mg daily per GI recommendations. Patient also instructed to continue monitoring blood glucose levels before meals at bedtime and keep a diary of blood glucose readings for primary care follow-up. Total time taken is 35 minutes. History of present illness This is a 28-year-old male who came in and was admitted with increased abdominal pain with failure of outpatient treatment and was being closely monitored. Patient does follow with GI in the outpatient setting with multiple admissions and significant issues with Crohn's disease including abdominal pain and rectal bleeding. Currently on high-dose steroids and awaiting a Remicade approval at this time. Patient currently does not have a primary care provider and will be referred to Dr. Luis for outpatient follow-up. Patient also instructed to follow-up with GI Dr. Sofia in the outpatient setting in 1 week. Patient was instructed to continue monitoring blood sugars before meals at bedtime and keep a diary of blood sugar readings and bring with her primary care follow-up visit. Patient provided prescription for Admelog as Humalog is not covered by insurance along with diabetic supplies. Patient also provided a prescription for lancets as she stated she has the glucometer but no lancets. Patient in structed to continue using NovoLog sliding scale and treat accordingly. Patient also instructed to continue monitoring blood sugars before meals at bedtime. Patient instructed to slowly advance diet as tolerated. Currently patient denies any chest pain, shortness of breath, or palpitations. Patient is afebrile. No reports of nausea or vomiting and patient is tolerating diet. Patient will be discharged today. Guarded prognosis On exam vital signs are stable. Temp is 98.0 F, pulse is 81, respirations are 16, blood pressure is 106/73 and oxygen saturation is 99% on room air. Cardio S1, S2 are muffled. Respiratory system shows diminished breath sounds at the bases with no wheezing or rhonchi noted. Abdomen is soft with some mild diffuse tenderness noted in the upper abdomen. No guarding or rigidity noted. Nervous system shows no focal deficits. Please refer to medication reconciliation sheet for a list of medications. Patient Condition at Discharge: Stable Plan - Discharge Summary Discharge Rx Participant: Yes New Discharge Prescriptions: New Balsalazide Disodium [Colazal] 1,500 mg PO TID #60 cap HYDROcodone/APAP 5-325MG [[place] 5-325] 1 each PO Q6HR PRN #12 tab PRN Reason: Pain Continue predniSONE 60 mg PO DAILY Mesalamine [Rowasa] 4 gm RECTAL HS #14 ml Acetaminophen [Tylenol] 1,000 mg PO Q6H PRN PRN Reason: Pain Discontinued Mesalamine [Pentasa] 750 mg PO TID Discharge Medication List predniSONE 60 mg PO DAILY 07/09/19 [History] Mesalamine [Rowasa] 4 gm RECTAL HS #14 ml 09/23/19 [Rx] Acetaminophen [Tylenol] 1,000 mg PO Q6H PRN 10/16/19 [History] Balsalazide Disodium [Colazal] 1,500 mg PO TID #60 cap 10/17/19 [Rx] HYDROcodone/APAP 5-325MG [[place] 5-325] 1 each PO Q6HR PRN #12 tab 10/17/19 [Rx] Follow up Appointment(s)/Referral(s): Aruna Luis MD [STAFF PHYSICIAN] - 1 Week (Please call the office and they will go over what you need to do to become a patient of this doctor.) Navi Sofia MD [STAFF PHYSICIAN] - 1 Week Ambulatory/Diagnostic Orders: Complete Blood Count w/diff [LAB.AMB] Time Frame: 3 Days, Location: None Selected Patient Instructions/Handouts: Crohn Disease (DC) Activity/Diet/Wound Care/Special Instructions: Activity Limited until follow-up Follow-up with Dr. Aruna Luis within one week Continue monitoring blood sugars before meals at bedtime and treat accordingly with Admelog sliding scale Admelog sliding scale: Blood sugar 150 and under 0 units 151-200 2 units 201-250 4 units 251-300 6 units 301-350 8 units 351-400 10 units and notify primary care provider Continue to advance diet slowly as tolerated Follow-up with GI in the outpatient setting Discharge Disposition: HOME SELF-CARE
--- NOTE | 2019-10-17 15:48 | PN ---
PROGRESS NOTE DATE OF SERVICE: 10/17/2019 Patient is a 28-year-old white female admitted to the hospital 2 days ago with exacerbation of ulcerative colitis, started on IV Solu-Medrol and feeling better. She had a bowel movement finally today. Abdominal pain has improved. She wants to go home. PHYSICAL EXAMINATION: Appears comfortable, in no apparent distress. Vital signs are stable, blood pressure 102/62, pulse rate 84 per minute and afebrile. HEENT: Examination unremarkable. Conjunctivae are pink, sclerae nonicteric, oral cavity no lesions. NECK: No JVD or lymph node enlargement. CHEST: Clear to auscultation. HEART: Regular rate and rhythm. ABDOMEN: Soft. Bowel sounds are positive. No organomegaly. EXTREMITIES: No pedal edema. NEUROLOGIC: Alert and oriented x3. No focal deficits. LABS: No labs available from today. IMPRESSION: Exacerbation of ulcerative colitis on IV Solu-Medrol, doing better. Presently on prednisone 60 mg daily. Wants to go home. Patient has been steroid-dependent for 7 months. RECOMMENDATIONS: 1. Continue with prednisone 60 mg daily. 2. Advance diet as tolerated. 3. Continue to watch the edema. 4. Appointment in the office next week and Remicade approval is a still pending. Thank you for this consultation. MMODL / IJN: [id number] /
[2019-10-17] MEDS ORDERED: PANTOPRAZOLE 40 MG TABLET PO SCH (21:00)
--- NOTE | 2019-10-20 11:01 | CDI ---
Documentation Clarification Form Date: 10/20/2019 10:54:19 AM From: Nohelia CageLEE, CCDS Admit Date: 10/16/2019 01:01:00 AM Patient Name: Lilian Tamayo Visit Number: [id number] Discharge Date: 10/17/2019 12:45:00 PM ATTENTION: The Clinical Documentation Specialists (CDI) and [facility] Coding Staff appreciate your assistance in clarifying documentation. Please respond to the clarification below the line at the bottom and electronically sign. The CDI & [facility] Coding staff will review the response and follow-up if needed. Please note: Queries are made part of the Legal Health Record. If you have any questions, please contact the author of this message via ITS. Dr. Naheed Damon: Patient had COVID 19 test done on 10/15, results: Negative. The COVID results are not documented in the chart. Patient history/risk factors: Emphysema, DM II, Crohn's Disease with multiple exacerbations, Smoker. Clinical Indicators: 28 yo female, admitted 10/15 with increased abdominal pain, failed outpatient treatment, follows with GI in outpatient setting regarding Crohn's disease. Currently on high-dose steroids, waiting Remicade approval. Diagnosed with Crohn's disease acute exacerbation & Hyponatremia. 10/15 LAB: Coronavirus: not detected. Treatment: Treatment of Crohn's disease: IV Dilaudid, IV Zofran, IV fluid bolus 2,000 mls @ 999/mls/hr, IV Solumedrol. In order to capture the severity of condition, please clarify if the above treatment/clinical indicators signify: COVID-19 Suspected COVID-19 ruled out Other, please specify Unable to determine (Last Form Revision: August 2019) COVID-19 ruled out MTDD
== END 2019-10-17 12:45 | disposition home or self-care (01) | DRG 386 ==
LOC: EC 23:05 → 5NMEDONC 10-16 01:01
PROVIDERS: ADMIT Hospitalist; ATTEND Hospitalist
DX: K50.90 Crohn's disease, unspecified, without complications (principal); E87.1 Hypo-osmolality and hyponatremia; Z11.59 Encounter for screening for other viral diseases; E11.9 Type 2 diabetes mellitus without complications; J43.9 Emphysema, unspecified; K59.00 Constipation, unspecified; F17.210 Nicotine dependence, cigarettes, uncomplicated; F32.9 Major depressive disorder, single episode, unspecified; G89.29 Other chronic pain; T38.0X5A Adverse effect of glucocorticoids and synthetic analogues, initial encounter; Z79.52 Long term (current) use of systemic steroids; Z79.899 Other long term (current) drug therapy; Z88.5 Allergy status to narcotic agent; Z88.0 Allergy status to penicillin; Z88.8 Allergy status to other drugs, medicaments and biological substances; Z86.14 Personal history of Methicillin resistant Staphylococcus aureus infection; Z90.49 Acquired absence of other specified parts of digestive tract; Z98.890 Other specified postprocedural states; Z90.721 Acquired absence of ovaries, unilateral; Z87.42 Personal history of other diseases of the female genital tract
CPT/HCPCS: 36415; 74018; 80048; 80053; 80306; 81003; 81025; 83036; 83605; 83690; 85025; 85652; 86140; 87635; 96361; 96374; 96375; 96376; 99285

== ENCOUNTER 2019-10-20 16:23 | Emergency (ER) | payer OTHER ==
[2019-10-20] MEDS ORDERED: SODIUM CHLORIDE 0.9% 1,000 ML IV STA (17:06)
[2019-10-20] MEDS ORDERED: HYDROmorphone 1 MG/ML 1 ML SYRINGE IVP STA (17:10)
--- NOTE | 2019-10-20 17:10 | ED ---
Abdominal Pain HPI - General Source: patient Mode of arrival: ambulatory Limitations: no limitations <Otis Henley - Last Filed: 10/20/19 19:14> <GuiJudith Jazmin - Last Filed: 10/22/19 11:55> - General Chief Complaint: Abdominal Pain Stated Complaint: abd pain Time Seen by Provider: 10/20/19 16:41 - History of Present Illness Initial Comments: Patient is 28-year-old female with history of ulcerative colitis presenting to the emergency department with a chief complaint abdominal pain. Patient reports she saw her GI specialist, Dr. Beckwith, who advised to come to the ED for pain continues to increase. Patient states she typically has diarrhea due to the ulcerative colitis, however she has developed constipation over the last 2 weeks. Patient reports a last bowel movement was one week ago. States the a bdominal pain is a 9 inconstant located in the epigastric region and radiates to the left lower quadrant. Does report taking Tylenol minimal improvement in symptoms. States she took 1 dose of MiraLAX as advised by Dr. Beckwith which exacerbated her symptoms. Denies any vaginal or urinary symptoms. Denies any vomiting but does report occasional nausea. Patient takes 60 mg of prednisone daily for the past 7 months. States this feels like her typical flareup. (Otis Henley) - Related Data Home Medications Medication Instructions Recorded Confirmed predniSONE 60 mg PO DAILY 07/09/19 10/16/19 Acetaminophen [Tylenol] 1,000 mg PO Q6H PRN 10/16/19 10/16/19 Previous Rx's Medication Instructions Recorded Mesalamine [Rowasa] 4 gm RECTAL HS #14 ml 09/23/19 Balsalazide Disodium [Colazal] 1,500 mg PO TID #60 cap 10/17/19 HYDROcodone/APAP 5-325MG [[place] 1 each PO Q6HR PRN #12 tab 10/17/19 5-325] Hydrocodone/Acetaminophen [[place] 1 tab PO BID #6 tab 10/20/19 5-325] Allergies Allergy/AdvReac Type Severity Reaction Status Date / Time codeine Allergy Mild Rash/Hives/ Verified 10/20/19 16:28 Swelling ketorolac [From Toradol] Allergy Rash/Hives Verified 10/20/19 16:28 morphine Allergy Rash/Hives Verified 10/20/19 16:28 Penicillins Allergy Unknown Verified 10/20/19 16:28 Childhood haloperidol [From Haldol] AdvReac Rapid Verified 10/20/19 16:28 Heart Rate Review of Systems ROS Other: All systems not noted in ROS Statement are negative. <Otis Henley - Last Filed: 10/20/19 19:14> ROS Other: All systems not noted in ROS Statement are negative. <Judith Messer - Last Filed: 10/22/19 11:55> ROS Statement: Those systems with pertinent positive or pertinent negative responses have been documented in the HPI. Past Medical History Additional Past Medical History / Comment(s): crohns, ulcerative colitis, endometriosis History of Any Multi-Drug Resistant Organisms: MRSA Date of last positivie culture/infection: 2016 MDRO Source:: right ear Past Surgical History: Adenoidectomy, Section, Cholecystectomy, Tonsillectomy Additional Past Surgical History / Comment(s): right ovary removed. surgery to remove scar tissue. wisdom teeth removal Past Anesthesia/Blood Transfusion Reactions: No Reported Reaction Additional Past Anesthesia/Blood Transfusion Reaction / Comment(s): MRSA Past Psychological History: Depression Smoking Status: Current every day smoker Past Alcohol Use History: None Reported Past Drug Use History: None Reported - Past Family History Mother Family Medical History: No Reported History <Otis Henley - Last Filed: 10/20/19 19:14> General Exam Limitations: no limitations General appearance: alert, in no apparent distress Head exam: Present: atraumatic, normocephalic, normal inspection Eye exam: Present: normal appearance, PERRL, EOMI Pupils: Present: normal accommodation ENT exam: Present: normal exam, normal oropharynx, mucous membranes dry, TM's normal bilaterally, normal external ear exam Neck exam: Present: normal inspection, full ROM Respiratory exam: Present: normal lung sounds bilaterally Cardiovascular Exam: Present: regular rate, normal rhythm, normal heart sounds GI/Abdominal exam: Present: soft, tenderness (Epigastric, left upper quadrant, left lower quadrant.) Extremities exam: Present: normal inspection, full ROM Back exam: Present: normal inspection, full ROM Neurological exam: Present: alert, oriented X3 Psychiatric exam: Present: normal affect, normal mood Skin exam: Present: warm, dry, intact, normal color <Otis Henley - Last Filed: 10/20/19 19:14> Course Vital Signs 10/20/19 10/20/19 16:23 18:45 Temperature 98.4 F 98.2 F Pulse Rate 99 75 Respiratory 20 18 Rate Blood Pressure 140/77 138/74 O2 Sat by Pulse 98 99 Oximetry Medical Decision Making - Lab Data Result diagrams: 10/20/19 16:30 10/20/19 16:30 <Otis Henley - Last Filed: 10/20/19 19:14> - Lab Data Result diagrams: 10/20/19 16:30 10/20/19 16:30 <Judith Messer - Last Filed: 10/22/19 11:55> - Medical Decision Making Patient is 18-year-old female with history of ulcerative colitis presenting to emergency Department with chief complaint of abdominal pain. Patient is coming to the ED due to pain. Patient does appear to have epigastric pain radiating to the left lower quadrant. Laboratory results indicated leukocytosis. She has not had a bowel movement in approximately one week. KUB is unremarkable. Patient was not given any IV steroids due to her constant regimen of prednisone. Patient was given fluids and analgesia. On reevaluation patient reports imp rovement in symptoms. States she would prefer to go home. Patient advised to follow-up with her GI specialist. Patient was also given 6 tablets of [place]. Return parameters thoroughly discussed with patient is understanding and agreeable. Addictive behavior of narcotic medication was discussed with patient. Case discussed with physician. (Otis Henley) I was available for consultation in the emergency department. The history and physical exam were done by the midlevel provider. I was consulted for this patients care. I reviewed the case with the midlevel provider and based on their presentation of the patient, I agree with the assessment, medical decision making and plan of care as documented. Chart was dictated using [employer] dictation software. Attempts were made to correct any dictation errors however some typographical errors may persist. Patient was seen during a national state of emergency due to the Covid-19 pandemic. (Judith Messer) - Lab Data Lab Results 10/20/19 10/20/19 10/20/19 Range/Units 16:30 16:30 17:15 WBC 14.4 H (3.8-10.6) k/uL RBC 4.71 (3.80-5.40) m/uL Hgb 14.9 (11.4-16.0) gm/dL Hct 44.0 (34.0-46.0) % MCV 93.3 (80.0-100.0) fL MCH 31.6 (25.0-35.0) pg MCHC 33.9 (31.0-37.0) g/dL RDW 13.2 (11.5-15.5) % Plt Count 436 (150-450) k/uL Neutrophils % 60 % Lymphocytes % 32 % Monocytes % 4 % Eosinophils % 3 % Basophils % 0 % Neutrophils # 8.6 H (1.3-7.7) k/uL Lymphocytes # 4.6 (1.0-4.8) k/uL Monocytes # 0.5 (0-1.0) k/uL Eosinophils # 0.5 (0-0.7) k/uL Basophils # 0.0 (0-0.2) k/uL Sodium 136 L (137-145) mmol/L Potassium 4.1 (3.5-5.1) mmol/L Chloride 101 (98-107) mmol/L Carbon Dioxide 26 (22-30) mmol/L Anion Gap 9 mmol/L BUN 11 (7-17) mg/dL Creatinine 0.61 (0.52-1.04) mg/dL Est GFR (CKD-EPI)AfAm >90 (>60 ml/min/1.73 sqM) Est GFR (CKD-EPI)NonAf >90 (>60 ml/min/1.73 sqM) Glucose 173 H (74-99) mg/dL Calcium 9.6 (8.4-10.2) mg/dL Total Bilirubin 0.5 (0.2-1.3) mg/dL AST 24 (14-36) U/L ALT 19 (4-34) U/L Alkaline Phosphatase 66 (38-126) U/L Total Protein 7.3 (6.3-8.2) g/dL Albumin 4.5 (3.5-5.0) g/dL Lipase 191 (23-300) U/L Urine Color Light Yellow Urine Appearance Clear (Clear) Urine pH 7.5 (5.0-8.0) Ur Specific [place] 1.013 (1.001-1.035) Urine Protein Negative (Negative) Urine Glucose (UA) Negative (Negative) Urine Ketones Negative (Negative) Urine Blood Negative (Negative) Urine Nitrite Negative (Negative) Urine Bilirubin Negative (Negative) Urine Urobilinogen <2.0 (<2.0) mg/dL Ur Leukocyte Esterase Negative (Negative) Urine HCG, Qual (Not Detectd) 10/20/19 Range/Units 17:15 WBC (3.8-10.6) k/uL RBC (3.80-5.40) m/uL Hgb (11.4-16.0) gm/dL Hct (34.0-46.0) % MCV (80.0-100.0) fL MCH (25.0-35.0) pg MCHC (31.0-37.0) g/dL RDW (11.5-15.5) % Plt Count (150-450) k/uL Neutrophils % % Lymphocytes % % Monocytes % % Eosinophils % % Basophils % % Neutrophils # (1.3-7.7) k/uL Lymphocytes # (1.0-4.8) k/uL Monocytes # (0-1.0) k/uL Eosinophils # (0-0.7) k/uL Basophils # (0-0.2) k/uL Sodium (137-145) mmol/L Potassium (3.5-5.1) mmol/L Chloride (98-107) mmol/L Carbon Dioxide (22-30) mmol/L Anion Gap mmol/L BUN (7-17) mg/dL Creatinine (0.52-1.04) mg/dL Est GFR (CKD-EPI)AfAm (>60 ml/min/1.73 sqM) Est GFR (CKD-EPI)NonAf (>60 ml/min/1.73 sqM) Glucose (74-99) mg/dL Calcium (8.4-10.2) mg/dL Total Bilirubin (0.2-1.3) mg/dL AST (14-36) U/L ALT (4-34) U/L Alkaline Phosphatase (38-126) U/L Total Protein (6.3-8.2) g/dL Albumin (3.5-5.0) g/dL Lipase (23-300) U/L Urine Color Urine Appearance (Clear) Urine pH (5.0-8.0) Ur Specific [place] (1.001-1.035) Urine Protein (Negative) Urine Glucose (UA) (Negative) Urine Ketones (Negative) Urine Blood (Negative) Urine Nitrite (Negative) Urine Bilirubin (Negative) Urine Urobilinogen (<2.0) mg/dL Ur Leukocyte Esterase (Negative) Urine HCG, Qual Not Detected (Not Detectd) Disposition Is patient prescribed a controlled substance at d/c from ED?: No Time of Disposition: 19:17 <Otis Henley - Last Filed: 10/20/19 19:14> <Judith Messer - Last Filed: 10/22/19 11:55> Clinical Impression: Abdominal pain Disposition: HOME SELF-CARE Condition: Stable Instructions (If sedation given, give patient instructions): Constipation (ED) Additional Instructions: Avoid taking laxatives. Take prescribed medication as directed. Return to emergency department if symptoms worsen. Follow-up with your GI doctor. Prescriptions: Hydrocodone/Acetaminophen [[place] 5-325] 1 tab PO BID #6 tab Referrals: Aruna Calle MD [Primary Care Provider] - 1-2 days
[2019-10-20 17:28] LABS: Appearance,Urine Clear (Clear); Bilirubin,Urine Negative (Negative); Blood,Urine Negative (Negative); Color,Urine Light Yellow; Glucose,Urine (UA) Negative (Negative); Ketones,Urine Negative (Negative); Leukocyte Esterase,Urine Negative (Negative); Nitrite,Urine Negative (Negative); PH, Urine 7.5 (5.0-8.0); Protein,Urine Negative (Negative); Specific Gravity,Urine 1.013 (1.001-1.035); Urobilinogen,Urine <2.0 mg/dL (<2.0)
[2019-10-20 17:29] LABS: Basophils % (A) 0 %; Eosinophils # (A) 0.5 k/uL (0-0.7); Eosinophils % (A) 3 %; HGB 14.9 gm/dL (11.4-16.0); Lymphocytes # (A) 4.6 k/uL (1.0-4.8); Lymphocytes % (A) 32 %; MCH 31.6 pg (25.0-35.0); MCHC 33.9 g/dL (31.0-37.0); MCV 93.3 fL (80.0-100.0); Mean Platelet Volume 7.1; Monocytes # (A) 0.5 k/uL (0-1.0); Monocytes % (A) 4 %; Neutrophils # (A) 8.6 k/uL (1.3-7.7); Neutrophils % (A) 60 %; Platelet Count 436 k/uL (150-450); RBC 4.71 m/uL (3.80-5.40); RDW 13.2 % (11.5-15.5); WBC 14.4 k/uL (3.8-10.6)
--- NOTE | 2019-10-20 17:30 | XR ---
EXAMINATION TYPE: XR KUB DATE OF EXAM: 10/20/2019 COMPARISON: 10/16/2019 HISTORY: Pain TECHNIQUE: Single supine KUB image of the abdomen is obtained FINDINGS: Small bowel demonstrates no evidence for dilatation or air fluid levels. Gas and fecal material is seen in non-distended colon. No convincing evidence for pneumoperitoneum. No unusual calcifications. The lung bases are clear. The osseous structures are intact. IMPRESSION: 1. Overall nonobstructive bowel gas pattern.
[2019-10-20 17:40] LABS: ALT 19 U/L (4-34); AST 24 U/L (14-36); African American GFR (CKD) >90 (>60 ml/min/1.73 sqM); Albumin 4.5 g/dL (3.5-5.0); Alkaline Phosphatase 66 U/L (38-126); Anion Gap 9 mmol/L; Blood Urea Nitrogen 11 mg/dL (7-17); Calcium 9.6 mg/dL (8.4-10.2); Carbon Dioxide 26 mmol/L (22-30); Chloride 101 mmol/L (98-107); Glucose 173 mg/dL (74-99); Non-African American GFR(CKD) >90 (>60 ml/min/1.73 sqM); Potassium 4.1 mmol/L (3.5-5.1); Sodium 136 mmol/L (137-145); Total Bilirubin 0.5 mg/dL (0.2-1.3); Total Protein 7.3 g/dL (6.3-8.2)
[2019-10-20] MEDS ORDERED: HYDROmorphone 0.5 MG/0.5 ML SYRINGE IVP STA (18:18)
[2019-10-20 19:24] VITALS: BP 138/74; PULSE 75; RESP 18; TEMP 98.2
== END 2019-10-20 18:45 | disposition home or self-care (01) ==
LOC: EC 16:23
DX: R10.9 Unspecified abdominal pain (principal); R10.816 Epigastric abdominal tenderness; R10.814 Left lower quadrant abdominal tenderness; R10.812 Left upper quadrant abdominal tenderness; D72.829 Elevated white blood cell count, unspecified; F17.200 Nicotine dependence, unspecified, uncomplicated; Z88.6 Allergy status to analgesic agent; Z88.0 Allergy status to penicillin; Z88.5 Allergy status to narcotic agent; Z88.8 Allergy status to other drugs, medicaments and biological substances; Z90.49 Acquired absence of other specified parts of digestive tract; Z90.721 Acquired absence of ovaries, unilateral
CPT/HCPCS: 96374; 96376; 96361; 99284; 36415; 80053; 83690; 85025; 81003; 81025; 74018; J1170 ×2

== ENCOUNTER → 2019-10-20 | Outpatient (CLI) | payer OTHER ==
[2019-10-20 11:18] LABS: Basophils # (A) 0.1 k/uL (0-0.2); Basophils % (A) 0 %; Eosinophils # (A) 0.5 k/uL (0-0.7); Eosinophils % (A) 4 %; HCT 42.6 % (34.0-46.0); HGB 14.4 gm/dL (11.4-16.0); Lymphocytes % (A) 42 %; MCH 31.5 pg (25.0-35.0); MCHC 33.8 g/dL (31.0-37.0); MCV 93.3 fL (80.0-100.0); Mean Platelet Volume 7.6; Monocytes # (A) 0.5 k/uL (0-1.0); Monocytes % (A) 4 %; Neutrophils % (A) 49 %; Platelet Count 397 k/uL (150-450); RBC 4.56 m/uL (3.80-5.40); RDW 13.3 % (11.5-15.5); WBC 12.1 k/uL (3.8-10.6)
[2019-10-20 12:46] LABS: Erythrocyte Sedimentation Rate 8 mm/hr (0-20)
[2019-10-20 16:11] LABS: African American GFR (CKD) 138.6 (60.0-200.0); Albumin 4.2 g/dL (3.80-4.90); Albumin/Globulin Ratio 2.33 (1.60-3.17); Anion Gap 13.9 mmol/L (4.00-12.00); BUN/Creat Ratio 15.71 Ratio (12.00-20.00); Calcium 9.1 mg/dL (8.7-10.3); Carbon Dioxide 22.1 mmol/L (21.6-31.8); Globulin 1.8 g/dL (1.6-3.3); Non-African American GFR(CKD) 119.6 (60.0-200.0); Potassium 3.9 mmol/L (3.5-5.5); Total Bilirubin 0.4 mg/dL (0.3-1.2)
[2019-10-20 17:27] LABS: Hepatitis A Antibody IgM Non-Reactive (Non-Reactive); Hepatitis B Core IgM Non-Reactive (Non-Reactive); Hepatitis B Surface Antigen Non-Reactive (Non-Reactive); Hepatitis C IgG Antibody Non-Reactive (Non-Reactive)
== END | disposition home or self-care (01) ==
LOC: LABWHC1 09:59
PROVIDERS: ATTEND Registered Nurse
DX: D72.829 Elevated white blood cell count, unspecified (principal)
CPT/HCPCS: 36415; 80053; 80074; 85025; 85652; 86141; 86480

== ENCOUNTER 2019-10-23 15:18 | Emergency (ER) | payer OTHER ==
[2019-10-23 15:24] VITALS: TEMP 98
[2019-10-23] MEDS ORDERED: SODIUM CHLORIDE 0.9% 500 ML 500 ML IV STA (16:11)
[2019-10-23] MEDS ORDERED: HYDROmorphone 0.5 MG/0.5 ML SYRINGE IVP STA ×3 (16:11→19:50)
[2019-10-23 16:31] LABS: Basophils # (A) 0.1 k/uL (0-0.2); Basophils % (A) 0 %; Eosinophils # (A) 0.4 k/uL (0-0.7); Eosinophils % (A) 3 %; HCT 47.2 % (34.0-46.0); HGB 16.1 gm/dL (11.4-16.0); Lymphocytes # (A) 3.5 k/uL (1.0-4.8); Lymphocytes % (A) 24 %; MCH 31.3 pg (25.0-35.0); MCHC 34.2 g/dL (31.0-37.0); MCV 91.6 fL (80.0-100.0); Monocytes # (A) 0.5 k/uL (0-1.0); Monocytes % (A) 3 %; Neutrophils # (A) 10.1 k/uL (1.3-7.7); Neutrophils % (A) 69 %; Platelet Count 428 k/uL (150-450); RBC 5.15 m/uL (3.80-5.40); WBC 14.8 k/uL (3.8-10.6)
[2019-10-23 16:35] LABS: Appearance,Urine Clear (Clear); Bilirubin,Urine Negative (Negative); Blood,Urine Negative (Negative); Color,Urine Yellow; Glucose,Urine (UA) Negative (Negative); Ketones,Urine Negative (Negative); Leukocyte Esterase,Urine Negative (Negative); Nitrite,Urine Negative (Negative); Protein,Urine Trace (Negative); Specific Gravity,Urine 1.024 (1.001-1.035); Urobilinogen,Urine <2.0 mg/dL (<2.0)
[2019-10-23 16:43] LABS: ALT 16 U/L (4-34); AST 19 U/L (14-36); African American GFR (CKD) >90 (>60 ml/min/1.73 sqM); Albumin 5.1 g/dL (3.5-5.0); Alkaline Phosphatase 73 U/L (38-126); Anion Gap 11 mmol/L; Blood Urea Nitrogen 13 mg/dL (7-17); Calcium 10.1 mg/dL (8.4-10.2); Carbon Dioxide 22 mmol/L (22-30); Chloride 104 mmol/L (98-107); Glucose 153 mg/dL (74-99); Non-African American GFR(CKD) >90 (>60 ml/min/1.73 sqM); Potassium 4.6 mmol/L (3.5-5.1); Sodium 137 mmol/L (137-145); Total Bilirubin 0.7 mg/dL (0.2-1.3)
--- NOTE | 2019-10-23 16:52 | XR ---
EXAMINATION TYPE: XR KUB DATE OF EXAM: 10/23/2019 4:46 PM CLINICAL HISTORY: Abdominal pain with history of Crohn's and ulcerative colitis. TECHNIQUE: Single upright image of the abdomen is obtained. COMPARISON: 10/20/2019. FINDINGS: No dilated large or small bowel. Cholecystectomy clips are seen. Lung bases are well aerate d. Osseous structures are intact. No suspicious calcification in the abdomen or pelvis. IMPRESSION: Nonobstructive bowel gas pattern.
[2019-10-23 20:02] VITALS: BP 131/92; PULSE 115; RESP 20
--- NOTE | 2019-10-23 20:08 | ED ---
General Adult HPI - General Chief complaint: Abdominal Pain Stated complaint: Abd Pain Time Seen by Provider: 10/23/19 15:30 Source: patient, RN notes reviewed, old records reviewed Mode of arrival: ambulatory Limitations: no limitations - History of Present Illness Initial comments: 28-year-old female patient with past medical history of inflammatory bowel disease presents to ED with chief complaint of abdominal pain. Patient states that she has chronic abdominal pain that has been worse for the last four days. Patient reports that she did see her GI Dr. Beckwith on sunday and states that she is still having discomfort. Reports that the pain is in her left periumbilical region which is typical for her. Patient also reports that she feels that she is constipated. Denies it as being . Denies any other complaints. Systemic: Pt denies fatigue, fever/chills, rash. Pt denies weakness, night sweats, weight loss. Neuro: Pt denies headache, visual disturbances, syncope or pre-syncope. HEENT: Pt denies ocular discharge or irritation, otalgia, rhinorrhea, pharyngitis or notable lymphadenopathy. Cardiopulmonary: Pt denies chest pain, SOB, heart palpitations, dyspnea on exertion. : Pt denies dysuria, burning w/ urination, frequency/urgency. Denies new onset urinary or bowel incontinence. MSK: Pt denies myalgia, loss of strength or function in extremities. Neuro: Pt denies new onset weakness, paresthesias. - Related Data Home Medications Medication Instructions Recorded Confirmed predniSONE 60 mg PO DAILY 07/09/19 10/16/19 Acetaminophen [Tylenol] 1,000 mg PO Q6H PRN 10/16/19 10/16/19 Previous Rx's Medication Instructions Recorded Mesalamine [Rowasa] 4 gm RECTAL HS #14 ml 09/23/19 Balsalazide Disodium [Colazal] 1,500 mg PO TID #60 cap 10/17/19 HYDROcodone/APAP 5-325MG [[place] 1 each PO Q6HR PRN #12 tab 10/17/19 5-325] Hydrocodone/Acetaminophen [[place] 1 tab PO BID #6 tab 10/20/19 5-325] Allergies Allergy/AdvReac Type Severity Reaction Status Date / Time codeine Allergy Mild Rash/Hives/ Verified 10/23/19 15:24 Swelling ketorolac [From Toradol] Allergy Rash/Hives Verified 10/23/19 15:24 morphine Allergy Rash/Hives Verified 10/23/19 15:24 Penicillins Allergy Unknown Verified 10/23/19 15:24 Childhood haloperidol [From Haldol] AdvReac Rapid Verified 10/23/19 15:24 Heart Rate Review of Systems ROS Statement: Those systems with pertinent positive or pertinent negative responses have been documented in the HPI. ROS Other: All systems not noted in ROS Statement are negative. Past Medical History Additional Past Medical History / Comment(s): crohns, ulcerative colitis, endometriosis History of Any Multi-Drug Resistant Organisms: MRSA Date of last positivie culture/infection: 2016 MDRO Source:: right ear Past Surgical History: Adenoidectomy, Section, Cholecystectomy, Tonsillectomy Additional Past Surgical History / Comment(s): right ovary removed. surgery to remove scar tissue. wisdom teeth removal Past Anesthesia/Blood Transfusion Reactions: No Reported Reaction Additional Past Anesthesia/Blood Transfusion Reaction / Comment(s): MRSA Past Psychological History: Depression Smoking Status: Current every day smoker Past Alcohol Use History: None Reported Past Drug Use History: None Reported - Past Family History Mother Family Medical History: No Reported History General Exam - General Exam Comments Initial Comments: Constitutional: NAD, AOX3, Pt has pleasant affect. HEENT: NC/AT, trachea midline, neck supple, no lymphadenopathy. Posterior pharynx non erythematous, without exudates. External ears appear normal, without discharge. Mucous membranes moist. Eyes PERRLA, EOM intact. There is no scleral icterus. No pallor noted. Cardiopulmonary: RRR, no murmurs, rubs or gallops, no JVD noted. Lungs CTAB in anterior and posterior martinez. No peripheral edema. Abdominal exam: Abdomen soft and non-distended. Abdomen mildly tender to palpation left perimbulical region. No guarding no rigidity. Bowel sounds active in LLQ. No hepatosplenomegaly. Neuro: CN II-XII grossly intact. No nuchal rigidity. No raccon eyes, no andrade sign, no hemotympanum. No cervical spinal tenderness. MSK: No posterior calf tenderness bilaterally, homans sign negative bilaterally. Posterior tibialis and radial pulse +2 bilaterally. Sensation intact in upper and lower extremities. Full active ROM in upper and lower extremities, 5/5 stregnth. Limitations: no limitations Course Vital Signs 10/23/19 10/23/19 10/23/19 15:20 17:29 19:59 Temperature 98.0 F Pulse Rate 120 H 102 H 115 H Respiratory 18 18 20 Rate Blood Pressure 117/91 122/86 131/92 O2 Sat by Pulse 98 98 98 Oximetry Medical Decision Making - Medical Decision Making 28-year-old female patient with past medical history of inflammatory bowel disease presents to ED with chief complaint of abdominal pain. Patient states that she has chronic abdominal pain that has been worse for the last four days. Patient reports that she did see her GI DrMiladys Beckwith on sunday and states that she is still having discomfort. Reports that the pain is in her left periumbilical region which is typical for her. Patient also reports that she feels that she is constipated. Denies chance of being . Denies any other complaints. Denies any other complaints. Patient vital signs displayed mild tachycardia likely secondary to pain, normal rate on auscultation. HR was not repeated by RN prior to DC. Physical exam displayed: Abdomen soft and non-distended. Abdomen mildly tender to palpation left perimbulical region. Laboratory investigations revealed mild leukocytosis, patient is on chronic steroids likely etiology. Mildly elevated blood glucose of 153. KUB displayed nonobstructive bowel gas pattern. Patient declines advanced imaging. Patient was offered admission the hospital however she declined this as well. Patient requests one dose and analgesia and she wishes to be discharged. Patient will be discharged with follow-up with primary care provider as well as GI tomorrow and was given strict return precautions. Case discussed with Dr. Neil. - Lab Data Result diagrams: 10/23/19 16:18 10/23/19 16:18 Lab Results 10/23/19 10/23/19 10/23/19 Range/Units 16:18 16:18 16:18 WBC 14.8 H (3.8-10.6) k/uL RBC 5.15 (3.80-5.40) m/uL Hgb 16.1 H (11.4-16.0) gm/dL Hct 47.2 H (34.0-46.0) % MCV 91.6 (80.0-100.0) fL MCH 31.3 (25.0-35.0) pg MCHC 34.2 (31.0-37.0) g/dL RDW 13.0 (11.5-15.5) % Plt Count 428 (150-450) k/uL Neutrophils % 69 % Lymphocytes % 24 % Monocytes % 3 % Eosinophils % 3 % Basophils % 0 % Neutrophils # 10.1 H (1.3-7.7) k/uL Lymphocytes # 3.5 (1.0-4.8) k/uL Monocytes # 0.5 (0-1.0) k/uL Eosinophils # 0.4 (0-0.7) k/uL Basophils # 0.1 (0-0.2) k/uL Sodium 137 (137-145) mmol/L Potassium 4.6 (3.5-5.1) mmol/L Chloride 104 (98-107) mmol/L Carbon Dioxide 22 (22-30) mmol/L Anion Gap 11 mmol/L BUN 13 (7-17) mg/dL Creatinine 0.60 (0.52-1.04) mg/dL Est GFR (CKD-EPI)AfAm >90 (>60 ml/min/1.73 sqM) Est GFR (CKD-EPI)NonAf >90 (>60 ml/min/1.73 sqM) Glucose 153 H (74-99) mg/dL Plasma Lactic Acid Derrick 1.2 (0.7-2.0) mmol/L Calcium 10.1 (8.4-10.2) mg/dL Total Bilirubin 0.7 (0.2-1.3) mg/dL AST 19 (14-36) U/L ALT 16 (4-34) U/L Alkaline Phosphatase 73 (38-126) U/L Total Protein 8.0 (6.3-8.2) g/dL Albumin 5.1 H (3.5-5.0) g/dL Lipase 184 (23-300) U/L Urine Color Urine Appearance (Clear) Urine pH (5.0-8.0) Ur Specific [place] (1.001-1.035) Urine Protein (Negative) Urine Glucose (UA) (Negative) Urine Ketones (Negative) Urine Blood (Negative) Urine Nitrite (Negative) Urine Bilirubin (Negative) Urine Urobilinogen (<2.0) mg/dL Ur Leukocyte Esterase (Negative) Urine HCG, Qual (Not Detectd) 10/23/19 10/23/19 Range/Units 16:27 16:28 WBC (3.8-10.6) k/uL RBC (3.80-5.40) m/uL Hgb (11.4-16.0) gm/dL Hct (34.0-46.0) % MCV (80.0-100.0) fL MCH (25.0-35.0) pg MCHC (31.0-37.0) g/dL RDW (11.5-15.5) % Plt Count (150-450) k/uL Neutrophils % % Lymphocytes % % Monocytes % % Eosinophils % % Basophils % % Neutrophils # (1.3-7.7) k/uL Lymphocytes # (1.0-4.8) k/uL Monocytes # (0-1.0) k/uL Eosinophils # (0-0.7) k/uL Basophils # (0-0.2) k/uL Sodium (137-145) mmol/L Potassium (3.5-5.1) mmol/L Chloride (98-107) mmol/L Carbon Dioxide (22-30) mmol/L Anion Gap mmol/L BUN (7-17) mg/dL Creatinine (0.52-1.04) mg/dL Est GFR (CKD-EPI)AfAm (>60 ml/min/1.73 sqM) Est GFR (CKD-EPI)NonAf (>60 ml/min/1.73 sqM) Glucose (74-99) mg/dL Plasma Lactic Acid Derrick (0.7-2.0) mmol/L Calcium (8.4-10.2) mg/dL Total Bilirubin (0.2-1.3) mg/dL AST (14-36) U/L ALT (4-34) U/L Alkaline Phosphatase (38-126) U/L Total Protein (6.3-8.2) g/dL Albumin (3.5-5.0) g/dL Lipase (23-300) U/L Urine Color Yellow Urine Appearance Clear (Clear) Urine pH 6.0 (5.0-8.0) Ur Specific [place] 1.024 (1.001-1.035) Urine Protein Trace H (Negative) Urine Glucose (UA) Negative (Negative) Urine Ketones Negative (Negative) Urine Blood Negative (Negative) Urine Nitrite Negative (Negative) Urine Bilirubin Negative (Negative) Urine Urobilinogen <2.0 (<2.0) mg/dL Ur Leukocyte Esterase Negative (Negative) Urine HCG, Qual Not Detected (Not Detectd) Disposition Clinical Impression: Abdominal pain, Blood sugar increased Disposition: HOME SELF-CARE Condition: Stable Instructions (If sedation given, give patient instructions): Abdominal Pain (ED) Additional Instructions: Follow-up with primary care provider as well as GI doctor tomorrow. Your blood sugar was 153 today. Please have this rechecked by her primary care provider as the chronic steroids may be affecting your insulin resistance. Return to ER if condition worsens in any way. Is patient prescribed a controlled substance at d/c from ED?: No Referrals: Aruna Calle MD [Primary Care Provider] - 1-2 days Kelly Beckwith MD [STAFF PHYSICIAN] - 1-2 days
== END 2019-10-23 20:36 | disposition home or self-care (01) ==
LOC: EC 15:18
DX: R73.9 Hyperglycemia, unspecified (principal); D72.829 Elevated white blood cell count, unspecified; F17.200 Nicotine dependence, unspecified, uncomplicated; Z87.19 Personal history of other diseases of the digestive system; Z86.14 Personal history of Methicillin resistant Staphylococcus aureus infection; Z90.49 Acquired absence of other specified parts of digestive tract; Z90.721 Acquired absence of ovaries, unilateral; Z53.29 Procedure and treatment not carried out because of patient's decision for other reasons; Z79.52 Long term (current) use of systemic steroids; Z88.5 Allergy status to narcotic agent; Z88.6 Allergy status to analgesic agent; Z88.0 Allergy status to penicillin; Z88.8 Allergy status to other drugs, medicaments and biological substances
CPT/HCPCS: 36415; 80053; 83605; 83690; 85025; 81003; 81025; 74018; 99284; 96374; 96376 ×2; J1170

== ENCOUNTER 2019-11-07 12:35 | Emergency (ER) | payer OTHER ==
[2019-11-07 12:40] VITALS: BP 128/89; PULSE 105; RESP 20; TEMP 98.3
[2019-11-07] MEDS ORDERED: HYDROmorphone 0.5 MG/0.5 ML SYRINGE IVP STA (13:16)
[2019-11-07 13:46] LABS: Basophils # (A) 0.1 k/uL (0-0.2); Basophils % (A) 1 %; Eosinophils # (A) 0.3 k/uL (0-0.7); Eosinophils % (A) 5 %; HCT 44.7 % (34.0-46.0); HGB 14.7 gm/dL (11.4-16.0); Lymphocytes # (A) 2.4 k/uL (1.0-4.8); Lymphocytes % (A) 39 %; MCH 30.2 pg (25.0-35.0); MCV 91.6 fL (80.0-100.0); Mean Platelet Volume 7.3; Monocytes # (A) 0.3 k/uL (0-1.0); Monocytes % (A) 5 %; Neutrophils % (A) 48 %; Platelet Count 366 k/uL (150-450); RBC 4.88 m/uL (3.80-5.40); RDW 12.9 % (11.5-15.5); WBC 6.2 k/uL (3.8-10.6)
[2019-11-07 13:53] LABS: Appearance,Urine Clear (Clear); Bilirubin,Urine Negative (Negative); Blood,Urine Negative (Negative); Color,Urine Colorless; Glucose,Urine (UA) Negative (Negative); Ketones,Urine Negative (Negative); Leukocyte Esterase,Urine Negative (Negative); Nitrite,Urine Negative (Negative); PH, Urine 5.5 (5.0-8.0); Protein,Urine Negative (Negative); Specific Gravity,Urine 1.004 (1.001-1.035); Urobilinogen,Urine <2.0 mg/dL (<2.0)
[2019-11-07 13:57] LABS: ALT 16 U/L (4-34); AST 21 U/L (14-36); African American GFR (CKD) >90 (>60 ml/min/1.73 sqM); Albumin 4.9 g/dL (3.5-5.0); Alkaline Phosphatase 78 U/L (38-126); Anion Gap 12 mmol/L; Blood Urea Nitrogen 9 mg/dL (7-17); Carbon Dioxide 22 mmol/L (22-30); Chloride 104 mmol/L (98-107); Glucose 114 mg/dL (74-99); Non-African American GFR(CKD) >90 (>60 ml/min/1.73 sqM); Potassium 4.2 mmol/L (3.5-5.1); Sodium 138 mmol/L (137-145); Total Bilirubin 0.5 mg/dL (0.2-1.3); Total Protein 7.7 g/dL (6.3-8.2)
--- NOTE | 2019-11-07 14:27 | US ---
EXAMINATION TYPE: US transvaginal DATE OF EXAM: 11/07/2019 COMPARISON: US 09/14/2019 CLINICAL HISTORY: pelvic pain. history of , right ovary surgically absent TECHNIQUE: Transvaginal images of the pelvis were acquired. Date of LMP: x1 week ago EXAM MEASUREMENTS: Uterus: 7.9 x 3.8 x 3.5 cm Endometrial Stripe: 0.6 cm Right Ovary: Surgically absent Left Ovary: 3.3 x 1.8 x 3.1 cm 1. Uterus: Anteverted wnl 2. Endometrium: wnl 3. Right Ovary: Surgically absent 4. Left Ovary: Follicles visualized Spectral, color and waveform doppler imaging shows good arterial and venous flow within the left ov toma; there is no evidence for ovarian torsion. 5. Bilateral Adnexa: wnl 6. Posterior cul-de-sac: wnl IMPRESSION: Loculated change of the left ovary. No sonographic evidence of ovarian torsion on the lef t at the time of exam. Right ovary is surgically absent.
--- NOTE | 2019-11-07 14:37 | ED ---
Abdominal Pain HPI - General Chief Complaint: Abdominal Pain Stated Complaint: Abd pain Time Seen by Provider: 11/07/19 12:44 Source: patient Mode of arrival: ambulatory Limitations: no limitations - History of Present Illness Initial Comments: Patient is a 28. Female past medical history of Crohn's disease who presents emergency room with reported superpubic pain. Patient states she is having intercourse with her boyfriend 2 days ago. Afterwards she developed a burning sensation. Patient denies any abnormal vaginal discharge or concern for sexu ally transmitted infections. No concern for . Denies any vaginal bleeding. Patient has not taken anything for her symptoms at home. Patient reports history of ovarian cysts with resection of her right ovary. The patient is with dr. victoria for her last . denies any fevers or chills. no vaginal pain or rectal pain. no dysuria, hematuria or difficulty voiding. denies when stools or hematochezia. there are no vomiting, perceptin or modifying factors - Related Data Home Medications Medication Instructions Recorded Confirmed predniSONE 60 mg PO DAILY 07/09/19 10/16/19 Acetaminophen [Tylenol] 1,000 mg PO Q6H PRN 10/16/19 10/16/19 Previous Rx's Medication Instructions Recorded Mesalamine [Rowasa] 4 gm RECTAL HS #14 ml 09/23/19 Balsalazide Disodium [Colazal] 1,500 mg PO TID #60 cap 10/17/19 HYDROcodone/APAP 5-325MG [[place] 1 each PO Q6HR PRN #12 tab 10/17/19 5-325] Hydrocodone/Acetaminophen [[place] 1 tab PO BID #6 tab 10/20/19 5-325] Hydrocodone/Acetaminophen [[place] 1 tab PO Q6HR PRN #12 tab 11/07/19 5-325] Terconazole 0.8% Vaginal Cream 1 applic VAGINAL HS #3 each 11/07/19 [Terazol 3] Allergies Allergy/AdvReac Type Severity Reaction Status Date / Time codeine Allergy Mild Rash/Hives/ Verified 11/07/19 12:40 Swelling ketorolac [From Toradol] Allergy Rash/Hives Verified 11/07/19 12:40 morphine Allergy Rash/Hives Verified 11/07/19 12:40 Penicillins Allergy Unknown Verified 11/07/19 12:40 Childhood haloperidol [From Haldol] AdvReac Rapid Verified 11/07/19 12:40 Heart Rate Review of Systems ROS Statement: Those systems with pertinent positive or pertinent negative responses have been documented in the HPI. ROS Other: All systems not noted in ROS Statement are negative. Past Medical History Additional Past Medical History / Comment(s): crohns, ulcerative colitis, endometriosis, ovarian cyst History of Any Multi-Drug Resistant Organisms: MRSA Date of last positivie culture/infection: 2016 MDRO Source:: right ear Past Surgical History: Adenoidectomy, Section, Cholecystectomy, Tonsillectomy Additional Past Surgical History / Comment(s): right ovary removed. surgery to remove scar tissue. wisdom teeth removal Past Anesthesia/Blood Transfusion Reactions: No Reported Reaction Additional Past Anesthesia/Blood Transfusion Reaction / Comment(s): MRSA Past Psychological History: Depression Smoking Status: Current every day smoker Past Alcohol Use History: None Reported Past Drug Use History: None Reported - Past Family History Mother Family Medical History: No Reported History General Exam Limitations: no limitations Course Vital Signs 11/07/19 12:37 Temperature 98.3 F Pulse Rate 105 H Respiratory 20 Rate Blood Pressure 128/89 O2 Sat by Pulse 99 Oximetry Medical Decision Making - Medical Decision Making The patient is placed into room 19. A thorough history and physical exam is performed. Patient has multiple medication ALLERGIES and due to her Crohn's disease states he only thing she can take Dilaudid. She is given 0.5 mg. The procedures were conducted which are unremarkable. Urinalysis is negative. Patient had a transitional ultrasound performed which demonstrated clicking changes to the left ovary. Pelvic exam is performed which shows temperature to small amount of clumpy white vaginal discharge. I did recommend treatment for vaginal candidiasis. Patient refuses swabs or treatment for STI. I discussed diagnosis, differential and treatment options. He is requesting something additional for pain control. States she can only take [place] at home. I did provide the patient a prescription for 3-5. States that she must obtain all further prescriptions from her [facility] who states she should follow up with for her symptoms. Return to the emergency room for any new worsening symptoms. Patient was then discharged home in stable condition - Lab Data Result diagrams: 11/07/19 13:28 11/07/19 13:28 Lab Results 11/07/19 11/07/19 11/07/19 Range/Units 13:28 13:28 13:28 WBC 6.2 (3.8-10.6) k/uL RBC 4.88 (3.80-5.40) m/uL Hgb 14.7 (11.4-16.0) gm/dL Hct 44.7 (34.0-46.0) % MCV 91.6 (80.0-100.0) fL MCH 30.2 (25.0-35.0) pg MCHC 33.0 (31.0-37.0) g/dL RDW 12.9 (11.5-15.5) % Plt Count 366 (150-450) k/uL Neutrophils % 48 % Lymphocytes % 39 % Monocytes % 5 % Eosinophils % 5 % Basophils % 1 % Neutrophils # 3.0 (1.3-7.7) k/uL Lymphocytes # 2.4 (1.0-4.8) k/uL Monocytes # 0.3 (0-1.0) k/uL Eosinophils # 0.3 (0-0.7) k/uL Basophils # 0.1 (0-0.2) k/uL Sodium (137-145) mmol/L Potassium (3.5-5.1) mmol/L Chloride (98-107) mmol/L Carbon Dioxide (22-30) mmol/L Anion Gap mmol/L BUN (7-17) mg/dL Creatinine (0.52-1.04) mg/dL Est GFR (CKD-EPI)AfAm (>60 ml/min/1.73 sqM) Est GFR (CKD-EPI)NonAf (>60 ml/min/1.73 sqM) Glucose (74-99) mg/dL Calcium (8.4-10.2) mg/dL Total Bilirubin (0.2-1.3) mg/dL AST (14-36) U/L ALT (4-34) U/L Alkaline Phosphatase (38-126) U/L Total Protein (6.3-8.2) g/dL Albumin (3.5-5.0) g/dL Urine Color Colorless Urine Appearance Clear (Clear) Urine pH 5.5 (5.0-8.0) Ur Specific [place] 1.004 (1.001-1.035) Urine Protein Negative (Negative) Urine Glucose (UA) Negative (Negative) Urine Ketones Negative (Negative) Urine Blood Negative (Negative) Urine Nitrite Negative (Negative) Urine Bilirubin Negative (Negative) Urine Urobilinogen <2.0 (<2.0) mg/dL Ur Leukocyte Esterase Negative (Negative) Urine HCG, Qual Not Detected (Not Detectd) 11/07/19 Range/Units 13:28 WBC (3.8-10.6) k/uL RBC (3.80-5.40) m/uL Hgb (11.4-16.0) gm/dL Hct (34.0-46.0) % MCV (80.0-100.0) fL MCH (25.0-35.0) pg MCHC (31.0-37.0) g/dL RDW (11.5-15.5) % Plt Count (150-450) k/uL Neutrophils % % Lymphocytes % % Monocytes % % Eosinophils % % Basophils % % Neutrophils # (1.3-7.7) k/uL Lymphocytes # (1.0-4.8) k/uL Monocytes # (0-1.0) k/uL Eosinophils # (0-0.7) k/uL Basophils # (0-0.2) k/uL Sodium 138 (137-145) mmol/L Potassium 4.2 (3.5-5.1) mmol/L Chloride 104 (98-107) mmol/L Carbon Dioxide 22 (22-30) mmol/L Anion Gap 12 mmol/L BUN 9 (7-17) mg/dL Creatinine 0.58 (0.52-1.04) mg/dL Est GFR (CKD-EPI)AfAm >90 (>60 ml/min/1.73 sqM) Est GFR (CKD-EPI)NonAf >90 (>60 ml/min/1.73 sqM) Glucose 114 H (74-99) mg/dL Calcium 10.0 (8.4-10.2) mg/dL Total Bilirubin 0.5 (0.2-1.3) mg/dL AST 21 (14-36) U/L ALT 16 (4-34) U/L Alkaline Phosphatase 78 (38-126) U/L Total Protein 7.7 (6.3-8.2) g/dL Albumin 4.9 (3.5-5.0) g/dL Urine Color Urine Appearance (Clear) Urine pH (5.0-8.0) Ur Specific [place] (1.001-1.035) Urine Protein (Negative) Urine Glucose (UA) (Negative) Urine Ketones (Negative) Urine Blood (Negative) Urine Nitrite (Negative) Urine Bilirubin (Negative) Urine Urobilinogen (<2.0) mg/dL Ur Leukocyte Esterase (Negative) Urine HCG, Qual (Not Detectd) Disposition Clinical Impression: Pelvic pain, Ovarian cyst, Candidiasis of female genitalia Disposition: HOME SELF-CARE Condition: Stable Instructions (If sedation given, give patient instructions): Pelvic Pain in Wom en (ED) Additional Instructions: Please follow-up with your [facility] for further evaluation. Return to the emergency room for any worsening symptoms Prescriptions: Hydrocodone/Acetaminophen [[place] 5-325] 1 tab PO Q6HR PRN #12 tab PRN Reason: Pain Terconazole 0.8% Vaginal Cream [Terazol 3] 1 applic VAGINAL HS #3 each Is patient prescribed a controlled substance at d/c from ED?: Yes When asked, does pt state using other controlled substances?: No If prescribed controlled substance>3 days was MAPS reviewed?: Prescribed <3 Days If opioid is for acute pain is fill amount 7 days or less?: Yes If Rx opioid, was Start Talking consent form obtained?: Yes Referrals: Aruna Calle MD [Primary Care Provider] - 1-2 days Time of Disposition: 14:37
== END 2019-11-07 15:06 | disposition home or self-care (01) ==
LOC: EC 12:35
DX: N83.202 Unspecified ovarian cyst, left side (principal); B37.3 Candidiasis of vulva and vagina; R10.2 Pelvic and perineal pain; F17.200 Nicotine dependence, unspecified, uncomplicated; Z79.51 Long term (current) use of inhaled steroids; Z88.5 Allergy status to narcotic agent; Z88.0 Allergy status to penicillin; Z88.8 Allergy status to other drugs, medicaments and biological substances; Z88.6 Allergy status to analgesic agent; Z90.49 Acquired absence of other specified parts of digestive tract
CPT/HCPCS: 36415; 80053; 85025; 81003; 81025; 93976; 76830; 99284; 96374; J1170

== ENCOUNTER 2019-11-13 12:22 | Emergency (ER) | payer OTHER ==
[2019-11-13 12:54] VITALS: TEMP 98.2
[2019-11-13] MEDS ORDERED: SODIUM CHLORIDE 0.9% 1,000 ML IV STA (13:04)
[2019-11-13] MEDS ORDERED: HYDROmorphone 0.5 MG/0.5 ML SYRINGE IVP STA ×2 (13:04→14:17)
--- NOTE | 2019-11-13 13:07 | ED ---
Abdominal Pain HPI - General Chief Complaint: Abdominal Pain Stated Complaint: Crohns flare up Time Seen by Provider: 11/13/19 12:58 Source: patient Mode of arrival: ambulatory Limitations: no limitations - History of Present Illness Initial Comments: Patient is a 28-year-old female with history of Crohn's presenting to the emergency department with a chief complaint of a Crohn's flare. States she occasionally has these symptoms and comes to the ED for pain management. 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 Patient reports she noticed hematochezia last night which is typical her to onset of her flare. States she woke up this morning with onset of generalized abdominal pain this starts in the midabdominal region and radiates distally. Denies any problem before parents. Denies any night sweats fevers or chills. Denies any urinary or vaginal symptoms. Denies any hematuria, hematochezia or melena. - Related Data Home Medications Medication Instructions Recorded Confirmed predniSONE 60 mg PO DAILY 07/09/19 10/16/19 Acetaminophen [Tylenol] 1,000 mg PO Q6H PRN 10/16/19 10/16/19 Previous Rx's Medication Instructions Recorded Mesalamine [Rowasa] 4 gm RECTAL HS #14 ml 09/23/19 Balsalazide Disodium [Colazal] 1,500 mg PO TID #60 cap 10/17/19 HYDROcodone/APAP 5-325MG [[place] 1 each PO Q6HR PRN #12 tab 10/17/19 5-325] Hydrocodone/Acetaminophen [[place] 1 tab PO BID #6 tab 10/20/19 5-325] Hydrocodone/Acetaminophen [[place] 1 tab PO Q6HR PRN #12 tab 11/07/19 5-325] Terconazole 0.8% Vaginal Cream 1 applic VAGINAL HS #3 each 11/07/19 [Terazol 3] Hydrocodone/Acetaminophen [[place] 1 tab PO Q6HR PRN #12 tab 11/13/19 5-325] Allergies Allergy/AdvReac Type Severity Reaction Status Date / Time codeine Allergy Mild Rash/Hives/ Verified 11/13/19 12:54 Swelling ketorolac [From Toradol] Allergy Rash/Hives Verified 11/13/19 12:54 morphine Allergy Rash/Hives Verified 11/13/19 12:54 Penicillins Allergy Unknown Verified 11/13/19 12:54 Childhood haloperidol [From Haldol] AdvReac Rapid Verified 11/13/19 12:54 Heart Rate Review of Systems ROS Statement: Those systems with pertinent positive or pertinent negative responses have been documented in the HPI. ROS Other: All systems not noted in ROS Statement are negative. Past Medical History Additional Past Medical History / Comment(s): crohns, ulcerative colitis, endometriosis, ovarian cyst History of Any Multi-Drug Resistant Organisms: MRSA Date of last positivie culture/infection: 2016 MDRO Source:: right ear Past Surgical History: Adenoidectomy, Section, Cholecystectomy, Tonsillectomy Additional Past Surgical History / Comment(s): right ovary removed. surgery to remove scar tissue. wisdom teeth removal Past Anesthesia/Blood Transfusion Reactions: No Reported Reaction Additional Past Anesthesia/Blood Transfusion Reaction / Comment(s): MRSA Past Psychological History: Depression Smoking Status: Current every day smoker Past Alcohol Use History: None Reported Past Drug Use History: None Reported - Past Family History Mother Family Medical History: No Reported History General Exam Limitations: no limitations General appearance: alert, in no apparent distress Head exam: Present: atraumatic, normocephalic, normal inspection Eye exam: Present: normal appearance, PERRL, EOMI Pupils: Present: normal accommodation ENT exam: Present: normal exam, normal oropharynx, mucous membranes moist Neck exam: Present: normal inspection, full ROM Respiratory exam: Present: normal lung sounds bilaterally. Absent: respiratory distress, rales Cardiovascular Exam: Present: regular rate, normal rhythm, normal heart sounds GI/Abdominal exam: Present: soft, tenderness (Diffuse abdominal tenderness.), normal bowel sounds. Absent: distended, guarding Extremities exam: Present: normal inspection, full ROM Back exam: Present: normal inspection, full ROM Neurological exam: Present: alert, oriented X3 Psychiatric exam: Present: normal affect, normal mood Skin exam: Present: warm, dry, intact, normal color Course Vital Signs 11/13/19 11/13/19 11/13/19 12:50 13:30 14:44 Temperature 98.2 F Pulse Rate 94 93 92 Respiratory 18 16 Rate Blood Pressure 115/88 114/87 125/90 O2 Sat by Pulse 98 97 98 Oximetry 11/13/19 15:17 Temperature 98.2 F Pulse Rate 92 Respiratory 16 Rate Blood Pressure 125/90 O2 Sat by Pulse 98 Oximetry Medical Decision Making - Medical Decision Making Patient is 28-year-old female with history of Crohn's presenting to the emergency department with a chief complaint of Crohn's flare. Patient has been seen multiple times in the ED for the same symptoms. Patient was given fluids antiemetics and analgesia. CBC CMP and UA are unremarkable. On reevaluation patient reports improvement symptoms and states she would like to go home. She states she was recently approved for a specialty drug which she is scheduled to start soon to treat her Crohn's. Return parameters were thoroughly discussed with patient was understanding and agreeable. Case discussed with physician. - Lab Data Result diagrams: 11/13/19 13:25 11/13/19 13:25 Lab Results 11/13/19 11/13/19 11/13/19 Range/Units 13:25 13:25 13:25 WBC 7.5 (3.8-10.6) k/uL RBC 5.01 (3.80-5.40) m/uL Hgb 15.3 (11.4-16.0) gm/dL Hct 46.4 H (34.0-46.0) % MCV 92.5 (80.0-100.0) fL MCH 30.5 (25.0-35.0) pg MCHC 32.9 (31.0-37.0) g/dL RDW 13.0 (11.5-15.5) % Plt Count 349 (150-450) k/uL Neutrophils % 54 % Lymphocytes % 35 % Monocytes % 5 % Eosinophils % 3 % Basophils % 1 % Neutrophils # 4.1 (1.3-7.7) k/uL Lymphocytes # 2.6 (1.0-4.8) k/uL Monocytes # 0.4 (0-1.0) k/uL Eosinophils # 0.3 (0-0.7) k/uL Basophils # 0.1 (0-0.2) k/uL Sodium 137 (137-145) mmol/L Potassium 4.4 (3.5-5.1) mmol/L Chloride 105 (98-107) mmol/L Carbon Dioxide 21 L (22-30) mmol/L Anion Gap 11 mmol/L BUN 8 (7-17) mg/dL Creatinine 0.61 (0.52-1.04) mg/dL Est GFR (CKD-EPI)AfAm >90 (>60 ml/min/1.73 sqM) Est GFR (CKD-EPI)NonAf >90 (>60 ml/min/1.73 sqM) Glucose 122 H (74-99) mg/dL Calcium 10.2 (8.4-10.2) mg/dL Total Bilirubin 0.8 (0.2-1.3) mg/dL AST 32 (14-36) U/L ALT 20 (4-34) U/L Alkaline Phosphatase 83 (38-126) U/L Total Protein 7.9 (6.3-8.2) g/dL Albumin 5.0 (3.5-5.0) g/dL Amylase 51 (30-110) U/L Lipase 123 (23-300) U/L Urine Color Yellow Urine Appearance Cloudy H (Clear) Urine pH 5.0 (5.0-8.0) Ur Specific [place] 1.017 (1.001-1.035) Urine Protein Negative (Negative) Urine Glucose (UA) Negative (Negative) Urine Ketones Negative (Negative) Urine Blood Negative (Negative) Urine Nitrite Negative (Negative) Urine Bilirubin Negative (Negative) Urine Urobilinogen <2.0 (<2.0) mg/dL Ur Leukocyte Esterase Negative (Negative) Urine RBC 3 (0-5) /hpf Urine WBC 2 (0-5) /hpf Ur Squamous Epith Cells 5 H (0-4) /hpf Urine Bacteria Occasional H (None) /hpf Urine Mucus Rare H (None) /hpf Disposition Clinical Impression: Exacerbation of Crohn's disease, Abdominal pain Disposition: HOME SELF-CARE Condition: Good Instructions (If sedation given, give patient instructions): Abdominal Pain (ED) Additional Instructions: Follow-up with your GI specialist. Return to emergency department if symptoms worsen. Take prescribed medication as directed. Prescriptions: Hydrocodone/Acetaminophen [[place]irwin 5-325] 1 tab PO Q6HR PRN #12 tab PRN Reason: Pain Is patient prescribed a controlled substance at d/c from ED?: No Referrals: Aruna Calle MD [Primary Care Provider] - 1-2 days Time of Disposition: 14:19
[2019-11-13 13:51] LABS: Basophils # (A) 0.1 k/uL (0-0.2); Basophils % (A) 1 %; Eosinophils # (A) 0.3 k/uL (0-0.7); Eosinophils % (A) 3 %; HCT 46.4 % (34.0-46.0); HGB 15.3 gm/dL (11.4-16.0); Lymphocytes # (A) 2.6 k/uL (1.0-4.8); Lymphocytes % (A) 35 %; MCH 30.5 pg (25.0-35.0); MCHC 32.9 g/dL (31.0-37.0); MCV 92.5 fL (80.0-100.0); Mean Platelet Volume 7.4; Monocytes # (A) 0.4 k/uL (0-1.0); Monocytes % (A) 5 %; Neutrophils # (A) 4.1 k/uL (1.3-7.7); Neutrophils % (A) 54 %; Platelet Count 349 k/uL (150-450); RBC 5.01 m/uL (3.80-5.40); WBC 7.5 k/uL (3.8-10.6)
[2019-11-13 14:01] LABS: Appearance,Urine Cloudy (Clear); Bacteria,Urine Occasional /hpf; Bilirubin,Urine Negative (Negative); Blood,Urine Negative (Negative); Color,Urine Yellow; Glucose,Urine (UA) Negative (Negative); Ketones,Urine Negative (Negative); Leukocyte Esterase,Urine Negative (Negative); Mucus,Urine Rare /hpf; Nitrite,Urine Negative (Negative); Protein,Urine Negative (Negative); RBC,Urine 3 /hpf (0-5); Specific Gravity,Urine 1.017 (1.001-1.035); Squamous Epithelial Cell,Urine 5 /hpf (0-4); Urobilinogen,Urine <2.0 mg/dL (<2.0); WBC,Urine 2 /hpf (0-5)
[2019-11-13 14:07] LABS: ALT 20 U/L (4-34); AST 32 U/L (14-36); African American GFR (CKD) >90 (>60 ml/min/1.73 sqM); Alkaline Phosphatase 83 U/L (38-126); Amylase 51 U/L (30-110); Anion Gap 11 mmol/L; Blood Urea Nitrogen 8 mg/dL (7-17); Calcium 10.2 mg/dL (8.4-10.2); Carbon Dioxide 21 mmol/L (22-30); Chloride 105 mmol/L (98-107); Glucose 122 mg/dL (74-99); Non-African American GFR(CKD) >90 (>60 ml/min/1.73 sqM); Potassium 4.4 mmol/L (3.5-5.1); Sodium 137 mmol/L (137-145); Total Bilirubin 0.8 mg/dL (0.2-1.3); Total Protein 7.9 g/dL (6.3-8.2)
[2019-11-13 14:45] VITALS: BP 125/90; PULSE 92; RESP 16
== END 2019-11-13 15:13 | disposition home or self-care (01) ==
LOC: EC 12:22
DX: K50.90 Crohn's disease, unspecified, without complications (principal); F17.200 Nicotine dependence, unspecified, uncomplicated; Z79.52 Long term (current) use of systemic steroids; Z88.5 Allergy status to narcotic agent; Z88.6 Allergy status to analgesic agent; Z88.0 Allergy status to penicillin; Z88.8 Allergy status to other drugs, medicaments and biological substances; Z87.19 Personal history of other diseases of the digestive system; Z90.49 Acquired absence of other specified parts of digestive tract; Z86.14 Personal history of Methicillin resistant Staphylococcus aureus infection
CPT/HCPCS: 36415; 80053; 82150; 83690; 85025; 81001; 99284; 96374; 96376; 96361 ×2; J1170

== ENCOUNTER 2019-11-16 21:01 | Emergency (ER) | payer OTHER ==
[2019-11-16 21:11] VITALS: RESP 16
[2019-11-16] MEDS ORDERED: HYDROcodone/APAP 7.5-325MG 1 EACH TAB PO ONE (21:52)
[2019-11-16] MEDS ORDERED: ONDANSETRON 4 MG/2 ML VIAL IVP STA (21:52)
[2019-11-16] MEDS ORDERED: SODIUM CHLORIDE 0.9% 1,000 ML IV STA (21:52)
--- NOTE | 2019-11-16 22:01 | ED ---
Abdominal Pain HPI - General Source: patient Mode of arrival: ambulatory Limitations: no limitations <Neli Tubbs - Last Filed: 11/16/19 23:41> <Judith Messer - Last Filed: 11/18/19 23:28> - General Chief Complaint: Abdominal Pain Stated Complaint: Crohns Flare up Time Seen by Provider: 11/16/19 21:16 - History of Present Illness Initial Comments: Patient is a 28-year-old female, with history of Crohn's, presenting to emergency Department with complaints of a Crohn's flareup. Patient was here 3 days ago for same complaint. Workup was performed and showed no acute findings. Patient has been working with Dr. Beckwith. She starts Remicade treatment on November 25. Patient is well-known to this ER, this is her fifth visit this month for same complaint. Patient states she has small amounts of bleeding when she has a bowel movement. She states the pain is her normal abdominal pain that she gets with flareups. Admits to mild nausea. She states she tries to take Zofran for the nausea at home but states that it tastes bad so that often makes her nausea worse. Patient states she has been prescribed [place] in the past for her pain which does help. She denies any fever, chills, vomiting, chest pain, shortness of breath. She denies any urinary symptoms. She has no further complaints at this time. Upon arrival to the ER, her vitals are stable. (Neli Tubbs) - Related Data Home Medications Medication Instructions Recorded Confirmed predniSONE 60 mg PO DAILY 07/09/19 10/16/19 Acetaminophen [Tylenol] 1,000 mg PO Q6H PRN 10/16/19 10/16/19 Previous Rx's Medication Instructions Recorded Mesalamine [Rowasa] 4 gm RECTAL HS #14 ml 09/23/19 Balsalazide Disodium [Colazal] 1,500 mg PO TID #60 cap 10/17/19 HYDROcodone/APAP 5-325MG [[place] 1 each PO Q6HR PRN #12 tab 10/17/19 5-325] Hydrocodone/Acetaminophen [[place] 1 tab PO BID #6 tab 10/20/19 5-325] Hydrocodone/Acetaminophen [[place] 1 tab PO Q6HR PRN #12 tab 11/07/19 5-325] Terconazole 0.8% Vaginal Cream 1 applic VAGINAL HS #3 each 11/07/19 [Terazol 3] Hydrocodone/Acetaminophen [[place] 1 tab PO Q6HR PRN #12 tab 11/13/19 5-325] Hydrocodone/Acetaminophen [[place] 1 tab PO Q6HR PRN #8 tab 11/16/19 5-325] Allergies Allergy/AdvReac Type Severity Reaction Status Date / Time codeine Allergy Mild Rash/Hives/ Verified 11/16/19 21:11 Swelling ketorolac [From Toradol] Allergy Rash/Hives Verified 11/16/19 21:11 morphine Allergy Rash/Hives Verified 11/16/19 21:11 Penicillins Allergy Unknown Verified 11/16/19 21:11 Childhood haloperidol [From Haldol] AdvReac Rapid Verified 11/16/19 21:11 Heart Rate Review of Systems ROS Other: All systems not noted in ROS Statement are negative. <Neli Tubbs - Last Filed: 11/16/19 23:41> ROS Other: All systems not noted in ROS Statement are negative. <Judith Messer - Last Filed: 11/18/19 23:28> ROS Statement: Those systems with pertinent positive or pertinent negative responses have been documented in the HPI. Past Medical History Additional Past Medical History / Comment(s): crohns, ulcerative colitis, endometriosis, ovarian cyst History of Any Multi-Drug Resistant Organisms: MRSA Date of last positivie culture/infection: 2016 MDRO Source:: right ear Past Surgical History: Adenoidectomy, Section, Cholecystectomy, Tonsillectomy Additional Past Surgical History / Comment(s): right ovary removed. surgery to remove scar tissue. wisdom teeth removal Past Anesthesia/Blood Transfusion Reactions: No Reported Reaction Additional Past Anesthesia/Blood Transfusion Reaction / Comment(s): MRSA Past Psychological History: Depression Smoking Status: Current every day smoker Past Alcohol Use History: None Reported Past Drug Use History: None Reported - Past Family History Mother Family Medical History: No Reported History <Neli Tubbs - Last Filed: 11/16/19 23:41> General Exam Limitations: no limitations <Neli Tubbs - Last Filed: 11/16/19 23:41> - General Exam Comments Initial Comments: GENERAL: Well-appearing, well-nourished and in no acute distress. Patient is comfortable, sitting on the bed, talking to me normally. Does not seem to be in any discomfort. HEAD: Atraumatic, normocephalic. EYES: Pupils equal round and reactive to light, extraocular movements intact, sclera anicteric, conjunctiva are normal. ENT: TMs normal, nares patent, oropharynx clear without exudates. Moist mucous membranes. NECK: Normal range of motion, supple without lymphadenopathy or JVD. LUNGS: Breath sounds clear to auscultation bilaterally and equal. No wheezes rales or rhonchi. HEART: Regular rate and rhythm without murmurs, rubs or gallops. ABDOMEN: Generalized abdominal discomfort, no sharp shooting pain. Soft, normoactive bowel sounds. No guarding, no rebound. No masses appreciated. : Deferred EXTREMITIES: Normal range of motion, no pitting or edema. No clubbing or cyanosis. NEUROLOGICAL: Normal speech, normal gait. PSYCH: Normal mood, normal affect. SKIN: Warm, Dry, normal turgor, no rashes or lesions noted. (Neli Tubbs) Course Vital Signs 11/16/19 11/16/19 11/16/19 21:08 22:00 23:11 Temperature 98.2 F Pulse Rate 93 Respiratory 16 16 16 Rate Blood Pressure 122/89 O2 Sat by Pulse 99 Oximetry 11/16/19 23:51 Temperature 97.2 F L Pulse Rate 75 Respiratory 16 Rate Blood Pressure 118/90 O2 Sat by Pulse 97 Oximetry Medical Decision Making - Lab Data Result diagrams: 11/16/19 22:30 11/16/19 22:30 <Neli Tubbs - Last Filed: 11/16/19 23:41> - Lab Data Result diagrams: 11/16/19 22:30 11/16/19 22:30 <Judith Messer - Last Filed: 11/18/19 23:28> - Medical Decision Making Patient is a 28-year-old female with history of Crohn's presenting for a Crohn's flare. This is patient's fifth visit this month for same complaint. Her GI is Dr. Beckwith. She is supposed to start Remicade on November 25. During exam, patient is completely comfortable, talking to me normally, does not seem to be in any distress at all. Exam reveals very mild generalized abdominal tenderness. No other acute findings. Vitals are stable. Lab work shows no acute findings. Urine is normal, not . KUB shows no acute findings. Patient is requesting IV pain medication. She did mention that [place] does help with her pain. I refused to give patient IV Dilaudid, after multiple requests. Patient was given a [place] 7.5, fluids and Zofran. Patient is stable for discharge. She needs to follow up with Dr. Beckwith and or her PCP for continued chronic pain management. Patient is again requesting IV pain medicine before discharge and I again refused. I explained to her that we cannot treat her chronic pain with continued IV narcotics. Patient will be given a small rx for [place] for at home. She is requesting a tablet before she goes. I explained that she already had a tablet and I did offer her a Tylenol 3 or Ultram starter pack for home however patient refused this. Return parameters were discussed with the patient and she verbalized understanding. Case discussed with Dr. Messer. (Neli Tubbs) I was available for consultation in the emergency department. The history and physical exam were done by the midlevel provider. I was consulted for this patients care. I reviewed the case with the midlevel provider and based on their presentation of the patient, I agree with the assessment, medical decision making and plan of care as documented. Chart was dictated using [employer] dictation software. Attempts were made to correct any dictation errors however some typographical errors may persist. Patient was seen during a national state of emergency due to the Covid-19 pandemic. (Judith Messer) - Lab Data Lab Results 11/16/19 11/16/19 11/16/19 Range/Units 22:30 22:30 22:33 WBC 9.4 (3.8-10.6) k/uL RBC 4.68 (3.80-5.40) m/uL Hgb 14.2 (11.4-16.0) gm/dL Hct 43.2 (34.0-46.0) % MCV 92.3 (80.0-100.0) fL MCH 30.2 (25.0-35.0) pg MCHC 32.8 (31.0-37.0) g/dL RDW 12.8 (11.5-15.5) % Plt Count 310 (150-450) k/uL Neutrophils % 58 % Lymphocytes % 32 % Monocytes % 4 % Eosinophils % 3 % Basophils % 1 % Neutrophils # 5.4 (1.3-7.7) k/uL Lymphocytes # 3.0 (1.0-4.8) k/uL Monocytes # 0.4 (0-1.0) k/uL Eosinophils # 0.3 (0-0.7) k/uL Basophils # 0.1 (0-0.2) k/uL Sodium 137 (137-145) mmol/L Potassium 4.2 (3.5-5.1) mmol/L Chloride 106 (98-107) mmol/L Carbon Dioxide 22 (22-30) mmol/L Anion Gap 9 mmol/L BUN 13 (7-17) mg/dL Creatinine 0.56 (0.52-1.04) mg/dL Est GFR (CKD-EPI)AfAm >90 (>60 ml/min/1.73 sqM) Est GFR (CKD-EPI)NonAf >90 (>60 ml/min/1.73 sqM) Glucose 110 H (74-99) mg/dL Calcium 10.0 (8.4-10.2) mg/dL Total Bilirubin 0.5 (0.2-1.3) mg/dL AST 44 H (14-36) U/L ALT 38 H (4-34) U/L Alkaline Phosphatase 79 (38-126) U/L Total Protein 7.3 (6.3-8.2) g/dL Albumin 4.6 (3.5-5.0) g/dL Urine Color Yellow Urine Appearance Cloudy H (Clear) Urine pH 6.5 (5.0-8.0) Ur Specific [place] 1.030 (1.001-1.035) Urine Protein Negative (Negative) Urine Glucose (UA) Negative (Negative) Urine Ketones Trace H (Negative) Urine Blood Negative (Negative) Urine Nitrite Negative (Negative) Urine Bilirubin Negative (Negative) Urine Urobilinogen <2.0 (<2.0) mg/dL Ur Leukocyte Esterase Negative (Negative) Urine WBC 1 (0-5) /hpf Ur Squamous Epith Cells 4 (0-4) /hpf Urine Bacteria Rare H (None) /hpf Urine Mucus Occasional H (None) /hpf Urine HCG, Qual (Not Detectd) 11/16/19 Range/Units 22:33 WBC (3.8-10.6) k/uL RBC (3.80-5.40) m/uL Hgb (11.4-16.0) gm/dL Hct (34.0-46.0) % MCV (80.0-100.0) fL MCH (25.0-35.0) pg MCHC (31.0-37.0) g/dL RDW (11.5-15.5) % Plt Count (150-450) k/uL Neutrophils % % Lymphocytes % % Monocytes % % Eosinophils % % Basophils % % Neutrophils # (1.3-7.7) k/uL Lymphocytes # (1.0-4.8) k/uL Monocytes # (0-1.0) k/uL Eosinophils # (0-0.7) k/uL Basophils # (0-0.2) k/uL Sodium (137-145) mmol/L Potassium (3.5-5.1) mmol/L Chloride (98-107) mmol/L Carbon Dioxide (22-30) mmol/L Anion Gap mmol/L BUN (7-17) mg/dL Creatinine (0.52-1.04) mg/dL Est GFR (CKD-EPI)AfAm (>60 ml/min/1.73 sqM) Est GFR (CKD-EPI)NonAf (>60 ml/min/1.73 sqM) Glucose (74-99) mg/dL Calcium (8.4-10.2) mg/dL Total Bilirubin (0.2-1.3) mg/dL AST (14-36) U/L ALT (4-34) U/L Alkaline Phosphatase (38-126) U/L Total Protein (6.3-8.2) g/dL Albumin (3.5-5.0) g/dL Urine Color Urine Appearance (Clear) Urine pH (5.0-8.0) Ur Specific [place] (1.001-1.035) Urine Protein (Negative) Urine Glucose (UA) (Negative) Urine Ketones (Negative) Urine Blood (Negative) Urine Nitrite (Negative) Urine Bilirubin (Negative) Urine Urobilinogen (<2.0) mg/dL Ur Leukocyte Esterase (Negative) Urine WBC (0-5) /hpf Ur Squamous Epith Cells (0-4) /hpf Urine Bacteria (None) /hpf Urine Mucus (None) /hpf Urine HCG, Qual Not Detected (Not Detectd) Disposition Is patient prescribed a controlled substance at d/c from ED?: Yes When asked, does pt state using other controlled substances?: No If prescribed controlled substance>3 days was MAPS reviewed?: Prescribed <3 Days If opioid is for acute pain is fill amount 7 days or less?: Yes If Rx opioid, was Start Talking consent form obtained?: Yes <Neli Tubbs - Last Filed: 11/16/19 23:41> <Judith Messer - Last Filed: 11/18/19 23:28> Clinical Impression: Chronic abdominal pain, Exacerbation of Crohn's disease Disposition: HOME SELF-CARE Condition: Stable Instructions (If sedation given, give patient instructions): Chronic Abdominal Pain (ED) Additional Instructions: Please return to the Emergency Department if symptoms worsen or any other concerns. Follow-up with Dr. Beckwith and/or PCP. Continue with already prescribed medication. Prescriptions: Hydrocodone/Acetaminophen [[place] 5-325] 1 tab PO Q6HR PRN #8 tab PRN Reason: Pain Referrals: Aruna Calle MD [Primary Care Provider] - 1-2 days
--- NOTE | 2019-11-16 22:36 | XR ---
EXAMINATION TYPE: XR KUB DATE OF EXAM: 11/16/2019 COMPARISON: 10/23/2019 HISTORY: Abdominal pain TECHNIQUE: 2 views upright There is no sign of intestinal obstruction or pneumoperitoneum. Fecal pattern is normal. Lung bases a re clear. There are no pathologic calcifications over the kidneys. IMPRESSION: Nonacute abdomen. No change.
[2019-11-16 22:47] LABS: Basophils # (A) 0.1 k/uL (0-0.2); Basophils % (A) 1 %; Eosinophils # (A) 0.3 k/uL (0-0.7); Eosinophils % (A) 3 %; HCT 43.2 % (34.0-46.0); HGB 14.2 gm/dL (11.4-16.0); Lymphocytes % (A) 32 %; MCH 30.2 pg (25.0-35.0); MCHC 32.8 g/dL (31.0-37.0); MCV 92.3 fL (80.0-100.0); Mean Platelet Volume 7.5; Monocytes # (A) 0.4 k/uL (0-1.0); Monocytes % (A) 4 %; Neutrophils # (A) 5.4 k/uL (1.3-7.7); Neutrophils % (A) 58 %; Platelet Count 310 k/uL (150-450); RBC 4.68 m/uL (3.80-5.40); RDW 12.8 % (11.5-15.5); WBC 9.4 k/uL (3.8-10.6)
[2019-11-16 22:59] LABS: Appearance,Urine Cloudy (Clear); Bacteria,Urine Rare /hpf; Bilirubin,Urine Negative (Negative); Blood,Urine Negative (Negative); Color,Urine Yellow; Glucose,Urine (UA) Negative (Negative); Ketones,Urine Trace (Negative); Leukocyte Esterase,Urine Negative (Negative); Mucus,Urine Occasional /hpf; Nitrite,Urine Negative (Negative); PH, Urine 6.5 (5.0-8.0); Protein,Urine Negative (Negative); Squamous Epithelial Cell,Urine 4 /hpf (0-4); Urobilinogen,Urine <2.0 mg/dL (<2.0); WBC,Urine 1 /hpf (0-5)
[2019-11-16 23:17] LABS: ALT 38 U/L (4-34); AST 44 U/L (14-36); African American GFR (CKD) >90 (>60 ml/min/1.73 sqM); Albumin 4.6 g/dL (3.5-5.0); Alkaline Phosphatase 79 U/L (38-126); Anion Gap 9 mmol/L; Blood Urea Nitrogen 13 mg/dL (7-17); Carbon Dioxide 22 mmol/L (22-30); Chloride 106 mmol/L (98-107); Glucose 110 mg/dL (74-99); Non-African American GFR(CKD) >90 (>60 ml/min/1.73 sqM); Potassium 4.2 mmol/L (3.5-5.1); Sodium 137 mmol/L (137-145); Total Bilirubin 0.5 mg/dL (0.2-1.3); Total Protein 7.3 g/dL (6.3-8.2)
[2019-11-16 23:52] VITALS: BP 118/90; PULSE 75; TEMP 97.2
== END 2019-11-16 23:53 | disposition home or self-care (01) ==
LOC: EC 21:01
DX: K50.90 Crohn's disease, unspecified, without complications (principal); G89.29 Other chronic pain; R10.9 Unspecified abdominal pain; R10.817 Generalized abdominal tenderness; F17.200 Nicotine dependence, unspecified, uncomplicated; Z88.5 Allergy status to narcotic agent; Z88.6 Allergy status to analgesic agent; Z88.0 Allergy status to penicillin; Z88.8 Allergy status to other drugs, medicaments and biological substances; Z79.52 Long term (current) use of systemic steroids; Z87.19 Personal history of other diseases of the digestive system; Z90.49 Acquired absence of other specified parts of digestive tract; Z86.14 Personal history of Methicillin resistant Staphylococcus aureus infection
CPT/HCPCS: 36415; 80053; 85025; 81001; 81025; 74018; 99284; 96374; 96361; J2405

== ENCOUNTER 2019-11-19 13:18 | Emergency (ER) | payer OTHER ==
[2019-11-19] MEDS ORDERED: SODIUM CHLORIDE 0.9% 1,000 ML IV STA (14:15)
--- NOTE | 2019-11-19 14:26 | ED ---
Abdominal Pain HPI - General Chief Complaint: Abdominal Pain Stated Complaint: GI Bleed Time Seen by Provider: 11/19/19 13:35 Source: patient Mode of arrival: ambulatory Limitations: no limitations - History of Present Illness Initial Comments: The patient is a 28 year old female with past history of ulcerative colitis who presents emergency Department with reported increasing abdominal pain, hematochezia. Patient has been seen multiple times in the emergency department for similar complaint. She reports she is under the care of Dr. Beckwith. She has discontinued all of her home medications as of one month ago as she is in preparation of starting Remicade next week. Reports that since she has been off of her medications or pain has been uncontrolled and this has caused her to come the emergency department multiple times for breakthrough pain. She states she's had bright red blood per rectum for the past week. States it is present every time she goes to the bathroom. Denies any lightheadedness or dizziness. Pain is in the epigastric region without radiation. Denies dysuria, hematuria or difficulty voiding. Denies fevers or chills. No concern for . There are no other alleviating, precipitating or modifying factors - Related Data Home Medications Medication Instructions Recorded Confirmed predniSONE 60 mg PO DAILY 07/09/19 10/16/19 Acetaminophen [Tylenol] 1,000 mg PO Q6H PRN 10/16/19 10/16/19 Previous Rx's Medication Instructions Recorded Mesalamine [Rowasa] 4 gm RECTAL HS #14 ml 09/23/19 Balsalazide Disodium [Colazal] 1,500 mg PO TID #60 cap 10/17/19 HYDROcodone/APAP 5-325MG [[place] 1 each PO Q6HR PRN #12 tab 10/17/19 5-325] Hydrocodone/Acetaminophen [[place] 1 tab PO BID #6 tab 10/20/19 5-325] Hydrocodone/Acetaminophen [[place] 1 tab PO Q6HR PRN #12 tab 11/07/19 5-325] Terconazole 0.8% Vaginal Cream 1 applic VAGINAL HS #3 each 11/07/19 [Terazol 3] Hydrocodone/Acetaminophen [[place] 1 tab PO Q6HR PRN #12 tab 11/13/19 5-325] Hydrocodone/Acetaminophen [[place] 1 tab PO Q6HR PRN #8 tab 11/16/19 5-325] Allergies Allergy/AdvReac Type Severity Reaction Status Date / Time codeine Allergy Mild Rash/Hives/ Verified 11/19/19 13:37 Swelling ketorolac [From Toradol] Allergy Rash/Hives Verified 11/19/19 13:37 morphine Allergy Rash/Hives Verified 11/19/19 13:37 Penicillins Allergy Unknown Verified 11/19/19 13:37 Childhood haloperidol [From Haldol] AdvReac Rapid Verified 11/19/19 13:37 Heart Rate Review of Systems ROS Statement: Those systems with pertinent positive or pertinent negative responses have been documented in the HPI. ROS Other: All systems not noted in ROS Statement are negative. Past Medical History Past Medical History: No Reported History Additional Past Medical History / Comment(s): crohns, ulcerative colitis, endometriosis, ovarian cyst History of Any Multi-Drug Resistant Organisms: MRSA Date of last positivie culture/infection: 2016 MDRO Source:: right ear Past Surgical History: Adenoidectomy, Section, Cholecystectomy, Tonsillectomy Additional Past Surgical History / Comment(s): right ovary removed. surgery to remove scar tissue. wisdom teeth removal Past Anesthesia/Blood Transfusion Reactions: No Reported Reaction Additional Past Anesthesia/Blood Transfusion Reaction / Comment(s): MRSA Past Psychological History: Depression Smoking Status: Current every day smoker Past Alcohol Use History: None Reported Past Drug Use History: None Reported - Past Family History Mother Family Medical History: No Reported History General Exam Limitations: no limitations Course Vital Signs 11/19/19 11/19/19 13:35 16:57 Temperature 98.3 F 98.0 F Pulse Rate 95 88 Respiratory 18 16 Rate Blood Pressure 120/86 130/95 O2 Sat by Pulse 98 98 Oximetry Medical Decision Making - Medical Decision Making The patient is placed in room 21. Her history and physical exam is performed. Rectal exam is performed and demonstrates no rectal bleeding. Minimal stool obtained which is brown in color. Peripheral IV was established. Laboratory studies were conducted. Hemoglobin improved at 15.5 from previous of 14.2. Lactic acid 1.1. Her enzymes are all normal. Fecal occult is negative. Urinalysis shows rare blood. Patient is requesting something for pain control. She was given a [place] by mouth. I did call discuss case with Dr. Sofia who stated that the patient could follow up in office with either him, Dr. Tamez or any of the nurse practitioners. He states that the patient should called around to make an appointment for further treatment options and she is started on infusions. The patient understood this. She is requesting a prescription for pain medication at home however the patient has had 5 prescriptions for [place] given to her the past month. I did instruct her on the proper dispensing of controlled substances which should be coming from her specialists managing her chronic pain. The patient understood this. She is instructed she has any new or worsening symptoms return the emergency room. Patient was discharged home in stable condition - Lab Data Result diagrams: 11/19/19 14:30 11/19/19 15:47 Lab Results 11/19/19 11/19/19 11/19/19 Range/Units 14:14 14:22 14:22 WBC (3.8-10.6) k/uL RBC (3.80-5.40) m/uL Hgb (11.4-16.0) gm/dL Hct (34.0-46.0) % MCV (80.0-100.0) fL MCH (25.0-35.0) pg MCHC (31.0-37.0) g/dL RDW (11.5-15.5) % Plt Count (150-450) k/uL Neutrophils % % Lymphocytes % % Monocytes % % Eosinophils % % Basophils % % Neutrophils # (1.3-7.7) k/uL Lymphocytes # (1.0-4.8) k/uL Monocytes # (0-1.0) k/uL Eosinophils # (0-0.7) k/uL Basophils # (0-0.2) k/uL Sodium (137-145) mmol/L Potassium (3.5-5.1) mmol/L Chloride (98-107) mmol/L Carbon Dioxide (22-30) mmol/L Anion Gap mmol/L BUN (7-17) mg/dL Creatinine (0.52-1.04) mg/dL Est GFR (CKD-EPI)AfAm (>60 ml/min/1.73 sqM) Est GFR (CKD-EPI)NonAf (>60 ml/min/1.73 sqM) Glucose (74-99) mg/dL Plasma Lactic Acid [place] (0.7-2.0) mmol/L Calcium (8.4-10.2) mg/dL Total Bilirubin (0.2-1.3) mg/dL AST (14-36) U/L ALT (4-34) U/L Alkaline Phosphatase (38-126) U/L Total Protein (6.3-8.2) g/dL Albumin (3.5-5.0) g/dL Lipase (23-300) U/L Urine Color Yellow Urine Appearance Clear (Clear) Urine pH 7.0 (5.0-8.0) Ur Specific [place] 1.016 (1.001-1.035) Urine Protein Negative (Negative) Urine Glucose (UA) Negative (Negative) Urine Ketones Negative (Negative) Urine Blood Negative (Negative) Urine Nitrite Negative (Negative) Urine Bilirubin Negative (Negative) Urine Urobilinogen <2.0 (<2.0) mg/dL Ur Leukocyte Esterase Trace H (Negative) Urine WBC <1 (0-5) /hpf Ur Squamous Epith Cells 4 (0-4) /hpf Urine Bacteria Rare H (None) /hpf Urine Mucus Rare H (None) /hpf Urine HCG, Qual Not Detected (Not Detectd) Stool Occult Blood Negative (Negative) 11/19/19 11/19/19 11/19/19 Range/Units 14:30 14:30 15:47 WBC 7.9 (3.8-10.6) k/uL RBC 5.04 (3.80-5.40) m/uL Hgb 15.5 (11.4-16.0) gm/dL Hct 46.8 H (34.0-46.0) % MCV 93.0 (80.0-100.0) fL MCH 30.7 (25.0-35.0) pg MCHC 33.0 (31.0-37.0) g/dL RDW 13.0 (11.5-15.5) % Plt Count 309 (150-450) k/uL Neutrophils % 60 % Lymphocytes % 31 % Monocytes % 4 % Eosinophils % 3 % Basophils % 1 % Neutrophils # 4.8 (1.3-7.7) k/uL Lymphocytes # 2.4 (1.0-4.8) k/uL Monocytes # 0.3 (0-1.0) k/uL Eosinophils # 0.2 (0-0.7) k/uL Basophils # 0.1 (0-0.2) k/uL Sodium 136 L (137-145) mmol/L Potassium 4.1 (3.5-5.1) mmol/L Chloride 106 (98-107) mmol/L Carbon Dioxide 24 (22-30) mmol/L Anion Gap 6 mmol/L BUN 8 (7-17) mg/dL Creatinine 0.55 (0.52-1.04) mg/dL Est GFR (CKD-EPI)AfAm >90 (>60 ml/min/1.73 sqM) Est GFR (CKD-EPI)NonAf >90 (>60 ml/min/1.73 sqM) Glucose 106 H (74-99) mg/dL Plasma Lactic Acid [place] 1.1 (0.7-2.0) mmol/L Calcium 9.2 (8.4-10.2) mg/dL Total Bilirubin 0.4 (0.2-1.3) mg/dL AST 28 (14-36) U/L ALT 27 (4-34) U/L Alkaline Phosphatase 68 (38-126) U/L Total Protein 6.8 (6.3-8.2) g/dL Albumin 4.2 (3.5-5.0) g/dL Lipase 83 (23-300) U/L Urine Color Urine Appearance (Clear) Urine pH (5.0-8.0) Ur Specific [place] (1.001-1.035) Urine Protein (Negative) Urine Glucose (UA) (Negative) Urine Ketones (Negative) Urine Blood (Negative) Urine Nitrite (Negative) Urine Bilirubin (Negative) Urine Urobilinogen (<2.0) mg/dL Ur Leukocyte Esterase (Negative) Urine WBC (0-5) /hpf Ur Squamous Epith Cells (0-4) /hpf Urine Bacteria (None) /hpf Urine Mucus (None) /hpf Urine HCG, Qual (Not Detectd) Stool Occult Blood (Negative) Disposition Clinical Impression: Crohn disease, Abdominal pain, Blood in stool Disposition: HOME SELF-CARE Condition: Stable Instructions (If sedation given, give patient instructions): Abdominal Pain (ED) Additional Instructions: Please call the GI office tomorrow to make an appointment. Return to the emergency room for any new or worsening symptoms Is patient prescribed a controlled substance at d/c from ED?: No Referrals: Aruna Calle MD [Primary Care Provider] - 1-2 days Kelly Beckwith MD [STAFF PHYSICIAN] - 1-2 days Time of Disposition: 16:43
[2019-11-19 14:51] LABS: Basophils # (A) 0.1 k/uL (0-0.2); Basophils % (A) 1 %; Eosinophils # (A) 0.2 k/uL (0-0.7); Eosinophils % (A) 3 %; HCT 46.8 % (34.0-46.0); HGB 15.5 gm/dL (11.4-16.0); Lymphocytes # (A) 2.4 k/uL (1.0-4.8); Lymphocytes % (A) 31 %; MCH 30.7 pg (25.0-35.0); Mean Platelet Volume 7.5; Monocytes # (A) 0.3 k/uL (0-1.0); Monocytes % (A) 4 %; Neutrophils # (A) 4.8 k/uL (1.3-7.7); Neutrophils % (A) 60 %; Platelet Count 309 k/uL (150-450); RBC 5.04 m/uL (3.80-5.40); WBC 7.9 k/uL (3.8-10.6)
--- NOTE | 2019-11-19 14:52 | XR ---
EXAMINATION TYPE: XR KUB DATE OF EXAM: 11/19/2019 2:41 PM CLINICAL HISTORY: History of colitis with abdominal pain and increased diarrhea and bloody stools. TECHNIQUE: Two Upright KUB images of the abdomen are obtained. COMPARISON: Abdominal x-ray from [address] abdomen and pelvis September 14, 2019. FINDINGS: Scattered gas is seen in non-distended stomach and small bowel loops. Gas and fecal materia l is seen in non-distended colon. Cholecystectomy clips are present. No pneumoperitoneum. Osseous str uctures are intact. Lung bases are clear. Overlying bra strap incidentally noted. IMPRESSION: Overall nonobstructive bowel gas pattern remains present.
[2019-11-19 14:57] LABS: Appearance,Urine Clear (Clear); Bacteria,Urine Rare /hpf; Bilirubin,Urine Negative (Negative); Blood,Urine Negative (Negative); Color,Urine Yellow; Glucose,Urine (UA) Negative (Negative); Ketones,Urine Negative (Negative); Leukocyte Esterase,Urine Trace (Negative); Mucus,Urine Rare /hpf; Nitrite,Urine Negative (Negative); Protein,Urine Negative (Negative); Specific Gravity,Urine 1.016 (1.001-1.035); Squamous Epithelial Cell,Urine 4 /hpf (0-4); Urobilinogen,Urine <2.0 mg/dL (<2.0); WBC,Urine <1 /hpf (0-5)
[2019-11-19 16:09] LABS: ALT 27 U/L (4-34); AST 28 U/L (14-36); African American GFR (CKD) >90 (>60 ml/min/1.73 sqM); Albumin 4.2 g/dL (3.5-5.0); Alkaline Phosphatase 68 U/L (38-126); Anion Gap 6 mmol/L; Blood Urea Nitrogen 8 mg/dL (7-17); Calcium 9.2 mg/dL (8.4-10.2); Carbon Dioxide 24 mmol/L (22-30); Chloride 106 mmol/L (98-107); Glucose 106 mg/dL (74-99); Non-African American GFR(CKD) >90 (>60 ml/min/1.73 sqM); Potassium 4.1 mmol/L (3.5-5.1); Sodium 136 mmol/L (137-145); Total Bilirubin 0.4 mg/dL (0.2-1.3); Total Protein 6.8 g/dL (6.3-8.2)
[2019-11-19] MEDS ORDERED: HYDROcodone/APAP 5-325MG 1 EACH TAB PO STA (16:36)
[2019-11-19] MEDS ORDERED: ONDANSETRON 4 MG/2 ML VIAL IVP STA (16:36)
[2019-11-19 16:58] VITALS: BP 130/95; PULSE 88; RESP 16; TEMP 98
== END 2019-11-19 16:59 | disposition home or self-care (01) ==
LOC: EC 13:18
DX: K50.90 Crohn's disease, unspecified, without complications (principal); F17.200 Nicotine dependence, unspecified, uncomplicated; Z88.0 Allergy status to penicillin; Z88.5 Allergy status to narcotic agent; Z88.6 Allergy status to analgesic agent; Z88.8 Allergy status to other drugs, medicaments and biological substances; Z90.89 Acquired absence of other organs; Z90.49 Acquired absence of other specified parts of digestive tract; Z86.14 Personal history of Methicillin resistant Staphylococcus aureus infection
CPT/HCPCS: 99284; 96374; 96361 ×2; 36415; 80053; 83605; 83690; 85025; 82272; 81001; 81025; 74018; J2405

== ENCOUNTER 2019-12-01 10:28 | Emergency (ER) | payer OTHER ==
[2019-12-01 10:46] VITALS: TEMP 98.1
[2019-12-01] MEDS ORDERED: HYDROcodone/APAP 7.5-325MG 1 EACH TAB PO ONE (11:06)
[2019-12-01 11:49] LABS: Amorphous Sediment,Urine Rare /hpf; Appearance,Urine Cloudy (Clear); Bacteria,Urine Rare /hpf; Bilirubin,Urine Negative (Negative); Blood,Urine Negative (Negative); Color,Urine Yellow; Glucose,Urine (UA) Negative (Negative); Hyaline Casts,Urine 1 /lpf (0-2); Ketones,Urine Negative (Negative); Leukocyte Esterase,Urine Negative (Negative); Mucus,Urine Few /hpf; Nitrite,Urine Negative (Negative); Protein,Urine Negative (Negative); RBC,Urine 18 /hpf (0-5); Specific Gravity,Urine 1.022 (1.001-1.035); Squamous Epithelial Cell,Urine 9 /hpf (0-4); Urobilinogen,Urine <2.0 mg/dL (<2.0); WBC,Urine 5 /hpf (0-5)
[2019-12-01 11:53] LABS: Basophils # (A) 0.1 k/uL (0-0.2); Basophils % (A) 1 %; Eosinophils # (A) 0.3 k/uL (0-0.7); Eosinophils % (A) 4 %; HCT 45.5 % (34.0-46.0); HGB 15.6 gm/dL (11.4-16.0); Lymphocytes # (A) 2.4 k/uL (1.0-4.8); Lymphocytes % (A) 34 %; MCH 31.5 pg (25.0-35.0); MCHC 34.4 g/dL (31.0-37.0); MCV 91.7 fL (80.0-100.0); Mean Platelet Volume 7.9; Monocytes # (A) 0.3 k/uL (0-1.0); Monocytes % (A) 4 %; Neutrophils # (A) 3.9 k/uL (1.3-7.7); Neutrophils % (A) 56 %; Platelet Count 318 k/uL (150-450); RBC 4.96 m/uL (3.80-5.40); RDW 12.8 % (11.5-15.5); WBC 6.9 k/uL (3.8-10.6)
[2019-12-01 11:59] LABS: African American GFR (CKD) >90 (>60 ml/min/1.73 sqM); Albumin 4.6 g/dL (3.5-5.0); Amylase 82 U/L (30-110); Anion Gap 9 mmol/L; Blood Urea Nitrogen 10 mg/dL (7-17); Calcium 9.4 mg/dL (8.4-10.2); Carbon Dioxide 20 mmol/L (22-30); Chloride 109 mmol/L (98-107); Glucose 125 mg/dL (74-99); Non-African American GFR(CKD) >90 (>60 ml/min/1.73 sqM); Sodium 138 mmol/L (137-145); Total Bilirubin 0.8 mg/dL (0.2-1.3); Total Protein 7.9 g/dL (6.3-8.2)
[2019-12-01 12:02] LABS: ALT 19 U/L (4-34); AST 41 U/L (14-36); Alkaline Phosphatase 69 U/L (38-126); Potassium 4.3 mmol/L (3.5-5.1)
--- NOTE | 2019-12-01 12:04 | XR ---
EXAMINATION TYPE: XR KUB DATE OF EXAM: 12/01/2019 11:59 AM CLINICAL HISTORY: Abdominal pain with cramping. History of Crohn's disease. TECHNIQUE: Two Upright KUB images of the abdomen are obtained. COMPARISON: Abdominal x-ray November 19, 2019. CT abdomen and pelvis September 14, 2019.. FINDINGS: Scattered gas is seen in non-distended stomach bubble and small bowel loops. Gas and fecal material is seen in non-distended colon. Cholecystectomy clips are redemonstrated. Lung bases remain clear. No pneumoperitoneum. Sacralized left L5 segment redemonstrated. IMPRESSION: Overall nonobstructive bowel gas pattern remains present.
--- NOTE | 2019-12-01 12:05 | ED ---
Abdominal Pain HPI - General Chief Complaint: Abdominal Pain Stated Complaint: post infusion cramping Time Seen by Provider: 12/01/19 10:52 Source: patient Mode of arrival: ambulatory Limitations: no limitations - History of Present Illness Initial Comments: 28yo female who admits to past medical of Crohn's and ulcerative colitis currently undergoing new Remicade infusions with the first thing last week presented to the emergency department today for chief complaint of abdominal cramping. Patient states she has had diffuse abdominal cramping ongoing since her remicade infusion. Patient states she was told this would be a side effect. Patient states she has chronic blood in her stools and has chronic abdominal pain. She states that her gastric neurologist will not prescribe any pain medications.. Patient for cardiopulmonary comes to emergency department requesting dilaudid by name. patient denies vomiting, nausea, . Denies localized pain. Describes pain as cramping sensation. Patient denies radiation of pain or fevers. Denies additional complaints. Upon arrival patient appears in no acute distress, nontoxic in appearance. - Related Data Home Medications Medication Instructions Recorded Confirmed predniSONE 60 mg PO DAILY 07/09/19 10/16/19 Acetaminophen [Tylenol] 1,000 mg PO Q6H PRN 10/16/19 10/16/19 Previous Rx's Medication Instructions Recorded Mesalamine [[place]] 4 gm RECTAL HS #14 ml 09/23/19 Balsalazide Disodium [Colazal] 1,500 mg PO TID #60 cap 10/17/19 HYDROcodone/APAP 5-325MG [[place] 1 each PO Q6HR PRN #12 tab 10/17/19 5-325] Hydrocodone/Acetaminophen [[place] 1 tab PO BID #6 tab 10/20/19 5-325] Hydrocodone/Acetaminophen [[place] 1 tab PO Q6HR PRN #12 tab 11/07/19 5-325] Terconazole 0.8% Vaginal Cream 1 applic VAGINAL HS #3 each 11/07/19 [Terazol 3] Hydrocodone/Acetaminophen [[place] 1 tab PO Q6HR PRN #12 tab 11/13/19 5-325] Hydrocodone/Acetaminophen [[place] 1 tab PO Q6HR PRN #8 tab 11/16/19 5-325] Allergies Allergy/AdvReac Type Severity Reaction Status Date / Time codeine Allergy Mild Rash/Hives/ Verified 12/01/19 10:46 Swelling ketorolac [From Toradol] Allergy Rash/Hives Verified 12/01/19 10:46 morphine Allergy Rash/Hives Verified 12/01/19 10:46 Penicillins Allergy Unknown Verified 12/01/19 10:46 Childhood haloperidol [From Haldol] AdvReac Rapid Verified 12/01/19 10:46 Heart Rate Review of Systems ROS Statement: Those systems with pertinent positive or pertinent negative responses have been documented in the HPI. ROS Other: All systems not noted in ROS Statement are negative. Past Medical History Past Medical History: No Reported History Additional Past Medical History / Comment(s): crohns, ulcerative colitis, endometriosis, ovarian cyst History of Any Multi-Drug Resistant Organisms: MRSA Date of last positivie culture/infection: 2016 MDRO Source:: right ear Past Surgical History: Adenoidectomy, Section, Cholecystectomy, Tonsillectomy Additional Past Surgical History / Comment(s): right ovary removed. surgery to remove scar tissue. wisdom teeth removal Past Anesthesia/Blood Transfusion Reactions: No Reported Reaction Additional Past Anesthesia/Blood Transfusion Reaction / Comment(s): MRSA Past Psychological History: Depression Smoking Status: Current every day smoker Past Alcohol Use History: None Reported Past Drug Use History: None Reported - Past Family History Mother Family Medical History: No Reported History General Exam - General Exam Comments Initial Comments: General: The patient is awake and alert, in no distress Eye: Pupils are equal, round and reactive to light, extra-ocular movements are intact. No nystagmus. There is normal conjunctiva bilaterally. No signs of icterus. Cardiovascular: There is a regular rate and rhythm. No murmur, rub or gallop is appreciated. Respiratory: Lungs are clear to auscultation, respirations are non-labored, breath sounds are equal. No wheezes, stridor, rales, or rhonchi. Gastrointestinal: Soft, non-distended, very mild diffuse tenderness to palpation of the abdomen without masses or organomegaly noted. There is no rebound or guarding present. Musculoskeletal: Normal ROM, no tenderness. Strength 5/5. Sensation intact. Radial pulses equal bilaterally 2+. Neurological: A&O x 3. CN II-XII intact grossly, There are no obvious motor or sensory deficits. Coordination appears grossly intact. Speech is normal. Skin: Skin is warm and dry and no rashes or lesions are noted. Psychiatric: Cooperative, appropriate mood & affect, normal judgment. Limitations: no limitations Course Vital Signs 12/01/19 12/01/19 10:42 12:10 Temperature 98.1 F 98.1 F Pulse Rate 94 82 Respiratory 18 14 Rate Blood Pressure 122/83 124/85 O2 Sat by Pulse 100 98 Oximetry Medical Decision Making - Medical Decision Making Labs, HgB stable. VS within acceptable limits. Abdomen soft, no localized or severe tenderness at this time. KUB no acute process noted. Patient given oral pain medication. Requesting IV. As patient pain has been chronic and she has significant number of visits to ER I do not feel dilaudid IV is warranted at this time with exam/history findings. Patient agreeable to discharge, recommend GI and PCP f/u. Return parameters discussed and patient was discharged appearing well. Case discussed with attending Dr Cardenas. - Lab Data Result diagrams: 12/01/19 11:27 12/01/19 11:27 Lab Results 12/01/19 12/01/19 12/01/19 Range/Units 11:27 11:27 11:27 WBC 6.9 (3.8-10.6) k/uL RBC 4.96 (3.80-5.40) m/uL Hgb 15.6 (11.4-16.0) gm/dL Hct 45.5 (34.0-46.0) % MCV 91.7 (80.0-100.0) fL MCH 31.5 (25.0-35.0) pg MCHC 34.4 (31.0-37.0) g/dL RDW 12.8 (11.5-15.5) % Plt Count 318 (150-450) k/uL Neutrophils % 56 % Lymphocytes % 34 % Monocytes % 4 % Eosinophils % 4 % Basophils % 1 % Neutrophils # 3.9 (1.3-7.7) k/uL Lymphocytes # 2.4 (1.0-4.8) k/uL Monocytes # 0.3 (0-1.0) k/uL Eosinophils # 0.3 (0-0.7) k/uL Basophils # 0.1 (0-0.2) k/uL Sodium (137-145) mmol/L Potassium (3.5-5.1) mmol/L Chloride (98-107) mmol/L Carbon Dioxide (22-30) mmol/L Anion Gap mmol/L BUN (7-17) mg/dL Creatinine (0.52-1.04) mg/dL Est GFR (CKD-EPI)AfAm (>60 ml/min/1.73 sqM) Est GFR (CKD-EPI)NonAf (>60 ml/min/1.73 sqM) Glucose (74-99) mg/dL Calcium (8.4-10.2) mg/dL Total Bilirubin (0.2-1.3) mg/dL AST (14-36) U/L ALT (4-34) U/L Alkaline Phosphatase (38-126) U/L Total Protein (6.3-8.2) g/dL Albumin (3.5-5.0) g/dL Amylase (30-110) U/L Lipase (23-300) U/L Urine Color Yellow Urine Appearance Cloudy H (Clear) Urine pH 5.0 (5.0-8.0) Ur Specific [place] 1.022 (1.001-1.035) Urine Protein Negative (Negative) Urine Glucose (UA) Negative (Negative) Urine Ketones Negative (Negative) Urine Blood Negative (Negative) Urine Nitrite Negative (Negative) Urine Bilirubin Negative (Negative) Urine Urobilinogen <2.0 (<2.0) mg/dL Ur Leukocyte Esterase Negative (Negative) Urine RBC 18 H (0-5) /hpf Urine WBC 5 (0-5) /hpf Ur Squamous Epith Cells 9 H (0-4) /hpf Amorphous Sediment Rare H (None) /hpf Urine Bacteria Rare H (None) /hpf Hyaline Casts 1 (0-2) /lpf Urine Mucus Few H (None) /hpf Urine HCG, Qual Not Detected (Not Detectd) 12/01/19 Range/Units 11:27 WBC (3.8-10.6) k/uL RBC (3.80-5.40) m/uL Hgb (11.4-16.0) gm/dL Hct (34.0-46.0) % MCV (80.0-100.0) fL MCH (25.0-35.0) pg MCHC (31.0-37.0) g/dL RDW (11.5-15.5) % Plt Count (150-450) k/uL Neutrophils % % Lymphocytes % % Monocytes % % Eosinophils % % Basophils % % Neutrophils # (1.3-7.7) k/uL Lymphocytes # (1.0-4.8) k/uL Monocytes # (0-1.0) k/uL Eosinophils # (0-0.7) k/uL Basophils # (0-0.2) k/uL Sodium 138 (137-145) mmol/L Potassium 4.3 (3.5-5.1) mmol/L Chloride 109 H (98-107) mmol/L Carbon Dioxide 20 L (22-30) mmol/L Anion Gap 9 mmol/L BUN 10 (7-17) mg/dL Creatinine 0.64 (0.52-1.04) mg/dL Est GFR (CKD-EPI)AfAm >90 (>60 ml/min/1.73 sqM) Est GFR (CKD-EPI)NonAf >90 (>60 ml/min/1.73 sqM) Glucose 125 H (74-99) mg/dL Calcium 9.4 (8.4-10.2) mg/dL Total Bilirubin 0.8 (0.2-1.3) mg/dL AST 41 H (14-36) U/L ALT 19 (4-34) U/L Alkaline Phosphatase 69 (38-126) U/L Total Protein 7.9 (6.3-8.2) g/dL Albumin 4.6 (3.5-5.0) g/dL Amylase 82 (30-110) U/L Lipase 135 (23-300) U/L Urine Color Urine Appearance (Clear) Urine pH (5.0-8.0) Ur Specific [place] (1.001-1.035) Urine Protein (Negative) Urine Glucose (UA) (Negative) Urine Ketones (Negative) Urine Blood (Negative) Urine Nitrite (Negative) Urine Bilirubin (Negative) Urine Urobilinogen (<2.0) mg/dL Ur Leukocyte Esterase (Negative) Urine RBC (0-5) /hpf Urine WBC (0-5) /hpf Ur Squamous Epith Cells (0-4) /hpf Amorphous Sediment (None) /hpf Urine Bacteria (None) /hpf Hyaline Casts (0-2) /lpf Urine Mucus (None) /hpf Urine HCG, Qual (Not Detectd) Disposition Clinical Impression: Abdominal cramping Disposition: HOME SELF-CARE Condition: Good Instructions (If sedation given, give patient instructions): Abdominal Pain (ED) Additional Instructions: Please use medication as discussed. Please follow-up with family doctor in the next 2 days, recommend contact GI physician to discuss symptoms. Please return to emergency room if the symptoms increase or worsen or for any other concerns. Is patient prescribed a controlled substance at d/c from ED?: No Referrals: Aruna Calle MD [Primary Care Provider] - 1-2 days Time of Disposition: 12:04
[2019-12-01 12:18] VITALS: BP 124/85; PULSE 82; RESP 14
== END 2019-12-01 12:19 | disposition home or self-care (01) ==
LOC: EC 10:28
DX: R10.9 Unspecified abdominal pain (principal); F17.200 Nicotine dependence, unspecified, uncomplicated; Z88.0 Allergy status to penicillin; Z88.5 Allergy status to narcotic agent; Z88.6 Allergy status to analgesic agent; Z88.8 Allergy status to other drugs, medicaments and biological substances; Z90.89 Acquired absence of other organs; Z90.49 Acquired absence of other specified parts of digestive tract; Z86.14 Personal history of Methicillin resistant Staphylococcus aureus infection
CPT/HCPCS: 36415; 74018; 80053; 81001; 81025; 82150; 83690; 85025; 99284

== ENCOUNTER 2019-12-08 11:14 | Emergency (ER) | payer OTHER ==
[2019-12-08 11:38] VITALS: RESP 18; TEMP 98.4
[2019-12-08] MEDS ORDERED: SODIUM CHLORIDE 0.9% 1,000 ML IV STA (11:52)
[2019-12-08] MEDS ORDERED: PANTOPRAZOLE 40 MG/10 ML VIAL IVP STA (11:52)
--- NOTE | 2019-12-08 12:04 | ED ---
Abdominal Pain HPI - General Chief Complaint: Abdominal Pain Stated Complaint: abd pain/rectal bleeding Time Seen by Provider: 12/08/19 11:42 Source: patient Mode of arrival: ambulatory Limitations: no limitations - History of Present Illness Initial Comments: Patient is a 28-year-old female with history of ulcerative colitis presenting to emergency Department with a chief complaint of abdominal pain and rectal bleeding. Patient states she has been to the emergency department multiple times for the same complaint. Patient states she sees Dr. Beckwith . States last week she had her first infusion of Remicade. Patient states she was told to stop taking her steroids and mesalamine by GI specialist. Patient reports incident. She developed some abdominal cramping which has since resolved. He states she continued to have abdominal pain with rectal bleeding and no significant diarrhea. She does report mucus-like stool. Denies any vaginal or urinary symptoms. Denies nausea or vomiting but does report decreased appetite. Denies any masses fever or chills. Denies any chest pain or shortness of breath. States most of the pain is located in the upper abdominal region where typically is. - Related Data Home Medications Medication Instructions Recorded Confirmed Acetaminophen [Tylenol] 1,000 mg PO Q6H PRN 10/16/19 12/08/19 Biotin 5 mg PO DAILY 12/08/19 12/08/19 Allergies Allergy/AdvReac Type Severity Reaction Status Date / Time codeine Allergy Mild Rash/Hives/ Verified 12/08/19 12:21 Swelling ketorolac [From Toradol] Allergy Rash/Hives Verified 12/08/19 12:21 morphine Allergy Rash/Hives Verified 12/08/19 12:21 Penicillins Allergy Unknown Verified 12/08/19 12:21 Childhood haloperidol [From Haldol] AdvReac Rapid Verified 12/08/19 12:21 Heart Rate Review of Systems ROS Statement: Those systems with pertinent positive or pertinent negative responses have been documented in the HPI. ROS Other: All systems not noted in ROS Statement are negative. Past Medical History Past Medical History: No Reported History Additional Past Medical History / Comment(s): crohns, ulcerative colitis, endometriosis, ovarian cyst History of Any Multi-Drug Resistant Organisms: MRSA Date of last positivie culture/infection: 2016 MDRO Source:: right ear Past Surgical History: Adenoidectomy, Section, Cholecystectomy, Tonsillectomy Additional Past Surgical History / Comment(s): right ovary removed. surgery to remove scar tissue. wisdom teeth removal Past Anesthesia/Blood Transfusion Reactions: No Reported Reaction Additional Past Anesthesia/Blood Transfusion Reaction / Comment(s): MRSA Past Psychological History: Depression Smoking Status: Current every day smoker Past Alcohol Use History: None Reported Past Drug Use History: None Reported - Past Family History Mother Family Medical History: No Reported History General Exam Limitations: no limitations General appearance: alert, in no apparent distress Head exam: Present: atraumatic, normocephalic, normal inspection Eye exam: Present: normal appearance, PERRL, EOMI Pupils: Present: normal accommodation ENT exam: Present: normal exam, normal oropharynx, mucous membranes moist Neck exam: Present: normal inspection, full ROM. Absent: tenderness Respiratory exam: Present: normal lung sounds bilaterally. Absent: respiratory distress, wheezes Cardiovascular Exam: Present: regular rate, normal rhythm, normal heart sounds GI/Abdominal exam: Present: soft, tenderness (Left upper quadrant, right upper quadrant and epigastric region tenderness). Absent: distended, guarding, rigid Rectal exam: Present: normal inspection, normal rectal tone. Absent: black stool Extremities exam: Present: normal inspection, full ROM Back exam: Present: normal inspection, full ROM. Absent: tenderness Neurological exam: Present: alert, oriented X3 Psychiatric exam: Present: normal affect, normal mood Skin exam: Present: warm, dry, intact, normal color Course Vital Signs 12/08/19 12/08/19 11:35 14:04 Temperature 98.4 F Pulse Rate 93 60 Respiratory 18 18 Rate Blood Pressure 131/91 121/78 O2 Sat by Pulse 99 99 Oximetry Medical Decision Making - Medical Decision Making Patient is a 28-year-old female with history of ulcerative colitis presenting to the emergency department with a chief complaint of abdominal pain. Patient reports she comes off into the ED. Physical examination is remarkable for some upper abdominal pain. CBC CMP are unremarkable. Occult stool unremarkable. Patient given fluids and analgesia in the ED. On reevaluation, patient reports improvement in symptoms. Patient will be discharged and she is set to see . Return parameters were thoroughly discussed the patient is understanding and agreeable. Case discussed with physician. - Lab Data Result diagrams: 12/08/19 12:27 12/08/19 12:27 Lab Results 12/08/19 12/08/19 12/08/19 Range/Units 12:23 12:23 12:27 WBC 6.4 (3.8-10.6) k/uL RBC 4.97 (3.80-5.40) m/uL Hgb 15.3 (11.4-16.0) gm/dL Hct 45.9 (34.0-46.0) % MCV 92.4 (80.0-100.0) fL MCH 30.8 (25.0-35.0) pg MCHC 33.4 (31.0-37.0) g/dL RDW 12.5 (11.5-15.5) % Plt Count 332 (150-450) k/uL Neutrophils % 51 % Lymphocytes % 38 % Monocytes % 4 % Eosinophils % 5 % Basophils % 1 % Neutrophils # 3.2 (1.3-7.7) k/uL Lymphocytes # 2.4 (1.0-4.8) k/uL Monocytes # 0.3 (0-1.0) k/uL Eosinophils # 0.3 (0-0.7) k/uL Basophils # 0.1 (0-0.2) k/uL Sodium (137-145) mmol/L Potassium (3.5-5.1) mmol/L Chloride (98-107) mmol/L Carbon Dioxide (22-30) mmol/L Anion Gap mmol/L BUN (7-17) mg/dL Creatinine (0.52-1.04) mg/dL Est GFR (CKD-EPI)AfAm (>60 ml/min/1.73 sqM) Est GFR (CKD-EPI)NonAf (>60 ml/min/1.73 sqM) Glucose (74-99) mg/dL Plasma Lactic Acid Derrick (0.7-2.0) mmol/L Calcium (8.4-10.2) mg/dL Total Bilirubin (0.2-1.3) mg/dL AST (14-36) U/L ALT (4-34) U/L Alkaline Phosphatase (38-126) U/L Total Protein (6.3-8.2) g/dL Albumin (3.5-5.0) g/dL Lipase (23-300) U/L Urine Color Yellow Urine Appearance Clear (Clear) Urine pH 6.0 (5.0-8.0) Ur Specific [place] 1.025 (1.001-1.035) Urine Protein Negative (Negative) Urine Glucose (UA) Negative (Negative) Urine Ketones Negative (Negative) Urine Blood Negative (Negative) Urine Nitrite Negative (Negative) Urine Bilirubin Negative (Negative) Urine Urobilinogen <2.0 (<2.0) mg/dL Ur Leukocyte Esterase Negative (Negative) Urine RBC 1 (0-5) /hpf Urine WBC 1 (0-5) /hpf Ur Squamous Epith Cells 2 (0-4) /hpf Urine Mucus Few H (None) /hpf Stool Occult Blood Negative (Negative) 12/08/19 12/08/19 Range/Units 12:27 12:27 WBC (3.8-10.6) k/uL RBC (3.80-5.40) m/uL Hgb (11.4-16.0) gm/dL Hct (34.0-46.0) % MCV (80.0-100.0) fL MCH (25.0-35.0) pg MCHC (31.0-37.0) g/dL RDW (11.5-15.5) % Plt Count (150-450) k/uL Neutrophils % % Lymphocytes % % Monocytes % % Eosinophils % % Basophils % % Neutrophils # (1.3-7.7) k/uL Lymphocytes # (1.0-4.8) k/uL Monocytes # (0-1.0) k/uL Eosinophils # (0-0.7) k/uL Basophils # (0-0.2) k/uL Sodium 141 (137-145) mmol/L Potassium 3.9 (3.5-5.1) mmol/L Chloride 108 H (98-107) mmol/L Carbon Dioxide 24 (22-30) mmol/L Anion Gap 9 mmol/L BUN 10 (7-17) mg/dL Creatinine 0.66 (0.52-1.04) mg/dL Est GFR (CKD-EPI)AfAm >90 (>60 ml/min/1.73 sqM) Est GFR (CKD-EPI)NonAf >90 (>60 ml/min/1.73 sqM) Glucose 118 H (74-99) mg/dL Plasma Lactic Acid Derrick 1.0 (0.7-2.0) mmol/L Calcium 9.7 (8.4-10.2) mg/dL Total Bilirubin 0.7 (0.2-1.3) mg/dL AST 27 (14-36) U/L ALT 21 (4-34) U/L Alkaline Phosphatase 74 (38-126) U/L Total Protein 7.7 (6.3-8.2) g/dL Albumin 4.8 (3.5-5.0) g/dL Lipase 131 (23-300) U/L Urine Color Urine Appearance (Clear) Urine pH (5.0-8.0) Ur Specific [place] (1.001-1.035) Urine Protein (Negative) Urine Glucose (UA) (Negative) Urine Ketones (Negative) Urine Blood (Negative) Urine Nitrite (Negative) Urine Bilirubin (Negative) Urine Urobilinogen (<2.0) mg/dL Ur Leukocyte Esterase (Negative) Urine RBC (0-5) /hpf Urine WBC (0-5) /hpf Ur Squamous Epith Cells (0-4) /hpf Urine Mucus (None) /hpf Stool Occult Blood (Negative) Disposition Clinical Impression: Abdominal pain, Exacerbation of Crohn's disease Disposition: HOME SELF-CARE Condition: Stable Instructions (If sedation given, give patient instructions): Abdominal Pain (ED) Additional Instructions: Return to emergency department if symptoms worsen. Is patient prescribed a controlled substance at d/c from ED?: No Referrals: Aruna Calle MD [Primary Care Provider] - 1-2 days Time of Disposition: 13:47
[2019-12-08 12:40] LABS: Basophils # (A) 0.1 k/uL (0-0.2); Basophils % (A) 1 %; Eosinophils # (A) 0.3 k/uL (0-0.7); Eosinophils % (A) 5 %; HCT 45.9 % (34.0-46.0); HGB 15.3 gm/dL (11.4-16.0); Lymphocytes # (A) 2.4 k/uL (1.0-4.8); Lymphocytes % (A) 38 %; MCH 30.8 pg (25.0-35.0); MCHC 33.4 g/dL (31.0-37.0); MCV 92.4 fL (80.0-100.0); Mean Platelet Volume 7.7; Monocytes # (A) 0.3 k/uL (0-1.0); Monocytes % (A) 4 %; Neutrophils # (A) 3.2 k/uL (1.3-7.7); Neutrophils % (A) 51 %; Platelet Count 332 k/uL (150-450); RBC 4.97 m/uL (3.80-5.40); RDW 12.5 % (11.5-15.5); WBC 6.4 k/uL (3.8-10.6)
[2019-12-08 12:50] LABS: Mucus,Urine Few /hpf; RBC,Urine 1 /hpf (0-5); Squamous Epithelial Cell,Urine 2 /hpf (0-4); WBC,Urine 1 /hpf (0-5)
[2019-12-08 12:54] LABS: ALT 21 U/L (4-34); AST 27 U/L (14-36); African American GFR (CKD) >90 (>60 ml/min/1.73 sqM); Albumin 4.8 g/dL (3.5-5.0); Alkaline Phosphatase 74 U/L (38-126); Anion Gap 9 mmol/L; Blood Urea Nitrogen 10 mg/dL (7-17); Calcium 9.7 mg/dL (8.4-10.2); Carbon Dioxide 24 mmol/L (22-30); Chloride 108 mmol/L (98-107); Glucose 118 mg/dL (74-99); Non-African American GFR(CKD) >90 (>60 ml/min/1.73 sqM); Potassium 3.9 mmol/L (3.5-5.1); Sodium 141 mmol/L (137-145); Total Bilirubin 0.7 mg/dL (0.2-1.3); Total Protein 7.7 g/dL (6.3-8.2)
[2019-12-08] MEDS ORDERED: HYDROmorphone 1 MG/ML 1 ML SYRINGE IVP STA (12:56)
[2019-12-08 13:21] LABS: Appearance,Urine Clear (Clear); Bilirubin,Urine Negative (Negative); Blood,Urine Negative (Negative); Color,Urine Yellow; Glucose,Urine (UA) Negative (Negative); Ketones,Urine Negative (Negative); Leukocyte Esterase,Urine Negative (Negative); Nitrite,Urine Negative (Negative); Protein,Urine Negative (Negative); Specific Gravity,Urine 1.025 (1.001-1.035); Urobilinogen,Urine <2.0 mg/dL (<2.0)
[2019-12-08 14:05] VITALS: BP 121/78; PULSE 60
[2019-12-08] MEDS ORDERED: HYDROmorphone 0.5 MG/0.5 ML SYRINGE IVP STA (14:14)
== END 2019-12-08 14:26 | disposition home or self-care (01) ==
LOC: EC 11:14
DX: K50.90 Crohn's disease, unspecified, without complications (principal); F17.200 Nicotine dependence, unspecified, uncomplicated; Z86.14 Personal history of Methicillin resistant Staphylococcus aureus infection; Z88.0 Allergy status to penicillin; Z88.5 Allergy status to narcotic agent; Z88.6 Allergy status to analgesic agent; Z88.8 Allergy status to other drugs, medicaments and biological substances
CPT/HCPCS: 36415; 80053; 83605; 83690; 85025; 82272; 81003; 99284; 96374; 96375; 96376; 96361; J1170 ×2; C9113

== ENCOUNTER 2019-12-15 13:00 | Emergency (ER) | payer OTHER ==
[2019-12-15 13:32] VITALS: BP 125/81; PULSE 87; RESP 18; TEMP 98.4
[2019-12-15 14:53] LABS: Appearance,Urine Clear (Clear); Bilirubin,Urine Negative (Negative); Blood,Urine Negative (Negative); Color,Urine Yellow; Glucose,Urine (UA) Negative (Negative); Ketones,Urine 1+ (Negative); Leukocyte Esterase,Urine Negative (Negative); Nitrite,Urine Negative (Negative); PH, Urine 5.5 (5.0-8.0); Protein,Urine Negative (Negative); Specific Gravity,Urine 1.022 (1.001-1.035); Urobilinogen,Urine <2.0 mg/dL (<2.0)
[2019-12-15 15:25] LABS: Basophils # (A) 0.1 k/uL (0-0.2); Basophils % (A) 1 %; Eosinophils # (A) 0.2 k/uL (0-0.7); Eosinophils % (A) 3 %; HCT 44.7 % (34.0-46.0); HGB 14.5 gm/dL (11.4-16.0); Lymphocytes # (A) 2.9 k/uL (1.0-4.8); Lymphocytes % (A) 40 %; MCH 29.6 pg (25.0-35.0); MCHC 32.4 g/dL (31.0-37.0); MCV 91.5 fL (80.0-100.0); Mean Platelet Volume 7.7; Monocytes # (A) 0.3 k/uL (0-1.0); Monocytes % (A) 5 %; Neutrophils # (A) 3.6 k/uL (1.3-7.7); Neutrophils % (A) 49 %; Platelet Count 299 k/uL (150-450); RBC 4.89 m/uL (3.80-5.40); RDW 12.2 % (11.5-15.5); WBC 7.4 k/uL (3.8-10.6)
[2019-12-15 15:33] LABS: ALT 19 U/L (4-34); AST 31 U/L (14-36); African American GFR (CKD) >90 (>60 ml/min/1.73 sqM); Albumin 4.9 g/dL (3.5-5.0); Alkaline Phosphatase 76 U/L (38-126); Amylase 43 U/L (30-110); Anion Gap 9 mmol/L; Blood Urea Nitrogen 8 mg/dL (7-17); Calcium 9.7 mg/dL (8.4-10.2); Carbon Dioxide 22 mmol/L (22-30); Chloride 106 mmol/L (98-107); Glucose 99 mg/dL (74-99); Non-African American GFR(CKD) >90 (>60 ml/min/1.73 sqM); Potassium 4.1 mmol/L (3.5-5.1); Sodium 137 mmol/L (137-145); Total Bilirubin 0.8 mg/dL (0.2-1.3); Total Protein 7.7 g/dL (6.3-8.2)
--- NOTE | 2019-12-15 16:20 | ED ---
General Adult HPI - General Chief complaint: Abdominal Pain Stated complaint: abd pain/GI dr sent in Time Seen by Provider: 12/15/19 13:30 Source: patient, RN notes reviewed, old records reviewed Mode of arrival: ambulatory Limitations: physical limitation - History of Present Illness Initial comments: This is a 28-year-old female who states she has a history of ulcers colitis. Patient states she talked to Dr. Cedeno's office and they recommended she come to the emergency department. Patient states she's been having abdominal pain which she has had chronically. Patient denies any diarrhea but states she has quite a bit of blood in her stool. Patient denies any recent fever chills. Patient states this is the same pain that she always gets. Patient states she started on Remicade recently. - Related Data Home Medications Medication Instructions Recorded Confirmed Acetaminophen [Tylenol] 1,000 mg PO Q6H PRN 10/16/19 12/15/19 inFLIXimab [Remicade] 0 mg IVPB DIRECTED 12/15/19 12/15/19 Previous Rx's Medication Instructions Recorded predniSONE [Deltasone] 40 mg PO DAILY #8 tab 12/15/19 Allergies Allergy/AdvReac Type Severity Reaction Status Date / Time codeine Allergy Mild Rash/Hives/ Verified 12/15/19 15:16 Swelling ketorolac [From Toradol] Allergy Rash/Hives Verified 12/15/19 15:16 morphine Allergy Rash/Hives Verified 12/15/19 15:16 Penicillins Allergy Unknown Verified 12/15/19 15:16 Childhood haloperidol [From Haldol] AdvReac Rapid Verified 12/15/19 15:16 Heart Rate Review of Systems ROS Statement: Those systems with pertinent positive or pertinent negative responses have been documented in the HPI. ROS Other: All systems not noted in ROS Statement are negative. Past Medical History Past Medical History: No Reported History Additional Past Medical History / Comment(s): crohns, ulcerative colitis, endometriosis, ovarian cyst History of Any Multi-Drug Resistant Organisms: MRSA Date of last positivie culture/infection: 2016 MDRO Source:: right ear Past Surgical History: Adenoidectomy, Section, Cholecystectomy, Tonsillectomy Additional Past Surgical History / Comment(s): right ovary removed. surgery to remove scar tissue. wisdom teeth removal Past Anesthesia/Blood Transfusion Reactions: No Reported Reaction Additional Past Anesthesia/Blood Transfusion Reaction / Comment(s): MRSA Past Psychological History: Depression Smoking Status: Current every day smoker Past Alcohol Use History: None Reported Past Drug Use History: None Reported - Past Family History Mother Family Medical History: No Reported History General Exam - General Exam Comments Initial Comments: GENERAL: Patient is well-developed and well-nourished. Patient is nontoxic and well- hydrated and is in no acute distress. ENT: Neck is soft and supple. No significant lymphadenopathy is noted. Oropharynx is clear. Moist mucous membranes. Neck has full range of motion without eliciting any pain. EYES: The sclera were anicteric and conjunctiva were pink and moist. Extraocular movements were intact and pupils were equal round and reactive to light. Eyelids were unremarkable. PULMONARY: Unlabored respirations. Good breath sounds bilaterally. No audible rales rhonchi or wheezing was noted. CARDIOVASCULAR: There is a regular rate and rhythm without any murmurs gallops or rubs. ABDOMEN: Patient had no palpable pain with distraction. SKIN: Skin is clear with no lesions or rashes and otherwise unremarkable. NEUROLOGIC: Patient is alert and oriented x3. Cranial nerves II through XII are grossly intact. Motor and sensory are also intact. Normal speech, volume and content. Symmetrical smile. MUSCULOSKELETAL: Normal extremities with adequate strength and full range of motion. LYMPHATICS: No significant lymphadenopathy is noted PSYCHIATRIC: Normal psychiatric evaluation. Limitations: physical limitation Course Vital Signs 12/15/19 13:28 Temperature 98.4 F Pulse Rate 87 Respiratory 18 Rate Blood Pressure 125/81 O2 Sat by Pulse 97 Oximetry Medical Decision Making - Medical Decision Making I spoke with Dr. Sofia did not want the patient getting any pain medicine but he did state that she could get a short course of steroids and she could follow- up in the office this week. A maps was done on the patient and she did receive multiple narcotics from multiple different practitioners at multiple institutions. - Lab Data Result diagrams: 12/15/19 14:57 12/15/19 14:57 Lab Results 12/15/19 12/15/19 12/15/19 Range/Units 14:37 14:57 14:57 WBC 7.4 (3.8-10.6) k/uL RBC 4.89 (3.80-5.40) m/uL Hgb 14.5 (11.4-16.0) gm/dL Hct 44.7 (34.0-46.0) % MCV 91.5 (80.0-100.0) fL MCH 29.6 (25.0-35.0) pg MCHC 32.4 (31.0-37.0) g/dL RDW 12.2 (11.5-15.5) % Plt Count 299 (150-450) k/uL Neutrophils % 49 % Lymphocytes % 40 % Monocytes % 5 % Eosinophils % 3 % Basophils % 1 % Neutrophils # 3.6 (1.3-7.7) k/uL Lymphocytes # 2.9 (1.0-4.8) k/uL Monocytes # 0.3 (0-1.0) k/uL Eosinophils # 0.2 (0-0.7) k/uL Basophils # 0.1 (0-0.2) k/uL Sodium 137 (137-145) mmol/L Potassium 4.1 (3.5-5.1) mmol/L Chloride 106 (98-107) mmol/L Carbon Dioxide 22 (22-30) mmol/L Anion Gap 9 mmol/L BUN 8 (7-17) mg/dL Creatinine 0.66 (0.52-1.04) mg/dL Est GFR (CKD-EPI)AfAm >90 (>60 ml/min/1.73 sqM) Est GFR (CKD-EPI)NonAf >90 (>60 ml/min/1.73 sqM) Glucose 99 (74-99) mg/dL Calcium 9.7 (8.4-10.2) mg/dL Total Bilirubin 0.8 (0.2-1.3) mg/dL AST 31 (14-36) U/L ALT 19 (4-34) U/L Alkaline Phosphatase 76 (38-126) U/L Total Protein 7.7 (6.3-8.2) g/dL Albumin 4.9 (3.5-5.0) g/dL Amylase 43 (30-110) U/L Lipase 93 (23-300) U/L Urine Color Yellow Urine Appearance Clear (Clear) Urine pH 5.5 (5.0-8.0) Ur Specific [place] 1.022 (1.001-1.035) Urine Protein Negative (Negative) Urine Glucose (UA) Negative (Negative) Urine Ketones 1+ H (Negative) Urine Blood Negative (Negative) Urine Nitrite Negative (Negative) Urine Bilirubin Negative (Negative) Urine Urobilinogen <2.0 (<2.0) mg/dL Ur Leukocyte Esterase Negative (Negative) Disposition Clinical Impression: History of ulcerative colitis, Drug-seeking behavior Disposition: HOME SELF-CARE Instructions (If sedation given, give patient instructions): Colitis (ED) Prescriptions: predniSONE [Deltasone] 40 mg PO DAILY #8 tab Is patient prescribed a controlled substance at d/c from ED?: No Referrals: Aruna Calle MD [Primary Care Provider] - 1-2 days Time of Disposition: 16:19
[2019-12-15] MEDS ORDERED: methylPREDNISolone SOD SUCCI 125 MG/2 ML VIAL IM ONE (16:32)
== END 2019-12-15 16:44 | disposition home or self-care (01) ==
LOC: EC 13:00
DX: K51.911 Ulcerative colitis, unspecified with rectal bleeding (principal); Z76.5 Malingerer [conscious simulation]; Z79.899 Other long term (current) drug therapy; F17.200 Nicotine dependence, unspecified, uncomplicated; Z88.0 Allergy status to penicillin; Z88.5 Allergy status to narcotic agent; Z88.8 Allergy status to other drugs, medicaments and biological substances; Z88.6 Allergy status to analgesic agent; Z90.89 Acquired absence of other organs; Z90.49 Acquired absence of other specified parts of digestive tract; Z86.14 Personal history of Methicillin resistant Staphylococcus aureus infection
CPT/HCPCS: 36415; 80053; 81003; 82150; 83690; 85025; 99284

== ENCOUNTER 2020-02-12 11:50 | Emergency (ER) | payer OTHER ==
[2020-02-12 12:18] VITALS: TEMP 98
[2020-02-12] MEDS ORDERED: SODIUM CHLORIDE 0.9% 1,000 ML IV STA ×2 (12:41)
[2020-02-12] MEDS ORDERED: MORPHINE SULFATE 4 MG/ML SYRINGE IVP STA (12:56)
[2020-02-12] MEDS ORDERED: PANTOPRAZOLE 40 MG/10 ML VIAL IVP STA (12:57)
[2020-02-12 13:25] LABS: Basophils # (A) 0.1 k/uL (0-0.2); Basophils % (A) 2 %; Eosinophils # (A) 0.2 k/uL (0-0.7); Eosinophils % (A) 4 %; HCT 48.6 % (34.0-46.0); HGB 16.1 gm/dL (11.4-16.0); Lymphocytes # (A) 2.1 k/uL (1.0-4.8); Lymphocytes % (A) 39 %; MCH 29.4 pg (25.0-35.0); MCHC 33.2 g/dL (31.0-37.0); MCV 88.5 fL (80.0-100.0); Mean Platelet Volume 7.7; Monocytes # (A) 0.3 k/uL (0-1.0); Monocytes % (A) 5 %; Neutrophils # (A) 2.6 k/uL (1.3-7.7); Neutrophils % (A) 47 %; Platelet Count 317 k/uL (150-450); RBC 5.48 m/uL (3.80-5.40); RDW 12.8 % (11.5-15.5); WBC 5.4 k/uL (3.8-10.6)
[2020-02-12 13:37] LABS: ALT 31 U/L (4-34); AST 30 U/L (14-36); African American GFR (CKD) >90 (>60 ml/min/1.73 sqM); Albumin 4.9 g/dL (3.5-5.0); Alkaline Phosphatase 74 U/L (38-126); Anion Gap 9 mmol/L; Blood Urea Nitrogen 12 mg/dL (7-17); Calcium 9.5 mg/dL (8.4-10.2); Carbon Dioxide 23 mmol/L (22-30); Chloride 107 mmol/L (98-107); Glucose 121 mg/dL (74-99); Magnesium 1.9 mg/dL (1.6-2.3); Non-African American GFR(CKD) >90 (>60 ml/min/1.73 sqM); Potassium 4.4 mmol/L (3.5-5.1); Sodium 139 mmol/L (137-145); Total Bilirubin 0.7 mg/dL (0.2-1.3); Total Protein 7.8 g/dL (6.3-8.2)
[2020-02-12 13:38] LABS: INR 0.9 (<1.2); Partial Thromboplastin Time 23.3 sec (22.0-30.0); Prothrombin Time 9.9 sec (9.0-12.0)
[2020-02-12] MEDS ORDERED: HYDROmorphone 1 MG/ML 1 ML SYRINGE IVP STA ×2 (14:07→14:46)
[2020-02-12 14:24] LABS: Appearance,Urine Cloudy (Clear); Bacteria,Urine Rare /hpf; Bilirubin,Urine Negative (Negative); Blood,Urine Negative (Negative); Color,Urine Yellow; Glucose,Urine (UA) Negative (Negative); Ketones,Urine Negative (Negative); Leukocyte Esterase,Urine Negative (Negative); Mucus,Urine Few /hpf; Nitrite,Urine Negative (Negative); Protein,Urine Negative (Negative); RBC,Urine <1 /hpf (0-5); Specific Gravity,Urine 1.025 (1.001-1.035); Squamous Epithelial Cell,Urine 14 /hpf (0-4); Urobilinogen,Urine <2.0 mg/dL (<2.0); WBC,Urine 1 /hpf (0-5)
--- NOTE | 2020-02-12 14:34 | ED ---
GI Bleed HPI - General Chief complaint: GI Bleed Stated complaint: Abd pain, rectal bleed Time Seen by Provider: 02/12/20 12:31 Source: patient, RN notes reviewed, old records reviewed Mode of arrival: ambulatory Limitations: no limitations - History of Present Illness Initial comments: Suly is a 29-year-old female history of a colitis who presents emergency department today for complaint of bloody stools or abdominal pain. He reports is similar to previous Crohn's colitis flareups. At this time she states that she has no change in urination. Denies any vomiting. Patient reports that she's had no other significant complaints. - Related Data Home Medications Medication Instructions Recorded Confirmed Acetaminophen [Tylenol] 1,000 mg PO Q6H PRN 10/16/19 02/12/20 inFLIXimab [Remicade] 1 dose IVPB Q56D 12/15/19 02/12/20 Biotin 5 mg PO DAILY 02/12/20 02/12/20 Previous Rx's Medication Instructions Recorded predniSONE [Deltasone] 20 mg PO DIRECTED #12 tab 02/12/20 Allergies Allergy/AdvReac Type Severity Reaction Status Date / Time codeine Allergy Mild Rash/Hives/ Verified 02/12/20 13:12 Swelling ketorolac [From Toradol] Allergy Rash/Hives Verified 02/12/20 13:12 morphine Allergy Rash/Hives Verified 02/12/20 13:12 Penicillins Allergy Unknown Verified 02/12/20 13:12 Childhood haloperidol [From Haldol] AdvReac Rapid Verified 02/12/20 13:12 Heart Rate Review of Systems ROS Statement: Those systems with pertinent positive or pertinent negative responses have been documented in the HPI. ROS Other: All systems not noted in ROS Statement are negative. Past Medical History Past Medical History: No Reported History Additional Past Medical History / Comment(s): crohns, ulcerative colitis, endometriosis, ovarian cyst History of Any Multi-Drug Resistant Organisms: MRSA Date of last positivie culture/infection: 2016 MDRO Source:: right ear Past Surgical History: Adenoidectomy, Section, Cholecystectomy, Tonsillectomy Additional Past Surgical History / Comment(s): right ovary removed. surgery to remove scar tissue. wisdom teeth removal Past Anesthesia/Blood Transfusion Reactions: No Reported Reaction Additional Past Anesthesia/Blood Transfusion Reaction / Comment(s): MRSA Past Psychological History: Depression Smoking Status: Current every day smoker Past Alcohol Use History: None Reported Past Drug Use History: None Reported - Past Family History Mother Family Medical History: No Reported History General Exam - General Exam Comments Initial Comments: 29-year-old female. No significant distress. Limitations: no limitations General appearance: alert, in no apparent distress Head exam: Present: atraumatic, normocephalic, normal inspection Eye exam: Present: normal appearance, PERRL, EOMI. Absent: scleral icterus, conjunctival injection, periorbital swelling ENT exam: Present: normal exam, mucous membranes moist Neck exam: Present: normal inspection. Absent: tenderness, meningismus, lymphadenopathy Respiratory exam: Present: normal lung sounds bilaterally. Absent: respiratory distress, wheezes, rales, rhonchi, stridor Cardiovascular Exam: Present: regular rate, normal rhythm, normal heart sounds. Absent: systolic murmur, diastolic murmur, rubs, gallop, clicks GI/Abdominal exam: Present: soft, tenderness (lower abdominal tenderness), normal bowel sounds. Absent: distended, guarding, rebound, rigid Rectal exam: Present: normal inspection, normal rectal tone, heme (-) stool Extremities exam: Present: normal inspection, full ROM, normal capillary refill. Absent: tenderness, pedal edema, joint swelling, calf tenderness Back exam: Present: normal inspection Neurological exam: Present: alert, oriented X3, CN II-XII intact Psychiatric exam: Present: normal affect, normal mood Skin exam: Present: warm, dry, intact, normal color. Absent: rash Course Vital Signs 02/12/20 02/12/20 12:14 15:14 Temperature 98 F 98 F Pulse Rate 111 H 97 Respiratory 16 18 Rate Blood Pressure 115/81 120/72 O2 Sat by Pulse 99 98 Oximetry Medical Decision Making - Medical Decision Making 29-year-old female presents return today for bloody stool and Colitis flare up and abdominal pain. She does display some drug seeking tendencies. Fecal occult is negative and labs including hemoglobin are normal. She states her GI doctor tells her to come to ED. She gets IV infusions for colitis. Discussed PT needs to follow up with GI, and can give R for steroids at this time. - Lab Data Result diagrams: 02/12/20 13:06 02/12/20 13:06 Lab Results 02/12/20 02/12/20 02/12/20 Range/Units 13:06 13:06 13:06 WBC 5.4 (3.8-10.6) k/uL RBC 5.48 H (3.80-5.40) m/uL Hgb 16.1 H (11.4-16.0) gm/dL Hct 48.6 H (34.0-46.0) % MCV 88.5 (80.0-100.0) fL MCH 29.4 (25.0-35.0) pg MCHC 33.2 (31.0-37.0) g/dL RDW 12.8 (11.5-15.5) % Plt Count 317 (150-450) k/uL Neutrophils % 47 % Lymphocytes % 39 % Monocytes % 5 % Eosinophils % 4 % Basophils % 2 % Neutrophils # 2.6 (1.3-7.7) k/uL Lymphocytes # 2.1 (1.0-4.8) k/uL Monocytes # 0.3 (0-1.0) k/uL Eosinophils # 0.2 (0-0.7) k/uL Basophils # 0.1 (0-0.2) k/uL PT 9.9 (9.0-12.0) sec INR 0.9 (<1.2) APTT 23.3 (22.0-30.0) sec Sodium (137-145) mmol/L Potassium (3.5-5.1) mmol/L Chloride (98-107) mmol/L Carbon Dioxide (22-30) mmol/L Anion Gap mmol/L BUN (7-17) mg/dL Creatinine (0.52-1.04) mg/dL Est GFR (CKD-EPI)AfAm (>60 ml/min/1.73 sqM) Est GFR (CKD-EPI)NonAf (>60 ml/min/1.73 sqM) Glucose (74-99) mg/dL Plasma Lactic Acid Derrick (0.7-2.0) mmol/L Calcium (8.4-10.2) mg/dL Magnesium (1.6-2.3) mg/dL Total Bilirubin (0.2-1.3) mg/dL AST (14-36) U/L ALT (4-34) U/L Alkaline Phosphatase (38-126) U/L Total Protein (6.3-8.2) g/dL Albumin (3.5-5.0) g/dL Urine Color Urine Appearance (Clear) Urine pH (5.0-8.0) Ur Specific [place] (1.001-1.035) Urine Protein (Negative) Urine Glucose (UA) (Negative) Urine Ketones (Negative) Urine Blood (Negative) Urine Nitrite (Negative) Urine Bilirubin (Negative) Urine Urobilinogen (<2.0) mg/dL Ur Leukocyte Esterase (Negative) Urine RBC (0-5) /hpf Urine WBC (0-5) /hpf Ur Squamous Epith Cells (0-4) /hpf Urine Bacteria (None) /hpf Urine Mucus (None) /hpf Stool Occult Blood Negative (Negative) 02/12/20 02/12/20 02/12/20 Range/Units 13:06 13:06 13:52 WBC (3.8-10.6) k/uL RBC (3.80-5.40) m/uL Hgb (11.4-16.0) gm/dL Hct (34.0-46.0) % MCV (80.0-100.0) fL MCH (25.0-35.0) pg MCHC (31.0-37.0) g/dL RDW (11.5-15.5) % Plt Count (150-450) k/uL Neutrophils % % Lymphocytes % % Monocytes % % Eosinophils % % Basophils % % Neutrophils # (1.3-7.7) k/uL Lymphocytes # (1.0-4.8) k/uL Monocytes # (0-1.0) k/uL Eosinophils # (0-0.7) k/uL Basophils # (0-0.2) k/uL PT (9.0-12.0) sec INR (<1.2) APTT (22.0-30.0) sec Sodium 139 (137-145) mmol/L Potassium 4.4 (3.5-5.1) mmol/L Chloride 107 (98-107) mmol/L Carbon Dioxide 23 (22-30) mmol/L Anion Gap 9 mmol/L BUN 12 (7-17) mg/dL Creatinine 0.68 (0.52-1.04) mg/dL Est GFR (CKD-EPI)AfAm >90 (>60 ml/min/1.73 sqM) Est GFR (CKD-EPI)NonAf >90 (>60 ml/min/1.73 sqM) Glucose 121 H (74-99) mg/dL Plasma Lactic Acid Derrick 0.9 (0.7-2.0) mmol/L Calcium 9.5 (8.4-10.2) mg/dL Magnesium 1.9 (1.6-2.3) mg/dL Total Bilirubin 0.7 (0.2-1.3) mg/dL AST 30 (14-36) U/L ALT 31 (4-34) U/L Alkaline Phosphatase 74 (38-126) U/L Total Protein 7.8 (6.3-8.2) g/dL Albumin 4.9 (3.5-5.0) g/dL Urine Color Yellow Urine Appearance Cloudy H (Clear) Urine pH 6.0 (5.0-8.0) Ur Specific [place] 1.025 (1.001-1.035) Urine Protein Negative (Negative) Urine Glucose (UA) Negative (Negative) Urine Ketones Negative (Negative) Urine Blood Negative (Negative) Urine Nitrite Negative (Negative) Urine Bilirubin Negative (Negative) Urine Urobilinogen <2.0 (<2.0) mg/dL Ur Leukocyte Esterase Negative (Negative) Urine RBC <1 (0-5) /hpf Urine WBC 1 (0-5) /hpf Ur Squamous Epith Cells 14 H (0-4) /hpf Urine Bacteria Rare H (None) /hpf Urine Mucus Few H (None) /hpf Stool Occult Blood (Negative) - Radiology Data Radiology results: report reviewed Disposition Clinical Impression: Crohn disease, Abdominal pain Disposition: HOME SELF-CARE Condition: Good Instructions (If sedation given, give patient instructions): Gastrointestinal Bleeding (ED) Additional Instructions: Follow-up with your GI specialist. Return to emergency department if any alarming signs or symptoms occur. Prescriptions: predniSONE [Deltasone] 20 mg PO DIRECTED #12 tab Is patient prescribed a controlled substance at d/c from ED?: No Referrals: Aruna Calle MD [Primary Care Provider] - 1-2 days Time of Disposition: 14:34
[2020-02-12 15:15] VITALS: BP 120/72; PULSE 97; RESP 18
== END 2020-02-12 15:15 | disposition home or self-care (01) ==
LOC: EC 11:50
DX: K50.90 Crohn's disease, unspecified, without complications (principal); F17.200 Nicotine dependence, unspecified, uncomplicated; Z90.49 Acquired absence of other specified parts of digestive tract; Z90.89 Acquired absence of other organs
CPT/HCPCS: 36415; 80053; 83605; 83735; 85025; 85610; 85730; 82272; 81001; 99285; 96374; 96375; 96376; 96361; J1170; C9113

== ENCOUNTER 2020-03-13 15:31 | Emergency (ER) | payer OTHER ==
[2020-03-13 15:45] VITALS: BP 133/86; RESP 18; TEMP 97.8
[2020-03-13] MEDS ORDERED: IBUPROFEN 600 MG TAB PO STA (16:32)
[2020-03-13] MEDS ORDERED: ACETAMINOPHEN TAB 500 MG TAB PO STA (16:32)
[2020-03-13 16:35] VITALS: PULSE 97
[2020-03-13] MEDS ORDERED: PSEUDOEPHEDRINE 30 MG TAB PO STA (16:40)
--- NOTE | 2020-03-13 16:47 | ED ---
Headache HPI - General Mode of arrival: ambulatory Limitations: no limitations <Eden Munoz - Last Filed: 03/13/20 19:08> <Judith Messer - Last Filed: 03/14/20 13:00> - General Chief Complaint: Headache Stated Complaint: Pain in R eye Time Seen by Provider: 03/13/20 15:57 - History of Present Illness Initial Comments: 29-year-old female patient presents to the emergency department today for evaluation of headache over the right eyes as well as right forehead tenderness. Patient states she is also having nasal congestion and drainage. States her symptoms worsened with bending forward or lying down but do improve when she is sitting up. She denies any dizziness or weakness. States that that she does get some blurred vision in the right eye when she bends forward but it clears when she comes back up right. She denies any nausea or vomiting with this. Denies any injuries. Patient states she does have a history of migraine headaches after receiving her Crohn's infusions. Patient states that she has tried mucinex, tylenol, motrin, and exedrin without relief. Patient states that her symptoms worsened today when she was outside at her boyfriend's [employer] ball game. Patient denies any recent rash, fever, chills, cough, shortness of breath, chest pain, abdominal pain, diarrhea, constipation, back pain, numbness, tingling, dizziness, weakness, hematuria, dysuria, urinary urgency, urinary frequency, or any other complaints. (Eden Munoz) - Related Data Home Medications Medication Instructions Recorded Confirmed Acetaminophen [Tylenol] 1,000 mg PO Q6H PRN 10/16/19 02/12/20 inFLIXimab [Remicade] 1 dose IVPB Q56D 12/15/19 02/12/20 Biotin 5 mg PO DAILY 02/12/20 02/12/20 Previous Rx's Medication Instructions Recorded predniSONE [Deltasone] 20 mg PO DIRECTED #12 tab 02/12/20 Azithromycin [Zithromax Z-pack (6 0 mg PO DIRECTED #6 tab 03/13/20 tabs)] predniSONE 50 mg PO DAILY #5 tablet 03/13/20 Allergies Allergy/AdvReac Type Severity Reaction Status Date / Time codeine Allergy Mild Rash/Hives/ Verified 03/13/20 15:41 Swelling ketorolac [From Toradol] Allergy Rash/Hives Verified 03/13/20 15:41 morphine Allergy Rash/Hives Verified 03/13/20 15:41 Penicillins Allergy Unknown Verified 03/13/20 15:41 Childhood haloperidol [From Haldol] AdvReac Rapid Verified 03/13/20 15:41 Heart Rate Review of Systems ROS Other: All systems not noted in ROS Statement are negative. <Eden Munoz - Last Filed: 03/13/20 19:08> ROS Other: All systems not noted in ROS Statement are negative. <Sena Messerah Jazmin - Last Filed: 03/14/20 13:00> ROS Statement: Those systems with pertinent positive or pertinent negative responses have been documented in the HPI. Past Medical History Past Medical History: No Reported History Additional Past Medical History / Comment(s): crohns, ulcerative colitis, endometriosis, ovarian cyst History of Any Multi-Drug Resistant Organisms: MRSA Date of last positivie culture/infection: 2016 MDRO Source:: right ear Past Surgical History: Adenoidectomy, Section, Cholecystectomy, Tonsillectomy Additional Past Surgical History / Comment(s): right ovary removed. surgery to remove scar tissue. wisdom teeth removal Past Anesthesia/Blood Transfusion Reactions: No Reported Reaction Additional Past Anesthesia/Blood Transfusion Reaction / Comment(s): MRSA Past Psychological History: Depression Smoking Status: Current every day smoker Past Alcohol Use History: None Reported Past Drug Use History: None Reported - Past Family History Mother Family Medical History: No Reported History <Eden Munoz - Last Filed: 03/13/20 19:08> General Exam Limitations: no limitations General appearance: alert, in no apparent distress, other (This is a well- developed, well-nourished adult female patient in no acute distress. Vital signs upon presentation are temperature 97.8F, pulse 111, respirations 18, blood pressure 133/86, pulse ox 98% on room air.) Eye exam: Present: normal appearance, PERRL, EOMI, other (There is tenderness noted over the inferior orbital region, over the right frontal sinus). Absent: scleral icterus, conjunctival injection, nystagmus, periorbital swelling ENT exam: Present: normal exam, normal oropharynx, mucous membranes moist Respiratory exam: Present: normal lung sounds bilaterally. Absent: respiratory distress, wheezes, rales, rhonchi, stridor Cardiovascular Exam: Present: regular rate, normal rhythm, normal heart sounds. Absent: systolic murmur, diastolic murmur, rubs, gallop, clicks GI/Abdominal exam: Present: soft, normal bowel sounds. Absent: distended, tenderness, guarding, rebound, rigid Neurological exam: Present: alert, oriented X3, CN II-XII intact, other (Strength in all 4 extremities is 5/5.) Psychiatric exam: Present: normal affect, normal mood Skin exam: Present: warm, dry, intact, normal color. Absent: rash <Eden Munoz - Last Filed: 03/13/20 19:08> Course Vital Signs 03/13/20 03/13/20 15:41 16:35 Temperature 97.8 F Pulse Rate 111 H 97 Respiratory 18 Rate Blood Pressure 133/86 O2 Sat by Pulse 98 Oximetry Medical Decision Making <Eden Munoz - Last Filed: 03/13/20 19:08> <Judith Messer - Last Filed: 03/14/20 13:00> - Medical Decision Making 29-year-old female patient presents to the emergency department today for evaluation of pain surrounding the right eye and right-sided headache. Physical examination did reveal normal-appearing orbits and eye. No conjunctival injection. No drainage. Patient does have obvious nasal congestion. Tenderness over the right frontal sinus. Patient symptoms are consistent with sinusitis. We will treat with a steroid burst and antibiotics. She'll be discharged to follow-up with her primary care physician for recheck in 1-2 days. Return to the emergency department for any new, worsening, or concerning symptoms. (Eden Munoz) I was available for consultation in the emergency department. The history and physical exam were done by the midlevel provider. I was consulted for this patients care. I reviewed the case with the midlevel provider and based on their presentation of the patient, I agree with the assessment, medical decision making and plan of care as documented. Chart was dictated using [employer] dictation software. Attempts were made to correct any dictation errors however some typographical errors may persist. Patient was seen during a national state of emergency due to the Covid-19 pandemic. (Judith Messer) Disposition Is patient prescribed a controlled substance at d/c from ED?: No Time of Disposition: 16:47 <Eden Munoz - Last Filed: 03/13/20 19:08> <Judith Messer - Last Filed: 03/14/20 13:00> Clinical Impression: Sinusitis, Headache, Eye pain Disposition: HOME SELF-CARE Condition: Good Instructions (If sedation given, give patient instructions): Sinusitis (ED), Acute Headache (ED) Additional Instructions: Increase fluids. Rest. Take medications as directed. Follow-up through primary care physician for recheck in 1-2 days. Return to the emergency department immediately for any new, worsening, or concerning symptoms. Prescriptions: predniSONE 50 mg PO DAILY #5 tablet Azithromycin [Zithromax Z-pack (6 tabs)] 0 mg PO DIRECTED #6 tab Referrals: Aruna Calle MD [Primary Care Provider] - 1-2 days
== END 2020-03-13 17:01 | disposition home or self-care (01) ==
LOC: EC 15:31
DX: J32.9 Chronic sinusitis, unspecified (principal); H57.11 Ocular pain, right eye; K50.90 Crohn's disease, unspecified, without complications; F17.200 Nicotine dependence, unspecified, uncomplicated; Z79.899 Other long term (current) drug therapy; Z88.5 Allergy status to narcotic agent; Z88.0 Allergy status to penicillin; Z88.6 Allergy status to analgesic agent; Z88.8 Allergy status to other drugs, medicaments and biological substances
CPT/HCPCS: 99283

== ENCOUNTER 2020-03-24 21:23 | Emergency (ER) | payer OTHER ==
[2020-03-24] MEDS ORDERED: SODIUM CHLORIDE 0.9% 1,000 ML IV ONE (22:06)
[2020-03-24] MEDS ORDERED: HYDROmorphone 1 MG/ML 1 ML SYRINGE IVP STA (22:06)
--- NOTE | 2020-03-24 22:11 | ED ---
Abdominal Pain HPI - General Chief Complaint: Abdominal Pain Stated Complaint: Crohns Flare up Time Seen by Provider: 03/24/20 21:53 Source: patient Mode of arrival: ambulatory Limitations: no limitations - History of Present Illness Initial Comments: This patient is 29-year-old woman with history of inflammatory bowel disease who presents with complaint that she believes she is having a flareup. Patient states she has had worsening of left-sided abdominal pain which is been cramping and stabbing in nature. She states that these are her usual symptoms. She also is having multiple bowel movements with small amounts of blood. She is having nausea. Patient states again that this is typical of her flares. MD Complaint: abdominal pain -: days(s) Location: LUQ, LLQ Migration to: no migration Severity: severe Quality: cramping, stabbing Consistency: constant Improves With: nothing Worsens With: nothing Associated Symptoms: diarrhea, hematochezia - Related Data LMP (females 10-50): last week Home Medications Medication Instructions Recorded Confirmed Acetaminophen [Tylenol] 1,000 mg PO Q6H PRN 10/16/19 02/12/20 inFLIXimab [Remicade] 1 dose IVPB Q56D 12/15/19 02/12/20 Biotin 5 mg PO DAILY 02/12/20 02/12/20 Previous Rx's Medication Instructions Recorded predniSONE [Deltasone] 20 mg PO DIRECTED #12 tab 02/12/20 Azithromycin [Zithromax Z-pack (6 0 mg PO DIRECTED #6 tab 03/13/20 tabs)] predniSONE 50 mg PO DAILY #5 tablet 03/13/20 Hydrocodone/Acetaminophen [[place] 1 each PO Q6HR PRN #12 tab 03/25/20 5-325] Allergies Allergy/AdvReac Type Severity Reaction Status Date / Time codeine Allergy Mild Rash/Hives/ Verified 03/24/20 21:36 Swelling ketorolac [From Toradol] Allergy Rash/Hives Verified 03/24/20 21:36 morphine Allergy Rash/Hives Verified 03/24/20 21:36 Penicillins Allergy Unknown Verified 03/24/20 21:36 Childhood haloperidol [From Haldol] AdvReac Rapid Verified 03/24/20 21:36 Heart Rate Review of Systems ROS Statement: Those systems with pertinent positive or pertinent negative responses have been documented in the HPI. ROS Other: All systems not noted in ROS Statement are negative. Constitutional: Denies: fever, chills, weakness ENT: Reports: congestion Respiratory: Denies: cough, dyspnea Cardiovascular: Denies: chest pain, palpitations Gastrointestinal: Reports: abdominal pain, nausea, diarrhea, hematochezia. Denies: vomiting, constipation, hematemesis, melena Genitourinary: Denies: dysuria, hematuria Musculoskeletal: Denies: back pain Skin: Denies: rash Neurological: Denies: headache, weakness, numbness Hematological/Lymphatic: Denies: easy bleeding Past Medical History Past Medical History: No Reported History Additional Past Medical History / Comment(s): crohns, ulcerative colitis, endometriosis, ovarian cyst History of Any Multi-Drug Resistant Organisms: MRSA Date of last positivie culture/infection: 2016 MDRO Source:: right ear Past Surgical History: Adenoidectomy, Section, Cholecystectomy, Tonsillectomy Additional Past Surgical History / Comment(s): right ovary removed. surgery to remove scar tissue. wisdom teeth removal Past Anesthesia/Blood Transfusion Reactions: No Reported Reaction Additional Past Anesthesia/Blood Transfusion Reaction / Comment(s): MRSA Past Psychological History: Depression Smoking Status: Current every day smoker Past Alcohol Use History: None Reported Past Drug Use History: None Reported - Past Family History Mother Family Medical History: No Reported History General Exam Limitations: no limitations General appearance: alert, in no apparent distress Head exam: Present: atraumatic, normocephalic Eye exam: Present: normal appearance. Absent: scleral icterus, conjunctival injection Respiratory exam: Present: normal lung sounds bilaterally. Absent: respiratory distress, wheezes, rales, rhonchi, stridor Cardiovascular Exam: Present: regular rate, normal rhythm, normal heart sounds. Absent: systolic murmur, diastolic murmur, rubs, gallop GI/Abdominal exam: Present: soft, tenderness. Absent: distended, guarding, rebound, rigid, mass, pulsatile mass, hernia Extremities exam: Present: normal inspection, normal capillary refill. Absent: pedal edema, calf tenderness Back exam: Present: normal inspection. Absent: CVA tenderness (R), CVA tenderness (L) Neurological exam: Present: alert Skin exam: Present: warm, dry, intact, normal color. Absent: rash Course Vital Signs 03/24/20 03/24/20 21:34 23:36 Temperature 99.4 F Pulse Rate 89 86 Respiratory 20 18 Rate Blood Pressure 125/89 110/76 O2 Sat by Pulse 99 98 Oximetry Medical Decision Making - Medical Decision Making patient is 29-year-old woman with inflammatory bowel disease, who presents for abdominal pain and increased nmber of bowel movemet with om blood. The patent here is feeling somewhatbtter. Se jessica joaquin that she has hada erika of CAT scas i the ast. Se tates she wll retur hould her symptoms worsen or not be typical of her usual inflammatory bowel disease. she dd request to go home following analgesia. - Lab Data Result diagrams: 03/24/20 22:39 03/24/20 22:39 Lab Results 03/24/20 03/24/20 03/24/20 Range/Units 22:39 22:39 22:39 WBC 14.3 H (3.8-10.6) k/uL RBC 5.09 (3.80-5.40) m/uL Hgb 15.6 (11.4-16.0) gm/dL Hct 46.1 H (34.0-46.0) % MCV 90.5 (80.0-100.0) fL MCH 30.6 (25.0-35.0) pg MCHC 33.8 (31.0-37.0) g/dL RDW 12.9 (11.5-15.5) % Plt Count 304 (150-450) k/uL Neutrophils % 57 % Lymphocytes % 31 % Monocytes % 3 % Eosinophils % 7 % Basophils % 1 % Neutrophils # 8.2 H (1.3-7.7) k/uL Lymphocytes # 4.5 (1.0-4.8) k/uL Monocytes # 0.4 (0-1.0) k/uL Eosinophils # 0.9 H (0-0.7) k/uL Basophils # 0.1 (0-0.2) k/uL Sodium 137 (137-145) mmol/L Potassium 4.9 (3.5-5.1) mmol/L Chloride 110 H (98-107) mmol/L Carbon Dioxide 18 L (22-30) mmol/L Anion Gap 9 mmol/L BUN 17 (7-17) mg/dL Creatinine 0.75 (0.52-1.04) mg/dL Est GFR (CKD-EPI)AfAm >90 (>60 ml/min/1.73 sqM) Est GFR (CKD-EPI)NonAf >90 (>60 ml/min/1.73 sqM) Glucose 101 H (74-99) mg/dL Calcium 9.7 (8.4-10.2) mg/dL Total Bilirubin 0.7 (0.2-1.3) mg/dL AST 37 H (14-36) U/L ALT 21 (4-34) U/L Alkaline Phosphatase 64 (38-126) U/L C-Reactive Protein <5.0 (<10.0) mg/L Total Protein 7.6 (6.3-8.2) g/dL Albumin 4.7 (3.5-5.0) g/dL Amylase 51 (30-110) U/L Lipase 161 (23-300) U/L Urine Color Light Yellow Urine Appearance Clear (Clear) Urine pH 6.0 (5.0-8.0) Ur Specific Leon 1.025 (1.001-1.035) Urine Protein Negative (Negative) Urine Glucose (UA) Negative (Negative) Urine Ketones Negative (Negative) Urine Blood Negative (Negative) Urine Nitrite Negative (Negative) Urine Bilirubin Negative (Negative) Urine Urobilinogen <2.0 (<2.0) mg/dL Ur Leukocyte Esterase Negative (Negative) Disposition Clinical Impression: Abdominal pain Disposition: HOME SELF-CARE Condition: Fair Instructions (If sedation given, give patient instructions): Abdominal Pain (ED) Prescriptions: Hydrocodone/Acetaminophen [[place] 5-325] 1 each PO Q6HR PRN #12 tab PRN Reason: Pain Is patient prescribed a controlled substance at d/c from ED?: Yes Referrals: Aruna Calle MD [Primary Care Provider] - 1-2 days Kelly Beckwith MD [STAFF PHYSICIAN] - 1-2 days
[2020-03-24] MEDS: PROMETHAZINE INJ 25 MG in SODIUM CHLORIDE 0.9% 50 ML IVPB STA ×2 (22:47→22:52)
[2020-03-24 22:51] LABS: Basophils # (A) 0.1 k/uL (0-0.2); Basophils % (A) 1 %; Eosinophils # (A) 0.9 k/uL (0-0.7); Eosinophils % (A) 7 %; HCT 46.1 % (34.0-46.0); HGB 15.6 gm/dL (11.4-16.0); Lymphocytes # (A) 4.5 k/uL (1.0-4.8); Lymphocytes % (A) 31 %; MCH 30.6 pg (25.0-35.0); MCHC 33.8 g/dL (31.0-37.0); MCV 90.5 fL (80.0-100.0); Mean Platelet Volume 7.4; Monocytes # (A) 0.4 k/uL (0-1.0); Monocytes % (A) 3 %; Neutrophils # (A) 8.2 k/uL (1.3-7.7); Neutrophils % (A) 57 %; Platelet Count 304 k/uL (150-450); RBC 5.09 m/uL (3.80-5.40); RDW 12.9 % (11.5-15.5); WBC 14.3 k/uL (3.8-10.6)
[2020-03-24] MEDS ORDERED: ONDANSETRON 4 MG/2 ML VIAL IVP STA (22:55)
[2020-03-24 22:56] LABS: Appearance,Urine Clear (Clear); Bilirubin,Urine Negative (Negative); Blood,Urine Negative (Negative); Color,Urine Light Yellow; Glucose,Urine (UA) Negative (Negative); Ketones,Urine Negative (Negative); Leukocyte Esterase,Urine Negative (Negative); Nitrite,Urine Negative (Negative); Protein,Urine Negative (Negative); Specific Gravity,Urine 1.025 (1.001-1.035); Urobilinogen,Urine <2.0 mg/dL (<2.0)
[2020-03-24 23:02] LABS: ALT 21 U/L (4-34); AST 37 U/L (14-36); African American GFR (CKD) >90 (>60 ml/min/1.73 sqM); Albumin 4.7 g/dL (3.5-5.0); Alkaline Phosphatase 64 U/L (38-126); Amylase 51 U/L (30-110); Anion Gap 9 mmol/L; Blood Urea Nitrogen 17 mg/dL (7-17); C Reactive Protein <5.0 mg/L (<10.0); Calcium 9.7 mg/dL (8.4-10.2); Carbon Dioxide 18 mmol/L (22-30); Chloride 110 mmol/L (98-107); Glucose 101 mg/dL (74-99); Non-African American GFR(CKD) >90 (>60 ml/min/1.73 sqM); Potassium 4.9 mmol/L (3.5-5.1); Sodium 137 mmol/L (137-145); Total Bilirubin 0.7 mg/dL (0.2-1.3); Total Protein 7.6 g/dL (6.3-8.2)
[2020-03-24 23:37] VITALS: RESP 18
[2020-03-25] MEDS ORDERED: HYDROmorphone 1 MG/ML 1 ML SYRINGE IVP STA (00:03)
[2020-03-25] MEDS ORDERED: HYDROmorphone 0.5 MG/0.5 ML SYRINGE IVP STA (01:18)
[2020-03-25 01:34] VITALS: BP 123/92; PULSE 99; TEMP 98.6
== END 2020-03-25 01:34 | disposition home or self-care (01) ==
LOC: EC 21:23
DX: R10.9 Unspecified abdominal pain (principal); R11.0 Nausea; R19.7 Diarrhea, unspecified; F17.200 Nicotine dependence, unspecified, uncomplicated; Z88.5 Allergy status to narcotic agent; Z79.899 Other long term (current) drug therapy; Z88.6 Allergy status to analgesic agent; Z88.8 Allergy status to other drugs, medicaments and biological substances; Z88.0 Allergy status to penicillin; Z87.19 Personal history of other diseases of the digestive system; Z90.49 Acquired absence of other specified parts of digestive tract; Z86.14 Personal history of Methicillin resistant Staphylococcus aureus infection; Z98.890 Other specified postprocedural states
CPT/HCPCS: 36415; 80053; 82150; 83690; 85025; 86140; 81003; 96374; 96376 ×2; 96375; 96361; 99284; J2405; J1170

== ENCOUNTER 2020-03-28 10:50 | Emergency (ER) | payer OTHER ==
[2020-03-28 10:59] VITALS: BP 125/89; PULSE 100; RESP 16; TEMP 97.8
[2020-03-28] MEDS ORDERED: predniSONE 20 MG TAB PO STA (11:35)
--- NOTE | 2020-03-28 11:36 | ED ---
Skin/Abscess/FB HPI - General Chief complaint: Skin/Abscess/Foreign Body Stated complaint: rash Time Seen by Provider: 03/28/20 11:00 Source: patient Mode of arrival: ambulatory Limitations: no limitations - History of Present Illness Initial comments: Patient is a 29-year-old male presenting to the emergency department with the chief complaint of a rash. Patient reports rash started on after she took [place]. States about 8 hours after she developed a rash initially on the left side of her torso and then it gradually moved to the right side, neck and legs. Patient reports the rash is itchy and painful at the same time. Denies any night sweats fevers or chills. States she previously took dark whenever had an ALLERGIC reaction to it - Related Data Home Medications Medication Instructions Recorded Confirmed Acetaminophen [Tylenol] 1,000 mg PO Q6H PRN 10/16/19 02/12/20 inFLIXimab [Remicade] 1 dose IVPB Q56D 12/15/19 02/12/20 Biotin 5 mg PO DAILY 02/12/20 02/12/20 Previous Rx's Medication Instructions Recorded predniSONE [Deltasone] 20 mg PO DIRECTED #12 tab 02/12/20 Azithromycin [Zithromax Z-pack (6 0 mg PO DIRECTED #6 tab 03/13/20 tabs)] predniSONE 50 mg PO DAILY #5 tablet 03/13/20 Hydrocodone/Acetaminophen [[place] 1 each PO Q6HR PRN #12 tab 03/25/20 5-325] predniSONE [Deltasone] 20 mg PO DAILY #3 tab 03/28/20 Allergies Allergy/AdvReac Type Severity Reaction Status Date / Time codeine Allergy Mild Rash/Hives/ Verified 03/28/20 10:59 Swelling ketorolac [From Toradol] Allergy Rash/Hives Verified 03/28/20 10:59 morphine Allergy Rash/Hives Verified 03/28/20 10:59 Penicillins Allergy Unknown Verified 03/28/20 10:59 Childhood haloperidol [From Haldol] AdvReac Rapid Verified 03/28/20 10:59 Heart Rate Review of Systems ROS Statement: Those systems with pertinent positive or pertinent negative responses have been documented in the HPI. ROS Other: All systems not noted in ROS Statement are negative. Past Medical History Past Medical History: No Reported History Additional Past Medical History / Comment(s): crohns, ulcerative colitis, endometriosis, ovarian cyst History of Any Multi-Drug Resistant Organisms: MRSA Date of last positivie culture/infection: 2016 MDRO Source:: right ear Past Surgical History: Adenoidectomy, Section, Cholecystectomy, Tonsillectomy Additional Past Surgical History / Comment(s): right ovary removed. surgery to remove scar tissue. wisdom teeth removal Past Anesthesia/Blood Transfusion Reactions: No Reported Reaction Additional Past Anesthesia/Blood Transfusion Reaction / Comment(s): MRSA Past Psychological History: Depression Smoking Status: Current every day smoker Past Alcohol Use History: None Reported Past Drug Use History: None Reported - Past Family History Mother Family Medical History: No Reported History General Exam Limitations: no limitations General appearance: alert, in no apparent distress Head exam: Present: atraumatic, normocephalic, normal inspection Eye exam: Present: normal appearance, PERRL, EOMI Pupils: Present: normal accommodation ENT exam: Present: normal exam, normal oropharynx, mucous membranes moist Neck exam: Present: normal inspection, full ROM. Absent: tenderness Respiratory exam: Present: normal lung sounds bilaterally. Absent: respiratory distress, wheezes, rales Cardiovascular Exam: Present: regular rate, normal rhythm, normal heart sounds Extremities exam: Present: normal inspection, full ROM, normal capillary refill. Absent: tenderness Back exam: Present: normal inspection, full ROM, CVA tenderness (L). Absent: tenderness, CVA tenderness (R) Neurological exam: Present: alert, oriented X3 Psychiatric exam: Present: normal affect, normal mood Skin exam: Present: warm, dry, intact, normal color, rash (Erythematous base with a pustular center) Course Vital Signs 03/28/20 10:56 Temperature 97.8 F Pulse Rate 100 Respiratory 16 Rate Blood Pressure 125/89 O2 Sat by Pulse 99 Oximetry Medical Decision Making - Medical Decision Making Patient is 29-year-old female presenting to the emergency department with a chief complaint of a rash. This occurred about 3 days ago. I do not suspect this is secondary to [place] because the rash developed about 8 hours after she has been taking the medication. She has previously taken [place] never developed a rash. The rash appears to be on an erythematous base and has a pustular center. It appears to be throughout the whole body so no suspicion for shingles. It is painful and itchy at the same time. Patient is stable vitals. Patient started on prednisone in the ED and will be discharged with a three-day course of additional prednisone. She already tried Benadryl at home with no improvement of symptoms. I gave the patient contact information for [facility]. Strict return parameters a thoroughly discussed with patient was understanding and agreeable. Case discussed with physician. Disposition Clinical Impression: Rash and nonspecific skin eruption Disposition: HOME SELF-CARE Condition: Stable Additional Instructions: Take prescribed medication as directed. Follow-up with a [facility]. Return to emergency department if symptoms worsen. Prescriptions: predniSONE [Deltasone] 20 mg PO DAILY #3 tab Is patient prescribed a controlled substance at d/c from ED?: No Referrals: Aruna Calle MD [Primary Care Provider] - 1-2 days Donna Rangel MD [STAFF PHYSICIAN] - 1-2 days Time of Disposition: 11:38
== END 2020-03-28 12:09 | disposition home or self-care (01) ==
LOC: EC 10:50
DX: R21 Rash and other nonspecific skin eruption (principal); F17.200 Nicotine dependence, unspecified, uncomplicated; Z88.0 Allergy status to penicillin; Z88.5 Allergy status to narcotic agent; Z88.6 Allergy status to analgesic agent; Z86.14 Personal history of Methicillin resistant Staphylococcus aureus infection
CPT/HCPCS: 99282; J7512

== ENCOUNTER 2020-04-14 14:14 | Emergency (ER) | payer OTHER ==
[2020-04-14 14:19] VITALS: TEMP 98.1
[2020-04-14] MEDS ORDERED: PANTOPRAZOLE 40 MG/10 ML VIAL IVP STA (15:25)
[2020-04-14] MEDS ORDERED: SODIUM CHLORIDE 0.9% 1,000 ML IV STA (15:25)
[2020-04-14] MEDS ORDERED: ONDANSETRON 4 MG/2 ML VIAL IVP STA (15:25)
[2020-04-14] MEDS ORDERED: HYDROmorphone 0.5 MG/0.5 ML SYRINGE IVP STA (15:25)
--- NOTE | 2020-04-14 15:37 | ED ---
Abdominal Pain HPI - General Chief Complaint: Abdominal Pain Stated Complaint: ABD pain Time Seen by Provider: 04/14/20 15:08 Source: patient, RN notes reviewed, old records reviewed Mode of arrival: ambulatory Limitations: no limitations - History of Present Illness Initial Comments: 29-year-old female with history of Crohn's disease presents today with nausea and crampy abdominal pain and bloody mucousy stools for the past few days. She reports that she sees Dr. Tamez. She does receive a the infusions. Her next scheduled next few weeks. Patient denies any associated chest pain shortness breath. She states that she has been feeling very tired and fatigued. - Related Data Home Medications Medication Instructions Recorded Confirmed diphenhydrAMINE HCL [Benadryl] 25 mg PO HS PRN 04/14/20 04/14/20 Previous Rx's Medication Instructions Recorded predniSONE [Deltasone] 20 mg PO DIRECTED #12 tab 04/14/20 Allergies Allergy/AdvReac Type Severity Reaction Status Date / Time codeine Allergy Mild Rash/Hives/ Verified 04/14/20 15:51 Swelling ketorolac [From Toradol] Allergy Rash/Hives Verified 04/14/20 15:51 morphine Allergy Rash/Hives Verified 04/14/20 15:51 Penicillins Allergy Unknown Verified 04/14/20 15:51 Childhood haloperidol [From Haldol] AdvReac Rapid Verified 04/14/20 15:51 Heart Rate Review of Systems ROS Statement: Those systems with pertinent positive or pertinent negative responses have been documented in the HPI. ROS Other: All systems not noted in ROS Statement are negative. Past Medical History Past Medical History: No Reported History Additional Past Medical History / Comment(s): crohns, ulcerative colitis, endometriosis, ovarian cyst History of Any Multi-Drug Resistant Organisms: MRSA Date of last positivie culture/infection: 2016 MDRO Source:: right ear Past Surgical History: Adenoidectomy, Section, Cholecystectomy, Tonsillectomy Additional Past Surgical History / Comment(s): right ovary removed. surgery to remove scar tissue. wisdom teeth removal Past Anesthesia/Blood Transfusion Reactions: No Reported Reaction Additional Past Anesthesia/Blood Transfusion Reaction / Comment(s): MRSA Past Psychological History: Depression Smoking Status: Current every day smoker Past Alcohol Use History: None Reported Past Drug Use History: None Reported - Past Family History Mother Family Medical History: No Reported History General Exam - General Exam Comments Initial Comments: Plan 29-year-old female. Limitations: no limitations General appearance: alert, in no apparent distress Head exam: Present: atraumatic, normocephalic, normal inspection Eye exam: Present: normal appearance, PERRL, EOMI. Absent: scleral icterus, conjunctival injection, periorbital swelling ENT exam: Present: normal exam, mucous membranes moist Neck exam: Present: normal inspection. Absent: tenderness, meningismus, lymphadenopathy Respiratory exam: Present: normal lung sounds bilaterally. Absent: respiratory distress, wheezes, rales, rhonchi, stridor Cardiovascular Exam: Present: regular rate, normal rhythm, normal heart sounds. Absent: systolic murmur, diastolic murmur, rubs, gallop, clicks GI/Abdominal exam: Present: soft, normal bowel sounds. Absent: distended, tenderness, guarding, rebound, rigid Extremities exam: Present: normal inspection, full ROM, normal capillary refill. Absent: tenderness, pedal edema, joint swelling, calf tenderness Back exam: Present: normal inspection Course Vital Signs 04/14/20 04/14/20 14:15 17:34 Temperature 98.1 F 98.1 F Pulse Rate 97 91 Respiratory 18 14 Rate Blood Pressure 127/80 118/83 O2 Sat by Pulse 97 98 Oximetry Medical Decision Making - Medical Decision Making 39-year-old male well-known to emergency department today presents for Crohn's exacerbation. She's had multiple CT scans and imaging studies. She reports occasional bloody stool. Patient refusing rectal exam due to pain at this time. Patient's labs reviewed and show stable hemoglobin. Patient advised they can start steroids. She will follow up with her GI specialist. Discussed return parameters. - Lab Data Result diagrams: 04/14/20 15:43 04/14/20 15:43 Lab Results 04/14/20 04/14/20 04/14/20 Range/Units 15:43 15:43 15:43 WBC 8.9 (3.8-10.6) k/uL RBC 5.21 (3.80-5.40) m/uL Hgb 15.8 (11.4-16.0) gm/dL Hct 47.7 H (34.0-46.0) % MCV 91.5 (80.0-100.0) fL MCH 30.4 (25.0-35.0) pg MCHC 33.2 (31.0-37.0) g/dL RDW 13.0 (11.5-15.5) % Plt Count 330 (150-450) k/uL Neutrophils % 49 % Lymphocytes % 37 % Monocytes % 4 % Eosinophils % 8 % Basophils % 1 % Neutrophils # 4.4 (1.3-7.7) k/uL Lymphocytes # 3.3 (1.0-4.8) k/uL Monocytes # 0.4 (0-1.0) k/uL Eosinophils # 0.7 (0-0.7) k/uL Basophils # 0.1 (0-0.2) k/uL Sodium 139 (137-145) mmol/L Potassium 4.2 (3.5-5.1) mmol/L Chloride 107 (98-107) mmol/L Carbon Dioxide 22 (22-30) mmol/L Anion Gap 10 mmol/L BUN 8 (7-17) mg/dL Creatinine 0.72 (0.52-1.04) mg/dL Est GFR (CKD-EPI)AfAm >90 (>60 ml/min/1.73 sqM) Est GFR (CKD-EPI)NonAf >90 (>60 ml/min/1.73 sqM) Glucose 118 H (74-99) mg/dL Plasma Lactic Acid Derrick (0.7-2.0) mmol/L Calcium 10.0 (8.4-10.2) mg/dL Total Bilirubin 0.7 (0.2-1.3) mg/dL AST 28 (14-36) U/L ALT 20 (4-34) U/L Alkaline Phosphatase 78 (38-126) U/L Total Protein 7.9 (6.3-8.2) g/dL Albumin 4.8 (3.5-5.0) g/dL Amylase 48 (30-110) U/L Lipase 123 (23-300) U/L Urine Color Yellow Urine Appearance Cloudy H (Clear) Urine pH 6.0 (5.0-8.0) Ur Specific [place] 1.020 (1.001-1.035) Urine Protein Negative (Negative) Urine Glucose (UA) Negative (Negative) Urine Ketones Negative (Negative) Urine Blood Negative (Negative) Urine Nitrite Negative (Negative) Urine Bilirubin Negative (Negative) Urine Urobilinogen <2.0 (<2.0) mg/dL Ur Leukocyte Esterase Negative (Negative) Urine RBC 1 (0-5) /hpf Urine WBC 3 (0-5) /hpf Ur Squamous Epith Cells 16 H (0-4) /hpf Urine Bacteria Moderate H (None) /hpf Hyaline Casts 1 (0-2) /lpf Urine Mucus Few H (None) /hpf Urine Yeast (Budding) Occasional H (None) /hpf 04/14/20 Range/Units 15:43 WBC (3.8-10.6) k/uL RBC (3.80-5.40) m/uL Hgb (11.4-16.0) gm/dL Hct (34.0-46.0) % MCV (80.0-100.0) fL MCH (25.0-35.0) pg MCHC (31.0-37.0) g/dL RDW (11.5-15.5) % Plt Count (150-450) k/uL Neutrophils % % Lymphocytes % % Monocytes % % Eosinophils % % Basophils % % Neutrophils # (1.3-7.7) k/uL Lymphocytes # (1.0-4.8) k/uL Monocytes # (0-1.0) k/uL Eosinophils # (0-0.7) k/uL Basophils # (0-0.2) k/uL Sodium (137-145) mmol/L Potassium (3.5-5.1) mmol/L Chloride (98-107) mmol/L Carbon Dioxide (22-30) mmol/L Anion Gap mmol/L BUN (7-17) mg/dL Creatinine (0.52-1.04) mg/dL Est GFR (CKD-EPI)AfAm (>60 ml/min/1.73 sqM) Est GFR (CKD-EPI)NonAf (>60 ml/min/1.73 sqM) Glucose (74-99) mg/dL Plasma Lactic Acid Derrick 1.2 (0.7-2.0) mmol/L Calcium (8.4-10.2) mg/dL Total Bilirubin (0.2-1.3) mg/dL AST (14-36) U/L ALT (4-34) U/L Alkaline Phosphatase (38-126) U/L Total Protein (6.3-8.2) g/dL Albumin (3.5-5.0) g/dL Amylase (30-110) U/L Lipase (23-300) U/L Urine Color Urine Appearance (Clear) Urine pH (5.0-8.0) Ur Specific [place] (1.001-1.035) Urine Protein (Negative) Urine Glucose (UA) (Negative) Urine Ketones (Negative) Urine Blood (Negative) Urine Nitrite (Negative) Urine Bilirubin (Negative) Urine Urobilinogen (<2.0) mg/dL Ur Leukocyte Esterase (Negative) Urine RBC (0-5) /hpf Urine WBC (0-5) /hpf Ur Squamous Epith Cells (0-4) /hpf Urine Bacteria (None) /hpf Hyaline Casts (0-2) /lpf Urine Mucus (None) /hpf Urine Yeast (Budding) (None) /hpf Disposition Clinical Impression: Crohn disease Disposition: HOME SELF-CARE Condition: Good Instructions (If sedation given, give patient instructions): Colitis (ED) Additional Instructions: Patient has a follow-up with primary care doctor. Return to emergency department if any alarming signs or symptoms occur. Prescriptions: predniSONE [Deltasone] 20 mg PO DIRECTED #12 tab Is patient prescribed a controlled substance at d/c from ED?: No Referrals: Aruna Calle MD [Primary Care Provider] - 1-2 days Time of Disposition: 17:19
[2020-04-14 15:50] LABS: Basophils # (A) 0.1 k/uL (0-0.2); Basophils % (A) 1 %; Eosinophils # (A) 0.7 k/uL (0-0.7); Eosinophils % (A) 8 %; HCT 47.7 % (34.0-46.0); HGB 15.8 gm/dL (11.4-16.0); Lymphocytes # (A) 3.3 k/uL (1.0-4.8); Lymphocytes % (A) 37 %; MCH 30.4 pg (25.0-35.0); MCHC 33.2 g/dL (31.0-37.0); MCV 91.5 fL (80.0-100.0); Mean Platelet Volume 7.5; Monocytes # (A) 0.4 k/uL (0-1.0); Monocytes % (A) 4 %; Neutrophils # (A) 4.4 k/uL (1.3-7.7); Neutrophils % (A) 49 %; Platelet Count 330 k/uL (150-450); RBC 5.21 m/uL (3.80-5.40); WBC 8.9 k/uL (3.8-10.6)
[2020-04-14 15:51] LABS: Appearance,Urine Cloudy (Clear); Bacteria,Urine Moderate /hpf; Bilirubin,Urine Negative (Negative); Blood,Urine Negative (Negative); Budding Yeast,Urine Occasional /hpf; Color,Urine Yellow; Glucose,Urine (UA) Negative (Negative); Hyaline Casts,Urine 1 /lpf (0-2); Ketones,Urine Negative (Negative); Leukocyte Esterase,Urine Negative (Negative); Mucus,Urine Few /hpf; Nitrite,Urine Negative (Negative); Protein,Urine Negative (Negative); RBC,Urine 1 /hpf (0-5); Squamous Epithelial Cell,Urine 16 /hpf (0-4); Urobilinogen,Urine <2.0 mg/dL (<2.0); WBC,Urine 3 /hpf (0-5)
[2020-04-14 16:01] LABS: ALT 20 U/L (4-34); AST 28 U/L (14-36); African American GFR (CKD) >90 (>60 ml/min/1.73 sqM); Albumin 4.8 g/dL (3.5-5.0); Alkaline Phosphatase 78 U/L (38-126); Amylase 48 U/L (30-110); Anion Gap 10 mmol/L; Blood Urea Nitrogen 8 mg/dL (7-17); Carbon Dioxide 22 mmol/L (22-30); Chloride 107 mmol/L (98-107); Glucose 118 mg/dL (74-99); Non-African American GFR(CKD) >90 (>60 ml/min/1.73 sqM); Potassium 4.2 mmol/L (3.5-5.1); Sodium 139 mmol/L (137-145); Total Bilirubin 0.7 mg/dL (0.2-1.3); Total Protein 7.9 g/dL (6.3-8.2)
[2020-04-14] MEDS ORDERED: methylPREDNISolone SOD SUCCI 125 MG/2 ML VIAL IV STA (16:55)
[2020-04-14] MEDS ORDERED: HYDROmorphone 1 MG/ML 1 ML SYRINGE IVP STA (17:17)
[2020-04-14 17:36] VITALS: BP 118/83; PULSE 91; RESP 14
== END 2020-04-14 17:38 | disposition home or self-care (01) ==
LOC: EC 14:14
DX: K50.90 Crohn's disease, unspecified, without complications (principal); F17.200 Nicotine dependence, unspecified, uncomplicated; Z88.0 Allergy status to penicillin; Z88.5 Allergy status to narcotic agent; Z88.8 Allergy status to other drugs, medicaments and biological substances; Z90.49 Acquired absence of other specified parts of digestive tract
CPT/HCPCS: 36415; 80053; 82150; 83605; 83690; 85025; 81001; 99284; 96374; 96375 ×3; 96376; 96361; J2930; J2405; J1170 ×2; C9113

== ENCOUNTER 2020-04-29 20:26 | Emergency (ER) | payer OTHER ==
[2020-04-29] MEDS ORDERED: SODIUM CHLORIDE 0.9% 1,000 ML IV STA (21:13)
[2020-04-29] MEDS ORDERED: HYDROmorphone 0.5 MG/0.5 ML SYRINGE IVP STA ×2 (21:49→22:58)
[2020-04-29] MEDS ORDERED: ONDANSETRON 4 MG/2 ML VIAL IVP STA (21:50)
[2020-04-29] MEDS ORDERED: HYDROmorphone 1 MG/ML 1 ML SYRINGE IVP STA (21:50)
[2020-04-29] MEDS ORDERED: FAMOTIDINE 20 MG/2 ML VIAL IV STA (21:53)
--- NOTE | 2020-04-29 21:54 | ED ---
General Adult HPI - General Chief complaint: Abdominal Pain Stated complaint: body aches/abd bloating-post infusion Time Seen by Provider: 04/29/20 20:54 Source: patient, RN notes reviewed Mode of arrival: ambulatory Limitations: no limitations - History of Present Illness Initial comments: 29-year-old female with a past medical history of Crohn's, ulcerative colitis, endometriosis, ovarian cysts without history of abdominal surgery presents to the emergency department for pain. Patient reports she has abdominal bloating and pain since her infusion of Inflectra yesterday. States her last bowel movement was today. Denies nausea. Denies fevers or chills. Patient reports she has had this medication before and it usually causes headaches but not these symptoms. Patient has no other complaints at this time including shortness of breath, chest pain, nausea or vomiting, headache, or visual changes. - Related Data Home Medications Medication Instructions Recorded Confirmed No Known Home Medications 04/29/20 04/29/20 Allergies Allergy/AdvReac Type Severity Reaction Status Date / Time codeine Allergy Mild Rash/Hives/ Verified 04/29/20 21:13 Swelling ketorolac [From Toradol] Allergy Rash/Hives Verified 04/29/20 21:13 morphine Allergy Rash/Hives Verified 04/29/20 21:13 Penicillins Allergy Unknown Verified 04/29/20 21:13 Childhood haloperidol [From Haldol] AdvReac Rapid Verified 04/29/20 21:13 Heart Rate Review of Systems ROS Statement: Those systems with pertinent positive or pertinent negative responses have been documented in the HPI. ROS Other: All systems not noted in ROS Statement are negative. Past Medical History Past Medical History: No Reported History Additional Past Medical History / Comment(s): crohns, ulcerative colitis, endometriosis, ovarian cyst History of Any Multi-Drug Resistant Organisms: MRSA Date of last positivie culture/infection: 2016 MDRO Source:: right ear Past Surgical History: Adenoidectomy, Section, Cholecystectomy, Tonsillectomy Additional Past Surgical History / Comment(s): right ovary removed. surgery to remove scar tissue. wisdom teeth removal Past Anesthesia/Blood Transfusion Reactions: No Reported Reaction Additional Past Anesthesia/Blood Transfusion Reaction / Comment(s): MRSA Past Psychological History: Depression Smoking Status: Current every day smoker Past Alcohol Use History: None Reported Past Drug Use History: None Reported - Past Family History Mother Family Medical History: No Reported History General Exam Limitations: no limitations General appearance: alert, in no apparent distress Head exam: Present: atraumatic, normocephalic, normal inspection Eye exam: Present: normal appearance, PERRL, EOMI. Absent: scleral icterus, conjunctival injection, periorbital swelling ENT exam: Present: normal exam, mucous membranes moist Neck exam: Present: normal inspection, full ROM. Absent: tenderness, meningismus, lymphadenopathy Respiratory exam: Present: normal lung sounds bilaterally. Absent: respiratory distress, wheezes, rales, rhonchi, stridor Cardiovascular Exam: Present: regular rate, normal rhythm, normal heart sounds. Absent: systolic murmur, diastolic murmur, rubs, gallop, clicks GI/Abdominal exam: Present: soft, distended (Slightly distended abdomen. However abdomen is soft.), tenderness (Minimal epigastric tenderness. No lower abdominal tenderness.), normal bowel sounds. Absent: guarding, rebound, rigid Neurological exam: Present: alert Course Vital Signs 04/29/20 20:40 Temperature 98.4 F Pulse Rate 91 Respiratory 16 Rate Blood Pressure 129/81 O2 Sat by Pulse 96 Oximetry Medical Decision Making - Medical Decision Making Vitals are stable CBC does show leukocytosis which is likely reactive. CMP unremarkable. Lipase is normal. Urinalysis is negative. X-ray KUB shows a nonacute abdomen however patient does have relatively significant constipation noted. She states she did have a bowel movement today however was small pellets. Patient's abdomen reevaluated, nontender at this time. Patient was directed to try MiraLAX or stool softeners. She requested a prescription for a stool softener. patient can be discharged home to follow up with her doctor. If She does have worsening symptoms or fever she is to return here to the emergency room. - Lab Data Result diagrams: 04/29/20 21:53 04/29/20 21:53 Lab Results 04/29/20 04/29/20 04/29/20 Range/Units 21:53 21:53 21:53 WBC 10.9 H (3.8-10.6) k/uL RBC 4.85 (3.80-5.40) m/uL Hgb 15.3 (11.4-16.0) gm/dL Hct 43.0 (34.0-46.0) % MCV 88.7 (80.0-100.0) fL MCH 31.6 (25.0-35.0) pg MCHC 35.6 (31.0-37.0) g/dL RDW 12.7 (11.5-15.5) % Plt Count 293 (150-450) k/uL MPV 7.7 Neutrophils % 49 % Lymphocytes % 38 % Monocytes % 3 % Eosinophils % 7 % Basophils % 2 % Neutrophils # 5.4 (1.3-7.7) k/uL Lymphocytes # 4.1 (1.0-4.8) k/uL Monocytes # 0.4 (0-1.0) k/uL Eosinophils # 0.7 (0-0.7) k/uL Basophils # 0.2 (0-0.2) k/uL Sodium (137-145) mmol/L Potassium (3.5-5.1) mmol/L Chloride (98-107) mmol/L Carbon Dioxide (22-30) mmol/L Anion Gap mmol/L BUN (7-17) mg/dL Creatinine (0.52-1.04) mg/dL Est GFR (CKD-EPI)AfAm (>60 ml/min/1.73 sqM) Est GFR (CKD-EPI)NonAf (>60 ml/min/1.73 sqM) Glucose (74-99) mg/dL Plasma Lactic Acid Derrick (0.7-2.0) mmol/L Calcium (8.4-10.2) mg/dL Total Bilirubin (0.2-1.3) mg/dL AST (14-36) U/L ALT (4-34) U/L Alkaline Phosphatase (38-126) U/L Total Protein (6.3-8.2) g/dL Albumin (3.5-5.0) g/dL Amylase (30-110) U/L Lipase (23-300) U/L Urine Color Yellow Urine Appearance Clear (Clear) Urine pH 6.5 (5.0-8.0) Ur Specific [place] 1.020 (1.001-1.035) Urine Protein Negative (Negative) Urine Glucose (UA) Negative (Negative) Urine Ketones Negative (Negative) Urine Blood Negative (Negative) Urine Nitrite Negative (Negative) Urine Bilirubin Negative (Negative) Urine Urobilinogen <2.0 (<2.0) mg/dL Ur Leukocyte Esterase Negative (Negative) Urine HCG, Qual Not Detected (Not Detectd) 04/29/20 04/29/20 Range/Units 21:53 21:53 WBC (3.8-10.6) k/uL RBC (3.80-5.40) m/uL Hgb (11.4-16.0) gm/dL Hct (34.0-46.0) % MCV (80.0-100.0) fL MCH (25.0-35.0) pg MCHC (31.0-37.0) g/dL RDW (11.5-15.5) % Plt Count (150-450) k/uL MPV Neutrophils % % Lymphocytes % % Monocytes % % Eosinophils % % Basophils % % Neutrophils # (1.3-7.7) k/uL Lymphocytes # (1.0-4.8) k/uL Monocytes # (0-1.0) k/uL Eosinophils # (0-0.7) k/uL Basophils # (0-0.2) k/uL Sodium 137 (137-145) mmol/L Potassium 4.5 (3.5-5.1) mmol/L Chloride 108 H (98-107) mmol/L Carbon Dioxide 21 L (22-30) mmol/L Anion Gap 8 mmol/L BUN 11 (7-17) mg/dL Creatinine 0.66 (0.52-1.04) mg/dL Est GFR (CKD-EPI)AfAm >90 (>60 ml/min/1.73 sqM) Est GFR (CKD-EPI)NonAf >90 (>60 ml/min/1.73 sqM) Glucose 113 H (74-99) mg/dL Plasma Lactic Acid Derrick 1.2 (0.7-2.0) mmol/L Calcium 10.1 (8.4-10.2) mg/dL Total Bilirubin 0.3 (0.2-1.3) mg/dL AST 25 (14-36) U/L ALT 16 (4-34) U/L Alkaline Phosphatase 72 (38-126) U/L Total Protein 7.4 (6.3-8.2) g/dL Albumin 4.5 (3.5-5.0) g/dL Amylase 57 (30-110) U/L Lipase 205 (23-300) U/L Urine Color Urine Appearance (Clear) Urine pH (5.0-8.0) Ur Specific [place] (1.001-1.035) Urine Protein (Negative) Urine Glucose (UA) (Negative) Urine Ketones (Negative) Urine Blood (Negative) Urine Nitrite (Negative) Urine Bilirubin (Negative) Urine Urobilinogen (<2.0) mg/dL Ur Leukocyte Esterase (Negative) Urine HCG, Qual (Not Detectd) Disposition Clinical Impression: Abdominal pain, Constipation Disposition: HOME SELF-CARE Condition: Good Instructions (If sedation given, give patient instructions): Abdominal Pain (ED) Additional Instructions: Please try stool softeners or MiraLAX. Drink plenty of fluids. Take Tylenol for pain. Follow-up with your doctor in one to 2 days. Return to the emergency room for any worsening symptoms. Is patient prescribed a controlled substance at d/c from ED?: No Referrals: Aruna Calle MD [Primary Care Provider] - 1-2 days Time of Disposition: 23:00
[2020-04-29 22:04] LABS: Basophils # (A) 0.2 k/uL (0-0.2); Basophils % (A) 2 %; Eosinophils # (A) 0.7 k/uL (0-0.7); Eosinophils % (A) 7 %; HGB 15.3 gm/dL (11.4-16.0); Lymphocytes # (A) 4.1 k/uL (1.0-4.8); Lymphocytes % (A) 38 %; MCH 31.6 pg (25.0-35.0); MCHC 35.6 g/dL (31.0-37.0); MCV 88.7 fL (80.0-100.0); Mean Platelet Volume 7.7; Monocytes # (A) 0.4 k/uL (0-1.0); Monocytes % (A) 3 %; Neutrophils # (A) 5.4 k/uL (1.3-7.7); Neutrophils % (A) 49 %; Platelet Count 293 k/uL (150-450); RBC 4.85 m/uL (3.80-5.40); RDW 12.7 % (11.5-15.5); WBC 10.9 k/uL (3.8-10.6)
[2020-04-29 22:08] LABS: Appearance,Urine Clear (Clear); Bilirubin,Urine Negative (Negative); Blood,Urine Negative (Negative); Color,Urine Yellow; Glucose,Urine (UA) Negative (Negative); Ketones,Urine Negative (Negative); Leukocyte Esterase,Urine Negative (Negative); Nitrite,Urine Negative (Negative); PH, Urine 6.5 (5.0-8.0); Protein,Urine Negative (Negative); Urobilinogen,Urine <2.0 mg/dL (<2.0)
[2020-04-29 22:15] LABS: ALT 16 U/L (4-34); AST 25 U/L (14-36); African American GFR (CKD) >90 (>60 ml/min/1.73 sqM); Albumin 4.5 g/dL (3.5-5.0); Alkaline Phosphatase 72 U/L (38-126); Amylase 57 U/L (30-110); Anion Gap 8 mmol/L; Blood Urea Nitrogen 11 mg/dL (7-17); Calcium 10.1 mg/dL (8.4-10.2); Carbon Dioxide 21 mmol/L (22-30); Chloride 108 mmol/L (98-107); Glucose 113 mg/dL (74-99); Lipase 205 U/L (23-300); Non-African American GFR(CKD) >90 (>60 ml/min/1.73 sqM); Potassium 4.5 mmol/L (3.5-5.1); Sodium 137 mmol/L (137-145); Total Bilirubin 0.3 mg/dL (0.2-1.3); Total Protein 7.4 g/dL (6.3-8.2)
--- NOTE | 2020-04-29 22:38 | XR ---
EXAMINATION TYPE: XR KUB DATE OF EXAM: 04/29/2020 COMPARISON: 12/01/2019 HISTORY: Abdominal pain TECHNIQUE: FINDINGS: There is no sign of intestinal obstruction or pneumoperitoneum. Fecal pattern is normal. Th ere is no sign of a mass. There are no pathologic calcifications over the kidneys. There are clips fr om cholecystectomy. Lung bases are clear. IMPRESSION: Nonacute abdomen. No change.
[2020-04-29 23:26] VITALS: BP 128/78; PULSE 77; RESP 18; TEMP 98.3
== END 2020-04-29 23:26 | disposition home or self-care (01) ==
LOC: EC 20:26
DX: K59.00 Constipation, unspecified (principal); R10.9 Unspecified abdominal pain; D72.829 Elevated white blood cell count, unspecified; F17.200 Nicotine dependence, unspecified, uncomplicated; Z88.5 Allergy status to narcotic agent; Z88.6 Allergy status to analgesic agent; Z88.0 Allergy status to penicillin; Z88.8 Allergy status to other drugs, medicaments and biological substances; Z87.19 Personal history of other diseases of the digestive system; Z90.49 Acquired absence of other specified parts of digestive tract; Z86.14 Personal history of Methicillin resistant Staphylococcus aureus infection
CPT/HCPCS: 36415; 80053; 82150; 83605; 83690; 85025; 81003; 81025; 74018; 99284; 96374; 96375 ×2; 96376; 96361; J2405; J1170 ×2

== ENCOUNTER 2020-05-12 09:08 | Emergency (ER) | payer OTHER ==
[2020-05-12 09:12] VITALS: RESP 18; TEMP 98.1
[2020-05-12] MEDS ORDERED: HYDROmorphone 0.5 MG/0.5 ML SYRINGE IVP STA ×2 (09:29→11:15)
[2020-05-12] MEDS ORDERED: SODIUM CHLORIDE 0.9% 1,000 ML IV STA (09:29)
[2020-05-12] MEDS ORDERED: ONDANSETRON 4 MG/2 ML VIAL IVP STA (09:29)
--- NOTE | 2020-05-12 09:31 | ED ---
General Adult HPI - General Chief complaint: GI Bleed Stated complaint: abd bloating Time Seen by Provider: 05/12/20 09:15 Source: patient, RN notes reviewed, old records reviewed Mode of arrival: ambulatory Limitations: no limitations - History of Present Illness Initial comments: This Patient is a 29-year-old female presents to the emergency department today for evaluation for abdominal bloating and complains of rectal bleeding. She reports that her GI doctor sent her here for evaluation. Patient states that she has history of Crohn's disease. She reports that she had her last and Flexeril fusion 2 weeks ago. She reports at that time she's had some intermittent bloody stool. Patient reports that she's had no chest pain or shortness of breath. - Related Data Previous Rx's Medication Instructions Recorded Ondansetron Odt [Zofran Odt] 4 mg PO Q8HR PRN #12 tab 05/12/20 Pantoprazole [Protonix] 40 mg PO DAILY #20 tablet. 05/12/20 predniSONE [Deltasone] 20 mg PO DIRECTED #12 tab 05/12/20 Allergies Allergy/AdvReac Type Severity Reaction Status Date / Time codeine Allergy Mild Rash/Hives/ Verified 05/12/20 09:13 Swelling ketorolac [From Toradol] Allergy Rash/Hives Verified 05/12/20 09:13 morphine Allergy Rash/Hives Verified 05/12/20 09:13 Penicillins Allergy Unknown Verified 05/12/20 09:13 Childhood haloperidol [From Haldol] AdvReac Rapid Verified 05/12/20 09:13 Heart Rate Review of Systems ROS Statement: Those systems with pertinent positive or pertinent negative responses have been documented in the HPI. ROS Other: All systems not noted in ROS Statement are negative. Past Medical History Past Medical History: No Reported History Additional Past Medical History / Comment(s): crohns, ulcerative colitis, endometriosis, ovarian cyst History of Any Multi-Drug Resistant Organisms: MRSA Date of last positivie culture/infection: 2016 MDRO Source:: right ear Past Surgical History: Adenoidectomy, Section, Cholecystectomy, Tonsillectomy Additional Past Surgical History / Comment(s): right ovary removed. surgery to remove scar tissue. wisdom teeth removal Past Anesthesia/Blood Transfusion Reactions: No Reported Reaction Additional Past Anesthesia/Blood Transfusion Reaction / Comment(s): MRSA Past Psychological History: Depression Smoking Status: Current every day smoker Past Alcohol Use History: None Reported Past Drug Use History: None Reported - Past Family History Mother Family Medical History: No Reported History General Exam - General Exam Comments Initial Comments: 29-year-old female. Alert and oriented. No distress. Limitations: no limitations General appearance: alert, in no apparent distress Head exam: Present: atraumatic, normocephalic, normal inspection Eye exam: Present: normal appearance, PERRL, EOMI. Absent: scleral icterus, conjunctival injection, periorbital swelling ENT exam: Present: normal exam Neck exam: Present: normal inspection. Absent: tenderness, meningismus, lymphadenopathy Respiratory exam: Present: normal lung sounds bilaterally. Absent: respiratory distress, wheezes, rales, rhonchi, stridor Cardiovascular Exam: Present: regular rate, normal rhythm, normal heart sounds. Absent: systolic murmur, diastolic murmur, rubs, gallop, clicks GI/Abdominal exam: Present: soft Extremities exam: Present: normal inspection, full ROM, normal capillary refill. Absent: tenderness, pedal edema, joint swelling, calf tenderness Back exam: Present: normal inspection Neurological exam: Present: alert, oriented X3, CN II-XII intact Psychiatric exam: Present: normal affect, normal mood Skin exam: Present: warm, dry, intact, normal color. Absent: rash Course Vital Signs 05/12/20 05/12/20 09:10 09:50 Temperature 98.1 F Pulse Rate 81 60 Respiratory 18 18 Rate Blood Pressure 137/73 110/86 O2 Sat by Pulse 98 95 Oximetry Medical Decision Making - Medical Decision Making 29-year-old female with history of Crohn's disease presents emergency department today with abdominal fullness and bloating and gas pains. She states that she has had some episodes of bloody or stool. Patient has no fevers or chills. Patient reports that she had a bowel movement it relieved some of the gas pain without cramping. Patient refuses rectal exam. Hemoglobin is stable time and she is on a blood thinners. Hemoglobin 15.8. Patient's given IV fluids and Protonix Solu-Medrol. Did discuss with the Patient I can contact her GI doctor who then she stated she did not want me to contact the GI doctor for being here. I advised Patient to continue steroids and anti-inflammatory medication and dyspeptic medication for pain. Discussed return parameters. - Lab Data Result diagrams: 05/12/20 10:03 05/12/20 10:03 Lab Results 05/12/20 05/12/20 05/12/20 Range/Units 10:03 10:03 10:03 WBC 8.4 (3.8-10.6) k/uL RBC 5.26 (3.80-5.40) m/uL Hgb 15.8 (11.4-16.0) gm/dL Hct 47.3 H (34.0-46.0) % MCV 89.9 (80.0-100.0) fL MCH 30.1 (25.0-35.0) pg MCHC 33.5 (31.0-37.0) g/dL RDW 12.9 (11.5-15.5) % Plt Count 348 (150-450) k/uL MPV 7.6 Neutrophils % 47 % Lymphocytes % 38 % Monocytes % 4 % Eosinophils % 9 % Basophils % 1 % Neutrophils # 4.0 (1.3-7.7) k/uL Lymphocytes # 3.2 (1.0-4.8) k/uL Monocytes # 0.3 (0-1.0) k/uL Eosinophils # 0.7 (0-0.7) k/uL Basophils # 0.1 (0-0.2) k/uL APTT 23.2 (22.0-30.0) sec Sodium 138 (137-145) mmol/L Potassium 4.7 (3.5-5.1) mmol/L Chloride 108 H (98-107) mmol/L Carbon Dioxide 22 (22-30) mmol/L Anion Gap 8 mmol/L BUN 10 (7-17) mg/dL Creatinine 0.69 (0.52-1.04) mg/dL Est GFR (CKD-EPI)AfAm >90 (>60 ml/min/1.73 sqM) Est GFR (CKD-EPI)NonAf >90 (>60 ml/min/1.73 sqM) Glucose 117 H (74-99) mg/dL Calcium 9.7 (8.4-10.2) mg/dL Total Bilirubin 0.9 (0.2-1.3) mg/dL AST 34 (14-36) U/L ALT 20 (4-34) U/L Alkaline Phosphatase 65 (38-126) U/L Total Protein 7.7 (6.3-8.2) g/dL Albumin 4.7 (3.5-5.0) g/dL Disposition Clinical Impression: Crohn disease, Abdominal pain Disposition: HOME SELF-CARE Instructions (If sedation given, give patient instructions): Gastrointestinal Bleeding (ED) Additional Instructions: Take medication as prescribed. Follow-up with your GI doctor. Prescriptions: predniSONE [Deltasone] 20 mg PO DIRECTED #12 tab Pantoprazole [Protonix] 40 mg PO DAILY #20 tablet. Ondansetron Odt [Zofran Odt] 4 mg PO Q8HR PRN #12 tab PRN Reason: Nausea Is patient prescribed a controlled substance at d/c from ED?: No Referrals: Aruna Calle MD [Primary Care Provider] - 1-2 days Time of Disposition: 11:19
[2020-05-12 10:33] LABS: Basophils # (A) 0.1 k/uL (0-0.2); Basophils % (A) 1 %; Eosinophils # (A) 0.7 k/uL (0-0.7); Eosinophils % (A) 9 %; HCT 47.3 % (34.0-46.0); HGB 15.8 gm/dL (11.4-16.0); Lymphocytes # (A) 3.2 k/uL (1.0-4.8); Lymphocytes % (A) 38 %; MCH 30.1 pg (25.0-35.0); MCHC 33.5 g/dL (31.0-37.0); MCV 89.9 fL (80.0-100.0); Mean Platelet Volume 7.6; Monocytes # (A) 0.3 k/uL (0-1.0); Monocytes % (A) 4 %; Neutrophils % (A) 47 %; Platelet Count 348 k/uL (150-450); RBC 5.26 m/uL (3.80-5.40); RDW 12.9 % (11.5-15.5); WBC 8.4 k/uL (3.8-10.6)
[2020-05-12 10:49] LABS: African American GFR (CKD) >90 (>60 ml/min/1.73 sqM); Anion Gap 8 mmol/L; Blood Urea Nitrogen 10 mg/dL (7-17); Carbon Dioxide 22 mmol/L (22-30); Chloride 108 mmol/L (98-107); Glucose 117 mg/dL (74-99); Non-African American GFR(CKD) >90 (>60 ml/min/1.73 sqM); Sodium 138 mmol/L (137-145)
[2020-05-12 10:50] LABS: ALT 20 U/L (4-34); AST 34 U/L (14-36); Albumin 4.7 g/dL (3.5-5.0); Alkaline Phosphatase 65 U/L (38-126); Calcium 9.7 mg/dL (8.4-10.2); Total Bilirubin 0.9 mg/dL (0.2-1.3); Total Protein 7.7 g/dL (6.3-8.2)
[2020-05-12 11:01] LABS: Potassium 4.7 mmol/L (3.5-5.1)
[2020-05-12] MEDS ORDERED: methylPREDNISolone SOD SUCCI 125 MG/2 ML VIAL IV STA (11:14)
[2020-05-12] MEDS ORDERED: PANTOPRAZOLE 40 MG/10 ML VIAL IVP STA (11:14)
[2020-05-12 11:19] VITALS: BP 123/85; PULSE 84
[2020-05-12] MEDS ORDERED: traMADol 50 MG STARTER PACK 3 TAB BTL PO STA (11:21)
== END 2020-05-12 12:57 | disposition home or self-care (01) ==
LOC: EC 09:08
DX: K50.90 Crohn's disease, unspecified, without complications (principal); F17.200 Nicotine dependence, unspecified, uncomplicated; Z88.0 Allergy status to penicillin; Z88.5 Allergy status to narcotic agent; Z88.6 Allergy status to analgesic agent; Z88.8 Allergy status to other drugs, medicaments and biological substances; Z86.14 Personal history of Methicillin resistant Staphylococcus aureus infection; Z90.49 Acquired absence of other specified parts of digestive tract
CPT/HCPCS: 36415; 80053; 85025; 85730; 96374; 96375; 96376; 99285

== ENCOUNTER → 2020-05-12 | Outpatient (CLI) | payer OTHER ==
--- NOTE | 2020-05-12 09:37 | CT ---
EXAMINATION TYPE: CT sinus wo con DATE OF EXAM: 05/12/2020 COMPARISON: NONE HISTORY: Facial pain and pressure with congestion CT DLP: 590.1 mGycm. Automated Exposure Control for Dose Reduction was Utilized. TECHNIQUE: CT scan of the sinuses is performed without contrast, axial images are obtained, coronal r eformatted images are also reviewed. FINDINGS: [id number] mucosal thickening involving the right maxillary sinus with patchy dissipa jayy fluid greatest inferiorly. Mild mucosal thickening left maxillary sinus with some dependent lobu lated mucosal thickening and patchy dissipated fluid greatest inferiorly. Mild to moderate mucosal thickening bilateral sphenoid sinuses. Dependent patchy dissipated fluid lar pantera caliber left sphenoid sinus. Moderate mucosal thickening and patchy fluid signal in the bilateral ethmoid sinuses. Mild to moderat e mucosal thickening right greater than left frontal sinuses. There is 4 to 5 mm cyst or polyp left f rontal sinus echo image 39. The ostiomeatal complex is blocked bilaterally on the coronal images. Nasal septum is deviated to rig ht of midline. Visualized portion of mastoid air cells show no abnormal opacification. The globes are intact bilate rally. IMPRESSION: Acute on chronic paranasal pansinusitis as detailed above.
== END | disposition home or self-care (01) ==
LOC: RADCTMAIN 08:48
PROVIDERS: ATTEND Family Medicine
DX: J01.40 Acute pansinusitis, unspecified (principal); J32.4 Chronic pansinusitis
CPT/HCPCS: 70486

== ENCOUNTER 2020-06-26 13:04 | Emergency (ER) | payer OTHER ==
[2020-06-26] MEDS ORDERED: SODIUM CHLORIDE 0.9% 1,000 ML IV STA (13:54)
[2020-06-26] MEDS ORDERED: ONDANSETRON 4 MG/2 ML VIAL IVP STA (13:54)
[2020-06-26] MEDS ORDERED: ACETAMINOPHEN TAB 325 MG TAB PO STA (14:12)
[2020-06-26 14:13] LABS: Basophils # (A) 0.1 k/uL (0-0.2); Basophils % (A) 1 %; Eosinophils # (A) 0.6 k/uL (0-0.7); Eosinophils % (A) 6 %; HCT 46.1 % (34.0-46.0); HGB 16.5 gm/dL (11.4-16.0); Lymphocytes # (A) 2.6 k/uL (1.0-4.8); Lymphocytes % (A) 29 %; MCH 31.6 pg (25.0-35.0); MCHC 35.7 g/dL (31.0-37.0); MCV 88.4 fL (80.0-100.0); Mean Platelet Volume 7.7; Monocytes # (A) 0.4 k/uL (0-1.0); Monocytes % (A) 4 %; Neutrophils # (A) 5.3 k/uL (1.3-7.7); Neutrophils % (A) 59 %; Platelet Count 289 k/uL (150-450); RBC 5.22 m/uL (3.80-5.40); RDW 12.3 % (11.5-15.5)
[2020-06-26 14:18] LABS: Appearance,Urine Clear (Clear); Bilirubin,Urine Negative (Negative); Blood,Urine Negative (Negative); Color,Urine Yellow; Glucose,Urine (UA) Negative (Negative); Ketones,Urine Negative (Negative); Leukocyte Esterase,Urine Negative (Negative); Nitrite,Urine Negative (Negative); PH, Urine 5.5 (5.0-8.0); Protein,Urine Negative (Negative); Specific Gravity,Urine 1.023 (1.001-1.035); Urobilinogen,Urine <2.0 mg/dL (<2.0)
[2020-06-26 14:31] LABS: ALT 21 U/L (4-34); AST 32 U/L (14-36); African American GFR (CKD) >90 (>60 ml/min/1.73 sqM); Albumin 4.6 g/dL (3.5-5.0); Alkaline Phosphatase 68 U/L (38-126); Anion Gap 10 mmol/L; Blood Urea Nitrogen 10 mg/dL (7-17); Calcium 9.7 mg/dL (8.4-10.2); Carbon Dioxide 20 mmol/L (22-30); Chloride 109 mmol/L (98-107); Glucose 112 mg/dL (74-99); Lipase 101 U/L (23-300); Non-African American GFR(CKD) >90 (>60 ml/min/1.73 sqM); Sodium 139 mmol/L (137-145); Total Bilirubin 0.8 mg/dL (0.2-1.3); Total Protein 7.8 g/dL (6.3-8.2)
[2020-06-26 14:43] LABS: Potassium 4.6 mmol/L (3.5-5.1)
[2020-06-26 15:42] VITALS: BP 118/85; PULSE 89; RESP 18; TEMP 98.7
--- NOTE | 2020-06-26 15:55 | ED ---
Nausea/Vomiting/Diarrhea HPI - General Chief complaint: Nausea/Vomiting/Diarrhea Stated complaint: post infusion-nausea & abd pain Source: patient Mode of arrival: ambulatory Limitations: no limitations - History of Present Illness Initial comments: Patient is a 29-year-old female with past medical history of ulcerative colitis who presents to the emergency department with reported nausea, vomiting and abdominal pain. Patient is under the care of Dr. Tamez and is receiving in fusions for her inflammatory bowel disease. Patient states that she had an infusion on Sunday. Normally gets them every 2 months. States that the following several days after her infusion she has fatigue, abdominal pain and nausea with vomiting. Patient states she has not been able to hold down any food since Sunday. She denies any fevers or chills. Has Zofran at home for her nausea however hasn't had any improvement with this medication. Does not have any pain medications at home. She denies dysuria, hematuria or difficulty voiding. No diarrhea, consultation, melenic stools or hematochezia. Denies any abnormal vaginal bleeding or discharge. No other alleviating, precipitating or modifying factors - Related Data Previous Rx's Medication Instructions Recorded Ondansetron Odt [Zofran Odt] 4 mg PO Q8HR PRN #12 tab 05/12/20 Pantoprazole [Protonix] 40 mg PO DAILY #20 tablet. 05/12/20 predniSONE [Deltasone] 20 mg PO DIRECTED #12 tab 05/12/20 Hydrocodone/Acetaminophen [[place] 1 tab PO Q6HR PRN #12 tab 06/26/20 5-325] Prochlorperazine [Compazine] 10 mg PO Q8H PRN #10 tab 06/26/20 Allergies Allergy/AdvReac Type Severity Reaction Status Date / Time codeine Allergy Mild Rash/Hives/ Verified 06/26/20 13:14 Swelling ketorolac [From Toradol] Allergy Rash/Hives Verified 06/26/20 13:14 morphine Allergy Rash/Hives Verified 06/26/20 13:14 Penicillins Allergy Unknown Verified 06/26/20 13:14 Childhood haloperidol [From Haldol] AdvReac Rapid Verified 06/26/20 13:14 Heart Rate Review of Systems ROS Statement: Those systems with pertinent positive or pertinent negative responses have been documented in the HPI. ROS Other: All systems not noted in ROS Statement are negative. Past Medical History Past Medical History: No Reported History Additional Past Medical History / Comment(s): crohns, ulcerative colitis, endo metriosis, ovarian cyst History of Any Multi-Drug Resistant Organisms: MRSA Date of last positivie culture/infection: 2016 MDRO Source:: right ear Past Surgical History: Adenoidectomy, Section, Cholecystectomy, Tonsillectomy Additional Past Surgical History / Comment(s): right ovary removed. surgery to remove scar tissue. wisdom teeth removal Past Anesthesia/Blood Transfusion Reactions: No Reported Reaction Additional Past Anesthesia/Blood Transfusion Reaction / Comment(s): MRSA Past Psychological History: Depression Smoking Status: Current every day smoker Past Alcohol Use History: None Reported Past Drug Use History: None Reported - Past Family History Mother Family Medical History: No Reported History General Exam Limitations: no limitations Course Vital Signs 06/26/20 06/26/20 13:11 15:42 Temperature 98.1 F 98.7 F Pulse Rate 112 H 89 Respiratory 16 18 Rate Blood Pressure 120/74 118/85 O2 Sat by Pulse 98 98 Oximetry Medical Decision Making - Medical Decision Making On arrival patient is placed into room 18. A thorough history and physical exam was performed. Laboratory studies are conducted. Patient was given Tylenol, Zofran and a liter of fluid in the emergency department. Laboratory studies are reviewed and discussed with the patient. Patient does have repeat vital signs obtained which demonstrate normalization her heart rate. At this time the patient will be discharged home and needs to follow up with her GI doctor. She is requesting something for pain control at home. I did repeat the patient for a 3 day prescription of [place] as well as Compazine for her nausea. She is to follow-up with her primary care doctor in 2-4 days. Return to the emergency room for any new or worsening symptoms. Patient was in agreement with this treatment plan. Discharged home in stable condition - Lab Data Result diagrams: 06/26/20 14:01 06/26/20 14: Lab Results 06/26/20 06/26/20 06/26/20 Range/Units 14:01 14: 14: WBC 9.0 (3.8-10.6) k/uL RBC 5.22 (3.80-5.40) m/uL Hgb 16.5 H (11.4-16.0) gm/dL Hct 46.1 H (34.0-46.0) % MCV 88.4 (80.0-100.0) fL MCH 31.6 (25.0-35.0) pg MCHC 35.7 (31.0-37.0) g/dL RDW 12.3 (11.5-15.5) % Plt Count 289 (150-450) k/uL MPV 7.7 Neutrophils % 59 % Lymphocytes % 29 % Monocytes % 4 % Eosinophils % 6 % Basophils % 1 % Neutrophils # 5.3 (1.3-7.7) k/uL Lymphocytes # 2.6 (1.0-4.8) k/uL Monocytes # 0.4 (0-1.0) k/uL Eosinophils # 0.6 (0-0.7) k/uL Basophils # 0.1 (0-0.2) k/uL Sodium (137-145) mmol/L Potassium (3.5-5.1) mmol/L Chloride (98-107) mmol/L Carbon Dioxide (22-30) mmol/L Anion Gap mmol/L BUN (7-17) mg/dL Creatinine (0.52-1.04) mg/dL Est GFR (CKD-EPI)AfAm (>60 ml/min/1.73 sqM) Est GFR (CKD-EPI)NonAf (>60 ml/min/1.73 sqM) Glucose (74-99) mg/dL Plasma Lactic Acid Derrick (0.7-2.0) mmol/L Calcium (8.4-10.2) mg/dL Total Bilirubin (0.2-1.3) mg/dL AST (14-36) U/L ALT (4-34) U/L Alkaline Phosphatase (38-126) U/L Total Protein (6.3-8.2) g/dL Albumin (3.5-5.0) g/dL Lipase (23-300) U/L Urine Color Yellow Urine Appearance Clear (Clear) Urine pH 5.5 (5.0-8.0) Ur Specific [place] 1.023 (1.001-1.035) Urine Protein Negative (Negative) Urine Glucose (UA) Negative (Negative) Urine Ketones Negative (Negative) Urine Blood Negative (Negative) Urine Nitrite Negative (Negative) Urine Bilirubin Negative (Negative) Urine Urobilinogen <2.0 (<2.0) mg/dL Ur Leukocyte Esterase Negative (Negative) Urine HCG, Qual Not Detected (Not Detectd) 06/26/20 06/26/20 Range/Units 14:01 14:01 WBC (3.8-10.6) k/uL RBC (3.80-5.40) m/uL Hgb (11.4-16.0) gm/dL Hct (34.0-46.0) % MCV (80.0-100.0) fL MCH (25.0-35.0) pg MCHC (31.0-37.0) g/dL RDW (11.5-15.5) % Plt Count (150-450) k/uL MPV Neutrophils % % Lymphocytes % % Monocytes % % Eosinophils % % Basophils % % Neutrophils # (1.3-7.7) k/uL Lymphocytes # (1.0-4.8) k/uL Monocytes # (0-1.0) k/uL Eosinophils # (0-0.7) k/uL Basophils # (0-0.2) k/uL Sodium 139 (137-145) mmol/L Potassium 4.6 (3.5-5.1) mmol/L Chloride 109 H (98-107) mmol/L Carbon Dioxide 20 L (22-30) mmol/L Anion Gap 10 mmol/L BUN 10 (7-17) mg/dL Creatinine 0.66 (0.52-1.04) mg/dL Est GFR (CKD-EPI)AfAm >90 (>60 ml/min/1.73 sqM) Est GFR (CKD-EPI)NonAf >90 (>60 ml/min/1.73 sqM) Glucose 112 H (74-99) mg/dL Plasma Lactic Acid Derrick 0.9 (0.7-2.0) mmol/L Calcium 9.7 (8.4-10.2) mg/dL Total Bilirubin 0.8 (0.2-1.3) mg/dL AST 32 (14-36) U/L ALT 21 (4-34) U/L Alkaline Phosphatase 68 (38-126) U/L Total Protein 7.8 (6.3-8.2) g/dL Albumin 4.6 (3.5-5.0) g/dL Lipase 101 (23-300) U/L Urine Color Urine Appearance (Clear) Urine pH (5.0-8.0) Ur Specific [place] (1.001-1.035) Urine Protein (Negative) Urine Glucose (UA) (Negative) Urine Ketones (Negative) Urine Blood (Negative) Urine Nitrite (Negative) Urine Bilirubin (Negative) Urine Urobilinogen (<2.0) mg/dL Ur Leukocyte Esterase (Negative) Urine HCG, Qual (Not Detectd) Disposition Clinical Impression: Abdominal pain, Nausea and vomiting Disposition: HOME SELF-CARE Condition: Stable Instructions (If sedation given, give patient instructions): Acute Nausea and Vomiting (ED) Additional Instructions: Please follow-up with Dr. Beckwith at your outpatient appointment. Return to the emergency room for any new or worsening symptoms Prescriptions: Prochlorperazine [Compazine] 10 mg PO Q8H PRN #10 tab PRN Reason: Nausea Hydrocodone/Acetaminophen [[place] 5-325] 1 tab PO Q6HR PRN #12 tab PRN Reason: Pain Is patient prescribed a controlled substance at d/c from ED?: Yes When asked, does pt state using other controlled substances?: No If prescribed controlled substance>3 days was MAPS reviewed?: Prescribed <3 Days If opioid is for acute pain is fill amount 7 days or less?: Yes If Rx opioid, was Start Talking consent form obtained?: Yes Referrals: Aruna Calle MD [Primary Care Provider] - 1-2 days Kelly Beckwith MD [STAFF PHYSICIAN] - 1-2 days Time of Disposition: 15:54
== END 2020-06-26 16:12 | disposition home or self-care (01) ==
LOC: EC 13:04
DX: R11.2 Nausea with vomiting, unspecified (principal); R10.9 Unspecified abdominal pain; F17.200 Nicotine dependence, unspecified, uncomplicated; Z32.02 Encounter for pregnancy test, result negative; Z88.0 Allergy status to penicillin; Z88.5 Allergy status to narcotic agent; Z88.6 Allergy status to analgesic agent; Z88.8 Allergy status to other drugs, medicaments and biological substances; Z86.14 Personal history of Methicillin resistant Staphylococcus aureus infection; Z90.49 Acquired absence of other specified parts of digestive tract
CPT/HCPCS: 36415; 80053; 83605; 83690; 85025; 81003; 81025; 99284; 96374; 96361 ×2; J2405

== ENCOUNTER → 2020-07-22 | Outpatient (CLI) | payer OTHER ==
--- NOTE | 2020-07-22 09:11 | CT ---
EXAMINATION TYPE: CT sinus wo con DATE OF EXAM: 07/22/2020 COMPARISON: CT sinuses May 12, 2020 HISTORY: chronic ethmoidal sinusitis, sinus congestion, polyps. Headaches and sinus issues since Sept ember the patient. CT DLP: 591 mGycm. Automated Exposure Control for Dose Reduction was Utilized. TECHNIQUE: CT scan of the sinuses is performed without contrast, axial images are obtained, coronal r eformatted images are also reviewed. FINDINGS: Moderate to severe mucosal thickening right maxillary sinus more prominent from prior study . Stable mild to moderate mucosal thickening left maxillary sinus with patchy dissipated fluid redemo nstrated. Mild to moderate mucosal thickening bilateral sphenoid sinuses. Patchy dissipated fluid larger calibe r left sphenoid sinus anteriorly on current study. Moderate to severe mucosal thickening and areas of increased opacity in the bilateral ethmoid sinuses redemonstrated. Near complete opacification of right frontal sinus on current study and more prominent opacification of the left frontal sinus on current study The ostiomeatal complex remains blocked bilaterally on the coronal images. Nasal septum is redemonstr ated deviated to right of midline. Visualized portion of mastoid air cells show no abnormal opacification. The globes are intact bilate rally. Visualized portion of brain parenchyma unremarkable. IMPRESSION: Acute on chronic paranasal pansinusitis as detailed above remains present. Overall findi ngs slightly worsened from prior study.
== END | disposition home or self-care (01) ==
LOC: RADCTMAIN 08:29
PROVIDERS: ATTEND Otolaryngology Facial Plastic Surgery
DX: J32.4 Chronic pansinusitis (principal)
CPT/HCPCS: 70486

== ENCOUNTER 2020-09-30 18:40 | Emergency (ER) | payer OTHER ==
[2020-09-30 19:03] VITALS: TEMP 98.1
[2020-09-30] MEDS ORDERED: ONDANSETRON 4 MG/2 ML VIAL IVP STA (20:50)
[2020-09-30] MEDS ORDERED: SODIUM CHLORIDE 0.9% 1,000 ML IV STA (20:50)
[2020-09-30] MEDS ORDERED: HYDROmorphone 0.5 MG/0.5 ML SYRINGE IVP STA (21:06)
--- NOTE | 2020-09-30 21:06 | ED ---
GI Bleed HPI - General Chief complaint: GI Bleed Stated complaint: 10wks preg, chrons flare up Time Seen by Provider: 09/30/20 20:38 Source: patient Mode of arrival: ambulatory Limitations: no limitations - History of Present Illness Initial comments: 29-year-old female with history of Crohn's disease, 10 week , sent to emergency Department with a chief complaint of rectal bleeding. Patient states her Crohn's is exacerbated at the moment. Patient reports profuse rectal bleeding, bright red for about one week. She spoke to her GI doctor, Dr. Beckwith who advised her to come in to the emergency department for evaluation. States she has been taking steroids that were prescribed by the GI doctor for the Crohn's flareup. She is also on inflectra for her chrons that she is currently taking. Patient reports during her last she experienced similar difficulties and was given Dilaudid for her pain during her Crohn's exacerba tions. Her OB is . She also reports intermittent nausea with nonbilious and nonbloody vomiting for the past 2 weeks. Does report some abdominal cramping. She denies any urinary or vaginal symptoms. Denies any vaginal bleeding, discharge, foul smell or itching. - Related Data Previous Rx's Medication Instructions Recorded Ondansetron Odt [Zofran Odt] 4 mg PO Q8HR PRN #12 tab 05/12/20 Pantoprazole [Protonix] 40 mg PO DAILY #20 tablet. 05/12/20 predniSONE [Deltasone] 20 mg PO DIRECTED #12 tab 05/12/20 Hydrocodone/Acetaminophen [[place] 1 tab PO Q6HR PRN #12 tab 06/26/20 5-325] Prochlorperazine [Compazine] 10 mg PO Q8H PRN #10 tab 06/26/20 Allergies Allergy/AdvReac Type Severity Reaction Status Date / Time codeine Allergy Mild Rash/Hives/ Verified 09/30/20 18:59 Swelling ketorolac [From Toradol] Allergy Rash/Hives Verified 09/30/20 18:59 metoclopramide [From Reglan] Allergy Unknown Verified 09/30/20 18:59 morphine Allergy Rash/Hives Verified 09/30/20 18:59 Penicillins Allergy Unknown Verified 09/30/20 18:59 Childhood tramadol Allergy Unknown Verified 04/15/21 18:59 haloperidol [From Haldol] AdvReac Rapid Verified 09/30/20 18:59 Heart Rate Review of Systems ROS Statement: Those systems with pertinent positive or pertinent negative responses have been documented in the HPI. ROS Other: All systems not noted in ROS Statement are negative. Past Medical History Past Medical History: No Reported History Additional Past Medical History / Comment(s): crohns, ulcerative colitis, endometriosis, ovarian cyst History of Any Multi-Drug Resistant Organisms: MRSA Date of last positivie culture/infection: 2016 MDRO Source:: right ear Past Surgical History: Adenoidectomy, Section, Cholecystectomy, Tons illectomy Additional Past Surgical History / Comment(s): right ovary removed. surgery to remove scar tissue. wisdom teeth removal Past Anesthesia/Blood Transfusion Reactions: No Reported Reaction Additional Past Anesthesia/Blood Transfusion Reaction / Comment(s): MRSA Past Psychological History: Depression Smoking Status: Former smoker Past Alcohol Use History: None Reported Past Drug Use History: None Reported - Past Family History Mother Family Medical History: No Reported History General Exam - General Exam Comments Initial Comments: 29-year-old female with history of Crohn's disease presents to the emergency Department with chief complaint of bloody stools. On physical examination, patient has mild epigastric abdominal tenderness. Patient is well-known to the emergency department for frequent visits. This is her typical Crohn's exacerbation with hematochezia. CBC reveals no signs of anemia. Leukocytosis of 12.4 likely secondary to the vomiting. CBC reveals slight decrease in carbon dioxide. Anion gap 14. HCG Quant 105K. UA unremarkable. Patient was given 1 L of IV fluids, antiemetics and analgesia. She requested Dilaudid because she was given this during her last 2 pregnancies with Crohn's exacerbation. Ultrasound performed shows small subchorionic fluid collections. Gestational age of 9 weeks 5days. On reevaluation, patient reports improvement in symptoms and she feels comfortable going home. I advised her to follow-up with her OB. She has Zofran at home and does not request any more. Strict return parameters were thoroughly discussed the patient is an attending ago. Case discussed with Limitations: no limitations General appearance: alert, in no apparent distress Head exam: Present: atraumatic, normocephalic, normal inspection Eye exam: Present: normal appearance, PERRL, EOMI Pupils: Present: normal accommodation ENT exam: Present: normal exam, normal oropharynx, mucous membranes moist Neck exam: Present: normal inspection, full ROM. Absent: tenderness Respiratory exam: Present: normal lung sounds bilaterally. Absent: respiratory distress, wheezes, rales, rhonchi, stridor, chest wall tenderness, accessory muscle use Cardiovascular Exam: Present: regular rate, normal rhythm, normal heart sounds GI/Abdominal exam: Present: soft, tenderness (Mild epigastric tenderness). Absent: distended, guarding, rebound Extremities exam: Present: normal inspection, full ROM, normal capillary refill. Absent: tenderness, pedal edema, joint swelling Back exam: Present: normal inspection, full ROM. Absent: tenderness, CVA tenderness (R), CVA tenderness (L) Neurological exam: Present: alert, oriented X3 Psychiatric exam: Present: normal affect, normal mood Skin exam: Present: warm, dry, intact, normal color Course Vital Signs 09/30/20 09/30/20 10/01/20 19:00 21:59 00:00 Temperature 98.1 F Pulse Rate 109 H 76 84 Respiratory 18 16 18 Rate Blood Pressure 124/81 107/72 119/78 O2 Sat by Pulse 98 100 96 Oximetry Medical Decision Making - Lab Data Result diagrams: 09/30/20 21:19 09/30/20 21:19 Lab Results 09/30/20 09/30/20 09/30/20 Range/Units 21:19 21:19 21:19 WBC 12.4 H (3.8-10.6) k/uL RBC 5.05 (3.80-5.40) m/uL Hgb 15.7 (11.4-16.0) gm/dL Hct 46.7 H (34.0-46.0) % MCV 92.4 (80.0-100.0) fL MCH 31.2 (25.0-35.0) pg MCHC 33.7 (31.0-37.0) g/dL RDW 13.1 (11.5-15.5) % Plt Count 285 (150-450) k/uL MPV 7.4 Neutrophils % 63 % Lymphocytes % 31 % Monocytes % 3 % Eosinophils % 2 % Basophils % 1 % Neutrophils # 7.7 (1.3-7.7) k/uL Lymphocytes # 3.9 (1.0-4.8) k/uL Monocytes # 0.4 (0-1.0) k/uL Eosinophils # 0.2 (0-0.7) k/uL Basophils # 0.1 (0-0.2) k/uL PT (9.0-12.0) sec INR (<1.2) APTT (22.0-30.0) sec Sodium 138 (137-145) mmol/L Potassium 4.4 (3.5-5.1) mmol/L Chloride 104 (98-107) mmol/L Carbon Dioxide 20 L (22-30) mmol/L Anion Gap 14 mmol/L BUN 9 (7-17) mg/dL Creatinine 0.52 (0.52-1.04) mg/dL Est GFR (CKD-EPI)AfAm >90 (>60 ml/min/1.73 sqM) Est GFR (CKD-EPI)NonAf >90 (>60 ml/min/1.73 sqM) Glucose 101 H (74-99) mg/dL Calcium 10.0 (8.4-10.2) mg/dL Total Bilirubin 0.5 (0.2-1.3) mg/dL AST 25 (14-36) U/L ALT 18 (4-34) U/L Alkaline Phosphatase 70 (38-126) U/L Total Protein 8.2 (6.3-8.2) g/dL Albumin 5.0 (3.5-5.0) g/dL HCG, Quant 518139.0 mIU/mL Urine Color Yellow Urine Appearance Cloudy H (Clear) Urine pH 6.5 (5.0-8.0) Ur Specific [place] 1.017 (1.001-1.035) Urine Protein Negative (Negative) Urine Glucose (UA) Negative (Negative) Urine Ketones Negative (Negative) Urine Blood Negative (Negative) Urine Nitrite Negative (Negative) Urine Bilirubin Negative (Negative) Urine Urobilinogen <2.0 (<2.0) mg/dL Ur Leukocyte Esterase Negative (Negative) Urine RBC 1 (0-5) /hpf Urine WBC 1 (0-5) /hpf Ur Squamous Epith Cells 4 (0-4) /hpf Urine Bacteria Rare H (None) /hpf Urine Mucus Few H (None) /hpf 04/15/21 Range/Units 21:19 WBC (3.8-10.6) k/uL RBC (3.80-5.40) m/uL Hgb (11.4-16.0) gm/dL Hct (34.0-46.0) % MCV (80.0-100.0) fL MCH (25.0-35.0) pg MCHC (31.0-37.0) g/dL RDW (11.5-15.5) % Plt Count (150-450) k/uL MPV Neutrophils % % Lymphocytes % % Monocytes % % Eosinophils % % Basophils % % Neutrophils # (1.3-7.7) k/uL Lymphocytes # (1.0-4.8) k/uL Monocytes # (0-1.0) k/uL Eosinophils # (0-0.7) k/uL Basophils # (0-0.2) k/uL PT 10.1 (9.0-12.0) sec INR 0.9 (<1.2) APTT 21.6 L (22.0-30.0) sec Sodium (137-145) mmol/L Potassium (3.5-5.1) mmol/L Chloride (98-107) mmol/L Carbon Dioxide (22-30) mmol/L Anion Gap mmol/L BUN (7-17) mg/dL Creatinine (0.52-1.04) mg/dL Est GFR (CKD-EPI)AfAm (>60 ml/min/1.73 sqM) Est GFR (CKD-EPI)NonAf (>60 ml/min/1.73 sqM) Glucose (74-99) mg/dL Calcium (8.4-10.2) mg/dL Total Bilirubin (0.2-1.3) mg/dL AST (14-36) U/L ALT (4-34) U/L Alkaline Phosphatase (38-126) U/L Total Protein (6.3-8.2) g/dL Albumin (3.5-5.0) g/dL HCG, Quant mIU/mL Urine Color Urine Appearance (Clear) Urine pH (5.0-8.0) Ur Specific [place] (1.001-1.035) Urine Protein (Negative) Urine Glucose (UA) (Negative) Urine Ketones (Negative) Urine Blood (Negative) Urine Nitrite (Negative) Urine Bilirubin (Negative) Urine Urobilinogen (<2.0) mg/dL Ur Leukocyte Esterase (Negative) Urine RBC (0-5) /hpf Urine WBC (0-5) /hpf Ur Squamous Epith Cells (0-4) /hpf Urine Bacteria (None) /hpf Urine Mucus (None) /hpf Disposition Clinical Impression: Exacerbation of Crohn's disease, Hematochezia Disposition: HOME SELF-CARE Condition: Stable Instructions (If sedation given, give patient instructions): Gastrointestinal Bleeding (ED) Additional Instructions: Please return to the Emergency Department if symptoms worsen or any other co ncerns. Is patient prescribed a controlled substance at d/c from ED?: No Referrals: Aruna Calle MD [Primary Care Provider] - 1-2 days Time of Disposition: 00:47
[2020-09-30 21:35] LABS: Basophils # (A) 0.1 k/uL (0-0.2); Basophils % (A) 1 %; Eosinophils # (A) 0.2 k/uL (0-0.7); Eosinophils % (A) 2 %; HCT 46.7 % (34.0-46.0); HGB 15.7 gm/dL (11.4-16.0); Lymphocytes # (A) 3.9 k/uL (1.0-4.8); Lymphocytes % (A) 31 %; MCH 31.2 pg (25.0-35.0); MCHC 33.7 g/dL (31.0-37.0); MCV 92.4 fL (80.0-100.0); Mean Platelet Volume 7.4; Monocytes # (A) 0.4 k/uL (0-1.0); Monocytes % (A) 3 %; Neutrophils # (A) 7.7 k/uL (1.3-7.7); Neutrophils % (A) 63 %; Platelet Count 285 k/uL (150-450); RBC 5.05 m/uL (3.80-5.40); RDW 13.1 % (11.5-15.5); WBC 12.4 k/uL (3.8-10.6)
[2020-09-30 21:45] LABS: ALT 18 U/L (4-34); AST 25 U/L (14-36); African American GFR (CKD) >90 (>60 ml/min/1.73 sqM); Alkaline Phosphatase 70 U/L (38-126); Anion Gap 14 mmol/L; Blood Urea Nitrogen 9 mg/dL (7-17); Carbon Dioxide 20 mmol/L (22-30); Chloride 104 mmol/L (98-107); Glucose 101 mg/dL (74-99); Non-African American GFR(CKD) >90 (>60 ml/min/1.73 sqM); Potassium 4.4 mmol/L (3.5-5.1); Sodium 138 mmol/L (137-145); Total Bilirubin 0.5 mg/dL (0.2-1.3); Total Protein 8.2 g/dL (6.3-8.2)
[2020-09-30 21:53] LABS: INR 0.9 (<1.2); Prothrombin Time 10.1 sec (9.0-12.0)
[2020-09-30 21:56] LABS: Partial Thromboplastin Time 21.6 sec (22.0-30.0)
[2020-09-30 21:57] LABS: Appearance,Urine Cloudy (Clear); Bacteria,Urine Rare /hpf; Bilirubin,Urine Negative (Negative); Blood,Urine Negative (Negative); Color,Urine Yellow; Glucose,Urine (UA) Negative (Negative); Ketones,Urine Negative (Negative); Leukocyte Esterase,Urine Negative (Negative); Mucus,Urine Few /hpf; Nitrite,Urine Negative (Negative); PH, Urine 6.5 (5.0-8.0); Protein,Urine Negative (Negative); RBC,Urine 1 /hpf (0-5); Specific Gravity,Urine 1.017 (1.001-1.035); Squamous Epithelial Cell,Urine 4 /hpf (0-4); Urobilinogen,Urine <2.0 mg/dL (<2.0); WBC,Urine 1 /hpf (0-5)
--- NOTE | 2020-09-30 22:41 | US ---
EXAMINATION TYPE: Transabdominal DATE OF EXAM: 09/30/2020 9:53 PM COMPARISON: NONE CLINICAL HISTORY: abd cramping, concurrent chrons flare up . Abd pain. Hx , right ovary enoc vidal. Hx endometriosis and chron' s disease. EXAM PERFORMED: Transabdominal (TA) EXAM MEASUREMENTS: GESTATIONAL AGE / DATING Physician Established: (9 weeks/5 days) EDC: 04/30/2021 Dates by LMP: Unknown Dates by First Scan: This is first scan. Dates by Current Scan for: (9 weeks/5 days) EDC: 04/30/2021 MATERNAL ANATOMY Uterus: 9.5 x 8.4 x 6.4 cm. Anteverted. Right Ovary: Surgically removed. Left Ovary: 4.0 x 2.8 x 2.2 cm. Appears slightly enlarged. Anechoic area with vascularity seen: 2.3 x 2.0 x 1.8 cm. Post CDS / Adnexa: Appear wnl. Presence of free fluid: None seen. Presence of corpus luteal cyst: Anechoic area with vascularity seen in left ovary: 2.3 x 2.0 x 1.8 cm . Presence of subchorionic bleed: Hypoechoic-anechoic areas seen within the uterus adjacent to the gest ational sac: #1 measures: 1.8 x 1.8 x 2.9 cm. #2 measures: 1.3 x 1.4 x 2.3 cm. GESTATION / SURVEY CRL: 2.89 cm. (9 weeks/5 days) Yolk Sac (normal less than 6mm): 3.2 mm. Heart Rate: 168 bpm Rhythm: Normal IUP: Viable IUP Date of LMP: Unknown IMPRESSION: Small subchorionic fluid collections Could be anabel Gestational hemorrhage. The ultrasound gestational age is 9 weeks and 5 days.
[2020-10-01 00:13] VITALS: BP 119/78; PULSE 84; RESP 18
[2020-10-01] MEDS ORDERED: HYDROmorphone 0.5 MG/0.5 ML SYRINGE IVP STA (00:47)
== END 2020-10-01 01:07 | disposition home or self-care (01) ==
LOC: EC 18:40
DX: O99.611 Diseases of the digestive system complicating pregnancy, first trimester (principal); K50.90 Crohn's disease, unspecified, without complications; O99.891 Other specified diseases and conditions complicating pregnancy; K92.1 Melena; Z3A.09 9 weeks gestation of pregnancy
CPT/HCPCS: 36415; 80053; 85025; 85610; 85730; 81001; 84702; 76801; 99285; 96374; 96375; 96376; 96361; J2405; J1170 ×2

== ENCOUNTER → 2020-12-06 | Outpatient (CLI) | payer OTHER ==
[2020-12-06 23:25] LABS: Basophils # (A) 0.04 X 10*3/uL (0.00-0.10); Basophils % (A) 0.3 %; Eosinophils # (A) 0.47 X 10*3/uL (0.04-0.35); Eosinophils % (A) 3.5 %; HCT 32.3 % (37.2-46.3); HGB 10.6 g/dL (12.0-15.0); Lymphocytes # (A) 2.99 X 10*3/uL (0.90-5.00); Lymphocytes % (A) 22.4 %; MCH 29.9 pg (27.0-32.0); MCHC 32.8 g/dL (32.0-37.0); Mean Platelet Volume 10.7 fL (9.5-12.2); Monocytes # (A) 0.65 X 10*3/uL (0.20-1.00); Monocytes % (A) 4.9 %; Neutrophils # (A) 9.13 X 10*3/uL (1.80-7.70); Neutrophils % (A) 68.3 %; Platelet Count 297 X 10*3/uL (140-440); RBC 3.55 X 10*6/uL (4.10-5.20); RDW 11.9 % (11.5-14.5); WBC 13.36 X 10*3/uL (4.50-10.00)
[2020-12-07 01:04] LABS: African American GFR (CKD) 144.8 (60.0-200.0); Albumin 3.9 g/dL (3.80-4.90); Albumin/Globulin Ratio 1.77 (1.60-3.17); Anion Gap 8.8 mmol/L (4.00-12.00); Calcium 8.7 mg/dL (8.7-10.3); Carbon Dioxide 22.2 mmol/L (21.6-31.8); Globulin 2.2 g/dL (1.6-3.3); Non-African American GFR(CKD) 124.9 (60.0-200.0); Potassium 4.4 mmol/L (3.5-5.5); Total Bilirubin 0.4 mg/dL (0.3-1.2); Total Protein 6.1 g/dL (6.2-8.2)
[2020-12-07 01:17] LABS: Erythrocyte Sedimentation Rate 38 mm/Hr (0-20)
== END | disposition home or self-care (01) ==
LOC: LABWHC1 14:35
PROVIDERS: ATTEND Internal Medicine Gastroenterology
DX: K51.90 Ulcerative colitis, unspecified, without complications (principal)
CPT/HCPCS: 36415; 80053; 83630; 83993; 85025; 85652; 87324

== ENCOUNTER 2020-12-15 13:59 | Emergency (ER) | payer OTHER ==
[2020-12-15 14:12] VITALS: BP 114/72; PULSE 94; RESP 16; TEMP 98
[2020-12-15] MEDS ORDERED: SODIUM CHLORIDE 0.9% 1,000 ML IV STA (14:58)
[2020-12-15 15:43] LABS: Appearance,Urine Clear (Clear); Bilirubin,Urine Negative (Negative); Blood,Urine Negative (Negative); Color,Urine Light Yellow; Glucose,Urine (UA) Negative (Negative); Ketones,Urine Negative (Negative); Leukocyte Esterase,Urine Negative (Negative); Nitrite,Urine Negative (Negative); Protein,Urine Negative (Negative); Specific Gravity,Urine 1.007 (1.001-1.035); Urobilinogen,Urine <2.0 mg/dL (<2.0)
[2020-12-15 15:44] LABS: Basophils % (A) 0 %; Eosinophils # (A) 0.3 k/uL (0-0.7); Eosinophils % (A) 3 %; HGB 11.1 gm/dL (11.4-16.0); Lymphocytes # (A) 2.6 k/uL (1.0-4.8); Lymphocytes % (A) 24 %; MCH 29.1 pg (25.0-35.0); MCHC 33.7 g/dL (31.0-37.0); MCV 86.2 fL (80.0-100.0); Mean Platelet Volume 7.9; Monocytes # (A) 0.4 k/uL (0-1.0); Monocytes % (A) 3 %; Neutrophils # (A) 7.7 k/uL (1.3-7.7); Neutrophils % (A) 69 %; Platelet Count 270 k/uL (150-450); Poikilocytosis Slight; RBC 3.83 m/uL (3.80-5.40); RDW 12.5 % (11.5-15.5); WBC 11.1 k/uL (3.8-10.6)
[2020-12-15] MEDS ORDERED: ACETAMINOPHEN TAB 500 MG TAB PO STA (15:49)
[2020-12-15 16:14] LABS: ALT 13 U/L (4-34); AST 24 U/L (14-36); African American GFR (CKD) >90 (>60 ml/min/1.73 sqM); Albumin 3.8 g/dL (3.5-5.0); Alkaline Phosphatase 75 U/L (38-126); Anion Gap 6 mmol/L; Blood Urea Nitrogen 4 mg/dL (7-17); C Reactive Protein 0.8 mg/dL (<1.0); Calcium 9.2 mg/dL (8.4-10.2); Carbon Dioxide 21 mmol/L (22-30); Chloride 108 mmol/L (98-107); Glucose 94 mg/dL (74-99); Non-African American GFR(CKD) >90 (>60 ml/min/1.73 sqM); Potassium 3.7 mmol/L (3.5-5.1); Sodium 135 mmol/L (137-145); Total Bilirubin 0.3 mg/dL (0.2-1.3); Total Protein 6.7 g/dL (6.3-8.2)
[2020-12-15] MEDS ORDERED: HYDROmorphone 0.5 MG/0.5 ML SYRINGE IVP STA (16:31)
--- NOTE | 2020-12-15 16:34 | ED ---
Abdominal Pain HPI - General Chief Complaint: Abdominal Pain Stated Complaint: ABD pain,rectal bleeding,21 Wks preg Time Seen by Provider: 12/15/20 14:42 Source: patient, RN notes reviewed Mode of arrival: wheelchair Limitations: no limitations - History of Present Illness Initial Comments: Patient is a 29-year-old female that presents to the emergency department complaining of abdominal pain. She notes that she was recently seen on the OB floor to get a ultrasound and everything came back normal. She notes this feels like ulcerative colitis flareup. She notes that she usually goes to [facility] for these issues. Patient notes her SHERIFFS DETECTIVE and her GI specialist both worried about her [facility] but she had to come here today. She notes she was sent to the emergency room by the OB floor for evaluation of abdominal pain. Patient notes that her SHERIFFS DETECTIVE will give her 1 mg of Dilaudid through her IV. Patient notes that she has having some mild bleeding from her rectum which is normal drainage flareup 4. Patient said that she was more pain than anything else that concerns her. She denied any chest pain shortness breath headache nausea vomiting constipation fever fatigue chills. - Related Data Home Medications Medication Instructions Recorded Confirmed Acetaminophen Tab [Tylenol Tab] 2,000 mg PO Q6HR PRN 12/15/20 12/15/20 Pnv,Calcium 72/Iron/Folic Acid 1 tab PO DAILY 12/15/20 12/15/20 [ Plus Tablet] Allergies Allergy/AdvReac Type Severity Reaction Status Date / Time codeine Allergy Mild Rash/Hives/ Verified 12/15/20 15:32 Swelling ketorolac [From Toradol] Allergy Rash/Hives Verified 12/15/20 15:32 metoclopramide [From Reglan] Allergy Unknown Verified 12/15/20 15:32 morphine Allergy Rash/Hives Verified 12/15/20 15:32 Penicillins Allergy Unknown Verified 12/15/20 15:32 Childhood tramadol Allergy Unknown Verified 12/15/20 15:32 haloperidol [From Haldol] AdvReac Rapid Verified 12/15/20 15:32 Heart Rate Review of Systems ROS Statement: Those systems with pertinent positive or pertinent negative responses have been documented in the HPI. ROS Other: All systems not noted in ROS Statement are negative. Past Medical History Past Medical History: No Reported History Additional Past Medical History / Comment(s): crohns, ulcerative colitis, endometriosis, ovarian cyst History of Any Multi-Drug Resistant Organisms: MRSA Date of last positivie culture/infection: 2016 MDRO Source:: right ear Past Surgical History: Adenoidectomy, Section, Cholecystectomy, Tonsillectomy Additional Past Surgical History / Comment(s): right ovary removed. surgery to remove scar tissue. wisdom teeth removal Past Anesthesia/Blood Transfusion Reactions: No Reported Reaction Additional Past Anesthesia/Blood Transfusion Reaction / Comment(s): MRSA Past Psychological History: Depression Smoking Status: Former smoker Past Alcohol Use History: None Reported Past Drug Use History: None Reported - Past Family History Mother Family Medical History: No Reported History General Exam Limitations: no limitations General appearance: alert, in no apparent distress, in distress Head exam: Present: atraumatic, normocephalic, normal inspection Eye exam: Present: normal appearance, PERRL, EOMI. Absent: scleral icterus, conjunctival injection, periorbital swelling Neck exam: Present: normal inspection Respiratory exam: Present: normal lung sounds bilaterally. Absent: respiratory distress, wheezes, rales, rhonchi, stridor Cardiovascular Exam: Present: regular rate, normal rhythm, normal heart sounds. Absent: systolic murmur, diastolic murmur, rubs, gallop, clicks GI/Abdominal exam: Present: soft, normal bowel sounds, other (Discomfort in the lower abdomen.). Absent: distended, tenderness, guarding, rebound, rigid Rectal exam: Present: deferred Extremities exam: Present: normal inspection, full ROM, normal capillary refill. Absent: tenderness, pedal edema, joint swelling, calf tenderness Neurological exam: Present: alert, oriented X3 Psychiatric exam: Present: normal affect, normal mood Skin exam: Present: warm, dry, intact, normal color. Absent: rash Course Vital Signs 12/15/20 14:09 Temperature 98 F Pulse Rate 94 Respiratory 16 Rate Blood Pressure 114/72 O2 Sat by Pulse 100 Oximetry Medical Decision Making - Medical Decision Making 29-year-old female complaining of lower abdominal pain that is 21 weeks . Recently had a ultrasound done earlier today. Labs, 1 L normal saline, 1000 mg of Tylenol ordered. Patient states that she took 4 extra strength Tylenol before arriving around 12:30. Patient declined taking the Tylenol. Patient was instructed that myself and Dr. Chun don't feel comfortable giving Dilaudid to a 21 week female. And that she would have to follow up at [facility]. Labs unremarkable. ultrasound within normal limits. Case discussed with Dr. Chun, patient can discharge and good [facility] if pain continues. - Lab Data Result diagrams: 12/15/20 15:39 12/15/20 15:39 Lab Results 12/15/20 12/15/20 12/15/20 Range/Units 15:39 15:39 15:39 WBC 11.1 H (3.8-10.6) k/uL RBC 3.83 (3.80-5.40) m/uL Hgb 11.1 L (11.4-16.0) gm/dL Hct 33.0 L (34.0-46.0) % MCV 86.2 (80.0-100.0) fL MCH 29.1 (25.0-35.0) pg MCHC 33.7 (31.0-37.0) g/dL RDW 12.5 (11.5-15.5) % Plt Count 270 (150-450) k/uL MPV 7.9 Neutrophils % 69 % Lymphocytes % 24 % Monocytes % 3 % Eosinophils % 3 % Basophils % 0 % Neutrophils # 7.7 (1.3-7.7) k/uL Lymphocytes # 2.6 (1.0-4.8) k/uL Monocytes # 0.4 (0-1.0) k/uL Eosinophils # 0.3 (0-0.7) k/uL Basophils # 0.0 (0-0.2) k/uL Poikilocytosis Slight Sodium 135 L (137-145) mmol/L Potassium 3.7 (3.5-5.1) mmol/L Chloride 108 H (98-107) mmol/L Carbon Dioxide 21 L (22-30) mmol/L Anion Gap 6 mmol/L BUN 4 L (7-17) mg/dL Creatinine 0.50 L (0.52-1.04) mg/dL Est GFR (CKD-EPI)AfAm >90 (>60 ml/min/1.73 sqM) Est GFR (CKD-EPI)NonAf >90 (>60 ml/min/1.73 sqM) Glucose 94 (74-99) mg/dL Calcium 9.2 (8.4-10.2) mg/dL Total Bilirubin 0.3 (0.2-1.3) mg/dL AST 24 (14-36) U/L ALT 13 (4-34) U/L Alkaline Phosphatase 75 (38-126) U/L C-Reactive Protein 0.8 (<1.0) mg/dL Total Protein 6.7 (6.3-8.2) g/dL Albumin 3.8 (3.5-5.0) g/dL Urine Color Light Yellow Urine Appearance Clear (Clear) Urine pH 7.0 (5.0-8.0) Ur Specific [place] 1.007 (1.001-1.035) Urine Protein Negative (Negative) Urine Glucose (UA) Negative (Negative) Urine Ketones Negative (Negative) Urine Blood Negative (Negative) Urine Nitrite Negative (Negative) Urine Bilirubin Negative (Negative) Urine Urobilinogen <2.0 (<2.0) mg/dL Ur Leukocyte Esterase Negative (Negative) - Radiology Data Radiology results: report reviewed, image reviewed ultrasound: Single intrauterine with an average ultrasound gestational age and 21 weeks. Last menstrual. Gestational age is 20 weeks and 4 days. heart rate is 152 bpm, amniotic fluid index is 17.65 cm. Disposition Clinical Impression: Abdominal pain, Hx of ulcerative colitis, Disposition: HOME SELF-CARE Condition: Stable Instructions (If sedation given, give patient instructions): Abdominal Pain (ED) Additional Instructions: Please return to the Emergency Department if symptoms worsen or any other concerns. Please follow-up with the [facility] doctors as soon as possible. Is patient prescribed a controlled substance at d/c from ED?: No Referrals: None,Stated [Primary Care Provider] - 1-2 days Time of Disposition: 16:36
[2020-12-15 17:29] LABS: Erythrocyte Sedimentation Rate 28 mm/hr (0-20)
== END 2020-12-15 17:30 | disposition home or self-care (01) ==
LOC: EC 13:59
DX: O26.892 Other specified pregnancy related conditions, second trimester (principal); O99.612 Diseases of the digestive system complicating pregnancy, second trimester; K51.911 Ulcerative colitis, unspecified with rectal bleeding; Z3A.21 21 weeks gestation of pregnancy; Z87.891 Personal history of nicotine dependence
CPT/HCPCS: 36415; 80053; 81003; 82272; 85025; 85652; 86140; 96374; 99284

== ENCOUNTER 2021-06-24 08:50 | Day surgery (SDC) | payer MEDICARE, OTHER ==
[2021-06-21 09:56] VITALS: BMI 27.6
[2021-06-24] MEDS: LACTATED RINGERS 1,000 ML IV SCH ×2 (09:50→11:01)
[2021-06-24] MEDS ORDERED: LIDOCAINE 1% (10MG/ML) FOR IV START INTRADERMA ONE (09:50)
[2021-06-24] MEDS ORDERED: PROPOFOL 10 MG/ML 20 ML VIAL IV ONE (11:06)
--- NOTE | 2021-06-24 11:25 | P.PCN ---
Date of Procedure: 06/24/21 Procedure(s) Performed: BRIEF HISTORY: Patient is a 30-year-old pleasant female scheduled for an elective colonoscopy as a part of history of ulcerative colitis diagnosed in 2013. She is presently on some lower that was started in February 2021. She is scheduled for colonoscopy to evaluate the extent and severity of ulcerative colitis. She currently has 78 bowel movements with blood or mucus in the stool. PROCEDURE PERFORMED: Colonoscopy multiple random biopsies. PREOPERATIVE DIAGNOSIS: Long Standing history of ulcerative colitis. IV sedation per Anesthesia. PROCEDURE: After informed consent was obtained, the patient, was brought into the endoscopy unit. IV sedation was administered by Anesthesia under continuous monitoring. Digital rectal examination was normal. Initially the Olympus CF-160 flexible video colonoscope was then inserted in the rectum, gradually advanced into the cecum without any difficulty. Careful examination was performed as the scope was gradually being withdrawn. Ileocecal valve and the appendiceal orifice were visualized and appeared normal. Prep was excellent. Terminal ileum appeared normal. Mucosa of the cecum, ascending colon, transverse colon labeled scattered pseudopolyps but no evidence of active colitis. Mucosa of the, descending colon, sigmoid colon, appeared normal. There was mild mucosal erythema in the distal sigmoid colon and rectum and multiple biopsies were done from this area.. Retroflexion was performed in the rectum and no lesions were seen. The patient tolerated the procedure well. IMPRESSION: Mild mucosal erythema with friability noted in the rectum as well as in the distal sigmoid colon up to 25 cm from the anal verge status post multiple biopsies Scattered pseudopolyps noted in the cecum, ascending colon and transverse colon. Terminal ileum appeared normal RECOMMENDATIONS: Findings of this examination were discussed with the patient less her family. She was advised to follow with the biopsy results. She will continue with some lower every 8 weeks. He'll be seen in office in 2 months..
[2021-06-24] MEDS ORDERED: HYDROmorphone 0.5 MG/0.5 ML SYRINGE IVP ONE (12:36)
[2021-06-24 13:02] VITALS: BP 127/76; PULSE 81; RESP 20
== END 2021-06-24 13:17 | disposition home or self-care (01) ==
LOC: ORWHC2ENDO 08:50
PROVIDERS: ATTEND Internal Medicine Gastroenterology
DX: K52.9 Noninfective gastroenteritis and colitis, unspecified (principal); K51.90 Ulcerative colitis, unspecified, without complications; F17.200 Nicotine dependence, unspecified, uncomplicated; Z79.899 Other long term (current) drug therapy; Z88.5 Allergy status to narcotic agent; Z88.0 Allergy status to penicillin; Z88.8 Allergy status to other drugs, medicaments and biological substances
CPT/HCPCS: 88305; 45380; J2704; J1170